=== PATIENT | female | born 1950 | race Caucasian/White ===

== ENCOUNTER 2024-08-29 12:04 | Inpatient (IN) | payer OTHER, MEDICAID ==
[~2024-08-29] VITALS: Ht 165.1 cm; Wt 138.7 kg
[2024-08-29] VITALS (23 sets, daily range): BP systolic 57–133; BP diastolic 28–79; PULSE 63–154; RESP 10–20; O2SAT 92–99
--- NOTE | 2024-08-29 12:13 | ED.PDOC ---
History of Present Illness HPI Comments 74Y F with PMHx CHF, COPD, HTN, CKD, OA, and osteoporosis presents to ED via EMS for chief complaint BLE edema x1year. Pt reports edema fluctuates but today she called 911 because she is unable to move. Pt is taking Bumex. No other symptoms reported. 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 History Family History Family History: Unknown Social History Smoker: Non-Smoker Alcohol: Denies ETOH Use Drugs: Denies Drug Use Lives In: Home Constitutional: denies: chills, diaphoresis, fatigue, fever, malaise, sweats, weakness, others EENTM: denies: blurred vision, double vision, ear bleeding, ear discharge, ear drainage, ear pain, ear ringing, eye pain, eye redness, hearing loss, mouth pain, mouth swelling, nasal discharge, nose bleeding, nose congestion, nose pain, photophobia, tearing, throat pain, throat swelling, voice changes, others Respiratory: denies: cough, hemoptysis, orthopnea, SOB at rest, shortness of breath, SOB with excertion, stridor, wheezing, others Cardiovascular: reports: edema; denies: chest pain, dizzy spells, diaphoresis, Dyspnea on exertion, irregular heart beat, left arm pain, lightheadedness, palpitations, PND, syncope, others Gastrointestinal: denies: abdomen distended, abdominal pain, blood streaked bowels, constipated, diarrhea, dysphagia, difficulty swallowing, hematemesis, melena, nausea, poor appetite, poor fluid intake, rectal bleeding, rectal pain, vomiting, others Genitourinary: denies: abnormal vagina bleeding, burning, dyspareunia, dysuria, flank pain, frequency, hematuria, incontinence, pain, , vagina discharge, urgency, others Neurological: denies: dizziness, fainting, headache, left sided numbness, left sided weakness, numbness, paresthesia, pre-existing deficit, right sided numbness, right sided weakness, seizure, speech problems, tingling, tremors, weakness, others Musculoskeletal: denies: back pain, gout, joint pain, joint swelling, muscle pain, muscle stiffness, neck pain, others Integumetry: denies: bruises, change in color, change in hair/nails, dryness, laceration, lesions, lumps, rash, wounds, others Allergic/Immunocompromised: denies: Difficulty Healing, Frequent Infections, Hives, Itching, others Hematologic/Lymphatic: denies: anemia, blood clots, easy bleeding, easy bruising, swollen glands, others Endocrine: denies: excessive hunger, excessive sweating, excessive thirst, excessive urination, flushing, intolerance to cold, intolerance to heat, unexplained weight gain, unexplained weight loss, others Psychiatric: denies: anxiety, bipolar disorder, depression, hopeless, panic disorder, schizophrenia, sleepless, suicidal, others All Other Systems: Reviewed and Negative Physical Exam General Appearance: No Apparent Distress, Normal HEENT: Normal ENT Inspection, Pharynx Normal, TMs Normal Neck: Full Range of Motion, Non-Tender, Normal, Normal Inspection Respiratory: Chest Non-Tender, Lungs Clear, No Accessory Muscle Use, No Respiratory Distress, Normal Breath Sounds Cardiovascular: No JVD, No Murmur, No Gallop, Normal Peripheral Pulses, Regular Rate/Rhythm Breast Exam: Deferred Gastrointestinal: No Organomegaly, Non Tender, No Pulsatile Mass, Normal Bowel Sounds, Soft Genitalia: Deferred Pelvic: Deferred Rectal: Deferred Extremities: Leg edema, No calf tenderness, Normal capillary refill, Normal inspection, Normal range of motion, Non-tender Musculoskeletal : Apperance: Normal Neurologic: Alert, kiln fireman II-XII nml as Tested, No Motor Deficits, Normal Affect, Normal Mood, No Sensory Deficits Cerebellar Function: NOT DONE Reflexes: NOT DONE Skin: Dry, Normal Color, Warm Lymphatic: No Adenopathy Was a procedure done? Was a procedure done?: No Differential Dx Considerations may include: CHF exacerbation X-Ray, Labs, Meds, VS Vital Signs Date Time Temp Pulse Resp B/P (MAP) Pulse Ox O2 Delivery O2 Flow Rate FiO2 08/29/24 14:37 68 14 77/50 (59) 95 08/29/24 13:19 67 10 94 Nasal Cannula* 3 32 08/29/24 12:43 81 08/29/24 12:25 98.1 86 17 128/97 (107) 98 Lab Test 08/29/24 13:36 08/29/24 12:41 Range/Units Troponin I High Sensitivity 10 10 </=34 ng/L White Blood Count 7.9 4.4-10.8 10^3/uL Red Blood Count 3.23 L 4.0-5.20 10^6/uL Hemoglobin 8.6 L 12.2-16.2 g/dL Hematocrit 27.2 L 36.0-46.0 % Mean Corpuscular Volume 84.0 80.0-100.0 fL Mean Corpuscular Hemoglobin 26.5 L 28.0-32.0 pg Mean Corpuscular Hemoglobin Concent 31.6 L 32.0-36.0 g/dL Red Cell Distribution Width 16.5 H 11.8-14.3 % Platelet Count 256 140-450 10^3/uL Mean Platelet Volume 6.9 6.9-10.8 fL Neutrophils (%) (Auto) 81.1 H 37.0-80.0 % Lymphocytes (%) (Auto) 11.6 10.0-50.0 % Monocytes (%) (Auto) 6.1 0.0-12.0 % Eosinophils (%) (Auto) 0.9 0.0-7.0 % Basophils (%) (Auto) 0.3 0.0-2.0 % Neutrophils # (Auto) 6.4 1.6-8.6 10 ^3/uL Lymphocytes # (Auto) 0.9 0.4-5.4 10 ^3/uL Monocytes # (Auto) 0.5 0-1.3 10 ^3/uL Eosinophils # (Auto) 0.1 0-0.8 10 ^3/uL Basophils # (Auto) 0 0-0.2 10 ^3/uL Nucleated Red Blood Cells 0.1 % Sodium Level 124 L 136-145 mmol/L Potassium Level 5.5 H 3.5-5.1 mmol/L Chloride Level 84 L 98-107 mmol/L Carbon Dioxide Level 35 H 20-31 mmol/L Anion Gap 5 5-15 Blood Urea Nitrogen 93 *H 9-23 mg/dL Creatinine 5.22 H 0.550-1.02 mg/dL Glomerular Filtration Rate Calc 8 >90 mL/min BUN/Creatinine Ratio 17.8 10.0-20.0 Serum Glucose 76 74-106 mg/dL Calcium Level 9.4 8.7-10.4 mg/dL B-Type Natriuretic Peptide 258.85 0-100 pg/mL [place] [id number] Ph: [phone] DIAGNOSTIC IMAGING Diagnostic Imaging Report : [id number] Signed PATIENT: HORTENCIA CÁRDENAS ACCT: [id number] UNIT: [id number] : 1950 LOC: ER ROOM / BED: / AGE / SEX: 74 / F ADM STATUS: REG ER SERVICE 07 ORDERING PHYSICIAN: GREGG DUARTE MD PROCEDURE(s): CXRP - CHEST PORTABLE REASON: sob ORDER NUMBER(s): [id number], ACCESSION NUMBER(s): [id number] CHEST RADIOGRAPH Indication: sob Technique: Single frontal view of the chest was obtained Comparison: None FINDINGS: Lines and Tubes: None Lungs: Mild bilateral perihilar peribronchial thickening. Findings may represent bronchitis Pleura: No effusion. No pneumothorax. Cardiomediastinal contours: Unremarkable Bones: No acute osseous abnormality. IMPRESSION: 1. Mild bilateral perihilar peribronchial thickening findings may represent bronchitis. HS:Y ATED BY: JOSUE BAINS Jr., DO DICTATED DATE/TIME: 08/29/241243 SIGNED BY: JOSUE BAINS Jr., SIGNED DATE/TIME: 08/29/241243 CC: Time of 1ST Reevaluation: 12:36 Reevaluation 1ST: Unchanged Patient Education/Counseling: Diagnosis, Treatment Family Education/Counseling: No Family Present Departure 1 Departure Time of Disposition: 15:14 (Patient with a acute on chronic systolic dysfu nction with reduced EF. Patient having an acute CHF exacerbation. Patient needs diuresis every her blood pressure is too low. We will treat patient with a ionotropic assisted diuresis. We will admit patient to the ICU for further workup) Impression: Primary Impression: Acute on chronic systolic (congestive) heart failure Additional Impressions: Shortness of breath Cardiac volume overload Disposition: ADMITTED INPATIENT Admit to: ICU Condition: Critical Critical Care Note Critical Care Time?: Yes Critical care comment: Acute shortness of breath Authorized and Performed by: Gregg Duarte MD Total critical care time: Approximately 38 minutes Due to a high probability of clinically significant, life threatening deterioration, the patient required my highest level of preparedness to intervene emergently and I personally spent this critical care time directly and personally managing the patient. This critical care time included obtaining a history; examining the patient; pulse oximetry; ordering and review of studies; arranging urgent treatment with development of a management plan; evaluation of patient's response to treatment; frequent reassessment; and, discussions with other providers. This critical care time was performed to assess and manage the high probability of imminent, life-threatening deterioration that could result in multi-organ failure. It was exclusive of separately billable procedures and treating other patients and teaching time. Please see my other sections and the rest of the note for further information on patient assessment and treatment. Stability Stability form required: No Heart Score Heart Score: Heart Score Response (Comments) Value History N/A 0 EKG N/A 0 Age N/A 0 Risk Factors N/A 0 Troponin N/A 0 Total 0 I personally scribed for GREGG DUARTE MD ([email or web address]) on 08/29/24 at 12:13. Electronically submitted by Monse Roe ([employer]). I personally scribed for GREGG DUARTE MD ([email or web address]) on 08/29/24 at 12:51. Electronically submitted by Monse Roe ([employer]). GREGG DUARTE MD Aug 29, 2024 12:13
--- NOTE | 2024-08-29 12:44 | ECG ---
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
--- NOTE | 2024-08-29 12:46 | DVH ---
CHEST RADIOGRAPH Indication: sob Technique: Single frontal view of the chest was obtained Comparison: None FINDINGS: Lines and Tubes: None Lungs: Mild bilateral perihilar peribronchial thickening. Findings may represent bronchitis Pleura: No effusion. No pneumothorax. Cardiomediastinal contours: Unremarkable Bones: No acute osseous abnormality. IMPRESSION: 1. Mild bilateral perihilar peribronchial thickening findings may represent bronchitis. HS:Y
[2024-08-29 13:17] LABS: Basophils # (auto) 0 10 ^3/uL (0-0.2); Basophils % (auto) 0.3 % (0.0-2.0); Eosinophils # (auto) 0.1 10 ^3/uL (0-0.8); Eosinophils % (auto) 0.9 % (0.0-7.0); Hematocrit 27.2 % (36.0-46.0); Hemoglobin 8.6 g/dL (12.2-16.2); Lymphocytes # (auto) 0.9 10 ^3/uL (0.4-5.4); Lymphocytes % (auto) 11.6 % (10.0-50.0); Mean Corpuscular Hemoglobin 26.5 pg (28.0-32.0); Mean Corpuscular Hgb Conc. 31.6 g/dL (32.0-36.0); Monocytes # (auto) 0.5 10 ^3/uL (0-1.3); Monocytes % (auto) 6.1 % (0.0-12.0); Neutrophils # (auto) 6.4 10 ^3/uL (1.6-8.6); Neutrophils % (auto) 81.1 % (37.0-80.0); Nucleated Red Blood Cells % 0.1 %; Platelet Count (auto) 256 10^3/uL (140-450); Red Blood Cells 3.23 10^6/uL (4.0-5.20); Red Cell Distribution Width 16.5 % (11.8-14.3); White Blood Cell 7.9 10^3/uL (4.4-10.8)
[2024-08-29 13:52] LABS: Anion Gap 5 (5-15)
[2024-08-29 13:53] LABS: Calcium 9.4 mg/dL (8.7-10.4)
[2024-08-29 13:58] LABS: BUN/Creatinine Ratio 17.8 (10.0-20.0); Glucose 76 mg/dL (74-106)
[2024-08-29 14:02] LABS: Carbon Dioxide 35 mmol/L (20-31); Chloride 84 mmol/L (98-107); Potassium 5.5 mmol/L (3.5-5.1); Sodium 124 mmol/L (136-145)
[2024-08-29 14:04] LABS: Blood Urea Nitrogen 93 mg/dL (9-23)
[2024-08-29] MEDS: NOREPINEPHRINE 8 MG/250ML KIT 250 ML IV ONE (15:05)
[2024-08-29] MEDS: LIDOCAINE 1% (LOCAL ANESTH.) PF 5ml SDV ID ONE (15:15)
[2024-08-29] MEDS: NOREPINEPHRINE 8 MG/250ML KIT 250 ML IV SCH (15:26)
[2024-08-29] MEDS ORDERED: ONDANSETRON HCL 4 MG/2 ML VIAL IV PRN (17:00)
[2024-08-29] MEDS: ALBUMIN 25% 100 ML IV ONE (17:00)
[2024-08-29] MEDS ORDERED: MORPHINE SULFATE INJ 2 MG/ml SYRG IV PRN (17:00)
[2024-08-29] MEDS ORDERED: NITROGLYCERIN 0.4 MG SL TAB SL PRN (17:00)
[2024-08-29] MEDS ORDERED: LORazepam 2MG/ML-1ML VIAL IV PRN (17:00)
[2024-08-29] MEDS: NYSTATIN-TRIAMCINOLONE TOPICAL CRE 15GM TOP ONE (17:00)
[2024-08-29] MEDS ORDERED: ATOR20TA50 PO (17:08)
[2024-08-29] MEDS ORDERED: BUME2TAB5 PO (17:08)
[2024-08-29] MEDS ORDERED: MET25T PO (17:08)
[2024-08-29] MEDS ORDERED: PANT40T PO (17:08)
[2024-08-29] MEDS ORDERED: APIX2.5T PO (17:08)
[2024-08-29] MEDS ORDERED: ALLO100T PO (17:08)
[2024-08-29] MEDS ORDERED: GABA-1250 PO (17:08)
--- NOTE | 2024-08-29 17:19 | DVHINCON2 ---
Date of service: Aug 29, 2024 Referring Physician Reason for Consultation Acute kidney injury History of Present Illness 74-year-old patient with significant history of chronic kidney disease stage 3, hypokalemia, hypertension, COPD, pulmonary hypertension and severe diastolic hea rt failure, chronic leg edema, bed-bound who presents to the hospital because worsening lower extremity edema for the last one week associated with dyspnea and no improvement of the symptoms despite taking Bumex 2 mg in the morning and 1 mg at night in addition to metolazone that she took x1. Patient denies improvement in the urinary output with diuretics and due to the significant leg swelling she is unable to move. She denies fever chills, nausea vomiting or diarrhea. She has been taking her Aldactone in addition to the Bumex. Initial lab revealed a potassium of 5.5, acute kidney injury with elevated BUN and creatinine. 2D echo from previous hospitalization revealed LVEF of 55% with pulmonary hypertension and right-sided heart failure. Past Medical History CHF, diastolic, Chronic kidney disease three, hypertension, chronic leg edema Past Surgical History Denied Allergies: Coded Allergies: Sulfa Antibiotics (Verified Allergy, Mild, 08/29/24) Zinc Oxide (Verified Allergy, Mild, 08/29/24) Home Meds Reported Medications Gabapentin (Gabapentin) 300 Mg Cap, 300 MG PO BID 08/29/24 Metoprolol Tartrate (Lopressor) 25 Mg Tb, 1 TAB PO DAILY 08/29/24 Pantoprazole Sodium Sesquihydr (Pantoprazole Sodium) 40 Mg Tab, 1 TAB PO DAILY 08/29/24 Atorvastatin Calcium (ATORVASTATIN CALCIUM) 20 Mg Tab, 1 TAB PO DAILY 08/29/24 Bumetanide (Bumetanide) 2 Mg Tab, 1 TAB PO BID 08/29/24 Apixaban Base (ELIQUIS) 2.5 Mg Tab, 1 TAB PO BID 08/29/24 Allopurinol (Allopurinol) 100 Mg Tab, 1 TAB PO DAILY 08/29/24 Current Medications Current Medications Medications (Trade) Dose Ordered Sig/Nomi Route PRN Reason Start Time Stop Time Status Last Admin Norepinephrine Bitartrate 250 ml @ 3.75 mls/hr Q24H IV 08/29/24 15:00 08/29/24 15:26 Sodium Chloride (Saline Lock Ns) 10 ml QSHIFT@10,22 IV 08/29/24 22:00 Sodium Chloride (Saline Lock Ns) 10 ml Q8HR IV 08/29/24 22:00 UNV Acetaminophen/ Hydrocodone Bitart (Delia 5/325MG Tab) 1 tab Q4HP PRN PO MODERATE PAIN (4-6 PAIN SCALE) 08/29/24 17:00 UNV Ondansetron HCl (Zofran) 4 mg Q4HP PRN IV NAUSEA / VOMITING 08/29/24 17:00 UNV Docusate Sodium (Colace Capsule) 100 mg BIDPRN PRN PO FOR CONSTIPATION 08/29/24 17:00 UNV Acetaminophen (Tylenol Tablet) 650 mg Q6HP PRN PO PAIN SCALE 1-3 OR TEMP>100.4 08/29/24 17:00 UNV Nitroglycerin (Ntrostat Sublingual) 0.4 mg Q5MINP PRN SL FOR CHEST PAIN 08/29/24 17:00 UNV Morphine Sulfate 2 mg Q30M PRN IV FOR CHEST PAIN 08/29/24 17:00 UNV Chlordiazepoxide HCl (Librium Capsule) 50 mg Q8H PO 08/29/24 17:00 08/30/24 09:01 UNV Chlordiazepoxide HCl (Librium Capsule) 50 mg Q12HR PO 08/30/24 10:00 08/30/24 22:01 UNV Chlordiazepoxide HCl (Librium Capsule) 25 mg Q12HR PO 08/31/24 10:00 08/31/24 22:01 UNV Chlordiazepoxide HCl (Librium Capsule) 25 mg QAM PO 09/01/24 07:00 09/01/24 07:01 UNV Lorazepam (Ativan Inj) 1 mg Q2HP PRN IV ALCOHOL WITHDRAWAL SYMPTOMS 08/29/24 17:00 UNV Multivitamins (Mvi Tab) 1 tab DAILY PO 08/30/24 10:00 UNV Folic Acid 1 mg DAILY PO 08/30/24 10:00 UNV Thiamine HCl 100 mg DAILY PO 08/30/24 10:00 UNV Allopurinol (Zyloprim Tablet) 100 mg DAILY PO 08/30/24 10:00 UNV Apixaban (Eliquis) 2.5 mg BID PO 08/29/24 22:00 UNV Atorvastatin Calcium (Lipitor) 20 mg DAILY PO 08/30/24 10:00 UNV Gabapentin (Neurontin Capsule) 300 mg BID PO 08/29/24 22:00 UNV Metoprolol Tartrate (Lopressor Tablet) 25 mg DAILY PO 08/30/24 10:00 UNV Pantoprazole Sodium (Protonix Tablet) 40 mg DAILY PO 08/30/24 10:00 UNV Dobutamine HCl/ Dextrose 250 ml @ 51.6 mls/hr Q4H51M IV 08/29/24 17:15 UNV Family History Hypertension in the father Social History Denies smoking alcohol or drug abuse Review of Systems HEENT: Oral mucosa dry Neck no JVD Cardiovascular: Denies for chest pain denies orthopnea or PND Respiratory: Positive for shortness of breath Gastrointestinal: Denies for nausea vomiting Musculoskeletal: Positive for worsening leg edema Neurological: Denies focal weakness Dermatological: Denies any rash The rest of the review of systems were reviewed pertinent positives and pertinent negatives are as per HPI up to 12 points review of systems H&P Exam Vital Signs/I&O Vital Sign Date Time Temp Pulse Resp B/P (MAP) Pulse Ox O2 Delivery O2 Flow Rate FiO2 08/29/24 16:01 73 08/29/24 15:26 95/44 08/29/24 14:37 14 95 08/29/24 13:19 Nasal Cannula* 3 32 08/29/24 12:25 98.1 Physical Exam HEENT: No evidence of JVD, no oral ulcers. Pulmonary: Crackles on auscultation bilaterally Cardiovascular S1-S2, no S3 or S4 Abdomen: Bowel sounds positive, soft no rebound tenderness Skin: No rash : Extremities: 3+ pitting edema in the lower extremities bilaterally proximal abdominal wall Neurological: Alert, oriented, no focal weakness Labs/Diagnostic Data Labs/Diagnostic Data Laboratory Tests Test 08/29/24 15:37 08/29/24 13:36 08/29/24 12:41 Range/Units Troponin I High Sensitivity 10 10 10 </=34 ng/L White Blood Count 7.9 4.4-10.8 10^3/uL Red Blood Count 3.23 L 4.0-5.20 10^6/uL Hemoglobin 8.6 L 12.2-16.2 g/dL Hematocrit 27.2 L 36.0-46.0 % Mean Corpuscular Volume 84.0 80.0-100.0 fL Mean Corpuscular Hemoglobin 26.5 L 28.0-32.0 pg Mean Corpuscular Hemoglobin Concent 31.6 L 32.0-36.0 g/dL Red Cell Distribution Width 16.5 H 11.8-14.3 % Platelet Count 256 140-450 10^3/uL Mean Platelet Volume 6.9 6.9-10.8 fL Neutrophils (%) (Auto) 81.1 H 37.0-80.0 % Lymphocytes (%) (Auto) 11.6 10.0-50.0 % Monocytes (%) (Auto) 6.1 0.0-12.0 % Eosinophils (%) (Auto) 0.9 0.0-7.0 % Basophils (%) (Auto) 0.3 0.0-2.0 % Neutrophils # (Auto) 6.4 1.6-8.6 10 ^3/uL Lymphocytes # (Auto) 0.9 0.4-5.4 10 ^3/uL Monocytes # (Auto) 0.5 0-1.3 10 ^3/uL Eosinophils # (Auto) 0.1 0-0.8 10 ^3/uL Basophils # (Auto) 0 0-0.2 10 ^3/uL Nucleated Red Blood Cells 0.1 % Sodium Level 124 L 136-145 mmol/L Potassium Level 5.5 H 3.5-5.1 mmol/L Chloride Level 84 L 98-107 mmol/L Carbon Dioxide Level 35 H 20-31 mmol/L Anion Gap 5 5-15 Blood Urea Nitrogen 93 *H 9-23 mg/dL Creatinine 5.22 H 0.550-1.02 mg/dL Glomerular Filtration Rate Calc 8 >90 mL/min BUN/Creatinine Ratio 17.8 10.0-20.0 Serum Glucose 76 74-106 mg/dL Calcium Level 9.4 8.7-10.4 mg/dL B-Type Natriuretic Peptide 258.85 0-100 pg/mL Chest x-ray shows increased interstitial marking Assessment Assessment: 1. Acute kidney injury on chronic kidney disease stage 3 likely cardiorenal 2. Hypotension, cardiogenic most likely 3. Acute diastolic heart failure exacerbation 4. Hyperkalemia 5. Hyponatremia, hypervolemic 6. Morbid obesity Plan: Bumex drip, albumin Lokelma May need renal replacement therapy if above measures do not improve renal function Cardiology consult Fluid restriction Insert Peoples catheter strict I's and O's Pressor support Hold antihypertensive meds Thank you very much for allowing me to participate in the care of this patient Plan discussed with: Patient LUIS PIEDRA MD Aug 29, 2024 17:19
--- NOTE | 2024-08-29 17:33 | DVHHP2 ---
History of Present Illness Reason for Visit: Bilateral lower extremity swelling History of Present Illness Viviana Bagley is a 74-year-old female with past medical history of COPD, ETOH dependance, CHF, hypertension, arthritis, chronic kidney disease, and osteoporosis, who came to the hospital for bilateral lower extremity swelling. Patient is bedbound at her baseline, she lives alone, but her daughter lives in a different house on the same property. She also has a forestry engineer who helps her. Patient has a history of renal failure, on large doses of diuretics at home. States at home she can usually move her legs in bed, but has been unable to due to the swelling the last couple of days. Patient also states that she drinks 1/2 a bottle of whiskey a day. On arrival to ER patient's BP was low and she was started on Levophed. She has +4 pitting edema to bilateral lower extremities. Cardiovascular: AFIB, CHF, HTN Pulmonary: COPD Musculoskeletal: Osteoarthritis Renal/: Chronic renal insuff Past Surgical History: Other (Bilateral ankles, ), Total knee replacement (Right) Smoke: No ALCOHOL: heavy Drugs: None Lives: Alone (daughter is on the same property but different house) Domestic Violence: Neg Review of Systems Constitutional: No: Fever, Chills, Sweats, Weakness, Malaise, Other Eyes: No: Pain, Vision change, Conjunctivae inflammation, Eyelid inflammation, Other, Redness ENT: No: Ear pain, Ear discharge, Nose pain, Nose discharge, Nose congestion, Mouth pain, Mouth swelling, Throat pain, Throat swelling, Other Respiratory: No: Cough, Dry, Shortness of breath, SOB with excertion, Wheezing, Hemoptysis, Pleuritic Pain, Sputum, Wheezing, Other Cardiovascular: Edema (Bilateral lower extremity +4 pitting edema); No: Chest Pain, Palpitations, Orthopnea, Paroxysmal Noc. Dyspnea, Lt Headedness, Other Gastrointestinal: No: Nausea, Vomiting, Abdominal Pain, Diarrhea, Constipation, Melena, Hematochezia, Other Genitourinary: No Dysuria, No Frequency, No Incontinence, No Hematuria, No Retention, No Other Musculoskeletal: No: other, neck pain, shoulder pain, arm pain, back pain, hand pain, leg pain, foot pain Skin: No: Rash, Lesions, Jaundice, Bruising, Other Neurological: No: Weakness, Numbness, Incoordination, Change in speech, Confusion, Seizures, Other Allergies: Coded Allergies: Sulfa Antibiotics (Verified Allergy, Mild, 08/29/24) Zinc Oxide (Verified Allergy, Mild, 08/29/24) Medications Current Medications Medications Dose Ordered Sig/Nomi Route Start Time Stop Time Status Last Admin Dose Admin Norepinephrine Bitartrate 250 ml @ 3.75 mls/hr Q24H IV 08/29/24 15:00 08/29/24 15:26 3.75 MLS/HR Sodium Chloride 10 ml QSHIFT@10,22 IV 08/29/24 22:00 Sodium Chloride 10 ml Q8HR IV 08/29/24 22:00 UNV Acetaminophen/ Hydrocodone Bitart 1 tab Q4HP PRN PO 08/29/24 17:00 UNV Ondansetron HCl 4 mg Q4HP PRN IV 08/29/24 17:00 UNV Docusate Sodium 100 mg BIDPRN PRN PO 08/29/24 17:00 UNV Acetaminophen 650 mg Q6HP PRN PO 08/29/24 17:00 UNV Nitroglycerin 0.4 mg Q5MINP PRN SL 08/29/24 17:00 UNV Morphine Sulfate 2 mg Q30M PRN IV 08/29/24 17:00 UNV Chlordiazepoxide HCl 50 mg Q8H PO 08/29/24 17:00 08/30/24 09:01 UNV Chlordiazepoxide HCl 50 mg Q12HR PO 08/30/24 10:00 08/30/24 22:01 UNV Chlordiazepoxide HCl 25 mg Q12HR PO 08/31/24 10:00 08/31/24 22:01 UNV Chlordiazepoxide HCl 25 mg QAM PO 09/01/24 07:00 09/01/24 07:01 UNV Lorazepam 1 mg Q2HP PRN IV 08/29/24 17:00 UNV Multivitamins 1 tab DAILY PO 08/30/24 10:00 UNV Folic Acid 1 mg DAILY PO 08/30/24 10:00 UNV Thiamine HCl 100 mg DAILY PO 08/30/24 10:00 UNV Allopurinol 100 mg DAILY PO 08/30/24 10:00 UNV Apixaban 2.5 mg BID PO 08/29/24 22:00 UNV Atorvastatin Calcium 20 mg DAILY PO 08/30/24 10:00 UNV Gabapentin 300 mg BID PO 08/29/24 22:00 UNV Metoprolol Tartrate 25 mg DAILY PO 08/30/24 10:00 UNV Exam Vital Signs Vital Signs Date Time Temp Pulse Resp B/P (MAP) Pulse Ox O2 Delivery O2 Flow Rate FiO2 08/29/24 16:01 73 08/29/24 15:26 95/44 08/29/24 14:37 14 95 08/29/24 13:19 Nasal Cannula* 3 32 08/29/24 12:25 98.1 General Appearance: Alert, Oriented X3, Cooperative, mild distress HEENT: Atraumatic, PERRLA Respiratory: Normal air movement, Other (Diminshed breath sounds) Cardiovascular: Normal S1, Normal S2, Other (A-Fib) Abdominal: Normal bowel sounds, Soft, No tenderness, No hepatospenomegaly, Other (edema) Extremities: No clubbing, No cyanosis, Other (bilateral +4 pitting edema) Skin: No rashes, No breakdown (Right ear breakdown from oxygen tube) Neuro: Other (bedbound at baseline) Psych/Mental Status: Mental status NL, Mood NL Labs/Xrays Labs Test 08/29/24 15:37 08/29/24 12:41 Range/Units Troponin I High Sensitivity 10 </=34 ng/L White Blood Count 7.9 4.4-10.8 10^3/uL Red Blood Count 3.23 L 4.0-5.20 10^6/uL Hemoglobin 8.6 L 12.2-16.2 g/dL Hematocrit 27.2 L 36.0-46.0 % Mean Corpuscular Volume 84.0 80.0-100.0 fL Mean Corpuscular Hemoglobin 26.5 L 28.0-32.0 pg Mean Corpuscular Hemoglobin Concent 31.6 L 32.0-36.0 g/dL Red Cell Distribution Width 16.5 H 11.8-14.3 % Platelet Count 256 140-450 10^3/uL Mean Platelet Volume 6.9 6.9-10.8 fL Neutrophils (%) (Auto) 81.1 H 37.0-80.0 % Lymphocytes (%) (Auto) 11.6 10.0-50.0 % Monocytes (%) (Auto) 6.1 0.0-12.0 % Eosinophils (%) (Auto) 0.9 0.0-7.0 % Basophils (%) (Auto) 0.3 0.0-2.0 % Neutrophils # (Auto) 6.4 1.6-8.6 10 ^3/uL Lymphocytes # (Auto) 0.9 0.4-5.4 10 ^3/uL Monocytes # (Auto) 0.5 0-1.3 10 ^3/uL Eosinophils # (Auto) 0.1 0-0.8 10 ^3/uL Basophils # (Auto) 0 0-0.2 10 ^3/uL Nucleated Red Blood Cells 0.1 % Sodium Level 124 L 136-145 mmol/L Potassium Level 5.5 H 3.5-5.1 mmol/L Chloride Level 84 L 98-107 mmol/L Carbon Dioxide Level 35 H 20-31 mmol/L Anion Gap 5 5-15 Blood Urea Nitrogen 93 *H 9-23 mg/dL Creatinine 5.22 H 0.550-1.02 mg/dL Glomerular Filtration Rate Calc 8 >90 mL/min BUN/Creatinine Ratio 17.8 10.0-20.0 Serum Glucose 76 74-106 mg/dL Calcium Level 9.4 8.7-10.4 mg/dL B-Type Natriuretic Peptide 258.85 0-100 pg/mL CHEST RADIOGRAPH FINDINGS: Lines and Tubes: None Lungs: Mild bilateral perihilar peribronchial thickening. Findings may represen t bronchitis Pleura: No effusion. No pneumothorax. Cardiomediastinal contours: Unremarkable Bones: No acute osseous abnormality. IMPRESSION: 1. Mild bilateral perihilar peribronchial thickening findings may represent bronchitis. 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 Procedure Category Date Status Time Admit ADMIT 08/29/24 Transmitted 17:00 Code Status CODE 08/29/24 Transmitted 17:00 Renal DIET 08/29/24 Transmitted Standard(2gna,3gk,Lopho) Dinner Sodium Chloride Lock PHA 08/29/24 Logged (Saline Lock Ns) 22:00 Hydrocodone-Acet PHA 08/29/24 Logged 5/325mg Tab ([place] 17:00 Ondansetron Hcl PHA 08/29/24 Logged (Zofran) 17:00 Docusate Sodium PHA 08/29/24 Logged Capsule (Colace 17:00 Complete Blood Count LAB 08/30/24 Verified 04:00 Comprehensive LAB 08/30/24 Verified Metabolic Panel 04:00 Condition: Critical MCKENZIE 08/29/24 In Process 17:00 Acetaminophen Tablet PHA 08/29/24 Logged (Tylenol Tablet) 17:00 Nitroglycerin PHA 08/29/24 Logged Sublingual (Ntrostat 17:00 Morphine Sulfate PHA 08/29/24 Logged Injection 17:00 Stat Ekg For Chest MCKENZIE 08/29/24 In Process Pain 17:00 Notify Of Changes MCKENZIE 08/29/24 In Process From Base 17:00 Watch Dial Printer For [facility] 08/29/24 In Process 24 Hours 17:00 Emergency Dysrhythmia MCKENZIE 08/29/24 In Process Protocol 17:00 Rhythm Strips Once [facility] 08/29/24 In Process Every Shift 17:00 Oxygen By Nasal RT 08/29/24 Transmitted Cannula 17:00 Chlordiazepoxide Hcl PHA 08/29/24 Logged Capsule (Librium Ca 17:00 Chlordiazepoxide Hcl PHA 08/30/24 Logged Capsule (Librium Ca 10:00 Chlordiazepoxide Hcl PHA 08/31/24 Logged Capsule (Librium Ca 10:00 Chlordiazepoxide Hcl PHA 09/01/24 Logged Capsule (Librium Ca 07:00 Etoh Withdrawal MCKENZIE 08/29/24 In Process Assessment 17:00 Lorazepam 2mg/Ml Inj PHA 08/29/24 Logged (Ativan Inj) 17:00 Multiple Vitamin PHA 08/29/24 Logged Tablet (Mvi Tab) 17:00 Multiple Vitamin PHA 08/30/24 Logged Tablet (Mvi Tab) 10:00 Folic Acid Tablet PHA 08/29/24 Logged 17:00 Folic Acid Tablet PHA 08/30/24 Logged 10:00 Thiamine Tab PHA 08/29/24 Logged 17:00 Thiamine Tab PHA 08/30/24 Logged 10:00 Allopurinol Tablet PHA 08/30/24 Transmitted (Zyloprim Tablet) 10:00 Apixaban (Eliquis) PHA 08/29/24 Transmitted 22:00 Atorvastatin (Lipitor) PHA 08/30/24 Transmitted 10:00 Gabapentin Capsule PHA 08/29/24 Transmitted (Neurontin Capsule) 22:00 Metoprolol Tartrate PHA 08/30/24 Transmitted Tablet (Lopressor Ta 10:00 Pantoprazole Tablet PHA 08/30/24 Transmitted (Protonix Tablet) 10:00 Date of Service: Aug 29, 2024 Billing Provider: RONALD RIVERA Common Visit Codes: 34280-[id number] INP/OBS CARE (HIGH) RONALD RIVERA Aug 29, 2024 17:33
--- NOTE | 2024-08-29 17:51 | DVHINCON2 ---
Date of service: Aug 29, 2024 History of Present Illness HPI Patient is a 74-year-old female who presented to the hospital with generalized weakness. She has been bed-bound for few years. She mentions that she was feeling more weak and could not even move in the bed and decided to come to the hospital. She also has baseline history of generalized swelling which occasionally worsens or improves. The swelling goes back for years. She mentions that the swelling increased for the past week. As outpatient, the patient is on Bumex. She mentions that she does go to slip tender regularly. Admission assessment had been acute on chronic heart failure and Cardiology was involved. It is of note that the patient started coming to our office in March 2022 but has been noncompliant with followups. Last visit inside the office was actually in March 2022. For awhile (up to September 2023) she was lost to follow up. Since September 2023, the patient has had multiple phone visits and has not come for physical exam. She has not come for requested echocardiograms/tests. She did have echocardiogram in [facility] (October 2023) which has reported preserved left ventricular systolic function and right ventricular systolic pressure of 31 mm Hg. There was question (unproven) about diastolic heart failure. She does have baseline CKD. She does have morbid obesity with poor functional capacity. She has had multiple surgeries in the bilateral feet. She also has history of COPD/asthma with chronic respiratory failure (on home oxygen). She also has history of atrial fibrillation for which is on Eliquis as outpatient. Since arrival to Emergency room, the patient's blood pressure was found to be low and she has been started on pressure support and the plan is to manage the patient in ICU. Home Meds Reported Medications Metoprolol Tartrate (Lopressor) 25 Mg Tb, 1 TAB PO DAILY 08/29/24 Gabapentin (Gabapentin) 300 Mg Cap, 300 MG PO BID 08/29/24 Pantoprazole Sodium Sesquihydr (Pantoprazole Sodium) 40 Mg Tab, 1 TAB PO DAILY 08/29/24 Atorvastatin Calcium (ATORVASTATIN CALCIUM) 20 Mg Tab, 1 TAB PO DAILY 08/29/24 Bumetanide (Bumetanide) 2 Mg Tab, 1 TAB PO BID 08/29/24 Apixaban Base (ELIQUIS) 2.5 Mg Tab, 1 TAB PO BID 08/29/24 Allopurinol (Allopurinol) 100 Mg Tab, 1 TAB PO DAILY 08/29/24 Past Medical History Others Past medical history includes morbid obesity, atrial fibrillation (on Eliquis as outpatient), COPD/asthma with chronic respiratory failure on home oxygen, hypertension, hyperlipidemia, chronic lymphedema, rheumatoid arthritis, ost eoarthritis, peripheral vascular disease, CKD, anemia, old history of alcohol abuse, neuropathy, gout, old history of right and left foot fracture and their management, status post right knee replacement, bed-bound at baseline and functional quadriplegia. There was question about diastolic heart failure (unproven). Smoker: No Hx (Negative) Drugs: None Review of Systems Constitutional: Weakness Ears, Nose, & Throat: No symptom reported Eyes: No symptom reported Pulmonary/Respiratory: No symptom reported Cardiovascular: No symptom reported Gastrointestinal: No symptom reported Genitourinary: No symptom reported All Other Systems 14 point review of system was performed. Relevant findings as per above and as per HPI. Otherwise, negative. H&P Exam Vital Signs Vital Signs Date Time Temp Pulse Resp B/P (MAP) Pulse Ox O2 Delivery O2 Flow Rate FiO2 08/29/24 16:01 73 08/29/24 15:26 95/44 08/29/24 14:37 14 95 08/29/24 13:19 Nasal Cannula* 3 32 08/29/24 12:25 98.1 General Appeara: Obese Eye Exam: bilateral eye PERRL Mouth: Dry mouth Pulmonary/Respiratory: Rhonci Cardiovascular/Chest: Systolic murmur, Irregularly irregular Peripheral Pulses: 2+ carotid (R), 2+ carotid (L), 2+ femoral (R), 2+ femoral (L) Abdominal Exam: Normal bowel sounds, Other (obese) Neuro/Mental St: Alert, Oriented Appearance: Appropriate appearance Eye contact/ Speech: Cooperative Labs/Xrays Labs Test 08/29/24 15:37 08/29/24 12:41 Range/Units Troponin I High Sensitivity 10 </=34 ng/L White Blood Count 7.9 4.4-10.8 10^3/uL Red Blood Count 3.23 L 4.0-5.20 10^6/uL Hemoglobin 8.6 L 12.2-16.2 g/dL Hematocrit 27.2 L 36.0-46.0 % Mean Corpuscular Volume 84.0 80.0-100.0 fL Mean Corpuscular Hemoglobin 26.5 L 28.0-32.0 pg Mean Corpuscular Hemoglobin Concent 31.6 L 32.0-36.0 g/dL Red Cell Distribution Width 16.5 H 11.8-14.3 % Platelet Count 256 140-450 10^3/uL Mean Platelet Volume 6.9 6.9-10.8 fL Neutrophils (%) (Auto) 81.1 H 37.0-80.0 % Lymphocytes (%) (Auto) 11.6 10.0-50.0 % Monocytes (%) (Auto) 6.1 0.0-12.0 % Eosinophils (%) (Auto) 0.9 0.0-7.0 % Basophils (%) (Auto) 0.3 0.0-2.0 % Neutrophils # (Auto) 6.4 1.6-8.6 10 ^3/uL Lymphocytes # (Auto) 0.9 0.4-5.4 10 ^3/uL Monocytes # (Auto) 0.5 0-1.3 10 ^3/uL Eosinophils # (Auto) 0.1 0-0.8 10 ^3/uL Basophils # (Auto) 0 0-0.2 10 ^3/uL Nucleated Red Blood Cells 0.1 % Sodium Level 124 L 136-145 mmol/L Potassium Level 5.5 H 3.5-5.1 mmol/L Chloride Level 84 L 98-107 mmol/L Carbon Dioxide Level 35 H 20-31 mmol/L Anion Gap 5 5-15 Blood Urea Nitrogen 93 *H 9-23 mg/dL Creatinine 5.22 H 0.550-1.02 mg/dL Glomerular Filtration Rate Calc 8 >90 mL/min BUN/Creatinine Ratio 17.8 10.0-20.0 Serum Glucose 76 74-106 mg/dL Calcium Level 9.4 8.7-10.4 mg/dL B-Type Natriuretic Peptide 258.85 0-100 pg/mL Assessment/Plan Plan Patient is a 74-year-old female who presented to the hospital with generalized weakness. She has been bed-bound for few years. She mentions that she was feeling more weak and could not even move in the bed and decided to come to the hospital. She also has baseline history of generalized swelling which occasionally worsens or improves. The swelling goes back for years. She mentions that the swelling increased for the past week. As outpatient, the patient is on Bumex. She mentions that she does go to slip tender regularly. Admission assessment had been acute on chronic heart failure and Cardiology was involved. It is of note that the patient started coming to our office in March 2022 but has been noncompliant with followups. Last visit inside the office was actually in March 2022. For awhile (up to September 2023) she was lost to follow up. Since September 2023, the patient has had multiple phone visits and has not come for physical exam. She has not come for requested echocardiograms/tests. She did have echocardiogram in [facility] (October 2023) which has reported preserved left ventricular systolic function and right ventricular systolic pressure of 31 mm Hg. Repeat echocardiograms in [facility] ( revealed dilated right side, LVEF of 50 to 55% and RVSP of 51 mmHg (in favor of diastolic heart failure). She does have baseline CKD. She does have morbid obesity with poor functional capacity. She has had multiple surgeries in the bilateral feet. She also has history of COPD/asthma with chronic respiratory failure (on home oxygen). She also has history of atrial fibrillation for which is on Eliquis as outpatient. She drinks alcohol (whisky) daily. Since arrival to Emergency room, the patient's blood pressure was found to be low and she has been started on pressure support and the plan is to manage the patient in ICU. Morbidly obese. Lying flat in bed and not in acute distress. No JVD. Mucosa is dry. Mucosa is pink. No JVD. No carotid bruit. Not using accessory muscles of breathing. Scattered rhonchi in the lungs is heard. Cardiac: Irregular, no thrill. Abdomen is obese and soft. There is no gross hepatomegaly, but it is presence can not be ruled out (body habitus, morbidly obese). There is 3+ edema in bilateral lower extremities which extends to abdominal wall. Past medical history includes morbid obesity, atrial fibrillation (on Eliquis as outpatient), COPD/asthma with chronic respiratory failure on home oxygen, hypertension, hyperlipidemia, chronic lymphedema, Diastolic heart failure with type 2 pulmonary hypertension, rheumatoid arthritis, osteoarthritis, peripheral vascular disease, CKD, anemia, old history of alcohol abuse, neuropathy, gout, old history of right and left foot fracture and their management, status post right knee replacement, bed-bound at baseline and functional quadriplegia. Patient drinks whiskey daily. Echocardiogram of October 24 2023 (performed in [facility]) revealed ejection fraction of 60%, mild biatrial enlargement, mild MR/TR and right ventricular systolic pressure of 31 mm Hg. Echocardiogram of (performed in [facility]) revealed: EF of 50 to 55%, Dilated right ventricle with normal systolic function. Severe biatrial enlargement. Mild AI, mild to moderate MR, moderate TR and RVSP of 51 mmHg. Ascending Aorta was 3.7 cm. Hemoglobin: 8.6 Creatinine: 5.22 Potassium: 5.5 Sodium: 124 Troponin (high sensitive): 10 - 10 - 10 BNP: 258.85 Chest x-ray revealed: IMPRESSION: 1. Mild bilateral perihilar peribronchial thickening findings may represent bronchitis. EKG revealed atrial fibrillation with moderate ventricular response, incomplete right bundle branch block and low voltage QRS Tele reveals atrial fibrillation with moderate ventricular response The patient is a 74-year-old female with poor functional capacity and morbid obesity who presented with generalized weakness. It is of note that the patient does have baseline history of functional quadriplegia. Complaints of worsening weakness. Does have history of atrial fibrillation and is on chronic anticoagulation as outpatient (Eliquis). Does have baseline history of chronic lower extremity edema for which takes Bumex. Does have noncompliance to follow ups. Does have history of lymphedema which could have contributed to the clinical picture. In examination does have significant pitting edema presently. It is of note that the BNP is normal which is against heart failure, but also, the patient does have significant obesity which may be a reason of heart failure without increase in BNP. Does have history of Diastolic heart failure with type 2 pulmonary hypertension which could have contributed to clinical presentation. Patient was found to have hypotension. Kidney function has worsened which may be secondary to baseline worsening of kidney function or over-diuresis or Cardiorenal etiology? Patient usually follows with Nephrology as outpatient. Clinically, the patient does have generalized swelling but mucosa is dry. Acute on chronic diastolic heart failure Pulmonary Hypertension, type 2 VIJAYA on CKD Alcohol abuse Morbid obesity Poor functional capacity Bed-bound at baseline Hypertension, history of Hypotension on presentation Atrial fibrillation, chronic Hyperlipidemia Osteoarthritis Rheumatoid arthritis Peripheral vascular disease Cardiac suggestion for management: Manage in ICU Fluid management (IV diuresis) as per Nephrology Pressure support (dobutamine) is suggested at this point Follow up electrolytes and kidney function tests and correct abnormalities Request for Echocardiogram Request for TSH Request for D-dimer (if abnormal, request for venous duplex of lower ext and V/Q scan) Full anticoagulation (on Eliquis presently), long-term Consider IV albumin Consider U/A to rule out Nephropathy and Proteinuria Nephrology evaluation/follow up. Further evaluation and management depends on the above and clinical course Thank you for consultation A total of 55 minutes was spent reviewing the patient record, examining the patient, making a diagnostic and therapeutic plan, discussing this plan with medical personnel, following up on diagnostic studies and following the patient for clinical stability excluding any and all procedures. At least 50% of this time was spent in direct, [id number] contact. Thank you for allowing me to participate in this patient's care. Further recommendations will depend on patient's clinical course. Please do not hesitate to contact me if you have any questions or concerns. This medical document was created using electronic medical record system with [employer] computerized dictation system. Although this document has been carefully reviewed, there may still be some phonetic and typographical errors. These areas are purely typographical due to the imperfection of the software programs, and do not reflect any compromise in the patient's medical care. Plan discussed with: Patient, Other (nurse) ROSS BRAY MD Aug 29, 2024 17:51
[2024-08-29] MEDS: FOLIC ACID 1 MG TAB PO ONE (17:53)
[2024-08-29] MEDS: MULTIPLE VITAMIN TAB PO ONE (17:53)
[2024-08-29] MEDS: THIAMINE HCL 100 MG TAB PO ONE (17:53)
[2024-08-29] MEDS: chlordiazePOXIDE HCL 25 MG CAP PO SCH (17:54)
[2024-08-29] MEDS: SODIUM ZIRCONIUM CYCL 10 GM PAK PO ONE (17:54)
[2024-08-29] MEDS: DOBUTamine 1000MCG/ML 250 ML IV SCH (17:57)
[2024-08-29 18:44] LABS: Urine Bacteria FEW /hpf (None Seen); Urine Blood Negative /uL (Negative); Urine Clarity Clear (Clear); Urine Color Colorless (Yellow); Urine Hyaline Cast FEW /lpf (0 - 2); Urine Protein, UAD Negative (Negative); Urine Specific Gravity 1.007 (1.001-1.035); Urine Squamous Epithelial Cell FEW /hpf (<5); Urine Urobilinogen Normal (Negative); Urine WBC < 1 /HPF (0-5)
[2024-08-29] MEDS: BUMETANIDE INJECTION 25 MG in GIVE UN-DILUTED 0 ML IV SCH (19:00)
[2024-08-29] MEDS: BUMETANIDE 2.5mg/10ml (0.25 mg/ml) INJ IV ONE (19:04)
[2024-08-29] MEDS: SODIUM CHLOR 0.9% PF (SALINE LOCK) 10ML VIAL/SYR IV SCH ×2 (22:00)
[2024-08-29] MEDS: APIXABAN 2.5 MG TAB PO SCH (22:26)
[2024-08-29] MEDS: GABAPENTIN 300 MG CAP PO SCH (22:26)
[2024-08-30] VITALS (98 sets, daily range): BP systolic 67–138; BP diastolic 29–87; PULSE 67–150; RESP 9–24; TEMP 97.7–98.1; O2SAT 92–100
[2024-08-30] MEDS: ALBUMIN 25% 50 ML IV SCH ×2 (00:04→11:15)
[2024-08-30] MEDS: HYDROcodone-ACET 5/325MG TAB PO PRN (00:15)
[2024-08-30 07:12] LABS: Basophils # (auto) 0 10 ^3/uL (0-0.2); Basophils % (auto) 0.1 % (0.0-2.0); Eosinophils # (auto) 0.1 10 ^3/uL (0-0.8); Eosinophils % (auto) 0.8 % (0.0-7.0); Hematocrit 24.6 % (36.0-46.0); Lymphocytes # (auto) 0.9 10 ^3/uL (0.4-5.4); Lymphocytes % (auto) 11.6 % (10.0-50.0); Mean Corpuscular Hemoglobin 27.3 pg (28.0-32.0); Mean Corpuscular Hgb Conc. 32.5 g/dL (32.0-36.0); Mean Corpuscular Volume 83.8 fL (80.0-100.0); Monocytes # (auto) 0.4 10 ^3/uL (0-1.3); Monocytes % (auto) 6.1 % (0.0-12.0); Neutrophils % (auto) 81.4 % (37.0-80.0); Nucleated Red Blood Cells % 0.1 %; Platelet Count (auto) 229 10^3/uL (140-450); Red Blood Cells 2.94 10^6/uL (4.0-5.20); Red Cell Distribution Width 16.5 % (11.8-14.3); White Blood Cell 7.3 10^3/uL (4.4-10.8)
[2024-08-30 07:28] LABS: Albumin 3.9 g/dL (3.2-4.8); Alkaline Phosphatase 99 U/L (46-116); Anion Gap 7 (5-15); BUN/Creatinine Ratio 17.3 (10.0-20.0); Calcium 9.6 mg/dL (8.7-10.4); Potassium 4.9 mmol/L (3.5-5.1)
[2024-08-30 07:30] LABS: Bilirubin, Total 1.3 mg/dL (0.2-1.0); Carbon Dioxide 34 mmol/L (20-31); Chloride 85 mmol/L (98-107); Sodium 126 mmol/L (136-145); Total Protein 6.6 g/dL (5.7-8.2)
[2024-08-30 07:31] LABS: Alanine Aminotransferase < 9 U/L (7-40); Aspartate Aminotransferase < 8 U/L (13-40); Glucose 115 mg/dL (74-106)
[2024-08-30 07:32] LABS: Blood Urea Nitrogen 88 mg/dL (9-23)
[2024-08-30 07:39] LABS: CRP High Sensitivity 0.93 mg/dL (<1.0)
[2024-08-30 07:58] LABS: Erythrocyte Sedimentation Rate 45 mm/hr (0-20)
--- NOTE | 2024-08-30 08:16 | DVHPN2 ---
Progress Note - Dictate Date Seen: Aug 30, 2024 Medical Necessity Reason Pt with a Central, PICC or Fol: Yes vital signs Vital Sign Date Time Temp Pulse Resp B/P (MAP) Pulse Ox O2 Delivery O2 Flow Rate FiO2 08/30/24 07:56 100/38 08/30/24 07:38 83 20 95 Nasal Cannula* 3 32 08/30/24 04:00 98.1 98.1 Total Intake and Output 08/29/24 08/29/24 08/30/24 15:00 23:00 07:00 Intake Total 271.45 ml 884.69 ml Output Total 3150 ml Balance 271.45 ml -2265.31 ml medications Current Medications Medications Dose Ordered Sig/Nomi Route Start Time Stop Time Status Last Admin Dose Admin Norepinephrine Bitartrate 250 ml @ 3.75 mls/hr Q24H IV 08/29/24 15:00 08/30/24 06:32 15 MLS/HR Sodium Chloride 10 ml QSHIFT@10,22 IV 08/29/24 22:00 08/29/24 22:00 10 ML Sodium Chloride 10 ml Q8HR IV 08/29/24 22:00 08/30/24 06:10 10 ML Acetaminophen/ Hydrocodone Bitart 1 tab Q4HP PRN PO 08/29/24 17:00 08/30/24 00:15 1 TAB Ondansetron HCl 4 mg Q4HP PRN IV 08/29/24 17:00 Docusate Sodium 100 mg BIDPRN PRN PO 08/29/24 17:00 Acetaminophen 650 mg Q6HP PRN PO 08/29/24 17:00 Nitroglycerin 0.4 mg Q5MINP PRN SL 08/29/24 17:00 Morphine Sulfate 2 mg Q30M PRN IV 08/29/24 17:00 Chlordiazepoxide HCl 50 mg Q8H PO 08/29/24 17:00 08/30/24 09:01 08/30/24 00:30 50 MG Chlordiazepoxide HCl 50 mg Q12HR PO 08/30/24 10:00 08/30/24 22:01 Chlordiazepoxide HCl 25 mg Q12HR PO 08/31/24 10:00 08/31/24 22:01 Chlordiazepoxide HCl 25 mg QAM PO 09/01/24 07:00 09/01/24 07:01 Lorazepam 1 mg Q2HP PRN IV 08/29/24 17:00 Multivitamins 1 tab DAILY PO 08/30/24 10:00 Folic Acid 1 mg DAILY PO 08/30/24 10:00 Thiamine HCl 100 mg DAILY PO 08/30/24 10:00 Allopurinol 100 mg DAILY PO 08/30/24 10:00 Apixaban 2.5 mg BID PO 08/29/24 22:00 08/29/24 22:26 2.5 MG Atorvastatin Calcium 20 mg DAILY PO 08/30/24 10:00 Gabapentin 300 mg BID PO 08/29/24 22:00 08/29/24 22:26 300 MG Pantoprazole Sodium 40 mg DAILY PO 08/30/24 10:00 Dobutamine HCl/ Dextrose 250 ml @ 51.6 mls/hr Q4H51M IV 08/29/24 17:15 08/30/24 07:56 51.6 MLS/HR Bumetanide 25 mg/ Miscellaneous 100 ml @ 4 mls/hr Q24H IV 08/29/24 17:15 08/29/24 19:00 4 MLS/HR Albumin Human 50 ml @ 100 mls/hr BID IV 08/29/24 22:00 08/31/24 05:00 08/30/24 00:04 100 MLS/HR laboratory and microbiology Laboratory Tests 08/30/24 06:57 Test 08/30/24 06:57 Range/Units Serum Glucose 115 H 74-106 mg/dL Assessment/Plan Patient is a 74-year-old female who presented to the hospital with generalized weakness. She has been bed-bound for few years. She mentions that she was feeling more weak and could not even move in the bed and decided to come to the hospital. She also has baseline history of generalized swelling which occasionally worsens or improves. The swelling goes back for years. She mentions that the swelling increased for the past week. As outpatient, the patient is on Bumex. 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 Admission assessment had been acute on chronic heart failure and Cardiology was involved. It is of note that the patient started coming to our office in March 2022 but has been noncompliant with followups. Last visit inside the office was actually in March 2022. For awhile (up to September 2023) she was lost to follow up. Since September 2023, the patient has had multiple phone visits and has not come for physical exam. She has not come for requested echocardiograms/tests. She did have echocardiogram in [facility] (October 2023) which has reported preserved left ventricular systolic function and right ventricular systolic pressure of 31 mm Hg. Repeat echocardiograms in [facility] ( revealed dilated right side, LVEF of 50 to 55% and RVSP of 51 mmHg (in favor of diastolic heart failure). She does have baseline CKD. She does have morbid obesity with poor functional capacity. She has had multiple surgeries in the bilateral feet. She also has history of COPD/asthma with chronic respiratory failure (on home oxygen). She also has history of atrial fibrillation for which is on Eliquis as outpatient. She drinks alcohol (whisky) daily. Since arrival to Emergency room, the patient's blood pressure was found to be low and she has been started on pressure support and the plan is to manage the patient in ICU. Morbidly obese. Lying flat in bed and not in acute distress. No JVD. Mucosa is dry. Mucosa is pink. No JVD. No carotid bruit. Not using accessory muscles of breathing. Scattered rhonchi in the lungs is heard. Cardiac: Irregular, no thrill. Abdomen is obese and soft. There is no gross hepatomegaly, but it is presence can not be ruled out (body habitus, morbidly obese). There is 3+ edema in bilateral lower extremities which extends to abdominal wall. Past medical history includes morbid obesity, atrial fibrillation (on Eliquis as outpatient), COPD/asthma with chronic respiratory failure on home oxygen, hypertension, hyperlipidemia, chronic lymphedema, Diastolic heart failure with type 2 pulmonary hypertension, rheumatoid arthritis, osteoarthritis, peripheral vascular disease, CKD, anemia, old history of alcohol abuse, neuropathy, gout, old history of right and left foot fracture and their management, status post right knee replacement, bed-bound at baseline and functional quadriplegia. Patient drinks whiskey daily. Echocardiogram of October 24 2023 (performed in [facility]) revealed ejection fraction of 60%, mild biatrial enlargement, mild MR/TR and right ventricular systolic pressure of 31 mm Hg. Echocardiogram of (performed in [facility]) revealed: EF of 50 to 55%, Dilated right ventricle with normal systolic function. Severe biatrial enlargement. Mild AI, mild to moderate MR, moderate TR and RVSP of 51 mmHg. Ascending Aorta was 3.7 cm. Hemoglobin: 8.6 - 8.0 Creatinine: 5.22 - 5.09 Potassium: 5.5 - 4.9 Sodium: 124 - 126 Troponin (high sensitive): 10 - 10 - 10 BNP: 258.85 TSH: 6.71 D-dimer: 0.20 (wnl) ESR: 45 U/A: non-revealing Chest x-ray revealed: IMPRESSION: 1. Mild bilateral perihilar peribronchial thickening findings may represent bronchitis. EKG revealed atrial fibrillation with moderate ventricular response, incomplete right bundle branch block and low voltage QRS Tele reveals atrial fibrillation with moderate ventricular response The patient is a 74-year-old female with poor functional capacity and morbid obesity who presented with generalized weakness. It is of note that the patient does have baseline history of functional quadriplegia. Complaints of worsening weakness. Does have history of atrial fibrillation and is on chronic anticoagulation as outpatient (Eliquis). Does have baseline history of chronic lower extremity edema for which takes Bumex. Does have noncompliance to follow ups. Does have history of lymphedema which could have contributed to the clinical picture. In examination does have significant pitting edema presently. It is of note that the BNP is normal which is against heart failure, but also, the patient does have significant obesity which may be a reason of heart failure without increase in BNP. Does have history of Diastolic heart failure with type 2 pulmonary hypertension which could have contributed to clinical presentation. Patient was found to have hypotension. Kidney function has worsened which may be secondary to baseline worsening of kidney function or over-diuresis or Cardiorenal etiology? Patient usually follows with Nephrology as outpatient. Clinically, the patient does have generalized swelling but mucosa is dry. Acute on chronic diastolic heart failure Pulmonary Hypertension, type 2 VIJAYA on CKD Alcohol abuse Morbid obesity Poor functional capacity Bed-bound at baseline Hypertension, history of Hypotension on presentation Atrial fibrillation, chronic Hyperlipidemia Osteoarthritis Rheumatoid arthritis Peripheral vascular disease Cardiac suggestion for management: Manage in ICU Fluid management (IV diuresis) as per Nephrology Pressure support (dobutamine) at this point Follow up electrolytes and kidney function tests and correct abnormalities Awaiting Echocardiogram Full anticoagulation (on Eliquis presently), long-term On IV albumin Nephrology follow up. Further evaluation and management depends on the above and clinical course A total of 75 minutes was spent reviewing the patient record, examining the patient, making a diagnostic and therapeutic plan, discussing this plan with medical personnel, following up on diagnostic studies and following the patient for clinical stability excluding any and all procedures. At least 50% of this time was spent in direct, [id number] contact. Thank you for allowing me to participate in this patient's care. Further recommendations will depend on patient's clinical course. Please do not hesitate to contact me if you have any questions or concerns. This medical document was created using electronic medical record system with [employer] computerized dictation system. Although this document has been carefully reviewed, there may still be some phonetic and typographical errors. These areas are purely typographical due to the imperfection of the software programs, and do not reflect any compromise in the patient's medical care. Plan discussed with: Patient, Other (nurse) ROSS BRAY MD Aug 30, 2024 08:16
[2024-08-30] MEDS: ATORVASTATIN 20 MG TAB PO SCH (09:14)
[2024-08-30] MEDS: THIAMINE HCL 100 MG TAB PO SCH (09:14)
[2024-08-30] MEDS: FOLIC ACID 1 MG TAB PO SCH (09:14)
[2024-08-30] MEDS: PANTOPRAZOLE 40 MG TAB PO SCH (09:15)
[2024-08-30] MEDS: ALLOPURINOL 100 MG TAB PO SCH (09:15)
[2024-08-30] MEDS: MULTIPLE VITAMIN TAB PO SCH (09:15)
[2024-08-30] MEDS ORDERED: METOPROLOL TARTRATE 25 MG TAB PO SCH (10:00)
[2024-08-30] MEDS: chlordiazePOXIDE HCL 25 MG CAP PO SCH (10:00)
[2024-08-30] MEDS: AMIODARONE 360mg/200mL PREMIX 200 ML IV ONE (10:29)
--- NOTE | 2024-08-30 12:13 | DVHPN2 ---
Progress Note - Dictate Date Seen: Aug 30, 2024 Medical Necessity Reason Pt with a Central, PICC or Fol: Yes Subjective Symptomatically the breathing is improving as per patient. Interval events AFib RVR on amiodarone drip. Patient continued the wound pressors Levophed for pressure support vital signs Vital Sign Date Time Temp Pulse Resp B/P (MAP) Pulse Ox O2 Delivery O2 Flow Rate FiO2 08/30/24 11:26 103/57 08/30/24 10:40 10 95 Nasal Cannula* 3 32 08/30/24 09:32 108 08/30/24 04:00 98.1 98.1 Total Intake and Output 08/29/24 08/29/24 08/30/24 15:00 23:00 07:00 Intake Total 271.45 ml 884.69 ml Output Total 3150 ml Balance 271.45 ml -2265.31 ml medications Current Medications Medications Dose Ordered Sig/Nomi Route Start Time Stop Time Status Last Admin Dose Admin Norepinephrine Bitartrate 250 ml @ 3.75 mls/hr Q24H IV 08/29/24 15:00 08/30/24 06:32 15 MLS/HR Sodium Chloride 10 ml QSHIFT@10,22 IV 08/29/24 22:00 08/30/24 09:09 10 ML Sodium Chloride 10 ml Q8HR IV 08/29/24 22:00 08/30/24 06:10 10 ML Acetaminophen/ Hydrocodone Bitart 1 tab Q4HP PRN PO 08/29/24 17:00 08/30/24 00:15 1 TAB Ondansetron HCl 4 mg Q4HP PRN IV 08/29/24 17:00 Docusate Sodium 100 mg BIDPRN PRN PO 08/29/24 17:00 Acetaminophen 650 mg Q6HP PRN PO 08/29/24 17:00 Nitroglycerin 0.4 mg Q5MINP PRN SL 08/29/24 17:00 Morphine Sulfate 2 mg Q30M PRN IV 08/29/24 17:00 Chlordiazepoxide HCl 50 mg Q12HR PO 08/30/24 10:00 08/30/24 22:01 Chlordiazepoxide HCl 25 mg Q12HR PO 08/31/24 10:00 08/31/24 22:01 Chlordiazepoxide HCl 25 mg QAM PO 09/01/24 07:00 09/01/24 07:01 Lorazepam 1 mg Q2HP PRN IV 08/29/24 17:00 Multivitamins 1 tab DAILY PO 08/30/24 10:00 08/30/24 09:15 1 TAB Folic Acid 1 mg DAILY PO 08/30/24 10:00 08/30/24 09:14 1 MG Thiamine HCl 100 mg DAILY PO 08/30/24 10:00 08/30/24 09:14 100 MG Allopurinol 100 mg DAILY PO 08/30/24 10:00 08/30/24 09:15 100 MG Apixaban 2.5 mg BID PO 08/29/24 22:00 08/30/24 09:15 2.5 MG Atorvastatin Calcium 20 mg DAILY PO 08/30/24 10:00 08/30/24 09:14 20 MG Gabapentin 300 mg BID PO 08/29/24 22:00 08/30/24 09:19 300 MG Pantoprazole Sodium 40 mg DAILY PO 08/30/24 10:00 08/30/24 09:15 40 MG Dobutamine HCl/ Dextrose 250 ml @ 51.6 mls/hr Q4H51M IV 08/29/24 17:15 08/30/24 11:26 72.24 MLS/HR Bumetanide 25 mg/ Miscellaneous 100 ml @ 4 mls/hr Q24H IV 08/29/24 17:15 08/29/24 19:00 4 MLS/HR Albumin Human 50 ml @ 100 mls/hr TID IV 08/30/24 11:15 08/31/24 09:00 objective HEENT: No evidence of JVD, no oral ulcers. Pulmonary: Crackles at the bases and diminished on auscultation bilaterally Cardiovascular S1-S2, no S3 or S4 Abdomen: Bowel sounds positive, soft no rebound tenderness Skin: No rash Neurological: Alert, oriented, no focal weakness Extremities: 3+ pitting edema up to the mid thighs and some pitting edema in the abdominal wall laboratory and microbiology Laboratory Tests 08/30/24 06:57 Test 08/30/24 06:57 Range/Units Serum Glucose 115 H 74-106 mg/dL Assessment/Plan Assessment: 1. Acute kidney injury on chronic kidney disease stage 3 likely cardiorenal syndrome Urinary output is excellent with Bumex drip 2. Hypotension, cardiogenic most likely 3. Acute diastolic heart failure exacerbation 4. Hyperkalemia 5. Hyponatremia, hypervolemic improving 6. Morbid obesity 7. Hypoalbuminemia 8. Chronic alcoholism Plan: Continue Bumex drip, repeat labs around 4:00 p.m. today and titrate Increase albumin to t.i.d. to help with the 3rd spacing, and hyponatremia No indication for renal replacement therapy, we will monitor closely Cardiology consult appreciated Fluid restriction Insert Peoples catheter strict I's and O's Pressor support Hold antihypertensive meds Sensation from alcohol abuse was discussed today Thank you very much for allowing me to participate in the care of this patient Plan discussed with: Patient LUIS PIEDAR MD Aug 30, 2024 12:13
--- NOTE | 2024-08-30 12:51 | DVHPN2 ---
Subjective Patient denies any symptoms at this time. Reviewed: Care Plan, H&P, Labs, Medications Changes from previous H/P or p: No Changes General: Per HPI Eyes: No Pain, No Vision change, No Conjunctivae inflammation, No Eyelid inflammation, No Other, No Redness ENT: No Ear pain, No Ear discharge, No Nose pain, No Nose discharge, No Nose congestion, No Mouth pain, No Mouth swelling, No Throat pain, No Throat swelling, No Other Cardiovascular: No Chest Pain, No Palpitations, No Orthopnea, No Paroxysmal Noc. Dyspnea; Edema (Bilateral lower extremity +4 pitting edema); No Lt Headedness, No Other Respiratory: No Cough, No Dry, No Shortness of breath, No SOB with excertion, No Wheezing, No Hemoptysis, No Pleuritic Pain, No Sputum, No Other Gastrointestinal: No Nausea, No Vomiting, No Abdominal Pain, No Diarrhea, No Constipation, No Melena, No Hematochezia, No Other Genitourinary: No Dysuria, No Frequency, No Incontinence, No Hematuria, No Retention, No Other Musculoskeletal: No other, No neck pain, No shoulder pain, No arm pain, No back pain, No hand pain, No leg pain, No foot pain Skin: No Rash, No Lesions, No Jaundice, No Bruising, No Other Objective Vitals Vital Signs Date Time Temp Pulse Resp B/P (MAP) Pulse Ox O2 Delivery O2 Flow Rate FiO2 08/30/24 11:26 103/57 08/30/24 10:40 10 95 Nasal Cannula* 3 32 08/30/24 09:32 108 08/30/24 04:00 98.1 98.1 Intake/Output Intake and Output 08/30/24 07:00 Intake Total 1156.14 ml Output Total 3150 ml Balance -1993.86 ml Intake Oral 240 ml IV Total 916.14 ml Output Urine Total 3150 ml General Appearance: Alert, Oriented X3, Cooperative, mild distress HEENT: Atraumatic, PERRLA Lungs: Clear to auscultation, Normal air movement Cardiovascular: Normal S1, Normal S2, Other (Atrial fibrillation with rapid ventricular rate) Abdomen: Normal bowel sounds, Soft, No tenderness Back: Flank Tenderness, Midline Tenderness Musculoskeletal: Normal sensory function, Normal motor function Extremities: No clubbing, No cyanosis, Other (Massive pitting edema to bilateral lower extremity) Skin: Dry, Intact Psych/Mental Status: Mental status NL, Mood NL Medications Current Medications Medications Dose Ordered Sig/Nomi Route Start Time Stop Time Status Last Admin Dose Admin Norepinephrine Bitartrate 250 ml @ 3.75 mls/hr Q24H IV 08/29/24 15:00 08/30/24 06:32 15 MLS/HR Sodium Chloride 10 ml QSHIFT@10,22 IV 08/29/24 22:00 08/30/24 09:09 10 ML Sodium Chloride 10 ml Q8HR IV 08/29/24 22:00 08/30/24 06:10 10 ML Acetaminophen/ Hydrocodone Bitart 1 tab Q4HP PRN PO 08/29/24 17:00 08/30/24 00:15 1 TAB Ondansetron HCl 4 mg Q4HP PRN IV 08/29/24 17:00 Docusate Sodium 100 mg BIDPRN PRN PO 08/29/24 17:00 Acetaminophen 650 mg Q6HP PRN PO 08/29/24 17:00 Nitroglycerin 0.4 mg Q5MINP PRN SL 08/29/24 17:00 Morphine Sulfate 2 mg Q30M PRN IV 08/29/24 17:00 Chlordiazepoxide HCl 50 mg Q12HR PO 08/30/24 10:00 08/30/24 22:01 Chlordiazepoxide HCl 25 mg Q12HR PO 08/31/24 10:00 08/31/24 22:01 Chlordiazepoxide HCl 25 mg QAM PO 09/01/24 07:00 09/01/24 07:01 Lorazepam 1 mg Q2HP PRN IV 08/29/24 17:00 Multivitamins 1 tab DAILY PO 08/30/24 10:00 08/30/24 09:15 1 TAB Folic Acid 1 mg DAILY PO 08/30/24 10:00 08/30/24 09:14 1 MG Thiamine HCl 100 mg DAILY PO 08/30/24 10:00 08/30/24 09:14 100 MG Allopurinol 100 mg DAILY PO 08/30/24 10:00 08/30/24 09:15 100 MG Apixaban 2.5 mg BID PO 08/29/24 22:00 08/30/24 09:15 2.5 MG Atorvastatin Calcium 20 mg DAILY PO 08/30/24 10:00 08/30/24 09:14 20 MG Gabapentin 300 mg BID PO 08/29/24 22:00 08/30/24 09:19 300 MG Pantoprazole Sodium 40 mg DAILY PO 08/30/24 10:00 08/30/24 09:15 40 MG Dobutamine HCl/ Dextrose 250 ml @ 51.6 mls/hr Q4H51M IV 08/29/24 17:15 08/30/24 11:26 72.24 MLS/HR Bumetanide 25 mg/ Miscellaneous 100 ml @ 4 mls/hr Q24H IV 08/29/24 17:15 08/29/24 19:00 4 MLS/HR Albumin Human 50 ml @ 100 mls/hr TID IV 08/30/24 11:15 08/31/24 09:00 Levothyroxine Sodium 25 mcg QAM@0600 PO 08/31/24 06:00 Laboratory Results Laboratory Tests 08/30/24 06:57 Chemistry Test 08/30/24 06:57 Albumin 3.9 g/dL (3.2-4.8) Calcium Level 9.6 mg/dL (8.7-10.4) Total Protein 6.6 g/dL (5.7-8.2) Coagulation Test 08/29/24 15:37 D-Dimer, Quantitative 0.20 mg/L FEU (0.0-0.49) LFT Test 08/30/24 06:57 Alanine Aminotransferase (ALT) < 9 U/L (7-40) Alkaline Phosphatase 99 U/L (46-116) Aspartate Amino Transferase (AST) < 8 U/L (13-40) L Total Bilirubin 1.3 mg/dL (0.2-1.0) H HgA1c, TSH Test 08/30/24 06:57 Thyroid Stimulating Hormone (TSH) 6.71 uIU/mL (0.55-4.78) H Urinalysis Test 08/29/24 16:00 Urine Color Colorless (Yellow) Urine Clarity Clear (Clear) Urine pH 7.0 (5.0-9.0) Urine Specific [place] 1.007 (1.001-1.035) Urine Protein Negative (Negative) Urine Ketones Negative (Negative) Urine Blood Negative /uL (Negative) Urine Nitrite Negative (Negative) Urine Bilirubin Negative (Negative) Urine Urobilinogen Normal mg/dL (Negative) Urine Leukocyte Esterase Trace /uL (Negative) Urine RBC 1 /hpf (0 - 4) Urine Microscopic WBC < 1 /HPF (0-5) Urine Squamous Epithelial Cells Few /hpf (<5) Urine Bacteria Few /hpf (None Seen) H Urine Hyaline Casts Few /lpf (0 - 2) Urine Glucose Normal mg/dL (Normal) Labs and/or images reviewed: Labs reviewed by me, Image(s) reviewed by me Assessment/Plan Assessment/Plan Impression: -acute decompensated diastolic heart failure -atrial fibrillation with rapid ventricular rate -acute kidney injury, multifactorial -cardiogenic shock -morbid obesity -alcoholism -hypochromic anemia -hypovolemic hyponatremia Plan: -cardiology consultation: Patient currently on amiodarone drip, dobutamine drip, norepinephrine drip -nephrology consultation: Recommendations reviewed. Patient currently on Bumex drip -continue thiamine and folic acid, MVI -continue anticoagulation with Eliquis -repeat labs in a.m. -electrolyte replete as needed Critical care time spent with patient discussing and formulating plan of care: 40 minutes. This does not include time spent performing procedures. This medical document was created using an electronic medical record system with [employer] dictation system. Although this document has been carefully reviewed, there may still be some phonetic and typographical errors. These areas are purely typographical due to imperfections of the software programs, and do not reflect any compromise in the patient's medical care. Plan discussed with: Patient, Other (RN) My Orders Orders - AVEL DUNN NP Procedure Category Date Status Time Comprehensive LAB 08/31/24 Verified Metabolic Panel 04:00 Complete Blood Count LAB 08/31/24 Verified 04:00 Magnesium LAB 08/31/24 Verified 04:00 Phosphorus LAB 08/31/24 Verified 04:00 Date of Service: Aug 30, 2024 Billing Provider: AVEL DUNN NP Common Visit Codes: [id number] CARE 30-74 MIN AVEL DUNN NP Aug 30, 2024 12:51
[2024-08-30] MEDS: AMIODARONE 360mg/200mL PREMIX 200 ML IV SCH (14:39)
[2024-08-30] MEDS ORDERED: AMIODARONE 360mg/200mL PREMIX 200 ML IV SCH (16:30)
[2024-08-30 17:51] LABS: Albumin 3.9 g/dL (3.2-4.8); Alkaline Phosphatase 98 U/L (46-116); Anion Gap 8 (5-15); BUN/Creatinine Ratio 19.5 (10.0-20.0); Calcium 9.4 mg/dL (8.7-10.4); Potassium 4.4 mmol/L (3.5-5.1)
[2024-08-30 17:52] LABS: Bilirubin, Total 1.1 mg/dL (0.2-1.0); Total Protein 6.2 g/dL (5.7-8.2)
--- NOTE | 2024-08-30 18:26 | DVHSR ---
APPROVED REPORT EXAM: Two-dimensional and M-mode echocardiogram with Doppler and color Doppler. Blood Pressure: 99/39 mmHg INDICATION Heart Failure RISK FACTORS Height: 5'5", Weight: 372 DIMENSIONS LVDd5.2 (3.8-5.7cm)LA (2D)5.1 (1.9-4.0cm)Aortic Root3.2 (2.0-3.7cm) LVDs3.2 (2.5-4.0cm)LA (MM) (1.9-4.0cm)Aortic Cusp Exc1.5 (1.5-2.0cm) EF (%) 68.0 (55-70%)Rt. Atrium6.2 (1.9-4.0cm)Asc. Aorta3.9 cm IVSd0.9 (0.7-1.1cm)RV (D)4.5 (1.8-2.4cm) PWd0.6 (0.7-1.1cm) Mitral Valve MitralMitral Stenosis E wave1.25m/sMV Mean GR.mmHg E/A ratio0.02D MVAcm2 Aortic Valve Aortic ValveAortic Stenosis V11.53m/Jada Mean GR.17mmHg V22.77m/Jada Peak GR.31mmHg LVOT Diameter2.1 (1.8-2.4cm)Doppler AVA1.91cm2 Pulmonic Valve V21.26m/s Tricuspid Valve TR Velocity3.00m/s [id number] Conclusion Left ventricle: Left ventricle was normal size with normal systolic function. LVEF was 72%. There was no gross wall motion abnormality. Right ventricle was mildly dilated with normal systolic function. Both atria were moderately dilated . Aortic valve: Aortic valve was not well visualized. There was no aortic insufficiency/stenosis. Th ere was mild mitral regurgitation. There was [id number] tricuspid regurgitation. Pulmonary va lve was not well visualized. IVC was dilated. Right ventricular systolic pressure was assessed at 54 mm Hg. There was no pericar dial effusion.
[2024-08-30 18:27] LABS: Alanine Aminotransferase < 9 U/L (7-40); Aspartate Aminotransferase < 8 U/L (13-40); Carbon Dioxide 34 mmol/L (20-31); Chloride 83 mmol/L (98-107); Glucose 146 mg/dL (74-106); Sodium 125 mmol/L (136-145)
[2024-08-30 18:28] LABS: Blood Urea Nitrogen 88 mg/dL (9-23)
[2024-08-30] MEDS: BUMETANIDE INJECTION 25 MG in GIVE UN-DILUTED 0 ML IV SCH (21:00)
[2024-08-31] VITALS (101 sets, daily range): BP systolic 85–120; BP diastolic 39–76; PULSE 95–176; RESP 11–25; TEMP 98–98.9; O2SAT 81–100
[2024-08-31 04:19] LABS: Basophils # (auto) 0 10 ^3/uL (0-0.2); Eosinophils # (auto) 0 10 ^3/uL (0-0.8); Lymphocytes # (auto) 0.6 10 ^3/uL (0.4-5.4); Mean Corpuscular Hemoglobin 26.8 pg (28.0-32.0); Monocytes # (auto) 0.5 10 ^3/uL (0-1.3)
[2024-08-31 04:21] LABS: Basophils % (auto) 0.2 % (0.0-2.0); Eosinophils % (auto) 0.5 % (0.0-7.0); Hematocrit 23.8 % (36.0-46.0); Hemoglobin 7.8 g/dL (12.2-16.2); Lymphocytes % (auto) 8.2 % (10.0-50.0); Mean Corpuscular Hgb Conc. 32.6 g/dL (32.0-36.0); Mean Corpuscular Volume 82.2 fL (80.0-100.0); Monocytes % (auto) 7.3 % (0.0-12.0); Neutrophils # (auto) 6.1 10 ^3/uL (1.6-8.6); Neutrophils % (auto) 83.8 % (37.0-80.0); Platelet Count (auto) 239 10^3/uL (140-450); Red Blood Cells 2.89 10^6/uL (4.0-5.20); Red Cell Distribution Width 16.7 % (11.8-14.3); White Blood Cell 7.3 10^3/uL (4.4-10.8)
[2024-08-31 04:37] LABS: Alkaline Phosphatase 92 U/L (46-116); Anion Gap 8 (5-15); Calcium 9.6 mg/dL (8.7-10.4); Phosphorus 3.5 mg/dL (2.4-5.1); Potassium 3.7 mmol/L (3.5-5.1); Total Protein 6.4 g/dL (5.7-8.2)
[2024-08-31 04:40] LABS: Alanine Aminotransferase < 9 U/L (7-40); Aspartate Aminotransferase < 8 U/L (13-40); Blood Urea Nitrogen 77 mg/dL (9-23); Carbon Dioxide 35 mmol/L (20-31); Chloride 83 mmol/L (98-107); Glucose 146 mg/dL (74-106); Magnesium 2.7 mg/dL (1.6-2.6); Sodium 126 mmol/L (136-145)
[2024-08-31] MEDS: LEVOTHYROXINE SODIUM 25 MCG TAB PO SCH (05:48)
--- NOTE | 2024-08-31 07:07 | DVHPN2 ---
Progress Note - Dictate Date Seen: Aug 31, 2024 Medical Necessity Reason Pt with a Central, PICC or Fol: Yes vital signs Vital Sign Date Time Temp Pulse Resp B/P (MAP) Pulse Ox O2 Delivery O2 Flow Rate FiO2 08/31/24 06:45 95 11 99/44 (62) 97 08/31/24 06:10 Nasal Cannula* 3 32 08/31/24 04:00 98.0 98.0 Total Intake and Output 08/30/24 08/30/24 08/31/24 15:00 23:00 07:00 Intake Total 942.34 ml 1374.67 ml 941.82 ml Output Total 3750 ml 3550 ml Balance 942.34 ml -2375.33 ml -2608.18 ml medications Current Medications Medications Dose Ordered Sig/Nomi Route Start Time Stop Time Status Last Admin Dose Admin Norepinephrine Bitartrate 250 ml @ 3.75 mls/hr Q24H IV 08/29/24 15:00 08/31/24 00:02 30 MLS/HR Sodium Chloride 10 ml QSHIFT@10,22 IV 08/29/24 22:00 08/30/24 22:01 10 ML Sodium Chloride 10 ml Q8HR IV 08/29/24 22:00 08/31/24 05:48 10 ML Acetaminophen/ Hydrocodone Bitart 1 tab Q4HP PRN PO 08/29/24 17:00 08/30/24 00:15 1 TAB Ondansetron HCl 4 mg Q4HP PRN IV 08/29/24 17:00 Docusate Sodium 100 mg BIDPRN PRN PO 08/29/24 17:00 Acetaminophen 650 mg Q6HP PRN PO 08/29/24 17:00 Nitroglycerin 0.4 mg Q5MINP PRN SL 08/29/24 17:00 Morphine Sulfate 2 mg Q30M PRN IV 08/29/24 17:00 Chlordiazepoxide HCl 25 mg Q12HR PO 08/31/24 10:00 08/31/24 22:01 Chlordiazepoxide HCl 25 mg QAM PO 09/01/24 07:00 09/01/24 07:01 Lorazepam 1 mg Q2HP PRN IV 08/29/24 17:00 Multivitamins 1 tab DAILY PO 08/30/24 10:00 08/30/24 09:15 1 TAB Folic Acid 1 mg DAILY PO 08/30/24 10:00 08/30/24 09:14 1 MG Thiamine HCl 100 mg DAILY PO 08/30/24 10:00 08/30/24 09:14 100 MG Allopurinol 100 mg DAILY PO 08/30/24 10:00 08/30/24 09:15 100 MG Apixaban 2.5 mg BID PO 08/29/24 22:00 08/30/24 22:01 2.5 MG Atorvastatin Calcium 20 mg DAILY PO 08/30/24 10:00 08/30/24 09:14 20 MG Gabapentin 300 mg BID PO 08/29/24 22:00 08/30/24 22:01 300 MG Pantoprazole Sodium 40 mg DAILY PO 08/30/24 10:00 08/30/24 09:15 40 MG Dobutamine HCl/ Dextrose 250 ml @ 51.6 mls/hr Q4H51M IV 08/29/24 17:15 08/31/24 02:46 51.6 MLS/HR Albumin Human 50 ml @ 100 mls/hr TID IV 08/30/24 11:15 08/31/24 09:00 08/31/24 05:48 100 MLS/HR Levothyroxine Sodium 25 mcg QAM@0600 PO 08/31/24 06:00 08/31/24 05:48 25 MCG Bumetanide 25 mg/ Miscellaneous 100 ml @ 2 mls/hr Q24H IV 08/30/24 21:00 08/30/24 21:00 2 MLS/HR laboratory and microbiology Laboratory Tests 08/31/24 03:14 Test 08/31/24 03:14 Range/Units Serum Glucose 146 H 74-106 mg/dL Assessment/Plan Patient is a 74-year-old female who presented to the hospital with generalized weakness. She has been bed-bound for few years. She mentions that she was feeling more weak and could not even move in the bed and decided to come to the hospital. She also has baseline history of generalized swelling which occasionally worsens or improves. The swelling goes back for years. She mentions that the swelling increased for the past week. As outpatient, the patient is on Bumex. She mentions that she does go to clinic scheduler regularly. Admission assessment had been acute on chronic heart failure and Cardiology was involved. It is of note that the patient started coming to our office in March 2022 but has been noncompliant with followups. Last visit inside the office was actually in March 2022. For awhile (up to September 2023) she was lost to follow up. Since September 2023, the patient has had multiple phone visits and has not come for physical exam. She has not come for requested echocardiograms/tests. She did have echocardiogram in [facility] (October 2023) which has reported preserved left ventricular systolic function and right ventricular systolic pressure of 31 mm Hg. Repeat echocardiograms in [facility] ( revealed dilated right side, LVEF of 50 to 55% and RVSP of 51 mmHg (in favor of diastolic heart failure). She does have baseline CKD. She does have morbid obesity with poor functional capacity. She has had multiple surgeries in the bilateral feet. She also has history of COPD/asthma with chronic respiratory failure (on home oxygen). She also has history of atrial fibrillation for which is on Eliquis as outpatient. She drinks alcohol (whisky) daily. Since arrival to Emergency room, the patient's blood pressure was found to be low and she has been started on pressure support and the plan is to manage the patient in ICU. Morbidly obese. Lying flat in bed and not in acute distress. No JVD. Mucosa is dry. Mucosa is pink. No JVD. No carotid bruit. Not using accessory muscles of breathing. Scattered rhonchi in the lungs is heard. Cardiac: Irregular, no thrill. Abdomen is obese and soft. There is no gross hepatomegaly, but it is presence can not be ruled out (body habitus, morbidly obese). There is 3+ edema in bilateral lower extremities which extends to abdominal wall. Past medical history includes morbid obesity, atrial fibrillation (on Eliquis as outpatient), COPD/asthma with chronic respiratory failure on home oxygen, hypertension, hyperlipidemia, chronic lymphedema, Diastolic heart failure with type 2 pulmonary hypertension, rheumatoid arthritis, osteoarthritis, peripheral vascular disease, CKD, anemia, old history of alcohol abuse, neuropathy, gout, old history of right and left foot fracture and their management, status post right knee replacement, bed-bound at baseline and functional quadriplegia. Patient drinks whiskey daily. Echocardiogram of October 24 2023 (performed in [facility]) revealed ejection fraction of 60%, mild biatrial enlargement, mild MR/TR and right ventricular systolic pressure of 31 mm Hg. Echocardiogram of (performed in [facility]) revealed: EF of 50 to 55%, Dilated right ventricle with normal systolic function. Severe biatrial enlargement. Mild AI, mild to moderate MR, moderate TR and RVSP of 51 mmHg. Ascending Aorta was 3.7 cm. Hemoglobin: 8.6 - 8.0 - 7.8 Creatinine: 5.22 - 5.09 - 4.51 - 4.27 Potassium: 5.5 - 4.9 - 4.4 - 3.7 Sodium: 124 - 126 - 125 - 126 Troponin (high sensitive): 10 - 10 - 10 BNP: 258.85 TSH: 6.71 D-dimer: 0.20 (wnl) ESR: 45 U/A: non-revealing Chest x-ray revealed: IMPRESSION: 1. Mild bilateral perihilar peribronchial thickening findings may represent bronchitis. EKG revealed atrial fibrillation with moderate ventricular response, incomplete right bundle branch block and low voltage QRS Tele reveals atrial fibrillation with moderate ventricular response Echo revealed: Left ventricle: Left ventricle was normal size with normal systolic function. LVEF was 72%. There was no gross wall motion abnormality. Right ventricle was mildly dilated with normal systolic function. Both atria were moderately dilated. Aortic valve: Aortic valve was not well visualized. There was no aortic insufficiency/stenosis. There was mild mitral regurgitation. There was [id number] tricuspid regurgitation. Pulmonary valve was not well visualized. IVC was dilated. Right ventricular systolic pressure was assessed at 54 mm Hg. There was no pericardial effusion. The patient is a 74-year-old female with poor functional capacity and morbid obesity who presented with generalized weakness. It is of note that the patient does have baseline history of functional quadriplegia. Complaints of worsening weakness. Does have history of atrial fibrillation and is on chronic anticoagulation as outpatient (Eliquis). Does have baseline history of chronic lower extremity edema for which takes Bumex. Does have noncompliance to follow ups. Does have history of lymphedema which could have contributed to the clinical picture. In examination does have significant pitting edema presently. It is of note that the BNP is normal which is against heart failure, but also, the patient does have significant obesity which may be a reason of heart failure without increase in BNP. Does have history of Diastolic heart failure with type 2 pulmonary hypertension which could have contributed to clinical presentation. Patient was found to have hypotension. Kidney function has worsened which may be secondary to baseline worsening of kidney function or over-diuresis or Cardiorenal etiology? Patient usually follows with Nephrology as outpatient. Clinically, the patient does have generalized swelling but mucosa is dry. Acute on chronic diastolic heart failure Pulmonary Hypertension, type 2 VIJAYA on CKD Alcohol abuse Morbid obesity Poor functional capacity Bed-bound at baseline Hypertension, history of Hypotension on presentation Atrial fibrillation, chronic Hyperlipidemia Osteoarthritis Rheumatoid arthritis Peripheral vascular disease Cardiac suggestion for management: Manage in ICU Fluid management (IV diuresis) as per Nephrology Pressure support (dobutamine/Levophed) at this point Follow up electrolytes and kidney function tests and correct abnormalities Full anticoagulation (on Eliquis presently), long-term On IV albumin Nephrology follow up. Further evaluation and management depends on the above and clinical course A total of 75 minutes was spent reviewing the patient record, examining the patient, making a diagnostic and therapeutic plan, discussing this plan with medical personnel, following up on diagnostic studies and following the patient for clinical stability excluding any and all procedures. At least 50% of this time was spent in direct, [id number] contact. Thank you for allowing me to participate in this patient's care. Further recommendations will depend on patient's clinical course. Please do not hesitate to contact me if you have any questions or concerns. This medical document was created using electronic medical record system with [employer] computerized dictation system. Although this document has been carefully reviewed, there may still be some phonetic and typographical errors. These areas are purely typographical due to the imperfection of the software programs, and do not reflect any compromise in the patient's medical care. Plan discussed with: Other (nurse) ROSS BRAY MD Aug 31, 2024 07:07
[2024-08-31] MEDS: DOBUTamine HCL 500 MG in D5W 5% 210 ML IV SCH (08:50)
[2024-08-31] MEDS: NOREPINEPHRINE BITARTRATE 32 MG in SODIUM CHL 0.9% 218 ML IV SCH (08:50)
[2024-08-31 09:07] LABS: Anti-Nuclear Antibody Direct Negative (Negative)
[2024-08-31] MEDS: chlordiazePOXIDE HCL 25 MG CAP PO SCH (09:18)
--- NOTE | 2024-08-31 10:35 | DVHPN2 ---
Subjective Patient denies any symptoms at this time. Reviewed: Care Plan, H&P, Labs, Medications Changes from previous H/P or p: No Changes General: Per HPI Eyes: No Pain, No Vision change, No Conjunctivae inflammation, No Eyelid inflammation, No Other, No Redness ENT: No Ear pain, No Ear discharge, No Nose pain, No Nose discharge, No Nose congestion, No Mouth pain, No Mouth swelling, No Throat pain, No Throat swelling, No Other Cardiovascular: No Chest Pain, No Palpitations, No Orthopnea, No Paroxysmal Noc. Dyspnea; Edema (Bilateral lower extremity +4 pitting edema); No Lt Headedness, No Other Respiratory: No Cough, No Dry, No Shortness of breath, No SOB with excertion, No Wheezing, No Hemoptysis, No Pleuritic Pain, No Sputum, No Other Gastrointestinal: No Nausea, No Vomiting, No Abdominal Pain, No Diarrhea, No Constipation, No Melena, No Hematochezia, No Other Genitourinary: No Dysuria, No Frequency, No Incontinence, No Hematuria, No Retention, No Other Musculoskeletal: No other, No neck pain, No shoulder pain, No arm pain, No back pain, No hand pain, No leg pain, No foot pain Skin: No Rash, No Lesions, No Jaundice, No Bruising, No Other Objective Vitals Vital Signs Date Time Temp Pulse Resp B/P (MAP) Pulse Ox O2 Delivery O2 Flow Rate FiO2 08/31/24 10:11 104 08/31/24 10:11 14 97 Nasal Cannula* 3 32 08/31/24 09:30 107/44 (65) 08/31/24 08:00 98.3 98.3 Intake/Output Intake and Output 08/31/24 07:00 Intake Total 3359.09 ml Output Total 7300 ml Balance -3940.91 ml Intake Oral 640 ml IV Total 2719.09 ml Output Urine Total 7300 ml General Appearance: Alert, Oriented X3, Cooperative, mild distress HEENT: Atraumatic, PERRLA Lungs: Clear to auscultation, Normal air movement Cardiovascular: Normal S1, Normal S2, Other (Atrial fibrillation with rapid ventricular rate) Abdomen: Normal bowel sounds, Soft, No tenderness Back: Flank Tenderness, Midline Tenderness Musculoskeletal: Normal sensory function, Normal motor function Extremities: No clubbing, No cyanosis, Other (Massive pitting edema to bilateral lower extremity) Skin: Dry, Intact Psych/Mental Status: Mental status NL, Mood NL Medications Current Medications Medications Dose Ordered Sig/Nomi Route Start Time Stop Time Status Last Admin Dose Admin Sodium Chloride 10 ml QSHIFT@10,22 IV 08/29/24 22:00 08/31/24 09:14 10 ML Sodium Chloride 10 ml Q8HR IV 08/29/24 22:00 08/31/24 05:48 10 ML Acetaminophen/ Hydrocodone Bitart 1 tab Q4HP PRN PO 08/29/24 17:00 08/30/24 00:15 1 TAB Ondansetron HCl 4 mg Q4HP PRN IV 08/29/24 17:00 Docusate Sodium 100 mg BIDPRN PRN PO 08/29/24 17:00 Acetaminophen 650 mg Q6HP PRN PO 08/29/24 17:00 Nitroglycerin 0.4 mg Q5MINP PRN SL 08/29/24 17:00 Morphine Sulfate 2 mg Q30M PRN IV 08/29/24 17:00 Chlordiazepoxide HCl 25 mg Q12HR PO 08/31/24 10:00 08/31/24 22:01 08/31/24 09:18 25 MG Chlordiazepoxide HCl 25 mg QAM PO 09/01/24 07:00 09/01/24 07:01 Lorazepam 1 mg Q2HP PRN IV 08/29/24 17:00 Multivitamins 1 tab DAILY PO 08/30/24 10:00 08/31/24 09:21 1 TAB Folic Acid 1 mg DAILY PO 08/30/24 10:00 08/31/24 09:20 1 MG Thiamine HCl 100 mg DAILY PO 08/30/24 10:00 08/31/24 09:20 100 MG Allopurinol 100 mg DAILY PO 08/30/24 10:00 08/31/24 09:17 100 MG Apixaban 2.5 mg BID PO 08/29/24 22:00 08/31/24 09:16 2.5 MG Atorvastatin Calcium 20 mg DAILY PO 08/30/24 10:00 08/31/24 09:17 20 MG Gabapentin 300 mg BID PO 08/29/24 22:00 08/31/24 09:19 300 MG Pantoprazole Sodium 40 mg DAILY PO 08/30/24 10:00 08/31/24 09:17 40 MG Levothyroxine Sodium 25 mcg QAM@0600 PO 08/31/24 06:00 08/31/24 05:48 25 MCG Bumetanide 25 mg/ Miscellaneous 100 ml @ 2 mls/hr Q24H IV 08/30/24 21:00 08/30/24 21:00 2 MLS/HR Dobutamine HCl/ Dextrose 500 mg/ Dextrose 250 ml @ 24.105 mls/ hr [id number] IV 08/31/24 07:30 08/31/24 08:50 24.105 MLS/HR Norepinephrine Bitartrate 32 mg/ Sodium Chloride 250 ml @ 0.938 mls/ hr Q24H IV 08/31/24 07:30 08/31/24 08:50 7.5 MLS/HR Laboratory Results Laboratory Tests 08/31/24 03:14 Chemistry Test 08/30/24 17:23 08/31/24 03:14 Albumin 3.9 g/dL (3.2-4.8) 4.0 g/dL (3.2-4.8) Calcium Level 9.4 mg/dL (8.7-10.4) 9.6 mg/dL (8.7-10.4) Total Protein 6.2 g/dL (5.7-8.2) 6.4 g/dL (5.7-8.2) Magnesium Level 2.7 mg/dL (1.6-2.6) H Phosphorus Level 3.5 mg/dL (2.4-5.1) LFT Test 08/30/24 17:23 08/31/24 03:14 Alanine Aminotransferase (ALT) < 9 U/L (7-40) < 9 U/L (7-40) Alkaline Phosphatase 98 U/L (46-116) 92 U/L (46-116) Aspartate Amino Transferase (AST) < 8 U/L (13-40) L < 8 U/L (13-40) L Total Bilirubin 1.1 mg/dL (0.2-1.0) H 1.0 mg/dL (0.2-1.0) Urinalysis Test 08/29/24 16:00 Urine Color Colorless (Yellow) Urine Clarity Clear (Clear) Urine pH 7.0 (5.0-9.0) Urine Specific [place] 1.007 (1.001-1.035) Urine Protein Negative (Negative) Urine Ketones Negative (Negative) Urine Blood Negative /uL (Negative) Urine Nitrite Negative (Negative) Urine Bilirubin Negative (Negative) Urine Urobilinogen Normal mg/dL (Negative) Urine Leukocyte Esterase Trace /uL (Negative) Urine RBC 1 /hpf (0 - 4) Urine Microscopic WBC < 1 /HPF (0-5) Urine Squamous Epithelial Cells Few /hpf (<5) Urine Bacteria Few /hpf (None Seen) H Urine Hyaline Casts Few /lpf (0 - 2) Urine Glucose Normal mg/dL (Normal) Labs and/or images reviewed: Labs reviewed by me, Image(s) reviewed by me Assessment/Plan Assessment/Plan Impression: -acute decompensated diastolic heart failure -atrial fibrillation with rapid ventricular rate -acute kidney injury, multifactorial -cardiogenic shock -morbid obesity -alcoholism -hypochromic anemia -hypovolemic hyponatremia Plan: Events: No events overnight. Continues to be on the same vasopressor, inotrope, as well as amiodarone at 0.5. Patient did have run of SVT, self- limiting with the patient converting back to AFib in the one teens -cardiology consultation: Patient currently on amiodarone drip, dobutamine drip, norepinephrine drip -nephrology consultation: Recommendations reviewed. Patient currently on Bumex drip -continue thiamine and folic acid, MVI -continue anticoagulation with Eliquis -repeat labs in a.m. -electrolyte replete as needed Critical care time spent with patient discussing and formulating plan of care: 40 minutes. This does not include time spent performing procedures. This medical document was created using an electronic medical record system with [employer] dictation system. Although this document has been carefully reviewed, there may still be some phonetic and typographical errors. These areas are purely typographical due to imperfections of the software programs, and do not reflect any compromise in the patient's medical care. Plan discussed with: Patient, Other (RN) Date of Service: Aug 31, 2024 Billing Provider: AVEL DUNN NP Common Visit Codes: [id number] CARE 30-74 MIN AVEL DUNN NP Aug 31, 2024 10:35
--- NOTE | 2024-08-31 11:16 | ECG ---
[facility] Test Date: 2024-08-31 Test Time: 07:54:49 Pat Name: HORTENCIA HOLT Department: Room: [address] [place] [address] A Gender: F Tariff Expert: : 1950 Requested By: ROSS BRAY Order Number: [id number] Reading MD: Gaurav Curran Measurements Intervals Grants Rate: 107 P: 0 WV: 0 QRS: 39 QRSD: 100 T: -11 QT: 278 QTc: 371 Interpretive Statements Atrial fibrillation with rapid ventricular response Low voltage QRS Nonspecific ST and T wave abnormality , probably digitalis effect Electronically Signed On 09-03-2024 8:12:34 PST by Gaurav Curran Please click the below link to view image of tracing.
--- NOTE | 2024-08-31 13:33 | DVHPN2 ---
Progress Note - Dictate Date Seen: Aug 31, 2024 Medical Necessity Reason Pt with a Central, PICC or Fol: Yes Subjective Patient continues to have AFib RVR heart rate in 130s. Continues to be on Levophed and dobutamine. vital signs Vital Sign Date Time Temp Pulse Resp B/P (MAP) Pulse Ox O2 Delivery O2 Flow Rate FiO2 08/31/24 12:21 122 08/31/24 12:21 14 90 Nasal Cannula* 3 32 08/31/24 12:15 107/45 (65) 08/31/24 12:00 98.4 98.4 Total Intake and Output 08/30/24 08/30/24 08/31/24 15:00 23:00 07:00 Intake Total 942.34 ml 1374.67 ml 1042.08 ml Output Total 3750 ml 3550 ml Balance 942.34 ml -2375.33 ml -2507.92 ml medications Current Medications Medications Dose Ordered Sig/Nomi Route Start Time Stop Time Status Last Admin Dose Admin Sodium Chloride 10 ml QSHIFT@10,22 IV 08/29/24 22:00 08/31/24 09:14 10 ML Sodium Chloride 10 ml Q8HR IV 08/29/24 22:00 08/31/24 05:48 10 ML Acetaminophen/ Hydrocodone Bitart 1 tab Q4HP PRN PO 08/29/24 17:00 08/30/24 00:15 1 TAB Ondansetron HCl 4 mg Q4HP PRN IV 08/29/24 17:00 Docusate Sodium 100 mg BIDPRN PRN PO 08/29/24 17:00 Acetaminophen 650 mg Q6HP PRN PO 08/29/24 17:00 Nitroglycerin 0.4 mg Q5MINP PRN SL 08/29/24 17:00 Morphine Sulfate 2 mg Q30M PRN IV 08/29/24 17:00 Chlordiazepoxide HCl 25 mg Q12HR PO 08/31/24 10:00 08/31/24 22:01 08/31/24 09:18 25 MG Chlordiazepoxide HCl 25 mg QAM PO 09/01/24 07:00 09/01/24 07:01 Lorazepam 1 mg Q2HP PRN IV 08/29/24 17:00 Multivitamins 1 tab DAILY PO 08/30/24 10:00 08/31/24 09:21 1 TAB Folic Acid 1 mg DAILY PO 08/30/24 10:00 08/31/24 09:20 1 MG Thiamine HCl 100 mg DAILY PO 08/30/24 10:00 08/31/24 09:20 100 MG Allopurinol 100 mg DAILY PO 08/30/24 10:00 08/31/24 09:17 100 MG Apixaban 2.5 mg BID PO 08/29/24 22:00 08/31/24 09:16 2.5 MG Atorvastatin Calcium 20 mg DAILY PO 08/30/24 10:00 08/31/24 09:17 20 MG Gabapentin 300 mg BID PO 08/29/24 22:00 08/31/24 09:19 300 MG Pantoprazole Sodium 40 mg DAILY PO 08/30/24 10:00 08/31/24 09:17 40 MG Levothyroxine Sodium 25 mcg QAM@0600 PO 08/31/24 06:00 08/31/24 05:48 25 MCG Bumetanide 25 mg/ Miscellaneous 100 ml @ 2 mls/hr Q24H IV 08/30/24 21:00 08/30/24 21:00 2 MLS/HR Dobutamine HCl/ Dextrose 500 mg/ Dextrose 250 ml @ 24.105 mls/ hr [id number] IV 08/31/24 07:30 08/31/24 08:50 24.105 MLS/HR Norepinephrine Bitartrate 32 mg/ Sodium Chloride 250 ml @ 0.938 mls/ hr Q24H IV 08/31/24 07:30 08/31/24 08:50 7.5 MLS/HR objective HEENT: No evidence of JVD, no oral ulcers. Pulmonary: Crackles at the bases and diminished on auscultation bilaterally Cardiovascular S1-S2, no S3 or S4 Abdomen: Bowel sounds positive, soft no rebound tenderness Skin: No rash Neurological: Alert, oriented, no focal weakness Extremities: 3+ pitting edema up to the mid thighs and some pitting edema in the abdominal wall laboratory and microbiology Laboratory Tests 08/31/24 03:14 Test 08/31/24 03:14 Range/Units Serum Glucose 146 H 74-106 mg/dL Assessment/Plan Assessment: 1. Improving Acute kidney injury on chronic kidney disease stage 3 likely cardiorenal syndrome Urinary output is excellent with Bumex drip 2. Hypotension, cardiogenic most likely 3. Acute diastolic heart failure exacerbation 4. Hyperkalemia 5. Hyponatremia, hypervolemic improving 6. Morbid obesity 7. Hypoalbuminemia 8. Chronic alcoholism Plan: From Nephrology perspective continues improvement in the renal function parameters. Bumex drip was decreased by 50% 0.5 milligrams/hour; Optimization of AFib RVR might improve hypotension as well. On amiodarone drip Cardiology consult appreciated-2D echo findings reviewed including dilated IVC, increased PA pressure, dilated right ventricle, tricuspid regurgitation. Fluid restriction Insert Peoples catheter strict I's and O's Pressor support Cessation from alcohol abuse was discussed today Thank you very much for allowing me to participate in the care of this patient Plan discussed with: Patient LUIS PIEDRA MD Aug 31, 2024 13:33
[2024-09-01] VITALS (96 sets, daily range): BP systolic 85–126; BP diastolic 32–69; PULSE 91–132; RESP 13–28; TEMP 98.7–100.7; O2SAT 88–99
[2024-09-01] MEDS: chlordiazePOXIDE HCL 25 MG CAP PO SCH (06:46)
[2024-09-01 11:36] LABS: Basophils # (auto) 0 10 ^3/uL (0-0.2); Eosinophils # (auto) 0 10 ^3/uL (0-0.8); Hemoglobin 8.2 g/dL (12.2-16.2); Monocytes # (auto) 0.7 10 ^3/uL (0-1.3)
[2024-09-01 11:40] LABS: Basophils % (auto) 0.3 % (0.0-2.0); Eosinophils % (auto) 0.2 % (0.0-7.0); Hematocrit 25.3 % (36.0-46.0); Lymphocytes # (auto) 0.5 10 ^3/uL (0.4-5.4); Lymphocytes % (auto) 4.8 % (10.0-50.0); Mean Corpuscular Hemoglobin 27.2 pg (28.0-32.0); Mean Corpuscular Hgb Conc. 32.5 g/dL (32.0-36.0); Mean Corpuscular Volume 83.7 fL (80.0-100.0); Monocytes % (auto) 7.3 % (0.0-12.0); Neutrophils # (auto) 8.6 10 ^3/uL (1.6-8.6); Neutrophils % (auto) 87.4 % (37.0-80.0); Platelet Count (auto) 256 10^3/uL (140-450); Red Blood Cells 3.03 10^6/uL (4.0-5.20); White Blood Cell 9.9 10^3/uL (4.4-10.8)
[2024-09-01 11:52] LABS: Anion Gap 8 (5-15); Calcium 9.6 mg/dL (8.7-10.4)
[2024-09-01 11:57] LABS: BUN/Creatinine Ratio 19.9 (10.0-20.0)
[2024-09-01 11:59] LABS: Chloride 82 mmol/L (98-107); Glucose 161 mg/dL (74-106); Potassium 3.1 mmol/L (3.5-5.1); Sodium 130 mmol/L (136-145)
[2024-09-01 12:00] LABS: Blood Urea Nitrogen 64 mg/dL (9-23)
--- NOTE | 2024-09-01 12:00 | DVHPN2 ---
Progress Note - Dictate Date Seen: Sep 01, 2024 Medical Necessity Reason Pt with a Central, PICC or Fol: Yes vital signs Vital Sign Date Time Temp Pulse Resp B/P (MAP) Pulse Ox O2 Delivery O2 Flow Rate FiO2 09/01/24 10:30 118 13 114/45 (68) 98 09/01/24 08:00 99.1 99.1 09/01/24 08:00 Nasal Cannula* 3 32 Total Intake and Output 08/31/24 08/31/24 09/01/24 15:00 23:00 07:00 Intake Total 868.510 ml 1083.795 ml 533.6 ml Output Total 3575 ml 3550 ml Balance 868.510 ml -2491.205 ml -3016.4 ml medications Current Medications Medications Dose Ordered Sig/Nomi Route Start Time Stop Time Status Last Admin Dose Admin Sodium Chloride 10 ml QSHIFT@, IV 08/29/24 22:00 09/01/24 10:08 10 ML Sodium Chloride 10 ml Q8HR IV 08/29/24 22:00 09/01/24 06:00 10 ML Acetaminophen/ Hydrocodone Bitart 1 tab Q4HP PRN PO 08/29/24 17:00 08/30/24 00:15 1 TAB Ondansetron HCl 4 mg Q4HP PRN IV 08/29/24 17:00 Docusate Sodium 100 mg BIDPRN PRN PO 08/29/24 17:00 Acetaminophen 650 mg Q6HP PRN PO 08/29/24 17:00 Nitroglycerin 0.4 mg Q5MINP PRN SL 08/29/24 17:00 Morphine Sulfate 2 mg Q30M PRN IV 08/29/24 17:00 Lorazepam 1 mg Q2HP PRN IV 08/29/24 17:00 Multivitamins 1 tab DAILY PO 08/30/24 10:00 09/01/24 10:08 1 TAB Folic Acid 1 mg DAILY PO 08/30/24 10:00 09/01/24 10:08 1 MG Thiamine HCl 100 mg DAILY PO 08/30/24 10:00 09/01/24 10:08 100 MG Allopurinol 100 mg DAILY PO 08/30/24 10:00 09/01/24 10:08 100 MG Apixaban 2.5 mg BID PO 08/29/24 22:00 09/01/24 10:08 2.5 MG Atorvastatin Calcium 20 mg DAILY PO 08/30/24 10:00 09/01/24 10:08 20 MG Gabapentin 300 mg BID PO 08/29/24 22:00 09/01/24 10:08 300 MG Pantoprazole Sodium 40 mg DAILY PO 08/30/24 10:00 09/01/24 10:08 40 MG Levothyroxine Sodium 25 mcg QAM@0600 PO 08/31/24 06:00 09/01/24 06:19 25 MCG Bumetanide 25 mg/ Miscellaneous 100 ml @ 2 mls/hr Q24H IV 08/30/24 21:00 08/30/24 21:00 2 MLS/HR Dobutamine HCl/ Dextrose 500 mg/ Dextrose 250 ml @ 24.105 mls/ hr [id number] IV 08/31/24 07:30 09/01/24 08:33 24.105 MLS/HR Norepinephrine Bitartrate 32 mg/ Sodium Chloride 250 ml @ 0.938 mls/ hr Q24H IV 08/31/24 07:30 09/01/24 10:07 6.563 MLS/HR laboratory and microbiology Laboratory Tests 09/01/24 11:04 Test 09/01/24 11:04 Range/Units Serum Glucose Pending Assessment/Plan Patient is a 74-year-old female who presented to the hospital with generalized weakness. She has been bed-bound for few years. She mentions that she was feeling more weak and could not even move in the bed and decided to come to the hospital. She also has baseline history of generalized swelling which occasionally worsens or improves. The swelling goes back for years. She mentions that the swelling increased for the past week. As outpatient, the patient is on Bumex. She mentions that she does go to [facility] regularly. Admission assessment had been acute on chronic heart failure and Cardiology was involved. It is of note that the patient started coming to our office in March 2022 but has been noncompliant with followups. Last visit inside the office was actually in March 2022. For awhile (up to September 2023) she was lost to follow up. Since September 2023, the patient has had multiple phone visits and has not come for physical exam. She has not come for requested echocardiograms/tests. She did have echocardiogram in [facility] (October 2023) which has reported preserved left ventricular systolic function and right ventricular systolic pressure of 31 mm Hg. Repeat echocardiograms in [facility] ( revealed dilated right side, LVEF of 50 to 55% and RVSP of 51 mmHg (in favor of diastolic heart failure). She does have baseline CKD. She does have morbid obesity with poor functional capacity. She has had multiple surgeries in the bilateral feet. She also has history of COPD/asthma with chronic respiratory failure (on home oxygen). She also has history of atrial fibrillation for which is on Eliquis as outpatient. She drinks alcohol (whisky) daily. Since arrival to Emergency room, the patient's blood pressure was found to be low and she has been started on pressure support and the plan is to manage the patient in ICU. Morbidly obese. Lying flat in bed and not in acute distress. No JVD. Mucosa is dry. Mucosa is pink. No JVD. No carotid bruit. Not using accessory muscles of breathing. Scattered rhonchi in the lungs is heard. Cardiac: Irregular, no thrill. Abdomen is obese and soft. There is no gross hepatomegaly, but it is presence can not be ruled out (body habitus, morbidly obese). There is 3+ edema in bilateral lower extremities which extends to abdominal wall. Past medical history includes morbid obesity, atrial fibrillation (on Eliquis as outpatient), COPD/asthma with chronic respiratory failure on home oxygen, hypertension, hyperlipidemia, chronic lymphedema, Diastolic heart failure with type 2 pulmonary hypertension, rheumatoid arthritis, osteoarthritis, peripheral vascular disease, CKD, anemia, old history of alcohol abuse, neuropathy, gout, old history of right and left foot fracture and their management, status post right knee replacement, bed-bound at baseline and functional quadriplegia. Patient drinks whiskey daily. Echocardiogram of October 24 2023 (performed in [facility]) revealed ejection fraction of 60%, mild biatrial enlargement, mild MR/TR and right ventricular systolic pressure of 31 mm Hg. Echocardiogram of (performed in [facility]) revealed: EF of 50 to 55%, Dilated right ventricle with normal systolic function. Severe biatrial enlargement. Mild AI, mild to moderate MR, moderate TR and RVSP of 51 mmHg. Ascending Aorta was 3.7 cm. Hemoglobin: 8.6 - 8.0 - 7.8 - 8.2 Creatinine: 5.22 - 5.09 - 4.51 - 4.27 - 3.22 Potassium: 5.5 - 4.9 - 4.4 - 3.7 - 3.1 Sodium: 124 - 126 - 125 - 126 - 130 Troponin (high sensitive): 10 - 10 - 10 BNP: 258.85 TSH: 6.71 D-dimer: 0.20 (wnl) ESR: 45 U/A: non-revealing Chest x-ray revealed: IMPRESSION: 1. Mild bilateral perihilar peribronchial thickening findings may represent bronchitis. EKG revealed atrial fibrillation with moderate ventricular response, incomplete right bundle branch block and low voltage QRS Tele reveals atrial fibrillation with moderate ventricular response Echo revealed: Left ventricle: Left ventricle was normal size with normal systolic function. LVEF was 72%. There was no gross wall motion abnormality. Right ventricle was mildly dilated with normal systolic function. Both atria were moderately dilated. Aortic valve: Aortic valve was not well visualized. There was no aortic insufficiency/stenosis. There was mild mitral regurgitation. There was [id number] tricuspid regurgitation. Pulmonary valve was not well visualized. IVC was dilated. Right ventricular systolic pressure was assessed at 54 mm Hg. There was no pericardial effusion. The patient is a 74-year-old female with poor functional capacity and morbid obesity who presented with generalized weakness. It is of note that the patient does have baseline history of functional quadriplegia. Complaints of worsening weakness. Does have history of atrial fibrillation and is on chronic anticoagulation as outpatient (Eliquis). Does have baseline history of chronic lower extremity edema for which takes Bumex. Does have noncompliance to follow ups. Does have history of lymphedema which could have contributed to the clinical picture. In examination does have significant pitting edema presently. It is of note that the BNP is normal which is against heart failure, but also, the patient does have significant obesity which may be a reason of heart failure without increase in BNP. Does have history of Diastolic heart failure with type 2 pulmonary hypertension which could have contributed to clinical presentation. Patient was found to have hypotension. Kidney function has worsened which may be secondary to baseline worsening of kidney function or over-diuresis or Cardiorenal etiology? Patient usually follows with Nephrology as outpatient. Clinically, the patient does have generalized swelling but mucosa is dry. Acute on chronic diastolic heart failure Pulmonary Hypertension, type 2 VIJAYA on CKD Alcohol abuse Morbid obesity Poor functional capacity Bed-bound at baseline Hypertension, history of Hypotension on presentation Atrial fibrillation, chronic Hyperlipidemia Osteoarthritis Rheumatoid arthritis Peripheral vascular disease Cardiac suggestion for management: Manage in ICU Fluid management (IV diuresis) as per Nephrology Pressure support (dobutamine/Levophed) at this point Follow up electrolytes and kidney function tests and correct abnormalities Full anticoagulation (on Eliquis presently), long-term On IV albumin On IV Amiodarone Load with Digoxin for better control of HR Nephrology follow up. Further evaluation and management depends on the above and clinical course A total of 75 minutes was spent reviewing the patient record, examining the patient, making a diagnostic and therapeutic plan, discussing this plan with medical personnel, following up on diagnostic studies and following the patient for clinical stability excluding any and all procedures. At least 50% of this time was spent in direct, [id number] contact. Thank you for allowing me to participate in this patient's care. Further recommendations will depend on patient's clinical course. Please do not hesitate to contact me if you have any questions or concerns. This medical document was created using electronic medical record system with [employer] computerized dictation system. Although this document has been carefully reviewed, there may still be some phonetic and typographical errors. These areas are purely typographical due to the imperfection of the software programs, and do not reflect any compromise in the patient's medical care. Plan discussed with: Patient, Other (nurse) ROSS BRAY MD Sep 01, 2024 12:00
[2024-09-01 12:02] LABS: Carbon Dioxide 40 mmol/L (20-31)
--- NOTE | 2024-09-01 13:07 | DVHPN2 ---
Progress Note - Dictate Date Seen: Sep 01, 2024 Medical Necessity Reason Pt with a Central, PICC or Fol: Yes Subjective Patient continues to have AFib RVR heart rate in 110 to 130s. Continues to be on Levophed and dobutamine. Lymphoid requirements are decreasing to 14 mics Symptomatically patient's leg edema is improving denies shortness of breath. vital signs Vital Sign Date Time Temp Pulse Resp B/P (MAP) Pulse Ox O2 Delivery O2 Flow Rate FiO2 09/01/24 10:30 118 13 114/45 (68) 98 09/01/24 08:00 99.1 99.1 09/01/24 08:00 Nasal Cannula* 3 32 Total Intake and Output 08/31/24 08/31/24 09/01/24 15:00 23:00 07:00 Intake Total 868.510 ml 1083.795 ml 533.6 ml Output Total 3575 ml 3550 ml Balance 868.510 ml -2491.205 ml -3016.4 ml medications Current Medications Medications Dose Ordered Sig/Nomi Route Start Time Stop Time Status Last Admin Dose Admin Sodium Chloride 10 ml QSHIFT@10,22 IV 08/29/24 22:00 09/01/24 10:08 10 ML Sodium Chloride 10 ml Q8HR IV 08/29/24 22:00 09/01/24 06:00 10 ML Acetaminophen/ Hydrocodone Bitart 1 tab Q4HP PRN PO 08/29/24 17:00 08/30/24 00:15 1 TAB Ondansetron HCl 4 mg Q4HP PRN IV 08/29/24 17:00 Docusate Sodium 100 mg BIDPRN PRN PO 08/29/24 17:00 Acetaminophen 650 mg Q6HP PRN PO 08/29/24 17:00 Nitroglycerin 0.4 mg Q5MINP PRN SL 08/29/24 17:00 Morphine Sulfate 2 mg Q30M PRN IV 08/29/24 17:00 Lorazepam 1 mg Q2HP PRN IV 08/29/24 17:00 Multivitamins 1 tab DAILY PO 08/30/24 10:00 09/01/24 10:08 1 TAB Folic Acid 1 mg DAILY PO 08/30/24 10:00 09/01/24 10:08 1 MG Thiamine HCl 100 mg DAILY PO 08/30/24 10:00 09/01/24 10:08 100 MG Allopurinol 100 mg DAILY PO 08/30/24 10:00 09/01/24 10:08 100 MG Apixaban 2.5 mg BID PO 08/29/24 22:00 09/01/24 10:08 2.5 MG Atorvastatin Calcium 20 mg DAILY PO 08/30/24 10:00 09/01/24 10:08 20 MG Gabapentin 300 mg BID PO 08/29/24 22:00 09/01/24 10:08 300 MG Pantoprazole Sodium 40 mg DAILY PO 08/30/24 10:00 09/01/24 10:08 40 MG Levothyroxine Sodium 25 mcg QAM@0600 PO 08/31/24 06:00 09/01/24 06:19 25 MCG Bumetanide 25 mg/ Miscellaneous 100 ml @ 2 mls/hr Q24H IV 08/30/24 21:00 08/30/24 21:00 2 MLS/HR Dobutamine HCl/ Dextrose 500 mg/ Dextrose 250 ml @ 24.105 mls/ hr [id number] IV 08/31/24 07:30 09/01/24 08:33 24.105 MLS/HR Norepinephrine Bitartrate 32 mg/ Sodium Chloride 250 ml @ 0.938 mls/ hr Q24H IV 08/31/24 07:30 09/01/24 10:07 6.563 MLS/HR objective HEENT: No evidence of JVD, no oral ulcers. Pulmonary: Crackles at the bases and diminished on auscultation bilaterally Cardiovascular S1-S2, no S3 or S4 Abdomen: Bowel sounds positive, soft no rebound tenderness Skin: No rash Neurological: Alert, oriented, no focal weakness Extremities: 2+ pitting edema up to the mid thighs and some pitting edema in the abdominal wall laboratory and microbiology Laboratory Tests 09/01/24 11:04 Test 09/01/24 11:04 Range/Units Serum Glucose 161 H 74-106 mg/dL Assessment/Plan Assessment: 1. Improving Acute kidney injury on chronic kidney disease stage 3 likely cardiorenal syndrome Urinary output is excellent with Bumex drip Overall fluid balance -4 L 2. Hypotension, cardiogenic most likely 3. Acute diastolic heart failure exacerbation 4. Hypokalemia 5. Hyponatremia, hypervolemic improving 6. Morbid obesity 7. Hypoalbuminemia 8. Chronic alcoholism Plan: Continued improvement of renal function with diuresis on Bumex drip. We will continue for the next 24 hours and reassess Replace potassium 40 mEq Improvement of the heart rate might improve cardiac function as well Optimization of AFib RVR might improve hypotension as well. On amiodarone drip Cardiology consult appreciated-2D echo findings reviewed including dilated IVC, increased PA pressure, dilated right ventricle, tricuspid regurgitation. Fluid restriction Peoples catheter strict I's and O's Pressor support Cessation from alcohol abuse was discussed today Thank you very much for allowing me to participate in the care of this patient Plan discussed with: Patient ABHISHEK LUIS GREGORY MD Sep 01, 2024 13:07
[2024-09-01] MEDS ORDERED: DIGOXIN (250MCG/ML) 2 ML AMPULE IV SCH (13:15)
[2024-09-01] MEDS: SODIUM CHLORIDE 0.9% 250 ML IV SCH (13:15)
[2024-09-01] MEDS: POTASSIUM CHL 20 Meq TABLET PO ONE (14:17)
[2024-09-01] MEDS: DIGOXIN (250MCG/ML) 2 ML AMPULE IV ONE (14:20)
--- NOTE | 2024-09-01 17:40 | DVHPN2 ---
Reviewed: Care Plan, H&P, Labs, Medications Changes from previous H/P or p: No Changes General: Per HPI Eyes: No Pain, No Vision change, No Conjunctivae inflammation, No Eyelid inflammation, No Other, No Redness ENT: No Ear pain, No Ear discharge, No Nose pain, No Nose discharge, No Nose congestion, No Mouth pain, No Mouth swelling, No Throat pain, No Throat swelling, No Other Cardiovascular: No Chest Pain, No Palpitations, No Orthopnea, No Paroxysmal Noc. Dyspnea; Edema (Bilateral lower extremity +4 pitting edema); No Lt Headedness, No Other Respiratory: No Cough, No Dry, No Shortness of breath, No SOB with excertion, No Wheezing, No Hemoptysis, No Pleuritic Pain, No Sputum, No Other Gastrointestinal: No Nausea, No Vomiting, No Abdominal Pain, No Diarrhea, No Constipation, No Melena, No Hematochezia, No Other Genitourinary: No Dysuria, No Frequency, No Incontinence, No Hematuria, No Retention, No Other Musculoskeletal: No other, No neck pain, No shoulder pain, No arm pain, No back pain, No hand pain, No leg pain, No foot pain Skin: No Rash, No Lesions, No Jaundice, No Bruising, No Other Objective Vitals Vital Signs Date Time Temp Pulse Resp B/P (MAP) Pulse Ox O2 Delivery O2 Flow Rate FiO2 09/01/24 16:45 99 16 106/43 (64) 97 09/01/24 16:00 Nasal Cannula* 3 32 09/01/24 16:00 98.8 98.8 Intake/Output Intake and Output 09/01/24 07:00 Intake Total 2485.905 ml Output Total 7125 ml Balance -4639.095 ml Intake Oral 1200 ml IV Total 1285.905 ml Output Urine Total 7125 ml General Appearance: Alert, Oriented X3, Cooperative, mild distress HEENT: Atraumatic, PERRLA Lungs: Clear to auscultation, Normal air movement Cardiovascular: Normal S1, Normal S2, Other (Atrial fibrillation with rapid ventricular rate) Abdomen: Normal bowel sounds, Soft, No tenderness Back: Flank Tenderness, Midline Tenderness Musculoskeletal: Normal sensory function, Normal motor function Extremities: No clubbing, No cyanosis, Other (Massive pitting edema to bilateral lower extremity) Skin: Dry, Intact Psych/Mental Status: Mental status NL, Mood NL Medications Current Medications Medications Dose Ordered Sig/Nomi Route Start Time Stop Time Status Last Admin Dose Admin Sodium Chloride 10 ml QSHIFT@10,22 IV 08/29/24 22:00 09/01/24 10:08 10 ML Sodium Chloride 10 ml Q8HR IV 08/29/24 22:00 09/01/24 14:20 10 ML Acetaminophen/ Hydrocodone Bitart 1 tab Q4HP PRN PO 08/29/24 17:00 08/30/24 00:15 1 TAB Ondansetron HCl 4 mg Q4HP PRN IV 08/29/24 17:00 Docusate Sodium 100 mg BIDPRN PRN PO 08/29/24 17:00 Acetaminophen 650 mg Q6HP PRN PO 08/29/24 17:00 Nitroglycerin 0.4 mg Q5MINP PRN SL 08/29/24 17:00 Morphine Sulfate 2 mg Q30M PRN IV 08/29/24 17:00 Lorazepam 1 mg Q2HP PRN IV 08/29/24 17:00 Multivitamins 1 tab DAILY PO 08/30/24 10:00 09/01/24 10:08 1 TAB Folic Acid 1 mg DAILY PO 08/30/24 10:00 09/01/24 10:08 1 MG Thiamine HCl 100 mg DAILY PO 08/30/24 10:00 09/01/24 10:08 100 MG Allopurinol 100 mg DAILY PO 08/30/24 10:00 09/01/24 10:08 100 MG Apixaban 2.5 mg BID PO 08/29/24 22:00 09/01/24 10:08 2.5 MG Atorvastatin Calcium 20 mg DAILY PO 08/30/24 10:00 09/01/24 10:08 20 MG Gabapentin 300 mg BID PO 08/29/24 22:00 09/01/24 10:08 300 MG Pantoprazole Sodium 40 mg DAILY PO 08/30/24 10:00 09/01/24 10:08 40 MG Levothyroxine Sodium 25 mcg QAM@0600 PO 08/31/24 06:00 09/01/24 06:19 25 MCG Bumetanide 25 mg/ Miscellaneous 100 ml @ 2 mls/hr Q24H IV 08/30/24 21:00 09/01/24 16:03 2 MLS/HR Dobutamine HCl/ Dextrose 500 mg/ Dextrose 250 ml @ 24.105 mls/ hr [id number] IV 08/31/24 07:30 09/01/24 08:33 24.105 MLS/HR Norepinephrine Bitartrate 32 mg/ Sodium Chloride 250 ml @ 0.938 mls/ hr Q24H IV 08/31/24 07:30 09/01/24 10:07 6.563 MLS/HR Digoxin 250 mcg Q6H IV 09/01/24 19:15 09/02/24 01:16 Laboratory Results Laboratory Tests 09/01/24 11:04 Chemistry Test 09/01/24 11:04 Calcium Level 9.6 mg/dL (8.7-10.4) Urinalysis Test 08/29/24 16:00 Urine Color Colorless (Yellow) Urine Clarity Clear (Clear) Urine pH 7.0 (5.0-9.0) Urine Specific D Hanis 1.007 (1.001-1.035) Urine Protein Negative (Negative) Urine Ketones Negative (Negative) Urine Blood Negative /uL (Negative) Urine Nitrite Negative (Negative) Urine Bilirubin Negative (Negative) Urine Urobilinogen Normal mg/dL (Negative) Urine Leukocyte Esterase Trace /uL (Negative) Urine RBC 1 /hpf (0 - 4) Urine Microscopic WBC < 1 /HPF (0-5) Urine Squamous Epithelial Cells Few /hpf (<5) Urine Bacteria Few /hpf (None Seen) H Urine Hyaline Casts Few /lpf (0 - 2) Urine Glucose Normal mg/dL (Normal) Assessment/Plan Assessment/Plan Impression: -acute decompensated diastolic heart failure -atrial fibrillation with rapid ventricular rate -acute kidney injury, multifactorial -cardiogenic shock -morbid obesity -alcoholism -hypochromic anemia -hypovolemic hyponatremia fluid overload Plan: Events: No events overnight. Continues to be on the same vasopressor, inotrope, as well as amiodarone at 0.5. Patient did have run of SVT, self- limiting with the patient converting back to AFib in the one teens -cardiology consultation: Patient currently on amiodarone drip, dobutamine drip, norepinephrine drip -nephrology consultation: Recommendations reviewed. Patient currently on Bumex drip -continue thiamine and folic acid, MVI -continue anticoagulation with Eliquis -repeat labs in a.m. -electrolyte replete as needed 09/01/2024: remains on Amiodarone drip and Bumex drip still has significant edema b/l in LE discussed with pt and nursing at bedside Critical care time spent with patient discussing and formulating plan of care: 40 minutes. This does not include time spent performing procedures. This medical document was created using an electronic medical record system with [employer] dictation system. Although this document has been carefully reviewed, there may still be some phonetic and typographical errors. These areas are purely typographical due to imperfections of the software programs, and do not reflect any compromise in the patient's medical care. Plan discussed with: Patient Date of Service: Sep 01, 2024 Billing Provider: JACQUELINE SANTIAGO DO Common Visit Codes: [id number] CARE 30-74 MIN JACQUELINE SANTIAGO DO Sep 01, 2024 17:40
[2024-09-01] MEDS: ACETAMINOPHEN 325 MG TAB PO PRN (19:28)
[2024-09-01] MEDS: DIGOXIN (250MCG/ML) 2 ML AMPULE IV SCH (19:28)
[2024-09-02] VITALS (96 sets, daily range): BP systolic 92–134; BP diastolic 31–58; PULSE 83–158; RESP 11–24; TEMP 98.2–99; O2SAT 91–99
[2024-09-02 04:42] LABS: Basophils # (auto) 0 10 ^3/uL (0-0.2); Hemoglobin 8.5 g/dL (12.2-16.2); Lymphocytes # (auto) 0.8 10 ^3/uL (0.4-5.4); Mean Corpuscular Volume 83.2 fL (80.0-100.0); Monocytes # (auto) 0.8 10 ^3/uL (0-1.3); White Blood Cell 10.2 10^3/uL (4.4-10.8)
[2024-09-02 04:44] LABS: Basophils % (auto) 0.2 % (0.0-2.0); Eosinophils # (auto) 0 10 ^3/uL (0-0.8); Eosinophils % (auto) 0.2 % (0.0-7.0); Hematocrit 26.1 % (36.0-46.0); Lymphocytes % (auto) 7.9 % (10.0-50.0); Mean Corpuscular Hemoglobin 27.1 pg (28.0-32.0); Mean Corpuscular Hgb Conc. 32.5 g/dL (32.0-36.0); Monocytes % (auto) 7.7 % (0.0-12.0); Neutrophils # (auto) 8.6 10 ^3/uL (1.6-8.6); Nucleated Red Blood Cells % 0.1 %; Platelet Count (auto) 256 10^3/uL (140-450); Red Blood Cells 3.14 10^6/uL (4.0-5.20)
[2024-09-02 04:51] LABS: Alkaline Phosphatase 104 U/L (46-116); BUN/Creatinine Ratio 22.3 (10.0-20.0); Calcium 9.6 mg/dL (8.7-10.4); Magnesium 1.9 mg/dL (1.6-2.6)
[2024-09-02 04:52] LABS: Bilirubin, Total 1.1 mg/dL (0.2-1.0); Total Protein 6.5 g/dL (5.7-8.2)
[2024-09-02 05:10] LABS: Alanine Aminotransferase < 9 U/L (7-40); Anion Gap 7.99999 (5-15); Aspartate Aminotransferase < 8 U/L (13-40); Blood Urea Nitrogen 63 mg/dL (9-23); Chloride 85 mmol/L (98-107); Glucose 114 mg/dL (74-106); Sodium 133 mmol/L (136-145)
[2024-09-02 05:11] LABS: Carbon Dioxide > 40 mmol/L (20-31)
[2024-09-02] MEDS: POTASSIUM CHL 20MEQ/100ML 100 ML IV ONE (06:09)
--- NOTE | 2024-09-02 08:00 | DVHPN2 ---
Progress Note - Dictate Date Seen: Sep 02, 2024 Medical Necessity Reason Pt with a Central, PICC or Fol: Yes vital signs Vital Sign Date Time Temp Pulse Resp B/P (MAP) Pulse Ox O2 Delivery O2 Flow Rate FiO2 09/02/24 06:56 92/44 09/02/24 06:45 91 12 96 09/02/24 06:00 Nasal Cannula* 3 32 09/02/24 05:15 99.0 99.0 Total Intake and Output 09/01/24 09/01/24 09/02/24 15:00 23:00 07:00 Intake Total 783.63 ml 976.71 ml 462.5 ml Output Total 3250 ml 3350 ml Balance 783.63 ml -2273.29 ml -2887.5 ml medications Current Medications Medications Dose Ordered Sig/Nomi Route Start Time Stop Time Status Last Admin Dose Admin Sodium Chloride 10 ml QSHIFT@10,22 IV 08/29/24 22:00 09/01/24 22:00 10 ML Sodium Chloride 10 ml Q8HR IV 08/29/24 22:00 09/02/24 06:00 10 ML Acetaminophen/ Hydrocodone Bitart 1 tab Q4HP PRN PO 08/29/24 17:00 08/30/24 00:15 1 TAB Ondansetron HCl 4 mg Q4HP PRN IV 08/29/24 17:00 Docusate Sodium 100 mg BIDPRN PRN PO 08/29/24 17:00 Acetaminophen 650 mg Q6HP PRN PO 08/29/24 17:00 09/01/24 19:28 650 MG Nitroglycerin 0.4 mg Q5MINP PRN SL 08/29/24 17:00 Morphine Sulfate 2 mg Q30M PRN IV 08/29/24 17:00 Lorazepam 1 mg Q2HP PRN IV 08/29/24 17:00 Multivitamins 1 tab DAILY PO 08/30/24 10:00 09/01/24 10:08 1 TAB Folic Acid 1 mg DAILY PO 08/30/24 10:00 09/01/24 10:08 1 MG Thiamine HCl 100 mg DAILY PO 08/30/24 10:00 09/01/24 10:08 100 MG Allopurinol 100 mg DAILY PO 08/30/24 10:00 09/01/24 10:08 100 MG Apixaban 2.5 mg BID PO 08/29/24 22:00 09/01/24 22:02 2.5 MG Atorvastatin Calcium 20 mg DAILY PO 08/30/24 10:00 09/01/24 10:08 20 MG Gabapentin 300 mg BID PO 08/29/24 22:00 09/01/24 22:02 300 MG Pantoprazole Sodium 40 mg DAILY PO 08/30/24 10:00 09/01/24 10:08 40 MG Levothyroxine Sodium 25 mcg QAM@0600 PO 08/31/24 06:00 09/02/24 06:09 25 MCG Bumetanide 25 mg/ Miscellaneous 100 ml @ 2 mls/hr Q24H IV 08/30/24 21:00 09/01/24 16:03 2 MLS/HR Dobutamine HCl/ Dextrose 500 mg/ Dextrose 250 ml @ 24.105 mls/ hr [id number] IV 08/31/24 07:30 09/02/24 06:56 24.105 MLS/HR Norepinephrine Bitartrate 32 mg/ Sodium Chloride 250 ml @ 0.938 mls/ hr Q24H IV 08/31/24 07:30 09/01/24 10:07 6.563 MLS/HR laboratory and microbiology Laboratory Tests 09/02/24 03:00 Test 09/02/24 03:00 Range/Units Serum Glucose 114 H 74-106 mg/dL Assessment/Plan Patient is a 74-year-old female who presented to the hospital with generalized weakness. She has been bed-bound for few years. She mentions that she was feeling more weak and could not even move in the bed and decided to come to the hospital. She also has baseline history of generalized swelling which occasionally worsens or improves. The swelling goes back for years. She mentions that the swelling increased for the past week. As outpatient, the patient is on Bumex. She mentions that she does go to wine consultant regularly. Admission assessment had been acute on chronic heart failure and Cardiology was involved. It is of note that the patient started coming to our office in March 2022 but has been noncompliant with followups. Last visit inside the office was actually in March 2022. For awhile (up to September 2023) she was lost to follow up. Since September 2023, the patient has had multiple phone visits and has not come for physical exam. She has not come for requested echocardiograms/tests. She did have echocardiogram in [facility] (October 2023) which has reported preserved left ventricular systolic function and right ventricular systolic pressure of 31 mm Hg. Repeat echocardiograms in [facility] ( revealed dilated right side, LVEF of 50 to 55% and RVSP of 51 mmHg (in favor of diastolic heart failure). She does have baseline CKD. She does have morbid obesity with poor functional capacity. She has had multiple surgeries in the bilateral feet. She also has history of COPD/asthma with chronic respiratory failure (on home oxygen). She also has history of atrial fibrillation for which is on Eliquis as outpatient. She drinks alcohol (whisky) daily. Since arrival to Emergency room, the patient's blood pressure was found to be low and she has been started on pressure support and the plan is to manage the patient in ICU. Morbidly obese. Lying flat in bed and not in acute distress. No JVD. Mucosa is dry. Mucosa is pink. No JVD. No carotid bruit. Not using accessory muscles of breathing. Scattered rhonchi in the lungs is heard. Cardiac: Irregular, no thrill. Abdomen is obese and soft. There is no gross hepatomegaly, but it is presence can not be ruled out (body habitus, morbidly obese). There is 3+ edema in bilateral lower extremities which extends to abdominal wall. Past medical history includes morbid obesity, atrial fibrillation (on Eliquis as outpatient), COPD/asthma with chronic respiratory failure on home oxygen, hypertension, hyperlipidemia, chronic lymphedema, Diastolic heart failure with type 2 pulmonary hypertension, rheumatoid arthritis, osteoarthritis, peripheral vascular disease, CKD, anemia, old history of alcohol abuse, neuropathy, gout, old history of right and left foot fracture and their management, status post right knee replacement, bed-bound at baseline and functional quadriplegia. Patient drinks whiskey daily. Echocardiogram of October 24 2023 (performed in [facility]) revealed ejection fraction of 60%, mild biatrial enlargement, mild MR/TR and right ventricular systolic pressure of 31 mm Hg. Echocardiogram of (performed in [facility]) revealed: EF of 50 to 55%, Dilated right ventricle with normal systolic function. Severe biatrial enlargement. Mild AI, mild to moderate MR, moderate TR and RVSP of 51 mmHg. Ascending Aorta was 3.7 cm. Hemoglobin: 8.6 - 8.0 - 7.8 - 8.2 - 8.5 Creatinine: 5.22 - 5.09 - 4.51 - 4.27 - 3.22 - 2.82 Potassium: 5.5 - 4.9 - 4.4 - 3.7 - 3.1 - 3.0 Sodium: 124 - 126 - 125 - 126 - 130 - 133 Troponin (high sensitive): 10 - 10 - 10 BNP: 258.85 TSH: 6.71 D-dimer: 0.20 (wnl) ESR: 45 U/A: non-revealing Chest x-ray revealed: IMPRESSION: 1. Mild bilateral perihilar peribronchial thickening findings may represent bronchitis. EKG revealed atrial fibrillation with moderate ventricular response, incomplete right bundle branch block and low voltage QRS Tele reveals atrial fibrillation with moderate ventricular response Echo revealed: Left ventricle: Left ventricle was normal size with normal systolic function. LVEF was 72%. There was no gross wall motion abnormality. Right ventricle was mildly dilated with normal systolic function. Both atria were moderately dilated. Aortic valve: Aortic valve was not well visualized. There was no aortic insufficiency/stenosis. There was mild mitral regurgitation. There was [id number] tricuspid regurgitation. Pulmonary valve was not well visualized. IVC was dilated. Right ventricular systolic pressure was assessed at 54 mm Hg. There was no pericardial effusion. The patient is a 74-year-old female with poor functional capacity and morbid obesity who presented with generalized weakness. It is of note that the patient does have baseline history of functional quadriplegia. Complaints of worsening weakness. Does have history of atrial fibrillation and is on chronic anticoagulation as outpatient (Eliquis). Does have baseline history of chronic lower extremity edema for which takes Bumex. Does have noncompliance to follow ups. Does have history of lymphedema which could have contributed to the clinical picture. In examination does have significant pitting edema presently. It is of note that the BNP is normal which is against heart failure, but also, the patient does have significant obesity which may be a reason of heart failure without increase in BNP. Does have history of Diastolic heart failure with type 2 pulmonary hypertension which could have contributed to clinical presentation. Patient was found to have hypotension. Kidney function has worsened which may be secondary to baseline worsening of kidney function or over-diuresis or Cardiorenal etiology? Patient usually follows with Nephrology as outpatient. Clinically, the patient does have generalized swelling but mucosa is dry. Acute on chronic diastolic heart failure Pulmonary Hypertension, type 2 VIJAYA on CKD Alcohol abuse Morbid obesity Poor functional capacity Bed-bound at baseline Hypertension, history of Hypotension on presentation Atrial fibrillation, chronic Hyperlipidemia Osteoarthritis Rheumatoid arthritis Peripheral vascular disease Cardiac suggestion for management: Manage in ICU Fluid management (IV diuresis) as per Nephrology Pressure support (dobutamine/Levophed) at this point Follow up electrolytes and kidney function tests and correct abnormalities Full anticoagulation (on Eliquis presently), long-term On IV albumin On IV Amiodarone Load with Digoxin for better control of HR Nephrology follow up. Further evaluation and management depends on the above and clinical course A total of 75 minutes was spent reviewing the patient record, examining the patient, making a diagnostic and therapeutic plan, discussing this plan with medical personnel, following up on diagnostic studies and following the patient for clinical stability excluding any and all procedures. At least 50% of this time was spent in direct, [id number] contact. Thank you for allowing me to participate in this patient's care. Further recommendations will depend on patient's clinical course. Please do not hesitate to contact me if you have any questions or concerns. This medical document was created using electronic medical record system with [employer] computerized dictation system. Although this document has been carefully reviewed, there may still be some phonetic and typographical errors. These areas are purely typographical due to the imperfection of the software programs, and do not reflect any compromise in the patient's medical care. Plan discussed with: Patient, Other (nurse) ROSS BRAY MD Sep 02, 2024 08:00
[2024-09-02] MEDS: DOCUSATE SOD 100 MG CAP PO PRN (10:18)
[2024-09-02] MEDS: SODIUM CHLORIDE 0.9% 250 ML IV ONE (10:31)
[2024-09-02] MEDS: POTASSIUM CHL 20MEQ/100ML 100 ML IV SCH (10:34)
--- NOTE | 2024-09-02 16:11 | DVHPN2 ---
Progress Note - Dictate Date Seen: Sep 02, 2024 Medical Necessity Reason Pt with a Central, PICC or Fol: Yes Subjective Since yesterday the AFib RVR is controlled requiring digoxin boluses in addition to amiodarone drip. Was heart rate improved blood pressure improved. Bumex drip for the last three days has been effective the produce about 6 L of urinary output per day. Patient today feels better vital signs Vital Sign Date Time Temp Pulse Resp B/P (MAP) Pulse Ox O2 Delivery O2 Flow Rate FiO2 09/02/24 15:30 99 15 103/40 (61) 97 09/02/24 12:00 98.5 98.5 09/02/24 12:00 Nasal Cannula* 3 32 Total Intake and Output 09/01/24 09/01/24 09/02/24 15:00 23:00 07:00 Intake Total 783.63 ml 976.71 ml 484.91 ml Output Total 3250 ml 3350 ml Balance 783.63 ml -2273.29 ml -2865.09 ml medications Current Medications Medications Dose Ordered Sig/Nomi Route Start Time Stop Time Status Last Admin Dose Admin Sodium Chloride 10 ml QSHIFT@10,22 IV 08/29/24 22:00 09/02/24 10:17 10 ML Sodium Chloride 10 ml Q8HR IV 08/29/24 22:00 09/02/24 13:16 10 ML Acetaminophen/ Hydrocodone Bitart 1 tab Q4HP PRN PO 08/29/24 17:00 08/30/24 00:15 1 TAB Ondansetron HCl 4 mg Q4HP PRN IV 08/29/24 17:00 Docusate Sodium 100 mg BIDPRN PRN PO 08/29/24 17:00 09/02/24 10:18 100 MG Acetaminophen 650 mg Q6HP PRN PO 08/29/24 17:00 09/01/24 19:28 650 MG Nitroglycerin 0.4 mg Q5MINP PRN SL 08/29/24 17:00 Morphine Sulfate 2 mg Q30M PRN IV 08/29/24 17:00 Lorazepam 1 mg Q2HP PRN IV 08/29/24 17:00 Multivitamins 1 tab DAILY PO 08/30/24 10:00 09/02/24 10:17 1 TAB Folic Acid 1 mg DAILY PO 08/30/24 10:00 09/02/24 10:17 1 MG Thiamine HCl 100 mg DAILY PO 08/30/24 10:00 09/02/24 10:17 100 MG Allopurinol 100 mg DAILY PO 08/30/24 10:00 09/02/24 10:17 100 MG Apixaban 2.5 mg BID PO 08/29/24 22:00 09/02/24 10:17 2.5 MG Atorvastatin Calcium 20 mg DAILY PO 08/30/24 10:00 09/02/24 10:17 20 MG Gabapentin 300 mg BID PO 08/29/24 22:00 09/02/24 10:17 300 MG Pantoprazole Sodium 40 mg DAILY PO 08/30/24 10:00 09/02/24 10:18 40 MG Levothyroxine Sodium 25 mcg QAM@0600 PO 08/31/24 06:00 09/02/24 06:09 25 MCG Bumetanide 25 mg/ Miscellaneous 100 ml @ 2 mls/hr Q24H IV 08/30/24 21:00 09/01/24 16:03 2 MLS/HR Norepinephrine Bitartrate 32 mg/ Sodium Chloride 250 ml @ 0.938 mls/ hr Q24H IV 08/31/24 07:30 09/02/24 10:00 0.938 MLS/HR Potassium Chloride 40 meq DAILY PO 09/03/24 10:00 objective HEENT: No evidence of JVD, no oral ulcers. Pulmonary: Diminished lung sounds at the bases Cardiovascular regular rate Abdomen: Bowel sounds positive, soft no rebound tenderness Skin: No rash Neurological: Alert, oriented, no focal weakness Extremities: 2+ pitting edema up to the mid thighs and some pitting edema in the abdominal wall laboratory and microbiology Laboratory Tests 09/02/24 03:00 Test 09/02/24 03:00 Range/Units Serum Glucose 114 H 74-106 mg/dL Assessment/Plan Assessment: 1. Improving Acute kidney injury on chronic kidney disease stage 3 secondary to cardiorenal syndrome Urinary output is excellent with Bumex drip Overall fluid balance -4 L 2. Cardiogenic shock 3. Acute diastolic heart failure exacerbation Pulmonary hypertension 4. Hypokalemia 5. Hyponatremia, hypervolemic improving 6. Morbid obesity 7. Hypoalbuminemia 8. Chronic alcoholism Plan: Hold Bumex drip for now. Replace potassium. Bumex IV b.i.d. was potassium has been corrected Add Diamox Levophed requirements are decreasing currently on five mics as opposed to 12 yesterday On amiodarone drip Cardiology consult appreciated-2D echo findings reviewed including dilated IVC, increased PA pressure, dilated right ventricle, tricuspid regurgitation. Fluid restriction Peoples catheter strict I's and O's Cessation from alcohol abuse was discussed today Thank you very much for allowing me to participate in the care of this patient. Plan discussed with: Patient LUIS PIEDRA MD Sep 02, 2024 16:11
--- NOTE | 2024-09-02 16:22 | DVH ---
CHEST RADIOGRAPH Indication: ICU PT Technique: Single frontal view of the chest was obtained COMPARISON: XY CHEST PORTABLE on DOS: 08/29/24 FINDINGS: Lines and Tubes: None Lungs: Diffuse increased interstitial prominence. Pleura: No effusion. No pneumothorax. Cardiomediastinal contours: Unremarkable Bones: Unremarkable IMPRESSION: Pulmonary vascular congestion
[2024-09-02] MEDS: POLYETHYLENE GLYCOL 17 GM PWDR PO ONE (17:00)
[2024-09-02 17:09] LABS: COVID19 ANTIGEN SOFIA FIA NEGATIVE (NEGATIVE); Rapid Influenza A Negative (Negative); Rapid Influenza B Negative (Negative)
[2024-09-02] MEDS: BUMETANIDE 2.5mg/10ml (0.25 mg/ml) INJ IV SCH (18:41)
[2024-09-02] MEDS: DOBUTamine HCL 500 MG in D5W 5% 210 ML IV SCH (18:42)
--- NOTE | 2024-09-02 21:05 | DVHPN2 ---
Reviewed: Care Plan, H&P, Labs, Medications Changes from previous H/P or p: No Changes General: Per HPI Eyes: No Pain, No Vision change, No Conjunctivae inflammation, No Eyelid inflammation, No Other, No Redness ENT: No Ear pain, No Ear discharge, No Nose pain, No Nose discharge, No Nose congestion, No Mouth pain, No Mouth swelling, No Throat pain, No Throat swelling, No Other Cardiovascular: No Chest Pain, No Palpitations, No Orthopnea, No Paroxysmal Noc. Dyspnea; Edema (Bilateral lower extremity +4 pitting edema); No Lt Headedness, No Other Respiratory: No Cough, No Dry, No Shortness of breath, No SOB with excertion, No Wheezing, No Hemoptysis, No Pleuritic Pain, No Sputum, No Other Gastrointestinal: No Nausea, No Vomiting, No Abdominal Pain, No Diarrhea, No Constipation, No Melena, No Hematochezia, No Other Genitourinary: No Dysuria, No Frequency, No Incontinence, No Hematuria, No Retention, No Other Musculoskeletal: No other, No neck pain, No shoulder pain, No arm pain, No back pain, No hand pain, No leg pain, No foot pain Skin: No Rash, No Lesions, No Jaundice, No Bruising, No Other Objective Vitals Vital Signs Date Time Temp Pulse Resp B/P (MAP) Pulse Ox O2 Delivery O2 Flow Rate FiO2 09/02/24 20:00 94 16 97 Nasal Cannula* 3 32 09/02/24 19:45 113/46 (68) 09/02/24 16:00 98.2 98.2 Intake/Output Intake and Output 09/02/24 07:00 Intake Total 2269.35 ml Output Total 6600 ml Balance -4330.65 ml Intake Oral 1100 ml IV Total 1169.35 ml Output Urine Total 6600 ml General Appearance: Alert, Oriented X3, Cooperative, mild distress HEENT: Atraumatic, PERRLA Lungs: Clear to auscultation, Normal air movement Cardiovascular: Normal S1, Normal S2, Other (Atrial fibrillation with rapid ventricular rate) Abdomen: Normal bowel sounds, Soft, No tenderness Back: Flank Tenderness, Midline Tenderness Musculoskeletal: Normal sensory function, Normal motor function Extremities: No clubbing, No cyanosis, Other (Massive pitting edema to bilateral lower extremity) Skin: Dry, Intact Psych/Mental Status: Mental status NL, Mood NL Medications Current Medications Medications Dose Ordered Sig/Nomi Route Start Time Stop Time Status Last Admin Dose Admin Sodium Chloride 10 ml QSHIFT@10,22 IV 08/29/24 22:00 09/02/24 10:17 10 ML Sodium Chloride 10 ml Q8HR IV 08/29/24 22:00 09/02/24 13:16 10 ML Acetaminophen/ Hydrocodone Bitart 1 tab Q4HP PRN PO 08/29/24 17:00 08/30/24 00:15 1 TAB Ondansetron HCl 4 mg Q4HP PRN IV 08/29/24 17:00 Docusate Sodium 100 mg BIDPRN PRN PO 08/29/24 17:00 09/02/24 10:18 100 MG Acetaminophen 650 mg Q6HP PRN PO 08/29/24 17:00 09/01/24 19:28 650 MG Nitroglycerin 0.4 mg Q5MINP PRN SL 08/29/24 17:00 Morphine Sulfate 2 mg Q30M PRN IV 08/29/24 17:00 Lorazepam 1 mg Q2HP PRN IV 08/29/24 17:00 Multivitamins 1 tab DAILY PO 08/30/24 10:00 09/02/24 10:17 1 TAB Folic Acid 1 mg DAILY PO 08/30/24 10:00 09/02/24 10:17 1 MG Thiamine HCl 100 mg DAILY PO 08/30/24 10:00 09/02/24 10:17 100 MG Allopurinol 100 mg DAILY PO 08/30/24 10:00 09/02/24 10:17 100 MG Apixaban 2.5 mg BID PO 08/29/24 22:00 09/02/24 10:17 2.5 MG Atorvastatin Calcium 20 mg DAILY PO 08/30/24 10:00 09/02/24 10:17 20 MG Gabapentin 300 mg BID PO 08/29/24 22:00 09/02/24 10:17 300 MG Pantoprazole Sodium 40 mg DAILY PO 08/30/24 10:00 09/02/24 10:18 40 MG Levothyroxine Sodium 25 mcg QAM@0600 PO 08/31/24 06:00 09/02/24 06:09 25 MCG Norepinephrine Bitartrate 32 mg/ Sodium Chloride 250 ml @ 0.938 mls/ hr Q24H IV 08/31/24 07:30 09/02/24 10:00 3.75 MLS/HR Bumetanide 2 mg BIDD IV 09/02/24 18:00 09/02/24 18:41 2 MG Potassium Chloride 20 meq BID PO 09/02/24 22:00 Dobutamine HCl/ Dextrose 500 mg/ Dextrose 250 ml @ 23.85 mls/ hr [id number] IV 09/02/24 18:30 09/02/24 18:42 23.85 MLS/HR Laboratory Results Laboratory Tests 09/02/24 03:00 09/02/24 15:53 Chemistry Test 09/02/24 03:00 Albumin 4.0 g/dL (3.2-4.8) Calcium Level 9.6 mg/dL (8.7-10.4) Magnesium Level 1.9 mg/dL (1.6-2.6) Total Protein 6.5 g/dL (5.7-8.2) LFT Test 09/02/24 03:00 Alanine Aminotransferase (ALT) < 9 U/L (7-40) Alkaline Phosphatase 104 U/L (46-116) Aspartate Amino Transferase (AST) < 8 U/L (13-40) L Total Bilirubin 1.1 mg/dL (0.2-1.0) H Urinalysis Test 08/29/24 16:00 Urine Color Colorless (Yellow) Urine Clarity Clear (Clear) Urine pH 7.0 (5.0-9.0) Urine Specific [place] 1.007 (1.001-1.035) Urine Protein Negative (Negative) Urine Ketones Negative (Negative) Urine Blood Negative /uL (Negative) Urine Nitrite Negative (Negative) Urine Bilirubin Negative (Negative) Urine Urobilinogen Normal mg/dL (Negative) Urine Leukocyte Esterase Trace /uL (Negative) Urine RBC 1 /hpf (0 - 4) Urine Microscopic WBC < 1 /HPF (0-5) Urine Squamous Epithelial Cells Few /hpf (<5) Urine Bacteria Few /hpf (None Seen) H Urine Hyaline Casts Few /lpf (0 - 2) Urine Glucose Normal mg/dL (Normal) Assessment/Plan Assessment/Plan Impression: -acute decompensated diastolic heart failure -atrial fibrillation with rapid ventricular rate -acute kidney injury, multifactorial -cardiogenic shock -morbid obesity -alcoholism -hypochromic anemia -hypovolemic hyponatremia fluid overload Plan: Events: No events overnight. Continues to be on the same vasopressor, inotrope, as well as amiodarone at 0.5. Patient did have run of SVT, self- limiting with the patient converting back to AFib in the one teens -cardiology consultation: Patient currently on amiodarone drip, dobutamine drip, norepinephrine drip -nephrology consultation: Recommendations reviewed. Patient currently on Bumex drip -continue thiamine and folic acid, MVI -continue anticoagulation with Eliquis -repeat labs in a.m. -electrolyte replete as needed 09/01/2024: remains on Amiodarone drip and Bumex drip still has significant edema b/l in LE discussed with pt and nursing at bedside 09/02/2024: replace serum restarted on Bumex if needed still has significant edema remains on amio drip pt remains in icu due to being on drip still needs to be diuresed due to 3+ pitting edema in LE Critical care time spent with patient discussing and formulating plan of care: 40 minutes. This does not include time spent performing procedures. This medical document was created using an electronic medical record system with [employer] dictation system. Although this document has been carefully reviewed, there may still be some phonetic and typographical errors. These areas are purely typographical due to imperfections of the software programs, and do not reflect any compromise in the patient's medical care. Plan discussed with: Patient My Orders Orders - JACQUELINE SANTIAGO DO Procedure Category Date Status Time Chest Portable XY 09/02/24 Resulted 15:26 Date of Service: Sep 02, 2024 Billing Provider: JACQUELINE SANTIAGO DO Common Visit Codes: 01072-[id number] CARE 30-74 MIN JACQUELINE SANTIAGO DO Sep 02, 2024 21:05
[2024-09-02] MEDS: acetaZOLAMIDE SODIUM 500 MG VL IV SCH (22:00)
[2024-09-02] MEDS: POTASSIUM CHL 20 Meq TABLET PO SCH (22:00)
[2024-09-02] MEDS: BUMETANIDE 2.5mg/10ml (0.25 mg/ml) INJ IV ONE (22:27)
[2024-09-03] VITALS (99 sets, daily range): BP systolic 82–132; BP diastolic 33–57; PULSE 72–108; RESP 11–23; TEMP 98–98.7; O2SAT 92–98
[2024-09-03 04:34] LABS: Albumin 3.8 g/dL (3.2-4.8); Alkaline Phosphatase 91 U/L (46-116); Anion Gap 6 (5-15); BUN/Creatinine Ratio 23.4 (10.0-20.0); Calcium 9.6 mg/dL (8.7-10.4); Glucose 104 mg/dL (74-106); Potassium 3.7 mmol/L (3.5-5.1); Total Protein 6.3 g/dL (5.7-8.2)
[2024-09-03 04:41] LABS: Alanine Aminotransferase < 9 U/L (7-40); Aspartate Aminotransferase < 8 U/L (13-40); Blood Urea Nitrogen 57 mg/dL (9-23); Carbon Dioxide 40 mmol/L (20-31); Chloride 86 mmol/L (98-107); Sodium 132 mmol/L (136-145)
--- NOTE | 2024-09-03 08:31 | DVHPN2 ---
Progress Note - Dictate Date Seen: Sep 03, 2024 Medical Necessity Reason Pt with a Central, PICC or Fol: Yes vital signs Vital Sign Date Time Temp Pulse Resp B/P (MAP) Pulse Ox O2 Delivery O2 Flow Rate FiO2 09/03/24 06:45 93 23 105/36 (59) 98 09/03/24 06:00 Nasal Cannula* 3 32 09/03/24 04:00 98.7 98.7 Total Intake and Output 09/02/24 09/02/24 09/03/24 15:00 23:00 07:00 Intake Total 875.33 ml 1236.08 ml 535.4 ml Output Total 2750 ml 1700 ml Balance 875.33 ml -1513.92 ml -1164.6 ml medications Current Medications Medications Dose Ordered Sig/Nomi Route Start Time Stop Time Status Last Admin Dose Admin Sodium Chloride 10 ml QSHIFT@10,22 IV 08/29/24 22:00 09/02/24 22:00 10 ML Sodium Chloride 10 ml Q8HR IV 08/29/24 22:00 09/03/24 06:00 10 ML Acetaminophen/ Hydrocodone Bitart 1 tab Q4HP PRN PO 08/29/24 17:00 08/30/24 00:15 1 TAB Ondansetron HCl 4 mg Q4HP PRN IV 08/29/24 17:00 Docusate Sodium 100 mg BIDPRN PRN PO 08/29/24 17:00 09/02/24 10:18 100 MG Acetaminophen 650 mg Q6HP PRN PO 08/29/24 17:00 09/01/24 19:28 650 MG Nitroglycerin 0.4 mg Q5MINP PRN SL 08/29/24 17:00 Morphine Sulfate 2 mg Q30M PRN IV 08/29/24 17:00 Lorazepam 1 mg Q2HP PRN IV 08/29/24 17:00 Multivitamins 1 tab DAILY PO 08/30/24 10:00 09/02/24 10:17 1 TAB Folic Acid 1 mg DAILY PO 08/30/24 10:00 09/02/24 10:17 1 MG Thiamine HCl 100 mg DAILY PO 08/30/24 10:00 09/02/24 10:17 100 MG Allopurinol 100 mg DAILY PO 08/30/24 10:00 09/02/24 10:17 100 MG Apixaban 2.5 mg BID PO 08/29/24 22:00 09/02/24 21:59 2.5 MG Atorvastatin Calcium 20 mg DAILY PO 08/30/24 10:00 09/02/24 10:17 20 MG Gabapentin 300 mg BID PO 08/29/24 22:00 09/02/24 21:59 300 MG Pantoprazole Sodium 40 mg DAILY PO 08/30/24 10:00 09/02/24 10:18 40 MG Levothyroxine Sodium 25 mcg QAM@0600 PO 08/31/24 06:00 09/03/24 06:24 25 MCG Norepinephrine Bitartrate 32 mg/ Sodium Chloride 250 ml @ 0.938 mls/ hr Q24H IV 08/31/24 07:30 09/02/24 10:00 3.75 MLS/HR Bumetanide 2 mg BIDD IV 09/02/24 18:00 09/03/24 06:24 2 MG Potassium Chloride 20 meq BID PO 09/02/24 22:00 09/02/24 22:00 20 MEQ Dobutamine HCl/ Dextrose 500 mg/ Dextrose 250 ml @ 23.85 mls/ hr [id number] IV 09/02/24 18:30 09/03/24 04:59 23.85 MLS/HR Acetazolamide Sodium 500 mg Q12HR IV 09/02/24 22:00 laboratory and microbiology Laboratory Tests 09/03/24 03:39 09/02/24 03:00 Test 09/03/24 03:39 Range/Units Serum Glucose 104 74-106 mg/dL Assessment/Plan Patient is a 74-year-old female who presented to the hospital with generalized weakness. She has been bed-bound for few years. She mentions that she was feeling more weak and could not even move in the bed and decided to come to the hospital. She also has baseline history of generalized swelling which occasionally worsens or improves. The swelling goes back for years. She mentions that the swelling increased for the past week. As outpatient, the patient is on Bumex. She mentions that she does go to [employer] regularly. Admission assessment had been acute on chronic heart failure and Cardiology was involved. It is of note that the patient started coming to our office in March 2022 but has been noncompliant with followups. Last visit inside the office was actually in March 2022. For awhile (up to September 2023) she was lost to follow up. Since September 2023, the patient has had multiple phone visits and has not come for physical exam. She has not come for requested echocardiograms/tests. She did have echocardiogram in [facility] (October 2023) which has reported preserved left ventricular systolic function and right ventricular systolic pressure of 31 mm Hg. Repeat echocardiograms in [facility] ( revealed dilated right side, LVEF of 50 to 55% and RVSP of 51 mmHg (in favor of diastolic heart failure). She does have baseline CKD. She does have morbid obesity with poor functional capacity. She has had multiple surgeries in the bilateral feet. She also has history of COPD/asthma with chronic respiratory failure (on home oxygen). She also has history of atrial fibrillation for which is on Eliquis as outpatient. She drinks alcohol (whisky) daily. Since arrival to Emergency room, the patient's blood pressure was found to be low and she has been started on pressure support and the plan is to manage the patient in ICU. Morbidly obese. Lying flat in bed and not in acute distress. No JVD. Mucosa is dry. Mucosa is pink. No JVD. No carotid bruit. Not using accessory muscles of breathing. Scattered rhonchi in the lungs is heard. Cardiac: Irregular, no thrill. Abdomen is obese and soft. There is no gross hepatomegaly, but it is presence can not be ruled out (body habitus, morbidly obese). There is 3+ edema in bilateral lower extremities which extends to abdominal wall. Past medical history includes morbid obesity, atrial fibrillation (on Eliquis as outpatient), COPD/asthma with chronic respiratory failure on home oxygen, hypertension, hyperlipidemia, chronic lymphedema, Diastolic heart failure with type 2 pulmonary hypertension, rheumatoid arthritis, osteoarthritis, peripheral vascular disease, CKD, anemia, old history of alcohol abuse, neuropathy, gout, old history of right and left foot fracture and their management, status post right knee replacement, bed-bound at baseline and functional quadriplegia. Patient drinks whiskey daily. Echocardiogram of October 24 2023 (performed in [facility]) revealed ejection fraction of 60%, mild biatrial enlargement, mild MR/TR and right ventricular systolic pressure of 31 mm Hg. Echocardiogram of (performed in [facility]) revealed: EF of 50 to 55%, Dilated right ventricle with normal systolic function. Severe biatrial enlargement. Mild AI, mild to moderate MR, moderate TR and RVSP of 51 mmHg. Ascending Aorta was 3.7 cm. Hemoglobin: 8.6 - 8.0 - 7.8 - 8.2 - 8.5 Creatinine: 5.22 - 5.09 - 4.51 - 4.27 - 3.22 - 2.82 - 2.44 Potassium: 5.5 - 4.9 - 4.4 - 3.7 - 3.1 - 3.0 - 3.9 - 3.7 Sodium: 124 - 126 - 125 - 126 - 130 - 133 - 132 Troponin (high sensitive): 10 - 10 - 10 BNP: 258.85 TSH: 6.71 D-dimer: 0.20 (wnl) ESR: 45 U/A: non-revealing Chest x-ray revealed: IMPRESSION: 1. Mild bilateral perihilar peribronchial thickening findings may represent bronchitis. Repeat chest xry revealed: Lines and Tubes: None Lungs: Diffuse increased interstitial prominence. Pleura: No effusion. No pneumothorax. Cardiomediastinal contours: Unremarkable Bones: Unremarkable IMPRESSION: Pulmonary vascular congestion EKG revealed atrial fibrillation with moderate ventricular response, incomplete right bundle branch block and low voltage QRS Tele reveals atrial fibrillation with moderate ventricular response Echo revealed: Left ventricle: Left ventricle was normal size with normal systolic function. LVEF was 72%. There was no gross wall motion abnormality. Right ventricle was mildly dilated with normal systolic function. Both atria were moderately dilated. Aortic valve: Aortic valve was not well visualized. There was no aortic insufficiency/stenosis. There was mild mitral regurgitation. There was [id number] tricuspid regurgitation. Pulmonary valve was not well visualized. IVC was dilated. Right ventricular systolic pressure was assessed at 54 mm Hg. There was no pericardial effusion. The patient is a 74-year-old female with poor functional capacity and morbid obesity who presented with generalized weakness. It is of note that the patient does have baseline history of functional quadriplegia. Complaints of worsening weakness. Does have history of atrial fibrillation and is on chronic anticoagulation as outpatient (Eliquis). Does have baseline history of chronic lower extremity edema for which takes Bumex. Does have noncompliance to follow ups. Does have history of lymphedema which could have contributed to the clinical picture. In examination does have significant pitting edema presently. It is of note that the BNP is normal which is against heart failure, but also, the patient does have significant obesity which may be a reason of heart failure without increase in BNP. Does have history of Diastolic heart failure with type 2 pulmonary hypertension which could have contributed to clinical presentation. Patient was found to have hypotension. Kidney function has worsened which may be secondary to baseline worsening of kidney function or over-diuresis or Cardiorenal etiology? Patient usually follows with Nephrology as outpatient. Clinically, the patient does have generalized swelling but mucosa is dry. Acute on chronic diastolic heart failure Pulmonary Hypertension, type 2 VIJAYA on CKD Alcohol abuse Morbid obesity Poor functional capacity Bed-bound at baseline Hypertension, history of Hypotension on presentation Atrial fibrillation, chronic Hyperlipidemia Osteoarthritis Rheumatoid arthritis Peripheral vascular disease Cardiac suggestion for management: Manage in ICU Fluid management (IV diuresis) as per Nephrology Pressure support (dobutamine/Levophed) at this point Follow up electrolytes and kidney function tests and correct abnormalities Full anticoagulation (on Eliquis presently), long-term On IV albumin On IV Amiodarone, can be changed to oral Amio Nephrology follow up. Further evaluation and management depends on the above and clinical course A total of 75 minutes was spent reviewing the patient record, examining the patient, making a diagnostic and therapeutic plan, discussing this plan with medical personnel, following up on diagnostic studies and following the patient for clinical stability excluding any and all procedures. At least 50% of this time was spent in direct, [id number] contact. Thank you for allowing me to participate in this patient's care. Further recommendations will depend on patient's clinical course. Please do not hesitate to contact me if you have any questions or concerns. This medical document was created using electronic medical record system with [employer] computerized dictation system. Although this document has been carefully reviewed, there may still be some phonetic and typographical errors. These areas are purely typographical due to the imperfection of the software programs, and do not reflect any compromise in the patient's medical care. Plan discussed with: Patient, Other (nurse) ROSS BRAY MD Sep 03, 2024 08:31
--- NOTE | 2024-09-03 09:13 | DVHPN2 ---
Subjective Patient denies any symptoms at this time. Reviewed: Care Plan, H&P, Labs, Medications Changes from previous H/P or p: No Changes General: Per HPI Eyes: No Pain, No Vision change, No Conjunctivae inflammation, No Eyelid inflammation, No Other, No Redness ENT: No Ear pain, No Ear discharge, No Nose pain, No Nose discharge, No Nose congestion, No Mouth pain, No Mouth swelling, No Throat pain, No Throat swelling, No Other Cardiovascular: No Chest Pain, No Palpitations, No Orthopnea, No Paroxysmal Noc. Dyspnea; Edema (Bilateral lower extremity +4 pitting edema); No Lt Headedness, No Other Respiratory: No Cough, No Dry, No Shortness of breath, No SOB with excertion, No Wheezing, No Hemoptysis, No Pleuritic Pain, No Sputum, No Other Gastrointestinal: No Nausea, No Vomiting, No Abdominal Pain, No Diarrhea, No Constipation, No Melena, No Hematochezia, No Other Genitourinary: No Dysuria, No Frequency, No Incontinence, No Hematuria, No Retention, No Other Musculoskeletal: No other, No neck pain, No shoulder pain, No arm pain, No back pain, No hand pain, No leg pain, No foot pain Skin: No Rash, No Lesions, No Jaundice, No Bruising, No Other Objective Vitals Vital Signs Date Time Temp Pulse Resp B/P (MAP) Pulse Ox O2 Delivery O2 Flow Rate FiO2 09/03/24 06:45 93 23 105/36 (59) 98 09/03/24 06:00 Nasal Cannula* 3 32 09/03/24 04:00 98.7 98.7 Intake/Output Intake and Output 09/03/24 07:00 Intake Total 2646.81 ml Output Total 4450 ml Balance -1803.19 ml Intake Oral 1360 ml IV Total 1286.81 ml Output Urine Total 4450 ml General Appearance: Alert, Oriented X3, Cooperative, mild distress HEENT: Atraumatic, PERRLA Lungs: Clear to auscultation, Normal air movement Cardiovascular: Normal S1, Normal S2, Other (Atrial fibrillation with rapid ventricular rate) Abdomen: Normal bowel sounds, Soft, No tenderness Back: Flank Tenderness, Midline Tenderness Musculoskeletal: Normal sensory function, Normal motor function Extremities: No clubbing, No cyanosis, Other (Massive pitting edema to bilateral lower extremity) Skin: Dry, Intact Psych/Mental Status: Mental status NL, Mood NL Medications Current Medications Medications Dose Ordered Sig/Nomi Route Start Time Stop Time Status Last Admin Dose Admin Sodium Chloride 10 ml QSHIFT@10,22 IV 08/29/24 22:00 09/02/24 22:00 10 ML Sodium Chloride 10 ml Q8HR IV 08/29/24 22:00 09/03/24 06:00 10 ML Acetaminophen/ Hydrocodone Bitart 1 tab Q4HP PRN PO 08/29/24 17:00 08/30/24 00:15 1 TAB Ondansetron HCl 4 mg Q4HP PRN IV 08/29/24 17:00 Docusate Sodium 100 mg BIDPRN PRN PO 08/29/24 17:00 09/02/24 10:18 100 MG Acetaminophen 650 mg Q6HP PRN PO 08/29/24 17:00 09/01/24 19:28 650 MG Nitroglycerin 0.4 mg Q5MINP PRN SL 08/29/24 17:00 Morphine Sulfate 2 mg Q30M PRN IV 08/29/24 17:00 Lorazepam 1 mg Q2HP PRN IV 08/29/24 17:00 Multivitamins 1 tab DAILY PO 08/30/24 10:00 09/02/24 10:17 1 TAB Folic Acid 1 mg DAILY PO 08/30/24 10:00 09/02/24 10:17 1 MG Thiamine HCl 100 mg DAILY PO 08/30/24 10:00 09/02/24 10:17 100 MG Allopurinol 100 mg DAILY PO 08/30/24 10:00 09/02/24 10:17 100 MG Apixaban 2.5 mg BID PO 08/29/24 22:00 09/02/24 21:59 2.5 MG Atorvastatin Calcium 20 mg DAILY PO 08/30/24 10:00 09/02/24 10:17 20 MG Gabapentin 300 mg BID PO 08/29/24 22:00 09/02/24 21:59 300 MG Pantoprazole Sodium 40 mg DAILY PO 08/30/24 10:00 09/02/24 10:18 40 MG Levothyroxine Sodium 25 mcg QAM@0600 PO 08/31/24 06:00 09/03/24 06:24 25 MCG Norepinephrine Bitartrate 32 mg/ Sodium Chloride 250 ml @ 0.938 mls/ hr Q24H IV 08/31/24 07:30 09/02/24 10:00 3.75 MLS/HR Bumetanide 2 mg BIDD IV 09/02/24 18:00 09/03/24 06:24 2 MG Potassium Chloride 20 meq BID PO 09/02/24 22:00 09/02/24 22:00 20 MEQ Dobutamine HCl/ Dextrose 500 mg/ Dextrose 250 ml @ 23.85 mls/ hr [id number] IV 09/02/24 18:30 09/03/24 04:59 23.85 MLS/HR Acetazolamide Sodium 500 mg Q12HR IV 09/02/24 22:00 Laboratory Results Laboratory Tests 09/02/24 03:00 09/03/24 03:39 Chemistry Test 09/03/24 03:39 Albumin 3.8 g/dL (3.2-4.8) Calcium Level 9.6 mg/dL (8.7-10.4) Total Protein 6.3 g/dL (5.7-8.2) LFT Test 09/03/24 03:39 Alanine Aminotransferase (ALT) < 9 U/L (7-40) Alkaline Phosphatase 91 U/L (46-116) Aspartate Amino Transferase (AST) < 8 U/L (13-40) L Total Bilirubin 1.0 mg/dL (0.2-1.0) Urinalysis Test 08/29/24 16:00 Urine Color Colorless (Yellow) Urine Clarity Clear (Clear) Urine pH 7.0 (5.0-9.0) Urine Specific [place] 1.007 (1.001-1.035) Urine Protein Negative (Negative) Urine Ketones Negative (Negative) Urine Blood Negative /uL (Negative) Urine Nitrite Negative (Negative) Urine Bilirubin Negative (Negative) Urine Urobilinogen Normal mg/dL (Negative) Urine Leukocyte Esterase Trace /uL (Negative) Urine RBC 1 /hpf (0 - 4) Urine Microscopic WBC < 1 /HPF (0-5) Urine Squamous Epithelial Cells Few /hpf (<5) Urine Bacteria Few /hpf (None Seen) H Urine Hyaline Casts Few /lpf (0 - 2) Urine Glucose Normal mg/dL (Normal) Labs and/or images reviewed: Labs reviewed by me, Image(s) reviewed by me Assessment/Plan Assessment/Plan Impression: -acute decompensated diastolic heart failure -atrial fibrillation with rapid ventricular rate -acute kidney injury, multifactorial -cardiogenic shock -morbid obesity -alcoholism -hypochromic anemia -hypovolemic hyponatremia Plan: Events: No events overnight. Decrease vasopressor therapy. Heart rate now controlled. Patient denies any symptoms. -cardiology consultation: Patient was heart rate has been controlled. Defer to Cardiology for possibly switching amiodarone drip to p.o.. Continues to be on Dobutrex at 5 micrograms/kilogram per minute -nephrology consultation: Recommendations reviewed. Bumex and Diamox -continue thiamine and folic acid, MVI -continue anticoagulation with Eliquis -repeat labs in a.m. -electrolyte replete as needed Critical care time spent with patient discussing and formulating plan of care: 40 minutes. This does not include time spent performing procedures. This medical document was created using an electronic medical record system with [employer] dictation system. Although this document has been carefully reviewed, there may still be some phonetic and typographical errors. These areas are purely typographical due to imperfections of the software programs, and do not reflect any compromise in the patient's medical care. Plan discussed with: Patient, Other (RN) My Orders Orders - AVEL DUNN NP Procedure Category Date Status Time Basic Metabolic Panel LAB 09/04/24 Verified 04:00 Date of Service: Sep 03, 2024 Billing Provider: AVEL DUNN NP Common Visit Codes: [id number] CARE 30-74 MIN AVEL DUNN NP Sep 03, 2024 09:13
[2024-09-03] MEDS ORDERED: POLYETHYLENE GLYCOL 17 GM PWDR PO PRN (09:15)
[2024-09-03] MEDS ORDERED: POTASSIUM CHL 20 Meq TABLET PO SCH (10:00)
[2024-09-03] MEDS: POLYETHYLENE GLYCOL 17 GM PWDR PO ONE (10:02)
--- NOTE | 2024-09-03 10:15 | DVHPN2 ---
Progress Note - Dictate Date Seen: Sep 03, 2024 Medical Necessity Reason Pt with a Central, PICC or Fol: Yes Subjective continues to be on Amio drip , Dobutamine and Neosynephrine . UOP approx 4.5 liters in the last 24 hrs . vital signs Vital Sign Date Time Temp Pulse Resp B/P (MAP) Pulse Ox O2 Delivery O2 Flow Rate FiO2 09/03/24 06:45 93 23 105/36 (59) 98 09/03/24 06:00 Nasal Cannula* 3 32 09/03/24 04:00 98.7 98.7 Total Intake and Output 09/02/24 09/02/24 09/03/24 15:00 23:00 07:00 Intake Total 875.33 ml 1236.08 ml 535.4 ml Output Total 2750 ml 1700 ml Balance 875.33 ml -1513.92 ml -1164.6 ml medications Current Medications Medications Dose Ordered Sig/Nomi Route Start Time Stop Time Status Last Admin Dose Admin Sodium Chloride 10 ml QSHIFT@10,22 IV 08/29/24 22:00 09/02/24 22:00 10 ML Sodium Chloride 10 ml Q8HR IV 08/29/24 22:00 09/03/24 06:00 10 ML Acetaminophen/ Hydrocodone Bitart 1 tab Q4HP PRN PO 08/29/24 17:00 08/30/24 00:15 1 TAB Ondansetron HCl 4 mg Q4HP PRN IV 08/29/24 17:00 Acetaminophen 650 mg Q6HP PRN PO 08/29/24 17:00 09/01/24 19:28 650 MG Nitroglycerin 0.4 mg Q5MINP PRN SL 08/29/24 17:00 Morphine Sulfate 2 mg Q30M PRN IV 08/29/24 17:00 Lorazepam 1 mg Q2HP PRN IV 08/29/24 17:00 Multivitamins 1 tab DAILY PO 08/30/24 10:00 09/03/24 09:36 1 TAB Folic Acid 1 mg DAILY PO 08/30/24 10:00 09/03/24 09:37 1 MG Thiamine HCl 100 mg DAILY PO 08/30/24 10:00 09/03/24 09:36 100 MG Allopurinol 100 mg DAILY PO 08/30/24 10:00 09/03/24 09:36 100 MG Apixaban 2.5 mg BID PO 08/29/24 22:00 09/03/24 09:38 2.5 MG Atorvastatin Calcium 20 mg DAILY PO 08/30/24 10:00 09/03/24 09:36 20 MG Gabapentin 300 mg BID PO 08/29/24 22:00 09/03/24 09:37 300 MG Pantoprazole Sodium 40 mg DAILY PO 08/30/24 10:00 09/03/24 09:37 40 MG Levothyroxine Sodium 25 mcg QAM@0600 PO 08/31/24 06:00 09/03/24 06:24 25 MCG Norepinephrine Bitartrate 32 mg/ Sodium Chloride 250 ml @ 0.938 mls/ hr Q24H IV 08/31/24 07:30 09/02/24 10:00 3.75 MLS/HR Bumetanide 2 mg BIDD IV 09/02/24 18:00 09/03/24 06:24 2 MG Potassium Chloride 20 meq BID PO 09/02/24 22:00 09/03/24 09:38 20 MEQ Dobutamine HCl/ Dextrose 500 mg/ Dextrose 250 ml @ 23.85 mls/ hr [id number] IV 09/02/24 18:30 09/03/24 04:59 23.85 MLS/HR Acetazolamide Sodium 500 mg Q12HR IV 09/02/24 22:00 Docusate Sodium 100 mg BID PO 09/03/24 10:00 Polyethylene Glycol 17 gm DAILYPRN PRN PO 09/03/24 09:15 Amiodarone HCl 200 mg DAILY PO 09/03/24 10:00 objective HEENT: No evidence of JVD, no oral ulcers. Pulmonary: Diminished lung sounds at the bases Cardiovascular regular rate Abdomen: Bowel sounds positive, soft no rebound tenderness Skin: No rash Neurological: Alert, oriented, no focal weakness Extremities: 2+ pitting edema up to the mid thighs laboratory and microbiology Laboratory Tests 09/03/24 03:39 09/02/24 03:00 Test 09/03/24 03:39 Range/Units Serum Glucose 104 74-106 mg/dL Problem List 1. Acute kidney injury on chronic kidney disease stage 3 secondary to cardiorenal syndrome 2. Cardiogenic shock 3. Acute diastolic heart failure exacerbation 4. Pulmonary hypertension 4. Hypokalemia 5. Hyponatremia, hypervolemic improving 6. Morbid obesity 7. Hypoalbuminemia 8. Chronic alcoholism 9. Metabolic alkalosis 10.Anemia Assessment/Plan Plan: continue Bumex 2 mg IV BID . Continue Diamox 2D echo findings reviewed including dilated IVC, increased PA pressure, dilated right ventricle, tricuspid regurgitation. Fluid restriction Peoples catheter strict I's and O's Cessation from alcohol abuse was discussed today Thank you very much for allowing me to participate in the care of this patient. Plan discussed with: Patient ALKA MARQUEZ MD Sep 03, 2024 10:15
[2024-09-03] MEDS: AMIODARONE HCL 200 MG TAB PO SCH (10:20)
[2024-09-03] MEDS: DOCUSATE SOD 100 MG CAP PO SCH (10:23)
[2024-09-04] VITALS (97 sets, daily range): BP systolic 77–122; BP diastolic 33–66; PULSE 61–96; RESP 10–25; TEMP 97.9–98.4; O2SAT 80–100
[2024-09-04 04:09] LABS: Calcium 9.5 mg/dL (8.7-10.4); Potassium 3.7 mmol/L (3.5-5.1)
[2024-09-04 04:10] LABS: Anion Gap 8 (5-15)
[2024-09-04 04:15] LABS: BUN/Creatinine Ratio 24.8 (10.0-20.0); Glucose 101 mg/dL (74-106)
[2024-09-04 04:32] LABS: Blood Urea Nitrogen 60 mg/dL (9-23); Carbon Dioxide 38 mmol/L (20-31); Chloride 87 mmol/L (98-107); Sodium 133 mmol/L (136-145)
--- NOTE | 2024-09-04 07:07 | DVHPN2 ---
Progress Note - Dictate Date Seen: Sep 04, 2024 Medical Necessity Reason Pt with a Central, PICC or Fol: Yes vital signs Vital Sign Date Time Temp Pulse Resp B/P (MAP) Pulse Ox O2 Delivery O2 Flow Rate FiO2 09/04/24 06:45 75 12 103/47 (65) 94 09/04/24 06:00 Nasal Cannula* 2 28 09/04/24 04:00 97.9 97.9 Total Intake and Output 09/03/24 09/03/24 09/04/24 15:00 23:00 07:00 Intake Total 560.123 ml 1085.4 ml 115.4 ml Output Total 2025 ml 850 ml Balance 560.123 ml -939.6 ml -734.6 ml medications Current Medications Medications Dose Ordered Sig/Nomi Route Start Time Stop Time Status Last Admin Dose Admin Sodium Chloride 10 ml QSHIFT@10,22 IV 08/29/24 22:00 09/03/24 21:54 10 ML Sodium Chloride 10 ml Q8HR IV 08/29/24 22:00 09/04/24 05:46 10 ML Acetaminophen/ Hydrocodone Bitart 1 tab Q4HP PRN PO 08/29/24 17:00 08/30/24 00:15 1 TAB Ondansetron HCl 4 mg Q4HP PRN IV 08/29/24 17:00 Acetaminophen 650 mg Q6HP PRN PO 08/29/24 17:00 09/01/24 19:28 650 MG Nitroglycerin 0.4 mg Q5MINP PRN SL 08/29/24 17:00 Morphine Sulfate 2 mg Q30M PRN IV 08/29/24 17:00 Lorazepam 1 mg Q2HP PRN IV 08/29/24 17:00 Multivitamins 1 tab DAILY PO 08/30/24 10:00 09/03/24 09:36 1 TAB Folic Acid 1 mg DAILY PO 08/30/24 10:00 09/03/24 09:37 1 MG Thiamine HCl 100 mg DAILY PO 08/30/24 10:00 09/03/24 09:36 100 MG Allopurinol 100 mg DAILY PO 08/30/24 10:00 09/03/24 09:36 100 MG Apixaban 2.5 mg BID PO 08/29/24 22:00 09/03/24 21:52 2.5 MG Atorvastatin Calcium 20 mg DAILY PO 08/30/24 10:00 09/03/24 09:36 20 MG Gabapentin 300 mg BID PO 08/29/24 22:00 09/03/24 21:52 300 MG Pantoprazole Sodium 40 mg DAILY PO 08/30/24 10:00 09/03/24 09:37 40 MG Levothyroxine Sodium 25 mcg QAM@0600 PO 08/31/24 06:00 09/04/24 05:31 25 MCG Norepinephrine Bitartrate 32 mg/ Sodium Chloride 250 ml @ 0.938 mls/ hr Q24H IV 08/31/24 07:30 09/02/24 10:00 3.75 MLS/HR Bumetanide 2 mg BIDD IV 09/02/24 18:00 09/04/24 05:43 2 MG Potassium Chloride 20 meq BID PO 09/02/24 22:00 09/03/24 21:52 20 MEQ Dobutamine HCl/ Dextrose 500 mg/ Dextrose 250 ml @ 23.85 mls/ hr [id number] IV 09/02/24 18:30 09/03/24 04:59 23.85 MLS/HR Acetazolamide Sodium 500 mg Q12HR IV 09/02/24 22:00 09/03/24 21:51 500 MG Docusate Sodium 100 mg BID PO 09/03/24 10:00 09/03/24 21:52 100 MG Polyethylene Glycol 17 gm DAILYPRN PRN PO 09/03/24 09:15 Amiodarone HCl 200 mg DAILY PO 09/03/24 10:00 09/03/24 10:20 200 MG laboratory and microbiology Laboratory Tests 09/04/24 03:20 09/02/24 03:00 Test 09/04/24 03:20 Range/Units Serum Glucose 101 74-106 mg/dL Assessment/Plan Patient is a 74-year-old female who presented to the hospital with generalized weakness. She has been bed-bound for few years. She mentions that she was feeling more weak and could not even move in the bed and decided to come to the hospital. She also has baseline history of generalized swelling which occasionally worsens or improves. The swelling goes back for years. She mentions that the swelling increased for the past week. As outpatient, the patient is on Bumex. She mentions that she does go to [facility] regularly. Admission assessment had been acute on chronic heart failure and Cardiology was involved. It is of note that the patient started coming to our office in March 2022 but has been noncompliant with followups. Last visit inside the office was actually in March 2022. For awhile (up to September 2023) she was lost to follow up. Since September 2023, the patient has had multiple phone visits and has not come for physical exam. She has not come for requested echocardiograms/tests. She did have echocardiogram in [facility] (October 2023) which has reported preserved left ventricular systolic function and right ventricular systolic pressure of 31 mm Hg. Repeat echocardiograms in [facility] ( revealed dilated right side, LVEF of 50 to 55% and RVSP of 51 mmHg (in favor of diastolic heart failure). She does have baseline CKD. She does have morbid obesity with poor functional capacity. She has had multiple surgeries in the bilateral feet. She also has history of COPD/asthma with chronic respiratory failure (on home oxygen). She also has history of atrial fibrillation for which is on Eliquis as outpatient. She drinks alcohol (whisky) daily. Since arrival to Emergency room, the patient's blood pressure was found to be low and she has been started on pressure support and the plan is to manage the patient in ICU. Morbidly obese. Lying flat in bed and not in acute distress. No JVD. Mucosa is dry. Mucosa is pink. No JVD. No carotid bruit. Not using accessory muscles of breathing. Scattered rhonchi in the lungs is heard. Cardiac: Irregular, no thrill. Abdomen is obese and soft. There is no gross hepatomegaly, but it is presence can not be ruled out (body habitus, morbidly obese). There is 3+ edema in bilateral lower extremities which extends to abdominal wall. Past medical history includes morbid obesity, atrial fibrillation (on Eliquis as outpatient), COPD/asthma with chronic respiratory failure on home oxygen, hypertension, hyperlipidemia, chronic lymphedema, Diastolic heart failure with type 2 pulmonary hypertension, rheumatoid arthritis, osteoarthritis, peripheral vascular disease, CKD, anemia, old history of alcohol abuse, neuropathy, gout, old history of right and left foot fracture and their management, status post right knee replacement, bed-bound at baseline and functional quadriplegia. Patient drinks whiskey daily. Echocardiogram of October 24 2023 (performed in [facility]) revealed ejection fraction of 60%, mild biatrial enlargement, mild MR/TR and right ventricular systolic pressure of 31 mm Hg. Echocardiogram of (performed in [facility]) revealed: EF of 50 to 55%, Dilated right ventricle with normal systolic function. Severe biatrial enlargement. Mild AI, mild to moderate MR, moderate TR and RVSP of 51 mmHg. Ascending Aorta was 3.7 cm. Hemoglobin: 8.6 - 8.0 - 7.8 - 8.2 - 8.5 Creatinine: 5.22 - 5.09 - 4.51 - 4.27 - 3.22 - 2.82 - 2.44 - 2.42 Potassium: 5.5 - 4.9 - 4.4 - 3.7 - 3.1 - 3.0 - 3.9 - 3.7 - 3.7 Sodium: 124 - 126 - 125 - 126 - 130 - 133 - 132 - 133 Troponin (high sensitive): 10 - 10 - 10 BNP: 258.85 TSH: 6.71 D-dimer: 0.20 (wnl) ESR: 45 Digoxin level: 1.5 U/A: non-revealing Chest x-ray revealed: IMPRESSION: 1. Mild bilateral perihilar peribronchial thickening findings may represent bronchitis. Repeat chest xry revealed: Lines and Tubes: None Lungs: Diffuse increased interstitial prominence. Pleura: No effusion. No pneumothorax. Cardiomediastinal contours: Unremarkable Bones: Unremarkable IMPRESSION: Pulmonary vascular congestion EKG revealed atrial fibrillation with moderate ventricular response, incomplete right bundle branch block and low voltage QRS Tele reveals atrial fibrillation with moderate ventricular response Echo revealed: Left ventricle: Left ventricle was normal size with normal systolic function. LVEF was 72%. There was no gross wall motion abnormality. Right ventricle was mildly dilated with normal systolic function. Both atria were moderately dilated. Aortic valve: Aortic valve was not well visualized. There was no aortic insufficiency/stenosis. There was mild mitral regurgitation. There was [id number] tricuspid regurgitation. Pulmonary valve was not well visualized. IVC was dilated. Right ventricular systolic pressure was assessed at 54 mm Hg. There was no pericardial effusion. The patient is a 74-year-old female with poor functional capacity and morbid obesity who presented with generalized weakness. It is of note that the patient does have baseline history of functional quadriplegia. Complaints of worsening weakness. Does have history of atrial fibrillation and is on chronic anticoagulation as outpatient (Eliquis). Does have baseline history of chronic lower extremity edema for which takes Bumex. Does have noncompliance to follow ups. Does have history of lymphedema which could have contributed to the clinical picture. In examination does have significant pitting edema presently. It is of note that the BNP is normal which is against heart failure, but also, the patient does have significant obesity which may be a reason of heart failure without increase in BNP. Does have history of Diastolic heart failure with type 2 pulmonary hypertension which could have contributed to clinical presentation. Patient was found to have hypotension. Kidney function has worsened which may be secondary to baseline worsening of kidney function or over-diuresis or Cardiorenal etiology? Patient usually follows with Nephrology as outpatient. Clinically, the patient does have generalized swelling but mucosa is dry. Acute on chronic diastolic heart failure Pulmonary Hypertension, type 2 VIJAYA on CKD Alcohol abuse Morbid obesity Poor functional capacity Bed-bound at baseline Hypertension, history of Hypotension on presentation Atrial fibrillation, chronic Hyperlipidemia Osteoarthritis Rheumatoid arthritis Peripheral vascular disease Cardiac suggestion for management: Manage in ICU Fluid management (IV diuresis) as per Nephrology Pressure support (Levophed) at this point Follow up electrolytes and kidney function tests and correct abnormalities Full anticoagulation (on Eliquis presently), long-term Nephrology follow up. Further evaluation and management depends on the above and clinical course A total of 75 minutes was spent reviewing the patient record, examining the patient, making a diagnostic and therapeutic plan, discussing this plan with medical personnel, following up on diagnostic studies and following the patient for clinical stability excluding any and all procedures. At least 50% of this time was spent in direct, [id number] contact. Thank you for allowing me to participate in this patient's care. Further recommendations will depend on patient's clinical course. Please do not hesitate to contact me if you have any questions or concerns. This medical document was created using electronic medical record system with [employer] dictation system. Although this document has been carefully reviewed, there may still be some phonetic and typographical errors. These areas are purely typographical due to the imperfection of the software programs, and do not reflect any compromise in the patient's medical care. Dietary Evaluation Review Comments: 1. Follow renal specific diet with 50g protein restriction for avoiding worsening uremic syndrome. 2. tighter sodium restriction to avoid edema and fluid retention Expected Outcomes/Goals: Gradual weight loss. Delayed dialysis treatments Plan discussed with: Patient, Other (nurse) ROSS BRAY MD Sep 04, 2024 07:07
--- NOTE | 2024-09-04 08:55 | DVHPN2 ---
Subjective Patient denies any symptoms at this time. Reviewed: Care Plan, H&P, Labs, Medications Changes from previous H/P or p: No Changes General: Per HPI Eyes: No Pain, No Vision change, No Conjunctivae inflammation, No Eyelid inflammation, No Other, No Redness ENT: No Ear pain, No Ear discharge, No Nose pain, No Nose discharge, No Nose congestion, No Mouth pain, No Mouth swelling, No Throat pain, No Throat swelling, No Other Cardiovascular: No Chest Pain, No Palpitations, No Orthopnea, No Paroxysmal Noc. Dyspnea; Edema (Bilateral lower extremity +4 pitting edema); No Lt Headedness, No Other Respiratory: No Cough, No Dry, No Shortness of breath, No SOB with excertion, No Wheezing, No Hemoptysis, No Pleuritic Pain, No Sputum, No Other Gastrointestinal: No Nausea, No Vomiting, No Abdominal Pain, No Diarrhea, No Constipation, No Melena, No Hematochezia, No Other Genitourinary: No Dysuria, No Frequency, No Incontinence, No Hematuria, No Retention, No Other Musculoskeletal: No other, No neck pain, No shoulder pain, No arm pain, No back pain, No hand pain, No leg pain, No foot pain Skin: No Rash, No Lesions, No Jaundice, No Bruising, No Other Objective Vitals Vital Signs Date Time Temp Pulse Resp B/P (MAP) Pulse Ox O2 Delivery O2 Flow Rate FiO2 09/04/24 06:45 75 12 103/47 (65) 94 09/04/24 06:00 Nasal Cannula* 2 28 09/04/24 04:00 97.9 97.9 Intake/Output Intake and Output 09/04/24 07:00 Intake Total 1760.923 ml Output Total 2875 ml Balance -1114.077 ml Intake Oral 1600 ml IV Total 160.923 ml Output Urine Total 2875 ml # Bowel Movements 2 General Appearance: Alert, Oriented X3, Cooperative, mild distress HEENT: Atraumatic, PERRLA Lungs: Clear to auscultation, Normal air movement Cardiovascular: Normal S1, Normal S2, Other (Atrial fibrillation with rapid ventricular rate) Abdomen: Normal bowel sounds, Soft, No tenderness Back: Flank Tenderness, Midline Tenderness Musculoskeletal: Normal sensory function, Normal motor function Extremities: No clubbing, No cyanosis, Other (Massive pitting edema to bilateral lower extremity) Skin: Dry, Intact Psych/Mental Status: Mental status NL, Mood NL Medications Current Medications Medications Dose Ordered Sig/Nomi Route Start Time Stop Time Status Last Admin Dose Admin Sodium Chloride 10 ml QSHIFT@10,22 IV 08/29/24 22:00 09/03/24 21:54 10 ML Sodium Chloride 10 ml Q8HR IV 08/29/24 22:00 09/04/24 05:46 10 ML Acetaminophen/ Hydrocodone Bitart 1 tab Q4HP PRN PO 08/29/24 17:00 08/30/24 00:15 1 TAB Ondansetron HCl 4 mg Q4HP PRN IV 08/29/24 17:00 Acetaminophen 650 mg Q6HP PRN PO 08/29/24 17:00 09/01/24 19:28 650 MG Nitroglycerin 0.4 mg Q5MINP PRN SL 08/29/24 17:00 Morphine Sulfate 2 mg Q30M PRN IV 08/29/24 17:00 Lorazepam 1 mg Q2HP PRN IV 08/29/24 17:00 Multivitamins 1 tab DAILY PO 08/30/24 10:00 09/03/24 09:36 1 TAB Folic Acid 1 mg DAILY PO 08/30/24 10:00 09/03/24 09:37 1 MG Thiamine HCl 100 mg DAILY PO 08/30/24 10:00 09/03/24 09:36 100 MG Allopurinol 100 mg DAILY PO 08/30/24 10:00 09/03/24 09:36 100 MG Apixaban 2.5 mg BID PO 08/29/24 22:00 09/03/24 21:52 2.5 MG Atorvastatin Calcium 20 mg DAILY PO 08/30/24 10:00 09/03/24 09:36 20 MG Gabapentin 300 mg BID PO 08/29/24 22:00 09/03/24 21:52 300 MG Pantoprazole Sodium 40 mg DAILY PO 08/30/24 10:00 09/03/24 09:37 40 MG Levothyroxine Sodium 25 mcg QAM@0600 PO 08/31/24 06:00 09/04/24 05:31 25 MCG Norepinephrine Bitartrate 32 mg/ Sodium Chloride 250 ml @ 0.938 mls/ hr Q24H IV 08/31/24 07:30 09/02/24 10:00 3.75 MLS/HR Bumetanide 2 mg BIDD IV 09/02/24 18:00 09/04/24 05:43 2 MG Potassium Chloride 20 meq BID PO 09/02/24 22:00 09/03/24 21:52 20 MEQ Dobutamine HCl/ Dextrose 500 mg/ Dextrose 250 ml @ 23.85 mls/ hr [id number] IV 09/02/24 18:30 09/03/24 04:59 23.85 MLS/HR Acetazolamide Sodium 500 mg Q12HR IV 09/02/24 22:00 09/03/24 21:51 500 MG Docusate Sodium 100 mg BID PO 09/03/24 10:00 09/03/24 21:52 100 MG Polyethylene Glycol 17 gm DAILYPRN PRN PO 09/03/24 09:15 Amiodarone HCl 200 mg DAILY PO 09/03/24 10:00 09/03/24 10:20 200 MG Laboratory Results Laboratory Tests 09/02/24 03:00 09/04/24 03:20 Chemistry Test 09/04/24 03:20 Calcium Level 9.5 mg/dL (8.7-10.4) Urinalysis Test 08/29/24 16:00 Urine Color Colorless (Yellow) Urine Clarity Clear (Clear) Urine pH 7.0 (5.0-9.0) Urine Specific [place] 1.007 (1.001-1.035) Urine Protein Negative (Negative) Urine Ketones Negative (Negative) Urine Blood Negative /uL (Negative) Urine Nitrite Negative (Negative) Urine Bilirubin Negative (Negative) Urine Urobilinogen Normal mg/dL (Negative) Urine Leukocyte Esterase Trace /uL (Negative) Urine RBC 1 /hpf (0 - 4) Urine Microscopic WBC < 1 /HPF (0-5) Urine Squamous Epithelial Cells Few /hpf (<5) Urine Bacteria Few /hpf (None Seen) H Urine Hyaline Casts Few /lpf (0 - 2) Urine Glucose Normal mg/dL (Normal) Labs and/or images reviewed: Labs reviewed by me, Image(s) reviewed by me Assessment/Plan Assessment/Plan Impression: -acute decompensated diastolic heart failure -atrial fibrillation with rapid ventricular rate -acute kidney injury, multifactorial -cardiogenic shock -morbid obesity -alcoholism -hypochromic anemia -hypervolemic hyponatremia Plan: Events: No events overnight. Patient weaned off of Dobutrex as well as amiodarone drip. Continues to be on norepinephrine at 6 micrograms/minute. Renal function improving -cardiology consultation: Recommendations reviewed -nephrology consultation: Recommendations reviewed. Bumex and Diamox -continue thiamine and folic acid, MVI -continue anticoagulation with Eliquis -repeat labs in a.m. -electrolyte replete as needed Critical care time spent with patient discussing and formulating plan of care: 40 minutes. This does not include time spent performing procedures. This medical document was created using an electronic medical record system with [email or web address] dictation system. Although this document has been carefully reviewed, there may still be some phonetic and typographical errors. These areas are purely typographical due to imperfections of the software programs, and do not reflect any compromise in the patient's medical care. Plan discussed with: Patient, Other (RN) My Orders Orders - AVEL DUNN NP Procedure Category Date Status Time Docusate Sodium PHA 09/03/24 In Process Capsule (Colace 10:00 Polyethylene Glycol PHA 09/03/24 In Process 17g Powder (Miralax 09:15 Date of Service: Sep 04, 2024 Billing Provider: AVEL DUNN NP Common Visit Codes: [id number] INP/OBS CARE(HIGH) AVEL DUNN NP Sep 04, 2024 08:54
--- NOTE | 2024-09-04 15:54 | DVHPN2 ---
Progress Note - Dictate Date Seen: Sep 04, 2024 Medical Necessity Reason Pt with a Central, PICC or Fol: Yes Subjective continues to be on pressors. Excellent urine output in the last 24 hours . vital signs Vital Sign Date Time Temp Pulse Resp B/P (MAP) Pulse Ox O2 Delivery O2 Flow Rate FiO2 09/04/24 14:15 72 13 99/45 (63) 96 09/04/24 14:00 Nasal Cannula* 2 28 09/04/24 12:30 98.0 98.0 Total Intake and Output 09/03/24 09/03/24 09/04/24 15:00 23:00 07:00 Intake Total 560.123 ml 1085.4 ml 118.2 ml Output Total 2025 ml 850 ml Balance 560.123 ml -939.6 ml -731.8 ml medications Current Medications Medications Dose Ordered Sig/Nomi Route Start Time Stop Time Status Last Admin Dose Admin Sodium Chloride 10 ml QSHIFT@10,22 IV 08/29/24 22:00 09/04/24 09:34 10 ML Sodium Chloride 10 ml Q8HR IV 08/29/24 22:00 09/04/24 13:08 10 ML Acetaminophen/ Hydrocodone Bitart 1 tab Q4HP PRN PO 08/29/24 17:00 09/04/24 14:13 1 TAB Ondansetron HCl 4 mg Q4HP PRN IV 08/29/24 17:00 Acetaminophen 650 mg Q6HP PRN PO 08/29/24 17:00 09/01/24 19:28 650 MG Nitroglycerin 0.4 mg Q5MINP PRN SL 08/29/24 17:00 Morphine Sulfate 2 mg Q30M PRN IV 08/29/24 17:00 Lorazepam 1 mg Q2HP PRN IV 08/29/24 17:00 Multivitamins 1 tab DAILY PO 08/30/24 10:00 09/04/24 09:32 1 TAB Folic Acid 1 mg DAILY PO 08/30/24 10:00 09/04/24 09:32 1 MG Thiamine HCl 100 mg DAILY PO 08/30/24 10:00 09/04/24 09:32 100 MG Allopurinol 100 mg DAILY PO 08/30/24 10:00 09/04/24 09:33 100 MG Apixaban 2.5 mg BID PO 08/29/24 22:00 09/04/24 09:33 2.5 MG Atorvastatin Calcium 20 mg DAILY PO 08/30/24 10:00 09/04/24 09:33 20 MG Gabapentin 300 mg BID PO 08/29/24 22:00 09/04/24 09:32 300 MG Pantoprazole Sodium 40 mg DAILY PO 08/30/24 10:00 09/04/24 09:31 40 MG Levothyroxine Sodium 25 mcg QAM@0600 PO 08/31/24 06:00 09/04/24 05:31 25 MCG Norepinephrine Bitartrate 32 mg/ Sodium Chloride 250 ml @ 0.938 mls/ hr Q24H IV 08/31/24 07:30 09/02/24 10:00 3.75 MLS/HR Bumetanide 2 mg BIDD IV 09/02/24 18:00 09/04/24 05:43 2 MG Potassium Chloride 20 meq BID PO 09/02/24 22:00 09/04/24 09:33 20 MEQ Acetazolamide Sodium 500 mg Q12HR IV 09/02/24 22:00 09/04/24 09:37 500 MG Docusate Sodium 100 mg BID PO 09/03/24 10:00 09/04/24 09:32 100 MG Polyethylene Glycol 17 gm DAILYPRN PRN PO 09/03/24 09:15 Amiodarone HCl 200 mg DAILY PO 09/03/24 10:00 09/04/24 09:32 200 MG objective HEENT: No evidence of JVD, no oral ulcers. Pulmonary: Diminished lung sounds at the bases Cardiovascular regular rate Abdomen: Bowel sounds positive, soft no rebound tenderness Skin: No rash Neurological: Alert, oriented, no focal weakness Extremities: 2+ pitting edema up to the mid thighs laboratory and microbiology Laboratory Tests 09/04/24 03:20 09/02/24 03:00 Test 09/04/24 03:20 Range/Units Serum Glucose 101 74-106 mg/dL Problem List 1. Acute kidney injury on chronic kidney disease stage 3 secondary to cardiorenal syndrome 2. Cardiogenic shock 3. Acute diastolic heart failure exacerbation 4. Pulmonary hypertension 4. Hypokalemia 5. Hyponatremia, hypervolemic improving 6. Morbid obesity 7. Hypoalbuminemia 8. Chronic alcoholism 9. Metabolic alkalosis 10.Anemia Assessment/Plan Plan: GFR stable continue with pressor support continue Bumex 2 mg IV BID . Continue Diamox Dietary Evaluation Review Comments: 1. Follow renal specific diet with 50g protein restriction for avoiding worsening uremic syndrome. 2. tighter sodium restriction to avoid edema and fluid retention Expected Outcomes/Goals: Gradual weight loss. Delayed dialysis treatments Plan discussed with: Patient ALKA MARQUEZ MD Sep 04, 2024 15:54
[2024-09-05] VITALS (94 sets, daily range): BP systolic 80–130; BP diastolic 27–77; PULSE 60–90; RESP 10–25; TEMP 97.5–98.6; O2SAT 81–100
--- NOTE | 2024-09-05 06:06 | DVHPN2 ---
Progress Note - Dictate Date Seen: Sep 05, 2024 Medical Necessity Reason Pt with a Central, PICC or Fol: Yes vital signs Vital Sign Date Time Temp Pulse Resp B/P (MAP) Pulse Ox O2 Delivery O2 Flow Rate FiO2 09/05/24 05:45 74 11 105/43 (63) 97 09/05/24 04:00 Nasal Cannula* 2 28 09/05/24 00:00 98.1 98.1 Total Intake and Output 09/04/24 09/04/24 09/05/24 15:00 23:00 07:00 Intake Total 1032.77 ml 261.04 ml 15.6 ml Output Total 1800 ml 350 ml Balance -767.23 ml -88.96 ml 15.6 ml medications Current Medications Medications Dose Ordered Sig/Nomi Route Start Time Stop Time Status Last Admin Dose Admin Sodium Chloride 10 ml QSHIFT@10,22 IV 08/29/24 22:00 09/04/24 21:38 10 ML Sodium Chloride 10 ml Q8HR IV 08/29/24 22:00 09/05/24 05:50 10 ML Acetaminophen/ Hydrocodone Bitart 1 tab Q4HP PRN PO 08/29/24 17:00 09/04/24 20:49 1 TAB Ondansetron HCl 4 mg Q4HP PRN IV 08/29/24 17:00 Acetaminophen 650 mg Q6HP PRN PO 08/29/24 17:00 09/01/24 19:28 650 MG Nitroglycerin 0.4 mg Q5MINP PRN SL 08/29/24 17:00 Morphine Sulfate 2 mg Q30M PRN IV 08/29/24 17:00 Lorazepam 1 mg Q2HP PRN IV 08/29/24 17:00 Multivitamins 1 tab DAILY PO 08/30/24 10:00 09/04/24 09:32 1 TAB Folic Acid 1 mg DAILY PO 08/30/24 10:00 09/04/24 09:32 1 MG Thiamine HCl 100 mg DAILY PO 08/30/24 10:00 09/04/24 09:32 100 MG Allopurinol 100 mg DAILY PO 08/30/24 10:00 09/04/24 09:33 100 MG Apixaban 2.5 mg BID PO 08/29/24 22:00 09/04/24 21:37 2.5 MG Atorvastatin Calcium 20 mg DAILY PO 08/30/24 10:00 09/04/24 09:33 20 MG Gabapentin 300 mg BID PO 08/29/24 22:00 09/04/24 21:37 300 MG Pantoprazole Sodium 40 mg DAILY PO 08/30/24 10:00 09/04/24 09:31 40 MG Levothyroxine Sodium 25 mcg QAM@0600 PO 08/31/24 06:00 09/05/24 05:37 25 MCG Norepinephrine Bitartrate 32 mg/ Sodium Chloride 250 ml @ 0.938 mls/ hr Q24H IV 08/31/24 07:30 09/02/24 10:00 3.75 MLS/HR Bumetanide 2 mg BIDD IV 09/02/24 18:00 09/05/24 05:38 2 MG Potassium Chloride 20 meq BID PO 09/02/24 22:00 09/04/24 21:37 20 MEQ Acetazolamide Sodium 500 mg Q12HR IV 09/02/24 22:00 09/04/24 21:38 500 MG Docusate Sodium 100 mg BID PO 09/03/24 10:00 09/04/24 21:37 100 MG Polyethylene Glycol 17 gm DAILYPRN PRN PO 09/03/24 09:15 Amiodarone HCl 200 mg DAILY PO 09/03/24 10:00 09/04/24 09:32 200 MG laboratory and microbiology Laboratory Tests 09/04/24 03:20 09/02/24 03:00 Test 09/04/24 03:20 Range/Units Serum Glucose 101 74-106 mg/dL Assessment/Plan Patient is a 74-year-old female who presented to the hospital with generalized weakness. She has been bed-bound for few years. She mentions that she was feeling more weak and could not even move in the bed and decided to come to the hospital. She also has baseline history of generalized swelling which occasionally worsens or improves. The swelling goes back for years. She mentions that the swelling increased for the past week. As outpatient, the patient is on Bumex. She mentions that she does go to sensitometrist regularly. Admission assessment had been acute on chronic heart failure and Cardiology was involved. It is of note that the patient started coming to our office in March 2022 but has been noncompliant with followups. Last visit inside the office was actually in March 2022. For awhile (up to September 2023) she was lost to follow up. Since September 2023, the patient has had multiple phone visits and has not come for physical exam. She has not come for requested echocardiograms/tests. She did have echocardiogram in [facility] (October 2023) which has reported preserved left ventricular systolic function and right ventricular systolic pressure of 31 mm Hg. Repeat echocardiograms in [facility] ( revealed dilated right side, LVEF of 50 to 55% and RVSP of 51 mmHg (in favor of diastolic heart failure). She does have baseline CKD. She does have morbid obesity with poor functional capacity. She has had multiple surgeries in the bilateral feet. She also has history of COPD/asthma with chronic respiratory failure (on home oxygen). She also has history of atrial fibrillation for which is on Eliquis as outpatient. She drinks alcohol (whisky) daily. Since arrival to Emergency room, the patient's blood pressure was found to be low and she has been started on pressure support and the plan is to manage the patient in ICU. Morbidly obese. Lying flat in bed and not in acute distress. No JVD. Mucosa is dry. Mucosa is pink. No JVD. No carotid bruit. Not using accessory muscles of breathing. Scattered rhonchi in the lungs is heard. Cardiac: Irregular, no thrill. Abdomen is obese and soft. There is no gross hepatomegaly, but it is presence can not be ruled out (body habitus, morbidly obese). There is 3+ edema in bilateral lower extremities which extends to abdominal wall. Past medical history includes morbid obesity, atrial fibrillation (on Eliquis as outpatient), COPD/asthma with chronic respiratory failure on home oxygen, hypertension, hyperlipidemia, chronic lymphedema, Diastolic heart failure with type 2 pulmonary hypertension, rheumatoid arthritis, osteoarthritis, peripheral vascular disease, CKD, anemia, old history of alcohol abuse, neuropathy, gout, old history of right and left foot fracture and their management, status post right knee replacement, bed-bound at baseline and functional quadriplegia. Patient drinks whiskey daily. Echocardiogram of October 24 2023 (performed in [facility]) revealed ejection fraction of 60%, mild biatrial enlargement, mild MR/TR and right ventricular systolic pressure of 31 mm Hg. Echocardiogram of (performed in [facility]) revealed: EF of 50 to 55%, Dilated right ventricle with normal systolic function. Severe biatrial enlargement. Mild AI, mild to moderate MR, moderate TR and RVSP of 51 mmHg. Ascending Aorta was 3.7 cm. Hemoglobin: 8.6 - 8.0 - 7.8 - 8.2 - 8.5 Creatinine: 5.22 - 5.09 - 4.51 - 4.27 - 3.22 - 2.82 - 2.44 - 2.42 Potassium: 5.5 - 4.9 - 4.4 - 3.7 - 3.1 - 3.0 - 3.9 - 3.7 - 3.7 Sodium: 124 - 126 - 125 - 126 - 130 - 133 - 132 - 133 Troponin (high sensitive): 10 - 10 - 10 BNP: 258.85 - 280.38 TSH: 6.71 D-dimer: 0.20 (wnl) ESR: 45 Digoxin level: 1.5 U/A: non-revealing Chest x-ray revealed: IMPRESSION: 1. Mild bilateral perihilar peribronchial thickening findings may represent bronchitis. Repeat chest xry revealed: Lines and Tubes: None Lungs: Diffuse increased interstitial prominence. Pleura: No effusion. No pneumothorax. Cardiomediastinal contours: Unremarkable Bones: Unremarkable IMPRESSION: Pulmonary vascular congestion EKG revealed atrial fibrillation with moderate ventricular response, incomplete right bundle branch block and low voltage QRS Tele reveals atrial fibrillation with moderate ventricular response Echo revealed: Left ventricle: Left ventricle was normal size with normal systolic function. LVEF was 72%. There was no gross wall motion abnormality. Right ventricle was mildly dilated with normal systolic function. Both atria were moderately dilated. Aortic valve: Aortic valve was not well visualized. There was no aortic insufficiency/stenosis. There was mild mitral regurgitation. There was [id number] tricuspid regurgitation. Pulmonary valve was not well visualized. IVC was dilated. Right ventricular systolic pressure was assessed at 54 mm Hg. There was no pericardial effusion. The patient is a 74-year-old female with poor functional capacity and morbid obesity who presented with generalized weakness. It is of note that the patient does have baseline history of functional quadriplegia. Complaints of worsening weakness. Does have history of atrial fibrillation and is on chronic anticoagulation as outpatient (Eliquis). Does have baseline history of chronic lower extremity edema for which takes Bumex. Does have noncompliance to follow ups. Does have history of lymphedema which could have contributed to the clinical picture. In examination does have significant pitting edema presently. It is of note that the BNP is normal which is against heart failure, but also, the patient does have significant obesity which may be a reason of heart failure without increase in BNP. Does have history of Diastolic heart failure with type 2 pulmonary hypertension which could have contributed to clinical presentation. Patient was found to have hypotension. Kidney function has worsened which may be secondary to baseline worsening of kidney function or over-diuresis or Cardiorenal etiology? Patient usually follows with Nephrology as outpatient. Clinically, the patient does have generalized swelling but mucosa is dry. Acute on chronic diastolic heart failure Pulmonary Hypertension, type 2 VIJAYA on CKD Alcohol abuse Morbid obesity Poor functional capacity Bed-bound at baseline Hypertension, history of Hypotension on presentation Atrial fibrillation, chronic Hyperlipidemia Osteoarthritis Rheumatoid arthritis Peripheral vascular disease Cardiac suggestion for management: Manage in ICU Fluid management (IV diuresis) as per Nephrology Pressure support (Levophed) at this point Follow up electrolytes and kidney function tests and correct abnormalities Full anticoagulation (on Eliquis presently), long-term Add Midodrine Nephrology follow up. Further evaluation and management depends on the above and clinical course A total of 75 minutes was spent reviewing the patient record, examining the patient, making a diagnostic and therapeutic plan, discussing this plan with medical personnel, following up on diagnostic studies and following the patient for clinical stability excluding any and all procedures. At least 50% of this time was spent in direct, [id number] contact. Thank you for allowing me to participate in this patient's care. Further recommendations will depend on patient's clinical course. Please do not hesitate to contact me if you have any questions or concerns. This medical document was created using electronic medical record system with [employer] computerized dictation system. Although this document has been carefully reviewed, there may still be some phonetic and typographical errors. These areas are purely typographical due to the imperfection of the software programs, and do not reflect any compromise in the patient's medical care. Dietary Evaluation Review Comments: 1. Follow renal specific diet with 50g protein restriction for avoiding worsening uremic syndrome. 2. tighter sodium restriction to avoid edema and fluid retention Expected Outcomes/Goals: Gradual weight loss. Delayed dialysis treatments Plan discussed with: Other (nurse) ROSS BRAY MD Sep 05, 2024 06:06
--- NOTE | 2024-09-05 08:24 | DVHPN2 ---
Subjective Patient denies any symptoms at this time. Reviewed: Care Plan, H&P, Labs, Medications Changes from previous H/P or p: No Changes General: Per HPI Eyes: No Pain, No Vision change, No Conjunctivae inflammation, No Eyelid inflammation, No Other, No Redness ENT: No Ear pain, No Ear discharge, No Nose pain, No Nose discharge, No Nose congestion, No Mouth pain, No Mouth swelling, No Throat pain, No Throat swelling, No Other Cardiovascular: Edema Respiratory: No Cough, No Dry, No Shortness of breath, No SOB with excertion, No Wheezing, No Hemoptysis, No Pleuritic Pain, No Sputum, No Other Gastrointestinal: No Nausea, No Vomiting, No Abdominal Pain, No Diarrhea, No Constipation, No Melena, No Hematochezia, No Other Genitourinary: No Dysuria, No Frequency, No Incontinence, No Hematuria, No Retention, No Other Musculoskeletal: No other, No neck pain, No shoulder pain, No arm pain, No back pain, No hand pain, No leg pain, No foot pain Skin: No Rash, No Lesions, No Jaundice, No Bruising, No Other Objective Vitals Vital Signs Date Time Temp Pulse Resp B/P (MAP) Pulse Ox O2 Delivery O2 Flow Rate FiO2 09/05/24 06:45 66 11 101/56 (71) 97 09/05/24 06:00 Nasal Cannula* 2 28 09/05/24 04:00 97.8 97.8 Intake/Output Intake and Output 09/05/24 07:00 Intake Total 1612.21 ml Output Total 3600 ml Balance -1987.79 ml Intake Oral 1565 ml IV Total 47.21 ml Output Urine Total 3600 ml # Bowel Movements 1 General Appearance: Alert, Oriented X3, Cooperative, mild distress HEENT: Atraumatic, PERRLA Lungs: Clear to auscultation, Normal air movement Cardiovascular: Normal S1, Normal S2, Other Abdomen: Normal bowel sounds, Soft, No tenderness Back: Flank Tenderness, Midline Tenderness Musculoskeletal: Normal sensory function, Normal motor function Extremities: No clubbing, No cyanosis, Other Skin: Dry, Intact Psych/Mental Status: Mental status NL, Mood NL Medications Current Medications Medications Dose Ordered Sig/Nomi Route Start Time Stop Time Status Last Admin Dose Admin Sodium Chloride 10 ml QSHIFT@10,22 IV 08/29/24 22:00 09/04/24 21:38 10 ML Sodium Chloride 10 ml Q8HR IV 08/29/24 22:00 09/05/24 05:50 10 ML Acetaminophen/ Hydrocodone Bitart 1 tab Q4HP PRN PO 08/29/24 17:00 09/04/24 20:49 1 TAB Ondansetron HCl 4 mg Q4HP PRN IV 08/29/24 17:00 Acetaminophen 650 mg Q6HP PRN PO 08/29/24 17:00 09/01/24 19:28 650 MG Nitroglycerin 0.4 mg Q5MINP PRN SL 08/29/24 17:00 Morphine Sulfate 2 mg Q30M PRN IV 08/29/24 17:00 Lorazepam 1 mg Q2HP PRN IV 08/29/24 17:00 Multivitamins 1 tab DAILY PO 08/30/24 10:00 09/04/24 09:32 1 TAB Folic Acid 1 mg DAILY PO 08/30/24 10:00 09/04/24 09:32 1 MG Thiamine HCl 100 mg DAILY PO 08/30/24 10:00 09/04/24 09:32 100 MG Allopurinol 100 mg DAILY PO 08/30/24 10:00 09/04/24 09:33 100 MG Apixaban 2.5 mg BID PO 08/29/24 22:00 09/04/24 21:37 2.5 MG Atorvastatin Calcium 20 mg DAILY PO 08/30/24 10:00 09/04/24 09:33 20 MG Gabapentin 300 mg BID PO 08/29/24 22:00 09/04/24 21:37 300 MG Pantoprazole Sodium 40 mg DAILY PO 08/30/24 10:00 09/04/24 09:31 40 MG Levothyroxine Sodium 25 mcg QAM@0600 PO 08/31/24 06:00 09/05/24 05:37 25 MCG Norepinephrine Bitartrate 32 mg/ Sodium Chloride 250 ml @ 0.938 mls/ hr Q24H IV 08/31/24 07:30 09/05/24 08:07 2.813 MLS/HR Bumetanide 2 mg BIDD IV 09/02/24 18:00 09/05/24 05:38 2 MG Potassium Chloride 20 meq BID PO 09/02/24 22:00 09/04/24 21:37 20 MEQ Acetazolamide Sodium 500 mg Q12HR IV 09/02/24 22:00 09/04/24 21:38 500 MG Docusate Sodium 100 mg BID PO 09/03/24 10:00 09/04/24 21:37 100 MG Polyethylene Glycol 17 gm DAILYPRN PRN PO 09/03/24 09:15 Amiodarone HCl 200 mg DAILY PO 09/03/24 10:00 09/04/24 09:32 200 MG Midodrine 5 mg TID@0600,1200,1800 PO 09/05/24 12:00 UNV Laboratory Results Laboratory Tests 09/02/24 03:00 09/04/24 03:20 Cardiac Markers Test 09/05/24 02:45 B-Type Natriuretic Peptide 280.38 pg/mL (0-100) Urinalysis Test 08/29/24 16:00 Urine Color Colorless (Yellow) Urine Clarity Clear (Clear) Urine pH 7.0 (5.0-9.0) Urine Specific [place] 1.007 (1.001-1.035) Urine Protein Negative (Negative) Urine Ketones Negative (Negative) Urine Blood Negative /uL (Negative) Urine Nitrite Negative (Negative) Urine Bilirubin Negative (Negative) Urine Urobilinogen Normal mg/dL (Negative) Urine Leukocyte Esterase Trace /uL (Negative) Urine RBC 1 /hpf (0 - 4) Urine Microscopic WBC < 1 /HPF (0-5) Urine Squamous Epithelial Cells Few /hpf (<5) Urine Bacteria Few /hpf (None Seen) H Urine Hyaline Casts Few /lpf (0 - 2) Urine Glucose Normal mg/dL (Normal) Labs and/or images reviewed: Labs reviewed by me, Image(s) reviewed by me Assessment/Plan Assessment/Plan Impression: -acute decompensated diastolic heart failure -atrial fibrillation with rapid ventricular rate -acute kidney injury, multifactorial -cardiogenic shock -morbid obesity -alcoholism -hypochromic anemia -hypervolemic hyponatremia Plan: Events: No events overnight. Patient continues to be on norepinephrine drip at 6 micrograms/minute. Patient with continued negative I/O. Midodrine started. -cardiology consultation: Recommendations reviewed -nephrology consultation: Recommendations reviewed. Bumex and Diamox -continue thiamine and folic acid, MVI -continue anticoagulation with Eliquis -repeat labs in a.m. -electrolyte replete as needed Critical care time spent with patient discussing and formulating plan of care: 40 minutes. This does not include time spent performing procedures. This medical document was created using an electronic medical record system with [employer] dictation system. Although this document has been carefully reviewed, there may still be some phonetic and typographical errors. These areas are purely typographical due to imperfections of the software programs, and do not reflect any compromise in the patient's medical care. Plan discussed with: Patient, Other (RN) My Orders Orders - AVEL DUNN NP Procedure Category Date Status Time Communication Order ORDERS 09/04/24 Transmitted 08:50 Date of Service: Sep 05, 2024 Billing Provider: AVEL DUNN NP Common Visit Codes: [id number] CARE 30-74 MIN AVEL DUNN NP Sep 05, 2024 08:24
[2024-09-05] MEDS: MIDODRINE HCL 10 MG TAB PO SCH (11:59)
--- NOTE | 2024-09-05 17:55 | DVHPN2 ---
Progress Note - Dictate Date Seen: Sep 05, 2024 Medical Necessity Reason Pt with a Central, PICC or Fol: Yes Subjective continues to be on pressors. Excellent urine output in the last 24 hours . vital signs Vital Sign Date Time Temp Pulse Resp B/P (MAP) Pulse Ox O2 Delivery O2 Flow Rate FiO2 09/05/24 17:33 118/52 09/05/24 16:00 73 09/05/24 16:00 97.6 16 97 97.6 09/05/24 16:00 Nasal Cannula* 2 28 Total Intake and Output 09/04/24 09/04/24 09/05/24 15:00 23:00 07:00 Intake Total 1032.77 ml 261.04 ml 321.213 ml Output Total 1800 ml 350 ml 1450 ml Balance -767.23 ml -88.96 ml -1128.787 ml medications Current Medications Medications Dose Ordered Sig/Nomi Route Start Time Stop Time Status Last Admin Dose Admin Sodium Chloride 10 ml QSHIFT@10,22 IV 08/29/24 22:00 09/05/24 10:00 10 ML Sodium Chloride 10 ml Q8HR IV 08/29/24 22:00 09/05/24 14:34 10 ML Acetaminophen/ Hydrocodone Bitart 1 tab Q4HP PRN PO 08/29/24 17:00 09/04/24 20:49 1 TAB Ondansetron HCl 4 mg Q4HP PRN IV 08/29/24 17:00 Acetaminophen 650 mg Q6HP PRN PO 08/29/24 17:00 09/01/24 19:28 650 MG Nitroglycerin 0.4 mg Q5MINP PRN SL 08/29/24 17:00 Morphine Sulfate 2 mg Q30M PRN IV 08/29/24 17:00 Lorazepam 1 mg Q2HP PRN IV 08/29/24 17:00 Multivitamins 1 tab DAILY PO 08/30/24 10:00 09/05/24 09:45 1 TAB Folic Acid 1 mg DAILY PO 08/30/24 10:00 09/05/24 09:45 1 MG Thiamine HCl 100 mg DAILY PO 08/30/24 10:00 09/05/24 09:45 100 MG Allopurinol 100 mg DAILY PO 08/30/24 10:00 09/05/24 09:45 100 MG Apixaban 2.5 mg BID PO 08/29/24 22:00 09/05/24 09:45 2.5 MG Atorvastatin Calcium 20 mg DAILY PO 08/30/24 10:00 09/05/24 09:45 20 MG Gabapentin 300 mg BID PO 08/29/24 22:00 09/05/24 09:45 300 MG Pantoprazole Sodium 40 mg DAILY PO 08/30/24 10:00 09/05/24 09:45 40 MG Levothyroxine Sodium 25 mcg QAM@0600 PO 08/31/24 06:00 09/05/24 05:37 25 MCG Norepinephrine Bitartrate 32 mg/ Sodium Chloride 250 ml @ 0.938 mls/ hr Q24H IV 08/31/24 07:30 09/05/24 08:07 2.813 MLS/HR Bumetanide 2 mg BIDD IV 09/02/24 18:00 09/05/24 17:33 2 MG Potassium Chloride 20 meq BID PO 09/02/24 22:00 09/05/24 09:45 20 MEQ Acetazolamide Sodium 500 mg Q12HR IV 09/02/24 22:00 09/05/24 09:48 500 MG Docusate Sodium 100 mg BID PO 09/03/24 10:00 09/05/24 09:45 100 MG Polyethylene Glycol 17 gm DAILYPRN PRN PO 09/03/24 09:15 Amiodarone HCl 200 mg DAILY PO 09/03/24 10:00 09/05/24 09:45 200 MG Midodrine 5 mg TID@0600,1200,1800 PO 09/05/24 12:00 09/05/24 17:33 5 MG objective HEENT: No evidence of JVD, no oral ulcers. Pulmonary: Diminished lung sounds at the bases Cardiovascular regular rate Abdomen: Bowel sounds positive, soft no rebound tenderness Skin: No rash Neurological: Alert, oriented, no focal weakness Extremities: Edema + laboratory and microbiology Laboratory Tests 09/04/24 03:20 09/02/24 03:00 Test 09/04/24 03:20 Range/Units Serum Glucose 101 74-106 mg/dL Problem List 1. Acute kidney injury on chronic kidney disease stage 3 secondary to cardiorenal syndrome 2. Cardiogenic shock 3. Acute diastolic heart failure exacerbation 4. Pulmonary hypertension 4. Hypokalemia 5. Hyponatremia, hypervolemic improving 6. Morbid obesity 7. Hypoalbuminemia 8. Chronic alcoholism 9. Metabolic alkalosis 10.Anemia Assessment/Plan No labs today continue with pressor support continue Bumex 2 mg IV BID . Stop Diamox started Midodrine Dietary Evaluation Review Comments: 1. Follow renal specific diet with 50g protein restriction for avoiding worsening uremic syndrome. 2. tighter sodium restriction to avoid edema and fluid retention Expected Outcomes/Goals: Gradual weight loss. Delayed dialysis treatments Plan discussed with: Patient ALKA MARQUEZ MD Sep 05, 2024 17:55
[2024-09-06] VITALS (93 sets, daily range): BP systolic 58–131; BP diastolic 31–83; PULSE 61–102; RESP 10–25; TEMP 97.4–98.5; O2SAT 77–99
[2024-09-06 04:07] LABS: Anion Gap 10 (5-15); Sodium 137 mmol/L (136-145)
[2024-09-06 04:08] LABS: Calcium 9.8 mg/dL (8.7-10.4)
[2024-09-06 04:12] LABS: Carbon Dioxide 38 mmol/L (20-31); Chloride 89 mmol/L (98-107); Potassium 3.5 mmol/L (3.5-5.1)
[2024-09-06 04:13] LABS: BUN/Creatinine Ratio 26.4 (10.0-20.0); Blood Urea Nitrogen 67 mg/dL (9-23); Glucose 114 mg/dL (74-106)
[2024-09-06] MEDS: MIDODRINE HCL 10 MG TAB PO SCH (05:49)
--- NOTE | 2024-09-06 07:20 | DVHPN2 ---
Progress Note - Dictate Date Seen: Sep 06, 2024 Medical Necessity Reason Pt with a Central, PICC or Fol: Yes vital signs Vital Sign Date Time Temp Pulse Resp B/P (MAP) Pulse Ox O2 Delivery O2 Flow Rate FiO2 09/06/24 06:15 64 11 101/44 (63) 94 09/06/24 06:00 Nasal Cannula* 2 28 09/06/24 03:45 98.5 98.5 Total Intake and Output 09/05/24 09/05/24 09/06/24 15:00 23:00 07:00 Intake Total 228.126 ml 424.313 ml 219.6 ml Output Total 1750 ml 1800 ml Balance 228.126 ml -1325.687 ml -1580.4 ml medications Current Medications Medications Dose Ordered Sig/Nomi Route Start Time Stop Time Status Last Admin Dose Admin Sodium Chloride 10 ml QSHIFT@10,22 IV 08/29/24 22:00 09/05/24 21:36 10 ML Sodium Chloride 10 ml Q8HR IV 08/29/24 22:00 09/06/24 05:49 10 ML Acetaminophen/ Hydrocodone Bitart 1 tab Q4HP PRN PO 08/29/24 17:00 09/04/24 20:49 1 TAB Ondansetron HCl 4 mg Q4HP PRN IV 08/29/24 17:00 Acetaminophen 650 mg Q6HP PRN PO 08/29/24 17:00 09/01/24 19:28 650 MG Nitroglycerin 0.4 mg Q5MINP PRN SL 08/29/24 17:00 Morphine Sulfate 2 mg Q30M PRN IV 08/29/24 17:00 Lorazepam 1 mg Q2HP PRN IV 08/29/24 17:00 Multivitamins 1 tab DAILY PO 08/30/24 10:00 09/05/24 09:45 1 TAB Folic Acid 1 mg DAILY PO 08/30/24 10:00 09/05/24 09:45 1 MG Thiamine HCl 100 mg DAILY PO 08/30/24 10:00 09/05/24 09:45 100 MG Allopurinol 100 mg DAILY PO 08/30/24 10:00 09/05/24 09:45 100 MG Apixaban 2.5 mg BID PO 08/29/24 22:00 09/05/24 21:36 2.5 MG Atorvastatin Calcium 20 mg DAILY PO 08/30/24 10:00 09/05/24 09:45 20 MG Gabapentin 300 mg BID PO 08/29/24 22:00 09/05/24 21:36 300 MG Pantoprazole Sodium 40 mg DAILY PO 08/30/24 10:00 09/05/24 09:45 40 MG Levothyroxine Sodium 25 mcg QAM@0600 PO 08/31/24 06:00 09/06/24 05:48 25 MCG Norepinephrine Bitartrate 32 mg/ Sodium Chloride 250 ml @ 0.938 mls/ hr Q24H IV 08/31/24 07:30 09/05/24 08:07 2.813 MLS/HR Bumetanide 2 mg BIDD IV 09/02/24 18:00 09/06/24 05:49 2 MG Potassium Chloride 20 meq BID PO 09/02/24 22:00 09/05/24 21:36 20 MEQ Docusate Sodium 100 mg BID PO 09/03/24 10:00 09/05/24 21:36 100 MG Polyethylene Glycol 17 gm DAILYPRN PRN PO 09/03/24 09:15 Amiodarone HCl 200 mg DAILY PO 09/03/24 10:00 09/05/24 09:45 200 MG Midodrine 10 mg TID@0600,1200,1800 PO 09/06/24 06:00 09/06/24 05:49 10 MG laboratory and microbiology Laboratory Tests 09/06/24 03:05 09/02/24 03:00 Test 09/06/24 03:05 Range/Units Serum Glucose 114 H 74-106 mg/dL Assessment/Plan Patient is a 74-year-old female who presented to the hospital with generalized weakness. She has been bed-bound for few years. She mentions that she was feeling more weak and could not even move in the bed and decided to come to the hospital. She also has baseline history of generalized swelling which occasionally worsens or improves. The swelling goes back for years. She mentions that the swelling increased for the past week. As outpatient, the patient is on Bumex. 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 Admission assessment had been acute on chronic heart failure and Cardiology was involved. It is of note that the patient started coming to our office in March 2022 but has been noncompliant with followups. Last visit inside the office was actually in March 2022. For awhile (up to September 2023) she was lost to follow up. Since September 2023, the patient has had multiple phone visits and has not come for physical exam. She has not come for requested echocardiograms/tests. She did have echocardiogram in [facility] (October 2023) which has reported preserved left ventricular systolic function and right ventricular systolic pressure of 31 mm Hg. Repeat echocardiograms in [facility] ( revealed dilated right side, LVEF of 50 to 55% and RVSP of 51 mmHg (in favor of diastolic heart failure). She does have baseline CKD. She does have morbid obesity with poor functional capacity. She has had multiple surgeries in the bilateral feet. She also has history of COPD/asthma with chronic respiratory failure (on home oxygen). She also has history of atrial fibrillation for which is on Eliquis as outpatient. She drinks alcohol (whisky) daily. Since arrival to Emergency room, the patient's blood pressure was found to be low and she has been started on pressure support and the plan is to manage the patient in ICU. Morbidly obese. Lying flat in bed and not in acute distress. No JVD. Mucosa is dry. Mucosa is pink. No JVD. No carotid bruit. Not using accessory muscles of breathing. Scattered rhonchi in the lungs is heard. Cardiac: Irregular, no thrill. Abdomen is obese and soft. There is no gross hepatomegaly, but it is presence can not be ruled out (body habitus, morbidly obese). There is 3+ edema in bilateral lower extremities which extends to abdominal wall. Past medical history includes morbid obesity, atrial fibrillation (on Eliquis as outpatient), COPD/asthma with chronic respiratory failure on home oxygen, hypertension, hyperlipidemia, chronic lymphedema, Diastolic heart failure with type 2 pulmonary hypertension, rheumatoid arthritis, osteoarthritis, peripheral vascular disease, CKD, anemia, old history of alcohol abuse, neuropathy, gout, old history of right and left foot fracture and their management, status post right knee replacement, bed-bound at baseline and functional quadriplegia. Patient drinks whiskey daily. Echocardiogram of October 24 2023 (performed in [facility]) revealed ejection fraction of 60%, mild biatrial enlargement, mild MR/TR and right ventricular systolic pressure of 31 mm Hg. Echocardiogram of (performed in [facility]) revealed: EF of 50 to 55%, Dilated right ventricle with normal systolic function. Severe biatrial enlargement. Mild AI, mild to moderate MR, moderate TR and RVSP of 51 mmHg. Ascending Aorta was 3.7 cm. Hemoglobin: 8.6 - 8.0 - 7.8 - 8.2 - 8.5 Creatinine: 5.22 - 5.09 - 4.51 - 4.27 - 3.22 - 2.82 - 2.44 - 2.42 - 2.54 Potassium: 5.5 - 4.9 - 4.4 - 3.7 - 3.1 - 3.0 - 3.9 - 3.7 - 3.7 - 3.5 Sodium: 124 - 126 - 125 - 126 - 130 - 133 - 132 - 133 - 137 Troponin (high sensitive): 10 - 10 - 10 BNP: 258.85 - 280.38 TSH: 6.71 D-dimer: 0.20 (wnl) ESR: 45 Digoxin level: 1.5 U/A: non-revealing Chest x-ray revealed: IMPRESSION: 1. Mild bilateral perihilar peribronchial thickening findings may represent bronchitis. Repeat chest xry revealed: Lines and Tubes: None Lungs: Diffuse increased interstitial prominence. Pleura: No effusion. No pneumothorax. Cardiomediastinal contours: Unremarkable Bones: Unremarkable IMPRESSION: Pulmonary vascular congestion EKG revealed atrial fibrillation with moderate ventricular response, incomplete right bundle branch block and low voltage QRS Tele reveals atrial fibrillation with moderate ventricular response Echo revealed: Left ventricle: Left ventricle was normal size with normal systolic function. LVEF was 72%. There was no gross wall motion abnormality. Right ventricle was mildly dilated with normal systolic function. Both atria were moderately dilated. Aortic valve: Aortic valve was not well visualized. There was no aortic insufficiency/stenosis. There was mild mitral regurgitation. There was [id number] tricuspid regurgitation. Pulmonary valve was not well visualized. IVC was dilated. Right ventricular systolic pressure was assessed at 54 mm Hg. There was no pericardial effusion. The patient is a 74-year-old female with poor functional capacity and morbid obesity who presented with generalized weakness. It is of note that the patient does have baseline history of functional quadriplegia. Complaints of worsening weakness. Does have history of atrial fibrillation and is on chronic anticoagulation as outpatient (Eliquis). Does have baseline history of chronic lower extremity edema for which takes Bumex. Does have noncompliance to follow ups. Does have history of lymphedema which could have contributed to the clinical picture. In examination does have significant pitting edema presently. It is of note that the BNP is normal which is against heart failure, but also, the patient does have significant obesity which may be a reason of heart failure without increase in BNP. Does have history of Diastolic heart failure with type 2 pulmonary hypertension which could have contributed to clinical presentation. Patient was found to have hypotension. Kidney function has worsened which may be secondary to baseline worsening of kidney function or over-diuresis or Cardiorenal etiology? Patient usually follows with Nephrology as outpatient. Clinically, the patient does have generalized swelling but mucosa is dry. Acute on chronic diastolic heart failure Pulmonary Hypertension, type 2 VIJAYA on CKD Alcohol abuse Morbid obesity Poor functional capacity Bed-bound at baseline Hypertension, history of Hypotension on presentation Atrial fibrillation, chronic Hyperlipidemia Osteoarthritis Rheumatoid arthritis Peripheral vascular disease Cardiac suggestion for management: Manage in ICU Fluid management (IV diuresis) as per Nephrology Pressure support (Levophed) to keep MAP above 60 mmHg Follow up electrolytes and kidney function tests and correct abnormalities Full anticoagulation (on Eliquis presently), long-term On Midodrine Nephrology follow up. Further evaluation and management depends on the above and clinical course A total of 75 minutes was spent reviewing the patient record, examining the patient, making a diagnostic and therapeutic plan, discussing this plan with medical personnel, following up on diagnostic studies and following the patient for clinical stability excluding any and all procedures. At least 50% of this time was spent in direct, [id number] contact. Thank you for allowing me to participate in this patient's care. Further recommendations will depend on patient's clinical course. Please do not hesitate to contact me if you have any questions or concerns. This medical document was created using electronic medical record system with [employer] dictation system. Although this document has been carefully reviewed, there may still be some phonetic and typographical errors. These areas are purely typographical due to the imperfection of the software programs, and do not reflect any compromise in the patient's medical care. Dietary Evaluation Review Comments: 1. Follow renal specific diet with 50g protein restriction for avoiding worsening uremic syndrome. 2. tighter sodium restriction to avoid edema and fluid retention Expected Outcomes/Goals: Gradual weight loss. Delayed dialysis treatments Plan discussed with: Patient, Other (nurse) ROSS BRAY MD Sep 06, 2024 07:19
--- NOTE | 2024-09-06 09:00 | DVHPN2 ---
Subjective Patient denies any symptoms at this time. Reviewed: Care Plan, H&P, Labs, Medications Changes from previous H/P or p: No Changes General: Per HPI Eyes: No Pain, No Vision change, No Conjunctivae inflammation, No Eyelid inflammation, No Other, No Redness ENT: No Ear pain, No Ear discharge, No Nose pain, No Nose discharge, No Nose congestion, No Mouth pain, No Mouth swelling, No Throat pain, No Throat swelling, No Other Cardiovascular: Edema Respiratory: No Cough, No Dry, No Shortness of breath, No SOB with excertion, No Wheezing, No Hemoptysis, No Pleuritic Pain, No Sputum, No Other Gastrointestinal: No Nausea, No Vomiting, No Abdominal Pain, No Diarrhea, No Constipation, No Melena, No Hematochezia, No Other Genitourinary: No Dysuria, No Frequency, No Incontinence, No Hematuria, No Retention, No Other Musculoskeletal: No other, No neck pain, No shoulder pain, No arm pain, No back pain, No hand pain, No leg pain, No foot pain Skin: No Rash, No Lesions, No Jaundice, No Bruising, No Other Objective Vitals Vital Signs Date Time Temp Pulse Resp B/P (MAP) Pulse Ox O2 Delivery O2 Flow Rate FiO2 09/06/24 08:15 65 13 109/48 (68) 95 09/06/24 08:00 Nasal Cannula* 2 28 09/06/24 08:00 97.5 97.5 Intake/Output Intake and Output 09/06/24 07:00 Intake Total 874.839 ml Output Total 3550 ml Balance -2675.161 ml Intake Oral 800 ml IV Total 74.839 ml Output Urine Total 3550 ml General Appearance: Alert, Oriented X3, Cooperative, mild distress HEENT: Atraumatic, PERRLA Lungs: Clear to auscultation, Normal air movement Cardiovascular: Normal S1, Normal S2, Other Abdomen: Normal bowel sounds, Soft, No tenderness Back: Flank Tenderness, Midline Tenderness Musculoskeletal: Normal sensory function, Normal motor function Extremities: No clubbing, No cyanosis, Other Skin: Dry, Intact Psych/Mental Status: Mental status NL, Mood NL Medications Current Medications Medications Dose Ordered Sig/Nomi Route Start Time Stop Time Status Last Admin Dose Admin Sodium Chloride 10 ml QSHIFT@10,22 IV 08/29/24 22:00 09/05/24 21:36 10 ML Sodium Chloride 10 ml Q8HR IV 08/29/24 22:00 09/06/24 05:49 10 ML Acetaminophen/ Hydrocodone Bitart 1 tab Q4HP PRN PO 08/29/24 17:00 09/04/24 20:49 1 TAB Ondansetron HCl 4 mg Q4HP PRN IV 08/29/24 17:00 Acetaminophen 650 mg Q6HP PRN PO 08/29/24 17:00 09/01/24 19:28 650 MG Nitroglycerin 0.4 mg Q5MINP PRN SL 08/29/24 17:00 Morphine Sulfate 2 mg Q30M PRN IV 08/29/24 17:00 Lorazepam 1 mg Q2HP PRN IV 08/29/24 17:00 Multivitamins 1 tab DAILY PO 08/30/24 10:00 09/05/24 09:45 1 TAB Folic Acid 1 mg DAILY PO 08/30/24 10:00 09/05/24 09:45 1 MG Thiamine HCl 100 mg DAILY PO 08/30/24 10:00 09/05/24 09:45 100 MG Allopurinol 100 mg DAILY PO 08/30/24 10:00 09/05/24 09:45 100 MG Apixaban 2.5 mg BID PO 08/29/24 22:00 09/05/24 21:36 2.5 MG Atorvastatin Calcium 20 mg DAILY PO 08/30/24 10:00 09/05/24 09:45 20 MG Gabapentin 300 mg BID PO 08/29/24 22:00 09/05/24 21:36 300 MG Pantoprazole Sodium 40 mg DAILY PO 08/30/24 10:00 09/05/24 09:45 40 MG Levothyroxine Sodium 25 mcg QAM@0600 PO 08/31/24 06:00 09/06/24 05:48 25 MCG Norepinephrine Bitartrate 32 mg/ Sodium Chloride 250 ml @ 0.938 mls/ hr Q24H IV 08/31/24 07:30 09/06/24 08:24 2.813 MLS/HR Bumetanide 2 mg BIDD IV 09/02/24 18:00 09/06/24 05:49 2 MG Potassium Chloride 20 meq BID PO 09/02/24 22:00 09/05/24 21:36 20 MEQ Docusate Sodium 100 mg BID PO 09/03/24 10:00 09/05/24 21:36 100 MG Polyethylene Glycol 17 gm DAILYPRN PRN PO 09/03/24 09:15 Amiodarone HCl 200 mg DAILY PO 09/03/24 10:00 09/05/24 09:45 200 MG Midodrine 10 mg TID@0600,1200,1800 PO 09/06/24 06:00 09/06/24 05:49 10 MG Laboratory Results Laboratory Tests 09/02/24 03:00 09/06/24 03:05 Chemistry Test 09/06/24 03:05 Calcium Level 9.8 mg/dL (8.7-10.4) Urinalysis Test 08/29/24 16:00 Urine Color Colorless (Yellow) Urine Clarity Clear (Clear) Urine pH 7.0 (5.0-9.0) Urine Specific [place] 1.007 (1.001-1.035) Urine Protein Negative (Negative) Urine Ketones Negative (Negative) Urine Blood Negative /uL (Negative) Urine Nitrite Negative (Negative) Urine Bilirubin Negative (Negative) Urine Urobilinogen Normal mg/dL (Negative) Urine Leukocyte Esterase Trace /uL (Negative) Urine RBC 1 /hpf (0 - 4) Urine Microscopic WBC < 1 /HPF (0-5) Urine Squamous Epithelial Cells Few /hpf (<5) Urine Bacteria Few /hpf (None Seen) H Urine Hyaline Casts Few /lpf (0 - 2) Urine Glucose Normal mg/dL (Normal) Labs and/or images reviewed: Labs reviewed by me, Image(s) reviewed by me Assessment/Plan Assessment/Plan Impression: -acute decompensated diastolic heart failure -atrial fibrillation with rapid ventricular rate -acute kidney injury, multifactorial -cardiogenic shock -morbid obesity -alcoholism -hypochromic anemia -hypervolemic hyponatremia Plan: Events: No events overnight. Continues to be on norepinephrine drip. Midodrine at 10 mg t.i.d.. We will give a trial of albumin. -cardiology consultation: Recommendations reviewed -nephrology consultation: Recommendations reviewed. Bumex and Diamox -continue thiamine and folic acid, MVI -continue anticoagulation with Eliquis -repeat labs in a.m. -electrolyte replete as needed Critical care time spent with patient discussing and formulating plan of care: 40 minutes. This does not include time spent performing procedures. This medical document was created using an electronic medical record system with [employer] dictation system. Although this document has been carefully reviewed, there may still be some phonetic and typographical errors. These areas are purely typographical due to imperfections of the software programs, and do not reflect any compromise in the patient's medical care. Plan discussed with: Patient, Other (RN) My Orders Orders - AVEL DUNN NP Procedure Category Date Status Time Albumin 25% (Albutein) PHA 09/06/24 Logged 08:45 Basic Metabolic Panel LAB 09/07/24 Verified 04:00 Complete Blood Count LAB 09/07/24 Verified 04:00 Date of Service: Sep 06, 2024 Billing Provider: AVEL DUNN NP Common Visit Codes: [id number] CARE 30-74 MIN AVEL DUNN NP Sep 06, 2024 09:00
[2024-09-06] MEDS: ALBUMIN 25% 100 ML IV ONE (09:21)
--- NOTE | 2024-09-06 11:12 | DVHPN2 ---
Progress Note - Dictate Date Seen: Sep 06, 2024 Medical Necessity Reason Pt with a Central, PICC or Fol: Yes Subjective continues to be on pressors. Excellent urine output in the last 24 hours . On midodrine 10 mg q 8 hrs vital signs Vital Sign Date Time Temp Pulse Resp B/P (MAP) Pulse Ox O2 Delivery O2 Flow Rate FiO2 09/06/24 08:15 65 13 109/48 (68) 95 09/06/24 08:00 Nasal Cannula* 2 28 09/06/24 08:00 97.5 97.5 Total Intake and Output 09/05/24 09/05/24 09/06/24 15:00 23:00 07:00 Intake Total 228.126 ml 424.313 ml 222.4 ml Output Total 1750 ml 1800 ml Balance 228.126 ml -1325.687 ml -1577.6 ml medications Current Medications Medications Dose Ordered Sig/Nmoi Route Start Time Stop Time Status Last Admin Dose Admin Sodium Chloride 10 ml QSHIFT@10,22 IV 08/29/24 22:00 09/06/24 09:22 10 ML Sodium Chloride 10 ml Q8HR IV 08/29/24 22:00 09/06/24 05:49 10 ML Acetaminophen/ Hydrocodone Bitart 1 tab Q4HP PRN PO 08/29/24 17:00 09/04/24 20:49 1 TAB Ondansetron HCl 4 mg Q4HP PRN IV 08/29/24 17:00 Acetaminophen 650 mg Q6HP PRN PO 08/29/24 17:00 09/01/24 19:28 650 MG Nitroglycerin 0.4 mg Q5MINP PRN SL 08/29/24 17:00 Morphine Sulfate 2 mg Q30M PRN IV 08/29/24 17:00 Lorazepam 1 mg Q2HP PRN IV 08/29/24 17:00 Multivitamins 1 tab DAILY PO 08/30/24 10:00 09/06/24 09:09 1 TAB Folic Acid 1 mg DAILY PO 08/30/24 10:00 09/06/24 09:09 1 MG Thiamine HCl 100 mg DAILY PO 08/30/24 10:00 09/06/24 09:09 100 MG Allopurinol 100 mg DAILY PO 08/30/24 10:00 09/06/24 09:10 100 MG Apixaban 2.5 mg BID PO 08/29/24 22:00 09/06/24 09:10 2.5 MG Atorvastatin Calcium 20 mg DAILY PO 08/30/24 10:00 09/06/24 09:09 20 MG Gabapentin 300 mg BID PO 08/29/24 22:00 09/06/24 09:10 300 MG Pantoprazole Sodium 40 mg DAILY PO 08/30/24 10:00 09/06/24 09:09 40 MG Levothyroxine Sodium 25 mcg QAM@0600 PO 08/31/24 06:00 09/06/24 05:48 25 MCG Norepinephrine Bitartrate 32 mg/ Sodium Chloride 250 ml @ 0.938 mls/ hr Q24H IV 08/31/24 07:30 09/06/24 08:24 2.813 MLS/HR Bumetanide 2 mg BIDD IV 09/02/24 18:00 09/06/24 05:49 2 MG Potassium Chloride 20 meq BID PO 09/02/24 22:00 09/06/24 09:09 20 MEQ Docusate Sodium 100 mg BID PO 09/03/24 10:00 09/06/24 09:09 100 MG Polyethylene Glycol 17 gm DAILYPRN PRN PO 09/03/24 09:15 Amiodarone HCl 200 mg DAILY PO 09/03/24 10:00 09/06/24 09:10 200 MG Midodrine 10 mg TID@0600,1200,1800 PO 09/06/24 06:00 09/06/24 05:49 10 MG objective HEENT: No evidence of JVD, no oral ulcers. Pulmonary: Diminished lung sounds at the bases Cardiovascular regular rate Abdomen: Bowel sounds positive, soft no rebound tenderness Skin: No rash Neurological: Alert, oriented, no focal weakness Extremities: Edema decreasing laboratory and microbiology Laboratory Tests 09/06/24 03:05 09/02/24 03:00 Test 09/06/24 03:05 Range/Units Serum Glucose 114 H 74-106 mg/dL Problem List 1. Acute kidney injury on chronic kidney disease stage 3 secondary to cardiorenal syndrome 2. Cardiogenic shock 3. Acute diastolic heart failure exacerbation 4. Pulmonary hypertension 4. Hypokalemia 5. Hyponatremia, hypervolemic improving 6. Morbid obesity 7. Hypoalbuminemia 8. Chronic alcoholism 9. Metabolic alkalosis 10.Anemia Assessment/Plan GFR remaining stable continue with pressor support continue Bumex 2 mg IV BID . continue Midodrine Dietary Evaluation Review Comments: 1. Follow renal specific diet with 50g protein restriction for avoiding worsening uremic syndrome. 2. tighter sodium restriction to avoid edema and fluid retention Expected Outcomes/Goals: Gradual weight loss. Delayed dialysis treatments Plan discussed with: Patient ALKA MARQUEZ MD Sep 06, 2024 11:12
[2024-09-07] VITALS (98 sets, daily range): BP systolic 79–131; BP diastolic 36–66; PULSE 55–102; RESP 12–21; TEMP 97.7–98.4; O2SAT 89–100
[2024-09-07 04:31] LABS: Basophils # (auto) 0.1 10 ^3/uL (0-0.2); Basophils % (auto) 1.1 % (0.0-2.0); Eosinophils # (auto) 0.2 10 ^3/uL (0-0.8); Eosinophils % (auto) 2.6 % (0.0-7.0); Hematocrit 28.3 % (36.0-46.0); Hemoglobin 8.9 g/dL (12.2-16.2); Lymphocytes # (auto) 1.3 10 ^3/uL (0.4-5.4); Lymphocytes % (auto) 16.9 % (10.0-50.0); Mean Corpuscular Hemoglobin 26.3 pg (28.0-32.0); Mean Corpuscular Hgb Conc. 31.3 g/dL (32.0-36.0); Monocytes # (auto) 0.8 10 ^3/uL (0-1.3); Monocytes % (auto) 9.9 % (0.0-12.0); Neutrophils # (auto) 5.3 10 ^3/uL (1.6-8.6); Neutrophils % (auto) 69.5 % (37.0-80.0); Nucleated Red Blood Cells % 0.1 %; Platelet Count (auto) 355 10^3/uL (140-450); Red Blood Cells 3.37 10^6/uL (4.0-5.20); Red Cell Distribution Width 16.5 % (11.8-14.3); White Blood Cell 7.6 10^3/uL (4.4-10.8)
[2024-09-07 04:47] LABS: Anion Gap 11 (5-15); Potassium 3.6 mmol/L (3.5-5.1); Sodium 138 mmol/L (136-145)
[2024-09-07 04:48] LABS: Calcium 9.7 mg/dL (8.7-10.4)
[2024-09-07 04:53] LABS: BUN/Creatinine Ratio 27.3 (10.0-20.0)
[2024-09-07 05:22] LABS: Blood Urea Nitrogen 72 mg/dL (9-23); Carbon Dioxide 35 mmol/L (20-31); Chloride 92 mmol/L (98-107); Glucose 107 mg/dL (74-106)
--- NOTE | 2024-09-07 06:05 | DVHPN2 ---
Progress Note - Dictate Date Seen: Sep 07, 2024 Medical Necessity Reason Pt with a Central, PICC or Fol: Yes vital signs Vital Sign Date Time Temp Pulse Resp B/P (MAP) Pulse Ox O2 Delivery O2 Flow Rate FiO2 09/07/24 04:15 65 15 97/49 (65) 96 09/07/24 04:00 Nasal Cannula* 2 28 09/07/24 03:45 98.3 98.3 Total Intake and Output 09/06/24 09/06/24 09/07/24 15:00 23:00 07:00 Intake Total 22.4 ml 508.251 ml 4.5 ml Output Total 1600 ml Balance 22.4 ml -1091.749 ml 4.5 ml medications Current Medications Medications Dose Ordered Sig/Nomi Route Start Time Stop Time Status Last Admin Dose Admin Sodium Chloride 10 ml QSHIFT@,22 IV 08/29/24 22:00 09/06/24 21:55 10 ML Sodium Chloride 10 ml Q8HR IV 08/29/24 22:00 09/06/24 21:55 10 ML Acetaminophen/ Hydrocodone Bitart 1 tab Q4HP PRN PO 08/29/24 17:00 09/04/24 20:49 1 TAB Ondansetron HCl 4 mg Q4HP PRN IV 08/29/24 17:00 Acetaminophen 650 mg Q6HP PRN PO 08/29/24 17:00 09/01/24 19:28 650 MG Nitroglycerin 0.4 mg Q5MINP PRN SL 08/29/24 17:00 Morphine Sulfate 2 mg Q30M PRN IV 08/29/24 17:00 Lorazepam 1 mg Q2HP PRN IV 08/29/24 17:00 Multivitamins 1 tab DAILY PO 08/30/24 10:00 09/06/24 09:09 1 TAB Folic Acid 1 mg DAILY PO 08/30/24 10:00 09/06/24 09:09 1 MG Thiamine HCl 100 mg DAILY PO 08/30/24 10:00 09/06/24 09:09 100 MG Allopurinol 100 mg DAILY PO 08/30/24 10:00 09/06/24 09:10 100 MG Apixaban 2.5 mg BID PO 08/29/24 22:00 09/06/24 21:55 2.5 MG Atorvastatin Calcium 20 mg DAILY PO 08/30/24 10:00 09/06/24 09:09 20 MG Gabapentin 300 mg BID PO 08/29/24 22:00 09/06/24 21:54 300 MG Pantoprazole Sodium 40 mg DAILY PO 08/30/24 10:00 09/06/24 09:09 40 MG Levothyroxine Sodium 25 mcg QAM@0600 PO 08/31/24 06:00 09/06/24 05:48 25 MCG Norepinephrine Bitartrate 32 mg/ Sodium Chloride 250 ml @ 0.938 mls/ hr Q24H IV 08/31/24 07:30 09/06/24 08:24 2.813 MLS/HR Bumetanide 2 mg BIDD IV 09/02/24 18:00 09/06/24 17:30 2 MG Potassium Chloride 20 meq BID PO 09/02/24 22:00 09/06/24 21:54 20 MEQ Docusate Sodium 100 mg BID PO 09/03/24 10:00 09/06/24 21:55 100 MG Polyethylene Glycol 17 gm DAILYPRN PRN PO 09/03/24 09:15 Amiodarone HCl 200 mg DAILY PO 09/03/24 10:00 09/06/24 09:10 200 MG Midodrine 10 mg TID@0600,1200,1800 PO 09/06/24 06:00 09/06/24 17:29 10 MG laboratory and microbiology Laboratory Tests 09/07/24 03:24 Test 09/07/24 03:24 Range/Units Serum Glucose 107 H 74-106 mg/dL Assessment/Plan Patient is a 74-year-old female who presented to the hospital with generalized weakness. She has been bed-bound for few years. She mentions that she was feeling more weak and could not even move in the bed and decided to come to the hospital. She also has baseline history of generalized swelling which occasionally worsens or improves. The swelling goes back for years. She mentions that the swelling increased for the past week. As outpatient, the patient is on Bumex. 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 Admission assessment had been acute on chronic heart failure and Cardiology was involved. It is of note that the patient started coming to our office in March 2022 but has been noncompliant with followups. Last visit inside the office was actually in March 2022. For awhile (up to September 2023) she was lost to follow up. Since September 2023, the patient has had multiple phone visits and has not come for physical exam. She has not come for requested echocardiograms/tests. She did have echocardiogram in [facility] (October 2023) which has reported preserved left ventricular systolic function and right ventricular systolic pressure of 31 mm Hg. Repeat echocardiograms in [facility] ( revealed dilated right side, LVEF of 50 to 55% and RVSP of 51 mmHg (in favor of diastolic heart failure). She does have baseline CKD. She does have morbid obesity with poor functional capacity. She has had multiple surgeries in the bilateral feet. She also has history of COPD/asthma with chronic respiratory failure (on home oxygen). She also has history of atrial fibrillation for which is on Eliquis as outpatient. She drinks alcohol (whisky) daily. Since arrival to Emergency room, the patient's blood pressure was found to be low and she has been started on pressure support and the plan is to manage the patient in ICU. Morbidly obese. Lying flat in bed and not in acute distress. No JVD. Mucosa is dry. Mucosa is pink. No JVD. No carotid bruit. Not using accessory muscles of breathing. Scattered rhonchi in the lungs is heard. Cardiac: Irregular, no thrill. Abdomen is obese and soft. There is no gross hepatomegaly, but it is presence can not be ruled out (body habitus, morbidly obese). There is 3+ edema in bilateral lower extremities which extends to abdominal wall. Past medical history includes morbid obesity, atrial fibrillation (on Eliquis as outpatient), COPD/asthma with chronic respiratory failure on home oxygen, hypertension, hyperlipidemia, chronic lymphedema, Diastolic heart failure with type 2 pulmonary hypertension, rheumatoid arthritis, osteoarthritis, peripheral vascular disease, CKD, anemia, old history of alcohol abuse, neuropathy, gout, old history of right and left foot fracture and their management, status post right knee replacement, bed-bound at baseline and functional quadriplegia. Patient drinks whiskey daily. Echocardiogram of October 24 2023 (performed in [facility]) revealed ejection fraction of 60%, mild biatrial enlargement, mild MR/TR and right ventricular systolic pressure of 31 mm Hg. Echocardiogram of (performed in [facility]) revealed: EF of 50 to 55%, Dilated right ventricle with normal systolic function. Severe biatrial enlargement. Mild AI, mild to moderate MR, moderate TR and RVSP of 51 mmHg. Ascending Aorta was 3.7 cm. Hemoglobin: 8.6 - 8.0 - 7.8 - 8.2 - 8.5 - 8.9 Creatinine: 5.22 - 5.09 - 4.51 - 4.27 - 3.22 - 2.82 - 2.44 - 2.42 - 2.54 - 2.64 Potassium: 5.5 - 4.9 - 4.4 - 3.7 - 3.1 - 3.0 - 3.9 - 3.7 - 3.7 - 3.5 - 3.6 Sodium: 124 - 126 - 125 - 126 - 130 - 133 - 132 - 133 - 137 - 138 Troponin (high sensitive): 10 - 10 - 10 BNP: 258.85 - 280.38 TSH: 6.71 D-dimer: 0.20 (wnl) ESR: 45 Digoxin level: 1.5 U/A: non-revealing Chest x-ray revealed: IMPRESSION: 1. Mild bilateral perihilar peribronchial thickening findings may represent bronchitis. Repeat chest xry revealed: Lines and Tubes: None Lungs: Diffuse increased interstitial prominence. Pleura: No effusion. No pneumothorax. Cardiomediastinal contours: Unremarkable Bones: Unremarkable IMPRESSION: Pulmonary vascular congestion EKG revealed atrial fibrillation with moderate ventricular response, incomplete right bundle branch block and low voltage QRS Tele reveals atrial fibrillation with moderate ventricular response Echo revealed: Left ventricle: Left ventricle was normal size with normal systolic function. LVEF was 72%. There was no gross wall motion abnormality. Right ventricle was mildly dilated with normal systolic function. Both atria were moderately dilated. Aortic valve: Aortic valve was not well visualized. There was no aortic insufficiency/stenosis. There was mild mitral regurgitation. There was [id number] tricuspid regurgitation. Pulmonary valve was not well visualized. IVC was dilated. Right ventricular systolic pressure was assessed at 54 mm Hg. There was no pericardial effusion. The patient is a 74-year-old female with poor functional capacity and morbid obesity who presented with generalized weakness. It is of note that the patient does have baseline history of functional quadriplegia. Complaints of worsening weakness. Does have history of atrial fibrillation and is on chronic anticoagulation as outpatient (Eliqu). Does have baseline history of chronic lower extremity edema for which takes Bumex. Does have noncompliance to follow ups. Does have history of lymphedema which could have contributed to the clinical picture. In examination does have significant pitting edema presently. It is of note that the BNP is normal which is against heart failure, but also, the patient does have significant obesity which may be a reason of heart failure without increase in BNP. Does have history of Diastolic heart failure with type 2 pulmonary hypertension which could have contributed to clinical presentation. Patient was found to have hypotension. Kidney function has worsened which may be secondary to baseline worsening of kidney function or over-diuresis or Cardiorenal etiology? Patient usually follows with Nephrology as outpatient. Clinically, the patient does have generalized swelling but mucosa is dry. Acute on chronic diastolic heart failure Pulmonary Hypertension, type 2 VIJAYA on CKD Alcohol abuse Morbid obesity Poor functional capacity Bed-bound at baseline Hypertension, history of Hypotension on presentation Atrial fibrillation, chronic Hyperlipidemia Osteoarthritis Rheumatoid arthritis Peripheral vascular disease Cardiac suggestion for management: Manage in ICU Fluid management (IV diuresis) as per Nephrology Pressure support (Levophed) to keep MAP above 60 mmHg Follow up electrolytes and kidney function tests and correct abnormalities Full anticoagulation (on Eliquis presently), long-term On Midodrine Nephrology follow up. Further evaluation and management depends on the above and clinical course A total of 75 minutes was spent reviewing the patient record, examining the patient, making a diagnostic and therapeutic plan, discussing this plan with medical personnel, following up on diagnostic studies and following the patient for clinical stability excluding any and all procedures. At least 50% of this time was spent in direct, [id number] contact. Thank you for allowing me to participate in this patient's care. Further recommendations will depend on patient's clinical course. Please do not hesitate to contact me if you have any questions or concerns. This medical document was created using electronic medical record system with [employer] computerized dictation system. Although this document has been carefully reviewed, there may still be some phonetic and typographical errors. These areas are purely typographical due to the imperfection of the software programs, and do not reflect any compromise in the patient's medical care. Dietary Evaluation Review Comments: 1. Follow renal specific diet with 50g protein restriction for avoiding worsening uremic syndrome. 2. tighter sodium restriction to avoid edema and fluid retention Expected Outcomes/Goals: Gradual weight loss. Delayed dialysis treatments Plan discussed with: Patient, Other (nurse) ROSS BRAY MD Sep 07, 2024 06:05
--- NOTE | 2024-09-07 09:55 | DVHPN2 ---
Subjective Patient denies any symptoms at this time. Reviewed: Care Plan, H&P, Labs, Medications Changes from previous H/P or p: No Changes General: Per HPI Eyes: No Pain, No Vision change, No Conjunctivae inflammation, No Eyelid inflammation, No Other, No Redness ENT: No Ear pain, No Ear discharge, No Nose pain, No Nose discharge, No Nose congestion, No Mouth pain, No Mouth swelling, No Throat pain, No Throat swelling, No Other Cardiovascular: Edema Respiratory: No Cough, No Dry, No Shortness of breath, No SOB with excertion, No Wheezing, No Hemoptysis, No Pleuritic Pain, No Sputum, No Other Gastrointestinal: No Nausea, No Vomiting, No Abdominal Pain, No Diarrhea, No Constipation, No Melena, No Hematochezia, No Other Genitourinary: No Dysuria, No Frequency, No Incontinence, No Hematuria, No Retention, No Other Musculoskeletal: No other, No neck pain, No shoulder pain, No arm pain, No back pain, No hand pain, No leg pain, No foot pain Skin: No Rash, No Lesions, No Jaundice, No Bruising, No Other Objective Vitals Vital Signs Date Time Temp Pulse Resp B/P (MAP) Pulse Ox O2 Delivery O2 Flow Rate FiO2 09/07/24 09:49 16 96 Nasal Cannula* 2 28 09/07/24 09:49 65 09/07/24 06:30 99/47 09/07/24 03:45 98.3 98.3 Intake/Output Intake and Output 09/07/24 07:00 Intake Total 676.951 ml Output Total 2350 ml Balance -1673.049 ml Intake Oral 640 ml IV Total 36.951 ml Output Urine Total 2350 ml # Bowel Movements 1 General Appearance: Alert, Oriented X3, Cooperative, mild distress HEENT: Atraumatic, PERRLA Lungs: Clear to auscultation, Normal air movement Cardiovascular: Normal S1, Normal S2, Other Abdomen: Normal bowel sounds, Soft, No tenderness Back: Flank Tenderness, Midline Tenderness Musculoskeletal: Normal sensory function, Normal motor function Extremities: No clubbing, No cyanosis, Other Skin: Dry, Intact Psych/Mental Status: Mental status NL, Mood NL Medications Current Medications Medications Dose Ordered Sig/Nomi Route Start Time Stop Time Status Last Admin Dose Admin Sodium Chloride 10 ml QSHIFT@10,22 IV 08/29/24 22:00 09/07/24 09:02 10 ML Sodium Chloride 10 ml Q8HR IV 08/29/24 22:00 09/07/24 06:00 10 ML Acetaminophen/ Hydrocodone Bitart 1 tab Q4HP PRN PO 08/29/24 17:00 09/04/24 20:49 1 TAB Ondansetron HCl 4 mg Q4HP PRN IV 08/29/24 17:00 Acetaminophen 650 mg Q6HP PRN PO 08/29/24 17:00 09/01/24 19:28 650 MG Nitroglycerin 0.4 mg Q5MINP PRN SL 08/29/24 17:00 Morphine Sulfate 2 mg Q30M PRN IV 08/29/24 17:00 Lorazepam 1 mg Q2HP PRN IV 08/29/24 17:00 Multivitamins 1 tab DAILY PO 08/30/24 10:00 09/07/24 09:23 1 TAB Folic Acid 1 mg DAILY PO 08/30/24 10:00 09/07/24 09:23 1 MG Thiamine HCl 100 mg DAILY PO 08/30/24 10:00 09/07/24 09:24 100 MG Allopurinol 100 mg DAILY PO 08/30/24 10:00 09/07/24 09:23 100 MG Apixaban 2.5 mg BID PO 08/29/24 22:00 09/07/24 09:23 2.5 MG Atorvastatin Calcium 20 mg DAILY PO 08/30/24 10:00 09/07/24 09:24 20 MG Gabapentin 300 mg BID PO 08/29/24 22:00 09/07/24 09:23 300 MG Pantoprazole Sodium 40 mg DAILY PO 08/30/24 10:00 09/07/24 09:23 40 MG Levothyroxine Sodium 25 mcg QAM@0600 PO 08/31/24 06:00 09/07/24 06:30 25 MCG Norepinephrine Bitartrate 32 mg/ Sodium Chloride 250 ml @ 0.938 mls/ hr Q24H IV 08/31/24 07:30 09/06/24 08:24 2.813 MLS/HR Potassium Chloride 20 meq BID PO 09/02/24 22:00 09/07/24 09:24 20 MEQ Docusate Sodium 100 mg BID PO 09/03/24 10:00 09/07/24 09:23 100 MG Polyethylene Glycol 17 gm DAILYPRN PRN PO 09/03/24 09:15 Amiodarone HCl 200 mg DAILY PO 09/03/24 10:00 09/07/24 09:24 200 MG Midodrine 10 mg TID@0600,1200,1800 PO 09/06/24 06:00 09/07/24 06:30 10 MG Bumetanide 2 mg BIDD PO 09/07/24 18:00 UNV Laboratory Results Laboratory Tests 09/07/24 03:24 Chemistry Test 09/07/24 03:24 Calcium Level 9.7 mg/dL (8.7-10.4) Urinalysis Test 08/29/24 16:00 Urine Color Colorless (Yellow) Urine Clarity Clear (Clear) Urine pH 7.0 (5.0-9.0) Urine Specific [place] 1.007 (1.001-1.035) Urine Protein Negative (Negative) Urine Ketones Negative (Negative) Urine Blood Negative /uL (Negative) Urine Nitrite Negative (Negative) Urine Bilirubin Negative (Negative) Urine Urobilinogen Normal mg/dL (Negative) Urine Leukocyte Esterase Trace /uL (Negative) Urine RBC 1 /hpf (0 - 4) Urine Microscopic WBC < 1 /HPF (0-5) Urine Squamous Epithelial Cells Few /hpf (<5) Urine Bacteria Few /hpf (None Seen) H Urine Hyaline Casts Few /lpf (0 - 2) Urine Glucose Normal mg/dL (Normal) Labs and/or images reviewed: Labs reviewed by me, Image(s) reviewed by me Assessment/Plan Assessment/Plan Impression: -acute decompensated diastolic heart failure -atrial fibrillation with rapid ventricular rate -acute kidney injury, multifactorial -cardiogenic shock -morbid obesity -alcoholism -hypochromic anemia -hypervolemic hyponatremia Plan: Events: No events overnight. Currently on Levophed at 2 micrograms/minute. Blood pressure improved. -cardiology consultation: Recommendations reviewed -nephrology consultation: Recommendations reviewed. -stop Bumex IV, changed to p.o. -continue thiamine and folic acid, MVI -continue anticoagulation with Eliquis -repeat labs in a.m. -electrolyte replete as needed Critical care time spent with patient discussing and formulating plan of care: 40 minutes. This does not include time spent performing procedures. This medical document was created using an electronic medical record system with [employer] dictation system. Although this document has been carefully reviewed, there may still be some phonetic and typographical errors. These areas are purely typographical due to imperfections of the software programs, and do not reflect any compromise in the patient's medical care. Plan discussed with: Patient, Other (RN) My Orders Orders - AVEL DUNN NP Procedure Category Date Status Time Bumetanide Tablet PHA 09/07/24 Logged (Bumex Tablet) 18:00 Basic Metabolic Panel LAB 09/08/24 Verified 04:00 Magnesium LAB 09/08/24 Verified 04:00 Date of Service: Sep 07, 2024 Billing Provider: AVEL DUNN NP Common Visit Codes: 12842-[id number] CARE 30-74 MIN AVEL DUNN NP Sep 07, 2024 09:55
--- NOTE | 2024-09-07 11:47 | DVHPN2 ---
Progress Note - Dictate Date Seen: Sep 07, 2024 Medical Necessity Reason Pt with a Central, PICC or Fol: Yes Subjective off pressors. On midodrine 10 mg q 8 hrs vital signs Vital Sign Date Time Temp Pulse Resp B/P (MAP) Pulse Ox O2 Delivery O2 Flow Rate FiO2 09/07/24 11:41 86 09/07/24 11:41 16 96 Nasal Cannula* 2 28 09/07/24 06:30 99/47 09/07/24 03:45 98.3 98.3 Total Intake and Output 09/06/24 09/06/24 09/07/24 15:00 23:00 07:00 Intake Total 22.4 ml 508.251 ml 147.238 ml Output Total 1600 ml 750 ml Balance 22.4 ml -1091.749 ml -602.762 ml medications Current Medications Medications Dose Ordered Sig/Nomi Route Start Time Stop Time Status Last Admin Dose Admin Sodium Chloride 10 ml QSHIFT@10,22 IV 08/29/24 22:00 09/07/24 09:02 10 ML Sodium Chloride 10 ml Q8HR IV 08/29/24 22:00 09/07/24 11:19 10 ML Acetaminophen/ Hydrocodone Bitart 1 tab Q4HP PRN PO 08/29/24 17:00 09/04/24 20:49 1 TAB Ondansetron HCl 4 mg Q4HP PRN IV 08/29/24 17:00 Acetaminophen 650 mg Q6HP PRN PO 08/29/24 17:00 09/01/24 19:28 650 MG Nitroglycerin 0.4 mg Q5MINP PRN SL 08/29/24 17:00 Morphine Sulfate 2 mg Q30M PRN IV 08/29/24 17:00 Lorazepam 1 mg Q2HP PRN IV 08/29/24 17:00 Multivitamins 1 tab DAILY PO 08/30/24 10:00 09/07/24 09:23 1 TAB Folic Acid 1 mg DAILY PO 08/30/24 10:00 09/07/24 09:23 1 MG Thiamine HCl 100 mg DAILY PO 08/30/24 10:00 09/07/24 09:24 100 MG Allopurinol 100 mg DAILY PO 08/30/24 10:00 09/07/24 09:23 100 MG Apixaban 2.5 mg BID PO 08/29/24 22:00 09/07/24 09:23 2.5 MG Atorvastatin Calcium 20 mg DAILY PO 08/30/24 10:00 09/07/24 09:24 20 MG Gabapentin 300 mg BID PO 08/29/24 22:00 09/07/24 09:23 300 MG Pantoprazole Sodium 40 mg DAILY PO 08/30/24 10:00 09/07/24 09:23 40 MG Levothyroxine Sodium 25 mcg QAM@0600 PO 08/31/24 06:00 09/07/24 06:30 25 MCG Norepinephrine Bitartrate 32 mg/ Sodium Chloride 250 ml @ 0.938 mls/ hr Q24H IV 08/31/24 07:30 09/06/24 08:24 2.813 MLS/HR Potassium Chloride 20 meq BID PO 09/02/24 22:00 09/07/24 09:24 20 MEQ Docusate Sodium 100 mg BID PO 09/03/24 10:00 09/07/24 09:23 100 MG Polyethylene Glycol 17 gm DAILYPRN PRN PO 09/03/24 09:15 Amiodarone HCl 200 mg DAILY PO 09/03/24 10:00 09/07/24 09:24 200 MG Midodrine 10 mg TID@0600,1200,1800 PO 09/06/24 06:00 09/07/24 11:19 10 MG Bumetanide 2 mg BIDD PO 09/07/24 18:00 UNV objective HEENT: No evidence of JVD, no oral ulcers. Pulmonary: Diminished lung sounds at the bases Cardiovascular regular rate Abdomen: Bowel sounds positive, soft no rebound tenderness Skin: No rash Neurological: Alert, oriented, no focal weakness Extremities: Edema decreasing laboratory and microbiology Laboratory Tests 09/07/24 03:24 Test 09/07/24 03:24 Range/Units Serum Glucose 107 H 74-106 mg/dL Problem List 1. Acute kidney injury on chronic kidney disease stage 3 secondary to cardiorenal syndrome 2. Cardiogenic shock 3. Acute diastolic heart failure exacerbation 4. Pulmonary hypertension 4. Hypokalemia 5. Hyponatremia, hypervolemic improving 6. Morbid obesity 7. Hypoalbuminemia 8. Chronic alcoholism 9. Metabolic alkalosis 10.Anemia Assessment/Plan GFR remaining stable off pressors Bumex 2 mg po BID . continue Midodrine Dietary Evaluation Review Comments: 1. Follow renal specific diet with 50g protein restriction for avoiding worsening uremic syndrome. 2. tighter sodium restriction to avoid edema and fluid retention Expected Outcomes/Goals: Gradual weight loss. Delayed dialysis treatments Plan discussed with: Patient ALKA MARQUEZ MD Sep 07, 2024 11:47
[2024-09-07] MEDS: BUMETANIDE 1 MG TAB PO SCH (17:20)
[2024-09-08] VITALS (76 sets, daily range): BP systolic 89–139; BP diastolic 35–75; PULSE 56–109; RESP 12–21; TEMP 97.6–98.2; O2SAT 90–100
[2024-09-08 04:11] LABS: Anion Gap 13 (5-15); Sodium 139 mmol/L (136-145)
[2024-09-08 04:12] LABS: Calcium 9.9 mg/dL (8.7-10.4)
[2024-09-08 04:17] LABS: BUN/Creatinine Ratio 25.9 (10.0-20.0); Magnesium 1.8 mg/dL (1.6-2.6)
[2024-09-08 04:28] LABS: Blood Urea Nitrogen 75 mg/dL (9-23); Carbon Dioxide 33 mmol/L (20-31); Chloride 93 mmol/L (98-107); Glucose 111 mg/dL (74-106); Potassium 3.5 mmol/L (3.5-5.1)
--- NOTE | 2024-09-08 06:25 | DVHPN2 ---
Progress Note - Dictate Date Seen: Sep 08, 2024 Medical Necessity Reason Pt with a Central, PICC or Fol: Yes Subjective Seen and examined at the bedside within the ICU. Chart reviewed. vital signs Vital Sign Date Time Temp Pulse Resp B/P (MAP) Pulse Ox O2 Delivery O2 Flow Rate FiO2 09/08/24 06:00 15 97 Nasal Cannula* 2 28 09/08/24 06:00 66 09/08/24 06:00 112/49 (70) 09/08/24 00:00 97.6 97.6 Total Intake and Output 09/07/24 09/07/24 09/08/24 15:00 23:00 07:00 Intake Total 7.504 ml 267.501 ml Output Total 600 ml 400 ml Balance 7.504 ml -600 ml -132.499 ml medications Current Medications Medications Dose Ordered Sig/Nomi Route Start Time Stop Time Status Last Admin Dose Admin Sodium Chloride 10 ml QSHIFT@10,22 IV 08/29/24 22:00 09/07/24 21:24 10 ML Sodium Chloride 10 ml Q8HR IV 08/29/24 22:00 09/08/24 05:15 10 ML Ondansetron HCl 4 mg Q4HP PRN IV 08/29/24 17:00 Acetaminophen 650 mg Q6HP PRN PO 08/29/24 17:00 09/01/24 19:28 650 MG Nitroglycerin 0.4 mg Q5MINP PRN SL 08/29/24 17:00 Lorazepam 1 mg Q2HP PRN IV 08/29/24 17:00 Multivitamins 1 tab DAILY PO 08/30/24 10:00 09/07/24 09:23 1 TAB Folic Acid 1 mg DAILY PO 08/30/24 10:00 09/07/24 09:23 1 MG Thiamine HCl 100 mg DAILY PO 08/30/24 10:00 09/07/24 09:24 100 MG Allopurinol 100 mg DAILY PO 08/30/24 10:00 09/07/24 09:23 100 MG Apixaban 2.5 mg BID PO 08/29/24 22:00 09/07/24 21:24 2.5 MG Atorvastatin Calcium 20 mg DAILY PO 08/30/24 10:00 09/07/24 09:24 20 MG Gabapentin 300 mg BID PO 08/29/24 22:00 09/07/24 21:24 300 MG Pantoprazole Sodium 40 mg DAILY PO 08/30/24 10:00 09/07/24 09:23 40 MG Levothyroxine Sodium 25 mcg QAM@0600 PO 08/31/24 06:00 09/08/24 05:15 25 MCG Norepinephrine Bitartrate 32 mg/ Sodium Chloride 250 ml @ 0.938 mls/ hr Q24H IV 08/31/24 07:30 09/06/24 08:24 2.813 MLS/HR Potassium Chloride 20 meq BID PO 09/02/24 22:00 09/07/24 21:24 20 MEQ Docusate Sodium 100 mg BID PO 09/03/24 10:00 09/07/24 21:24 100 MG Polyethylene Glycol 17 gm DAILYPRN PRN PO 09/03/24 09:15 Amiodarone HCl 200 mg DAILY PO 09/03/24 10:00 09/07/24 09:24 200 MG Midodrine 10 mg TID@0600,1200,1800 PO 09/06/24 06:00 09/08/24 05:15 10 MG Bumetanide 2 mg BIDD PO 09/07/24 18:00 09/07/24 17:20 2 MG laboratory and microbiology Laboratory Tests 09/08/24 03:47 09/07/24 03:24 Test 09/08/24 03:47 Range/Units Serum Glucose 111 H 74-106 mg/dL Assessment/Plan Assessment/Plan Patient is a 74-year-old female who presented to the hospital with generalized weakness. She has been bed-bound for few years. She mentions that she was feeling more weak and could not even move in the bed and decided to come to the hospital. She also has baseline history of generalized swelling which occasionally worsens or improves. The swelling goes back for years. She mentions that the swelling increased for the past week. As outpatient, the patient is on Bumex. 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 Admission assessment had been acute on chronic heart failure and Cardiology was involved. It is of note that the patient started coming to our office in March 2022 but has been noncompliant with followups. Last visit inside the office was actually in March 2022. For awhile (up to September 2023) she was lost to follow up. Since September 2023, the patient has had multiple phone visits and has not come for physical exam. She has not come for requested echocardiograms/tests. She did have echocardiogram in [facility] (October 2023) which has reported preserved left ventricular systolic function and right ventricular systolic pressure of 31 mm Hg. Repeat echocardiograms in [facility] ( revealed dilated right side, LVEF of 50 to 55% and RVSP of 51 mmHg (in favor of diastolic heart failure). She does have baseline CKD. She does have morbid obesity with poor functional capacity. She has had multiple surgeries in the bilateral feet. She also has history of COPD/asthma with chronic respiratory failure (on home oxygen). She also has history of atrial fibrillation for which is on Eliquis as outpatient. She drinks alcohol (whisky) daily. Since arrival to Emergency room, the patient's blood pressure was found to be low and she has been started on pressure support and the plan is to manage the patient in ICU. Morbidly obese. Lying flat in bed and not in acute distress. No JVD. Mucosa is dry. Mucosa is pink. No JVD. No carotid bruit. Not using accessory muscles of breathing. Scattered rhonchi in the lungs is heard. Cardiac: Irregular, no thrill. Abdomen is obese and soft. There is no gross hepatomegaly, but it is presence can not be ruled out (body habitus, morbidly obese). There is 3+ edema in bilateral lower extremities which extends to abdominal wall. Past medical history includes morbid obesity, atrial fibrillation (on Eliquis as outpatient), COPD/asthma with chronic respiratory failure on home oxygen, hypertension, hyperlipidemia, chronic lymphedema, Diastolic heart failure with type 2 pulmonary hypertension, rheumatoid arthritis, osteoarthritis, peripheral vascular disease, CKD, anemia, old history of alcohol abuse, neuropathy, gout, old history of right and left foot fracture and their management, status post right knee replacement, bed-bound at baseline and functional quadriplegia. Patient drinks whiskey daily. Echocardiogram of October 24 2023 (performed in [facility]) revealed ejection fraction of 60%, mild biatrial enlargement, mild MR/TR and right ventricular systolic pressure of 31 mm Hg. Echocardiogram of (performed in [facility]) revealed: EF of 50 to 55%, Dilated right ventricle with normal systolic function. Severe biatrial enlargement. Mild AI, mild to moderate MR, moderate TR and RVSP of 51 mmHg. Ascending Aorta was 3.7 cm. Hemoglobin: 8.6 - 8.0 - 7.8 - 8.2 - 8.5 - 8.9 Creatinine: 5.22 - 5.09 - 4.51 - 4.27 - 3.22 - 2.82 - 2.44 - 2.42 - 2.54 - 2.64 - 2.90 Potassium: 5.5 - 4.9 - 4.4 - 3.7 - 3.1 - 3.0 - 3.9 - 3.7 - 3.7 - 3.5 - 3.6 - 3.5 Sodium: 124 - 126 - 125 - 126 - 130 - 133 - 132 - 133 - 137 - 138 - 139 Troponin (high sensitive): 10 - 10 - 10 BNP: 258.85 - 280.38 TSH: 6.71 D-dimer: 0.20 (wnl) ESR: 45 Digoxin level: 1.5 U/A: non-revealing Chest x-ray revealed: IMPRESSION: 1. Mild bilateral perihilar peribronchial thickening findings may represent bronchitis. Repeat chest xry revealed: Lines and Tubes: None Lungs: Diffuse increased interstitial prominence. Pleura: No effusion. No pneumothorax. Cardiomediastinal contours: Unremarkable Bones: Unremarkable IMPRESSION: Pulmonary vascular congestion EKG revealed atrial fibrillation with moderate ventricular response, incomplete right bundle branch block and low voltage QRS Tele reveals atrial fibrillation with moderate ventricular response Echo revealed: Left ventricle: Left ventricle was normal size with normal systolic function. LVEF was 72%. There was no gross wall motion abnormality. Right ventricle was mildly dilated with normal systolic function. Both atria were moderately dilated. Aortic valve: Aortic valve was not well visualized. There was no aortic insufficiency/stenosis. There was mild mitral regurgitation. There was [id number] tricuspid regurgitation. Pulmonary valve was not well visualized. IVC was dilated. Right ventricular systolic pressure was assessed at 54 mm Hg. There was no pericardial effusion. The patient is a 74-year-old female with poor functional capacity and morbid obesity who presented with generalized weakness. It is of note that the patient does have baseline history of functional quadriplegia. Complaints of worsening weakness. Does have history of atrial fibrillation and is on chronic anticoagulation as outpatient ([facility]). Does have baseline history of chronic lower extremity edema for which takes Bumex. Does have noncompliance to follow ups. Does have history of lymphedema which could have contributed to the clinical picture. In examination does have significant pitting edema presently. It is of note that the BNP is normal which is against heart failure, but also, the patient does have significant obesity which may be a reason of heart failure without increase in BNP. Does have history of Diastolic heart failure with type 2 pulmonary hypertension which could have contributed to clinical presentation. Patient was found to have hypotension. Kidney function has worsened which may be secondary to baseline worsening of kidney function or over-diuresis or Cardiorenal etiology? Patient usually follows with Nephrology as outpatient. Clinically, the patient does have generalized swelling but mucosa is dry. Acute on chronic diastolic heart failure Pulmonary Hypertension, type 2 VIJAYA on CKD Alcohol abuse Morbid obesity Poor functional capacity Bed-bound at baseline Hypertension, history of Hypotension on presentation Atrial fibrillation, chronic Hyperlipidemia Osteoarthritis Rheumatoid arthritis Peripheral vascular disease Cardiac suggestion for management: Manage in ICU Fluid management (IV diuresis) as per Nephrology Pressure support (Levophed) to keep MAP above 60 mmHg Follow up electrolytes and kidney function tests and correct abnormalities Full anticoagulation (on Eliquis presently), long-term On Midodrine Nephrology follow up. Further evaluation and management depends on the above and clinical course A total of 75 minutes was spent reviewing the patient record, examining the patient, making a diagnostic and therapeutic plan, discussing this plan with medical personnel, following up on diagnostic studies and following the patient for clinical stability excluding any and all procedures. At least 50% of this time was spent in direct, [id number] contact. Thank you for allowing me to participate in this patient's care. Further recommendations will depend on patient's clinical course. Please do not hesitate to contact me if you have any questions or concerns. This medical document was created using electronic medical record system with [employer] dictation system. Although this document has been carefully reviewed, there may still be some phonetic and typographical errors. These areas are purely typographical due to the imperfection of the software programs, and do not reflect any compromise in the patient's medical care Dietary Evaluation Review Comments: 1. Follow renal specific diet with 50g protein restriction for avoiding worsening uremic syndrome. 2. tighter sodium restriction to avoid edema and fluid retention Expected Outcomes/Goals: Gradual weight loss. Delayed dialysis treatments Plan discussed with: Other (Patient and Primary RN ) SUZANNE MERRITT Sep 08, 2024 06:25
--- NOTE | 2024-09-08 15:42 | DVHPN2 ---
Subjective no complaints Reviewed: Care Plan, H&P, Labs, Medications Changes from previous H/P or p: No Changes General: Per HPI Eyes: No Pain, No Vision change, No Conjunctivae inflammation, No Eyelid inflammation, No Other, No Redness ENT: No Ear pain, No Ear discharge, No Nose pain, No Nose discharge, No Nose congestion, No Mouth pain, No Mouth swelling, No Throat pain, No Throat swelling, No Other Cardiovascular: Edema Respiratory: No Cough, No Dry, No Shortness of breath, No SOB with excertion, No Wheezing, No Hemoptysis, No Pleuritic Pain, No Sputum, No Other Gastrointestinal: No Nausea, No Vomiting, No Abdominal Pain, No Diarrhea, No Constipation, No Melena, No Hematochezia, No Other Genitourinary: No Dysuria, No Frequency, No Incontinence, No Hematuria, No Retention, No Other Musculoskeletal: No other, No neck pain, No shoulder pain, No arm pain, No back pain, No hand pain, No leg pain, No foot pain Skin: No Rash, No Lesions, No Jaundice, No Bruising, No Other Objective Vitals Vital Signs Date Time Temp Pulse Resp B/P (MAP) Pulse Ox O2 Delivery O2 Flow Rate FiO2 09/08/24 15:00 68 15 114/60 (78) 97 09/08/24 14:00 Nasal Cannula* 2 28 09/08/24 12:00 97.6 97.6 Intake/Output Intake and Output 09/08/24 07:00 Intake Total 275.943 ml Output Total 1000 ml Balance -724.057 ml Intake Oral 260 ml IV Total 15.943 ml Output Urine Total 1000 ml General Appearance: Alert, Oriented X3, Cooperative HEENT: Atraumatic, PERRLA Lungs: Clear to auscultation, Normal air movement Cardiovascular: Normal S1, Normal S2, Other Abdomen: Normal bowel sounds, Soft, No tenderness Musculoskeletal: Normal sensory function, Normal motor function Extremities: No clubbing, No cyanosis Skin: Dry, Intact Psych/Mental Status: Mental status NL, Mood NL Medications Current Medications Medications Dose Ordered Sig/Nomi Route Start Time Stop Time Status Last Admin Dose Admin Sodium Chloride 10 ml QSHIFT@10,22 IV 08/29/24 22:00 09/08/24 10:07 10 ML Sodium Chloride 10 ml Q8HR IV 08/29/24 22:00 09/08/24 14:00 10 ML Ondansetron HCl 4 mg Q4HP PRN IV 08/29/24 17:00 Acetaminophen 650 mg Q6HP PRN PO 08/29/24 17:00 09/01/24 19:28 650 MG Nitroglycerin 0.4 mg Q5MINP PRN SL 08/29/24 17:00 Lorazepam 1 mg Q2HP PRN IV 08/29/24 17:00 Multivitamins 1 tab DAILY PO 08/30/24 10:00 09/08/24 10:07 1 TAB Folic Acid 1 mg DAILY PO 08/30/24 10:00 09/08/24 10:06 1 MG Thiamine HCl 100 mg DAILY PO 08/30/24 10:00 09/08/24 10:06 100 MG Allopurinol 100 mg DAILY PO 08/30/24 10:00 09/08/24 10:06 100 MG Apixaban 2.5 mg BID PO 08/29/24 22:00 09/08/24 10:06 2.5 MG Atorvastatin Calcium 20 mg DAILY PO 08/30/24 10:00 09/08/24 10:06 20 MG Gabapentin 300 mg BID PO 08/29/24 22:00 09/08/24 10:06 300 MG Pantoprazole Sodium 40 mg DAILY PO 08/30/24 10:00 09/08/24 10:06 40 MG Levothyroxine Sodium 25 mcg QAM@0600 PO 08/31/24 06:00 09/08/24 05:15 25 MCG Norepinephrine Bitartrate 32 mg/ Sodium Chloride 250 ml @ 0.938 mls/ hr Q24H IV 08/31/24 07:30 09/06/24 08:24 2.813 MLS/HR Potassium Chloride 20 meq BID PO 09/02/24 22:00 09/08/24 10:06 20 MEQ Docusate Sodium 100 mg BID PO 09/03/24 10:00 09/08/24 10:06 100 MG Polyethylene Glycol 17 gm DAILYPRN PRN PO 09/03/24 09:15 Amiodarone HCl 200 mg DAILY PO 09/03/24 10:00 09/08/24 10:07 200 MG Midodrine 10 mg TID@0600,1200,1800 PO 09/06/24 06:00 09/08/24 12:02 10 MG Bumetanide 2 mg BIDD PO 09/07/24 18:00 09/07/24 17:20 2 MG Laboratory Results Laboratory Tests 09/07/24 03:24 09/08/24 03:47 Chemistry Test 09/08/24 03:47 Calcium Level 9.9 mg/dL (8.7-10.4) Magnesium Level 1.8 mg/dL (1.6-2.6) Urinalysis Test 08/29/24 16:00 Urine Color Colorless (Yellow) Urine Clarity Clear (Clear) Urine pH 7.0 (5.0-9.0) Urine Specific [place] 1.007 (1.001-1.035) Urine Protein Negative (Negative) Urine Ketones Negative (Negative) Urine Blood Negative /uL (Negative) Urine Nitrite Negative (Negative) Urine Bilirubin Negative (Negative) Urine Urobilinogen Normal mg/dL (Negative) Urine Leukocyte Esterase Trace /uL (Negative) Urine RBC 1 /hpf (0 - 4) Urine Microscopic WBC < 1 /HPF (0-5) Urine Squamous Epithelial Cells Few /hpf (<5) Urine Bacteria Few /hpf (None Seen) H Urine Hyaline Casts Few /lpf (0 - 2) Urine Glucose Normal mg/dL (Normal) Labs and/or images reviewed: Labs reviewed by me, Image(s) reviewed by me Assessment/Plan Assessment/Plan acute on chronic diastolic chf copd with chronic respiratory failure on o2 at 3l/min at home htn stable obesity acute renal injury on chronic kidney disese-f/by nephrology atrial fibrillation- 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
--- NOTE | 2024-09-08 16:16 | DVHPN2 ---
Progress Note - Dictate Date Seen: Sep 08, 2024 Medical Necessity Reason Pt with a Central, PICC or Fol: Yes Subjective off pressors. On midodrine 10 mg q 8 hrs switched to oral Bumex vital signs Vital Sign Date Time Temp Pulse Resp B/P (MAP) Pulse Ox O2 Delivery O2 Flow Rate FiO2 09/08/24 15:00 68 15 114/60 (78) 97 09/08/24 14:00 Nasal Cannula* 2 28 09/08/24 12:00 97.6 97.6 Total Intake and Output 09/07/24 09/07/24 09/08/24 15:00 23:00 07:00 Intake Total 7.504 ml 268.439 ml Output Total 600 ml 400 ml Balance 7.504 ml -600 ml -131.561 ml medications Current Medications Medications Dose Ordered Sig/Nomi Route Start Time Stop Time Status Last Admin Dose Admin Sodium Chloride 10 ml QSHIFT@ IV 08/29/24 22:00 09/08/24 10:07 10 ML Sodium Chloride 10 ml Q8HR IV 08/29/24 22:00 09/08/24 14:00 10 ML Ondansetron HCl 4 mg Q4HP PRN IV 08/29/24 17:00 Acetaminophen 650 mg Q6HP PRN PO 08/29/24 17:00 09/01/24 19:28 650 MG Nitroglycerin 0.4 mg Q5MINP PRN SL 08/29/24 17:00 Lorazepam 1 mg Q2HP PRN IV 08/29/24 17:00 Multivitamins 1 tab DAILY PO 08/30/24 10:00 09/08/24 10:07 1 TAB Folic Acid 1 mg DAILY PO 08/30/24 10:00 09/08/24 10:06 1 MG Thiamine HCl 100 mg DAILY PO 08/30/24 10:00 09/08/24 10:06 100 MG Allopurinol 100 mg DAILY PO 08/30/24 10:00 09/08/24 10:06 100 MG Apixaban 2.5 mg BID PO 08/29/24 22:00 09/08/24 10:06 2.5 MG Atorvastatin Calcium 20 mg DAILY PO 08/30/24 10:00 09/08/24 10:06 20 MG Gabapentin 300 mg BID PO 08/29/24 22:00 09/08/24 10:06 300 MG Pantoprazole Sodium 40 mg DAILY PO 08/30/24 10:00 09/08/24 10:06 40 MG Levothyroxine Sodium 25 mcg QAM@0600 PO 08/31/24 06:00 09/08/24 05:15 25 MCG Norepinephrine Bitartrate 32 mg/ Sodium Chloride 250 ml @ 0.938 mls/ hr Q24H IV 08/31/24 07:30 09/06/24 08:24 2.813 MLS/HR Potassium Chloride 20 meq BID PO 09/02/24 22:00 09/08/24 10:06 20 MEQ Docusate Sodium 100 mg BID PO 09/03/24 10:00 09/08/24 10:06 100 MG Polyethylene Glycol 17 gm DAILYPRN PRN PO 09/03/24 09:15 Amiodarone HCl 200 mg DAILY PO 09/03/24 10:00 09/08/24 10:07 200 MG Midodrine 10 mg TID@0600,1200,1800 PO 09/06/24 06:00 09/08/24 12:02 10 MG Bumetanide 2 mg BIDD PO 09/07/24 18:00 09/07/24 17:20 2 MG objective HEENT: No evidence of JVD, no oral ulcers. Pulmonary: Diminished lung sounds at the bases Cardiovascular regular rate Abdomen: Bowel sounds positive, soft no rebound tenderness Skin: No rash Neurological: Alert, oriented, no focal weakness Extremities: Edema decreasing laboratory and microbiology Laboratory Tests 09/08/24 03:47 09/07/24 03:24 Test 09/08/24 03:47 Range/Units Serum Glucose 111 H 74-106 mg/dL Problem List 1. Acute kidney injury on chronic kidney disease stage 3 secondary to cardiorenal syndrome 2. Cardiogenic shock 3. Acute diastolic heart failure exacerbation 4. Pulmonary hypertension 4. Hypokalemia 5. Hyponatremia, hypervolemic improving 6. Morbid obesity 7. Hypoalbuminemia 8. Chronic alcoholism 9. Metabolic alkalosis 10.Anemia Assessment/Plan GFR worsening probably secondary to overdiuresis off pressors continue Bumex 2 mg po BID . continue Midodrine Dietary Evaluation Review Comments: 1. Follow renal specific diet with 50g protein restriction for avoiding worsening uremic syndrome. 2. tighter sodium restriction to avoid edema and fluid retention Expected Outcomes/Goals: Gradual weight loss. Delayed dialysis treatments Plan discussed with: Patient ALKA MARQUEZ MD Sep 08, 2024 16:15
--- NOTE | 2024-09-08 21:45 | DVHINCON2 ---
Date of service: Sep 08, 2024 Referring Physician James Barron NP Reason for Consultation Acute hypoxic respiratory failure History of Present Illness A 74-year-old woman with past medical history of COPD, ETOH dependence, CHF, hypertension, arthritis, chronic kidney disease, and osteoporosis, who came to the hospital on 08/29/24 for bilateral lower extremity swelling. Patient is bedbound at her baseline. She lives alone, but her daughter lives in a different house on the same property. 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 Patient has a history of renal failure, on large doses of diuretics at home. At home she can usually move her legs in bed, but has been unable to due to the swelling over the past couple of days prior to presentation. Patient also drinks half a bottle of whiskey a day. On arrival to ER patient's BP was low and she was started on Levophed. She had +4 pitting edema to bilateral lower extremities. Patient was admitted for further care. Pulmonary consultation is requested for evaluation and management of acute hypoxic respiratory failure Review of Systems: 14-point review of systems negative unless otherwise noted above. Past Medical History: AFIB, CHF, hypertension, COPD, osteoarthritis, CKD Past Surgical History: Other (Bilateral ankles), Total knee replacement (Right) Medications: Reviewed. Allergies: No known drug allergies. Family History: No family history of premature CAD. No family history of lung disorders. Social History: Nonsmoker. Heavy alcohol use. No illicit drug use. Family History: Cerebrovascular accident (CVA) G8 MOTHER Allergies: Coded Allergies: Sulfa Antibiotics (Verified Allergy, Mild, 08/29/24) Zinc Oxide (Verified Allergy, Mild, 08/29/24) Home Meds Active Scripts Midodrine HCl (Midodrine HCl) 10 Mg Tab, 10 MG GT TID, #90 TAB 0 Refills Prov:PANKAJ CARRION MD 09/09/24 Reported Medications Gabapentin (Gabapentin) 300 Mg Cap, 300 MG PO BID 08/29/24 Pantoprazole Sodium Sesquihydr (Pantoprazole Sodium) 40 Mg Tab, 1 TAB PO DAILY 08/29/24 Atorvastatin Calcium (ATORVASTATIN CALCIUM) 20 Mg Tab, 1 TAB PO DAILY 08/29/24 Bumetanide (Bumetanide) 2 Mg Tab, 1 TAB PO BID 08/29/24 Apixaban Base (ELIQUIS) 2.5 Mg Tab, 1 TAB PO BID 08/29/24 Allopurinol (Allopurinol) 100 Mg Tab, 1 TAB PO DAILY 08/29/24 Discontinued Reported Medications Metoprolol Tartrate (Lopressor) 25 Mg Tb, 1 TAB PO DAILY 08/29/24 Vital Signs Vital Signs Date Time Temp Pulse Resp B/P (MAP) Pulse Ox O2 Delivery O2 Flow Rate FiO2 09/08/24 17:54 116/43 09/08/24 17:49 65 09/08/24 17:49 16 99 Nasal Cannula* 2 28 09/08/24 16:00 98.1 98.1 Physical Exam Gen.: Patient lying in bed in no apparent distress. On supplemental oxygen. Head: Normocephalic, atraumatic. Eyes: EOMI/PERRLA. Ears: Normal hearing. Normal anatomy. Neck/trachea: Trachea midline, supple. Nose: Normal external anatomy. Mouth: Moist mucous membranes. Chest: Decreased air entry bilaterally. No wheezing or rhonchi. Cardiovascular: Positive S1, positive S2. Regular rate and rhythm. Abdomen: Positive bowel sounds in all 4 quadrants. Soft, non-tender, non- distended. : Deferred. Rectal: Deferred. Skin: Warm, dry. Intact. Extremities: 2+ radial pulses bilaterally. No lower extremity edema. Neuro: Awake, alert, oriented x3. No gross motor or sensory deficits. Cranial nerves II through XII intact. Gait not assessed. Labs/Diagnostic Data Labs Test 09/08/24 03:47 09/07/24 03:24 09/05/24 02:45 09/04/24 03:20 Range/Units Sodium Level 139 136-145 mmol/L Potassium Level 3.5 3.5-5.1 mmol/L Chloride Level 93 L 98-107 mmol/L Carbon Dioxide Level 33 H 20-31 mmol/L Anion Gap 13 5-15 Blood Urea Nitrogen 75 H 9-23 mg/dL Creatinine 2.90 H 0.550-1.02 mg/dL Glomerular Filtration Rate Calc 16 >90 mL/min BUN/Creatinine Ratio 25.9 H 10.0-20.0 Serum Glucose 111 H 74-106 mg/dL Calcium Level 9.9 8.7-10.4 mg/dL Magnesium Level 1.8 1.6-2.6 mg/dL White Blood Count 7.6 # 4.4-10.8 10^3/uL Red Blood Count 3.37 L 4.0-5.20 10^6/uL Hemoglobin 8.9 L 12.2-16.2 g/dL Hematocrit 28.3 L 36.0-46.0 % Mean Corpuscular Volume 84.0 80.0-100.0 fL Mean Corpuscular Hemoglobin 26.3 L 28.0-32.0 pg Mean Corpuscular Hemoglobin Concent 31.3 L 32.0-36.0 g/dL Red Cell Distribution Width 16.5 H 11.8-14.3 % Platelet Count 355 140-450 10^3/uL Mean Platelet Volume 7.1 6.9-10.8 fL Neutrophils (%) (Auto) 69.5 37.0-80.0 % Lymphocytes (%) (Auto) 16.9 10.0-50.0 % Monocytes (%) (Auto) 9.9 0.0-12.0 % Eosinophils (%) (Auto) 2.6 0.0-7.0 % Basophils (%) (Auto) 1.1 0.0-2.0 % Neutrophils # (Auto) 5.3 1.6-8.6 10 ^3/uL Lymphocytes # (Auto) 1.3 0.4-5.4 10 ^3/uL Monocytes # (Auto) 0.8 0-1.3 10 ^3/uL Eosinophils # (Auto) 0.2 0-0.8 10 ^3/uL Basophils # (Auto) 0.1 0-0.2 10 ^3/uL Nucleated Red Blood Cells 0.1 % B-Type Natriuretic Peptide 280.38 0-100 pg/mL Digoxin Level 1.50 0.8-2 ng/mL Test 09/03/24 03:39 09/02/24 16:22 08/31/24 03:14 08/30/24 06:57 Range/Units Total Bilirubin 1.0 0.2-1.0 mg/dL Aspartate Amino Transferase (AST) < 8 L 13-40 U/L Alanine Aminotransferase (ALT) < 9 7-40 U/L Alkaline Phosphatase 91 46-116 U/L Total Protein 6.3 5.7-8.2 g/dL Albumin 3.8 3.2-4.8 g/dL Influenza Type A Antigen Negative Negative Influenza Type B Antigen Negative Negative SARS-CoV-2 Antigen (Rapid) Negative NEGATIVE Phosphorus Level 3.5 2.4-5.1 mg/dL Erythrocyte Sedimentation Rate 45 H 0-20 mm/hr C-Reactive Protein High Sensitivity 0.93 <1.0 mg/dL Thyroid Stimulating Hormone (TSH) 6.71 H 0.55-4.78 uIU/mL Anti-Nuclear Antibody Screen Negative Negative Test 08/29/24 16:00 08/29/24 15:37 Range/Units Urine Color Colorless Yellow Urine Clarity Clear Clear Urine pH 7.0 5.0-9.0 Urine Specific Ramona 1.007 1.001-1.035 Urine Protein Negative Negative Urine Ketones Negative Negative Urine Blood Negative Negative /uL Urine Nitrite Negative Negative Urine Bilirubin Negative Negative Urine Urobilinogen Normal Negative mg/dL Urine Leukocyte Esterase Trace Negative /uL Urine RBC 1 0 - 4 /hpf Urine Microscopic WBC < 1 0-5 /HPF Urine Squamous Epithelial Cells Few <5 /hpf Urine Bacteria Few H None Seen /hpf Urine Hyaline Casts Few 0 - 2 /lpf Urine Glucose Normal Normal mg/dL D-Dimer, Quantitative 0.20 0.0-0.49 mg/L FEU Troponin I High Sensitivity 10 </=34 ng/L Assessment Impression: Acute hypoxic respiratory failure Dependence on supplemental oxygen Acute on chronic combined systolic/diastolic heart failure AFib with RVR Alcoholism Morbid obesity Cardiogenic shock, resolved Plan: CXR notable for pulmonary vascular congestion Supplemental oxygen 2 LPM NC Titrate to keep O2 sats above 92%. Taper O2 as tolerated. Off pressors, hemodynamically stable. Patient stable for downgrade from pulmonary standpoint On Amiodarone PO Multivitamin supplementation On Eliquis Cardiology recs appreciated Continue diuresis w/ Bumex Monitor renal function. Monitor electrolytes. Supplement as necessary. Monitor ins and outs. GI prophylaxis - Protonix DVT prophylaxis. Prognosis: Poor given patient's multiple co-morbidities. Rest of plan per hospitalist and other consultants. Thank you, MOISES Barron, for allowing me to participate in this patient's care. Further recommendations will depend on the patient's clinical course. Please do not hesitate to contact me if you have any questions or concerns. This medical document was created using an electronic medical record system with [employer] dictation system. Although these documentations are being carefully reviewed, there may still be some phonetic and typographical changes. The errors are purely typographical, due to imperfection on the software program, and do not reflect any compromise in the patient's medical care. Plan discussed with: Patient, Other (ROVERTO Duckworth/MOISES Barron) TU GRACE MD Sep 08, 2024 21:45
[2024-09-09] VITALS (9 sets, daily range): BP systolic 115–145; BP diastolic 55–78; PULSE 60–98; RESP 14–18; TEMP 36.9; O2SAT 95–99
--- NOTE | 2024-09-09 05:00 | DVHPN2 ---
Progress Note - Dictate Date Seen: Sep 09, 2024 Medical Necessity Reason Pt with a Central, PICC or Fol: Yes Subjective Seen and examined at the bedside within the ICU. Chart reviewed. vital signs Vital Sign Date Time Temp Pulse Resp B/P (MAP) Pulse Ox O2 Delivery O2 Flow Rate FiO2 09/09/24 01:00 98.4 63 18 118/56 (76) 98 98.4 09/08/24 20:00 Nasal Cannula* 2 28 Total Intake and Output 09/08/24 09/08/24 09/09/24 15:00 23:00 07:00 Intake Total 3.752 ml 300 ml Output Total 500 ml Balance 3.752 ml -200 ml medications Current Medications Medications Dose Ordered Sig/Nomi Route Start Time Stop Time Status Last Admin Dose Admin Sodium Chloride 10 ml QSHIFT@ IV 08/29/24 22:00 09/08/24 21:49 10 ML Sodium Chloride 10 ml Q8HR IV 08/29/24 22:00 09/08/24 21:50 10 ML Ondansetron HCl 4 mg Q4HP PRN IV 08/29/24 17:00 Acetaminophen 650 mg Q6HP PRN PO 08/29/24 17:00 09/01/24 19:28 650 MG Nitroglycerin 0.4 mg Q5MINP PRN SL 08/29/24 17:00 Lorazepam 1 mg Q2HP PRN IV 08/29/24 17:00 Multivitamins 1 tab DAILY PO 08/30/24 10:00 09/08/24 10:07 1 TAB Folic Acid 1 mg DAILY PO 08/30/24 10:00 09/08/24 10:06 1 MG Thiamine HCl 100 mg DAILY PO 08/30/24 10:00 09/08/24 10:06 100 MG Allopurinol 100 mg DAILY PO 08/30/24 10:00 09/08/24 10:06 100 MG Apixaban 2.5 mg BID PO 08/29/24 22:00 09/08/24 21:46 2.5 MG Atorvastatin Calcium 20 mg DAILY PO 08/30/24 10:00 09/08/24 10:06 20 MG Gabapentin 300 mg BID PO 08/29/24 22:00 09/08/24 21:46 300 MG Pantoprazole Sodium 40 mg DAILY PO 08/30/24 10:00 09/08/24 10:06 40 MG Levothyroxine Sodium 25 mcg QAM@0600 PO 08/31/24 06:00 09/08/24 05:15 25 MCG Norepinephrine Bitartrate 32 mg/ Sodium Chloride 250 ml @ 0.938 mls/ hr Q24H IV 08/31/24 07:30 09/06/24 08:24 2.813 MLS/HR Potassium Chloride 20 meq BID PO 09/02/24 22:00 09/08/24 21:45 20 MEQ Docusate Sodium 100 mg BID PO 09/03/24 10:00 09/08/24 21:46 100 MG Polyethylene Glycol 17 gm DAILYPRN PRN PO 09/03/24 09:15 Amiodarone HCl 200 mg DAILY PO 09/03/24 10:00 09/08/24 10:07 200 MG Midodrine 10 mg TID@0600,1200,1800 PO 09/06/24 06:00 09/08/24 17:54 10 MG Bumetanide 2 mg BIDD PO 09/07/24 18:00 09/08/24 17:54 2 MG laboratory and microbiology Laboratory Tests 09/08/24 03:47 09/07/24 03:24 Test 09/08/24 03:47 Range/Units Serum Glucose 111 H 74-106 mg/dL Assessment/Plan Assessment/Plan Patient is a 74-year-old female who presented to the hospital with generalized weakness. She has been bed-bound for few years. She mentions that she was feeling more weak and could not even move in the bed and decided to come to the hospital. She also has baseline history of generalized swelling which occasionally worsens or improves. The swelling goes back for years. She mentions that the swelling increased for the past week. As outpatient, the patient is on Bumex. She mentions that she does go to [employer] regularly. Admission assessment had been acute on chronic heart failure and Cardiology was involved. It is of note that the patient started coming to our office in March 2022 but has been noncompliant with followups. Last visit inside the office was actually in March 2022. For awhile (up to September 2023) she was lost to follow up. Since September 2023, the patient has had multiple phone visits and has not come for physical exam. She has not come for requested echocardiograms/tests. She did have echocardiogram in [facility] (October 2023) which has reported preserved left ventricular systolic function and right ventricular systolic pressure of 31 mm Hg. Repeat echocardiograms in [facility] ( revealed dilated right side, LVEF of 50 to 55% and RVSP of 51 mmHg (in favor of diastolic heart failure). She does have baseline CKD. She does have morbid obesity with poor functional capacity. She has had multiple surgeries in the bilateral feet. She also has history of COPD/asthma with chronic respiratory failure (on home oxygen). She also has history of atrial fibrillation for which is on Eliquis as outpatient. She drinks alcohol (whisky) daily. Since arrival to Emergency room, the patient's blood pressure was found to be low and she has been started on pressure support and the plan is to manage the patient in ICU. Morbidly obese. Lying flat in bed and not in acute distress. No JVD. Mucosa is dry. Mucosa is pink. No JVD. No carotid bruit. Not using accessory muscles of breathing. Scattered rhonchi in the lungs is heard. Cardiac: Irregular, no thrill. Abdomen is obese and soft. There is no gross hepatomegaly, but it is presence can not be ruled out (body habitus, morbidly obese). There is 3+ edema in bilateral lower extremities which extends to abdominal wall. Past medical history includes morbid obesity, atrial fibrillation (on Eliquis as outpatient), COPD/asthma with chronic respiratory failure on home oxygen, hypertension, hyperlipidemia, chronic lymphedema, Diastolic heart failure with type 2 pulmonary hypertension, rheumatoid arthritis, osteoarthritis, peripheral vascular disease, CKD, anemia, old history of alcohol abuse, neuropathy, gout, old history of right and left foot fracture and their management, status post right knee replacement, bed-bound at baseline and functional quadriplegia. Patient drinks whiskey daily. Echocardiogram of October 24 2023 (performed in [facility]) revealed ejection fraction of 60%, mild biatrial enlargement, mild MR/TR and right ventricular systolic pressure of 31 mm Hg. Echocardiogram of (performed in [facility]) revealed: EF of 50 to 55%, Dilated right ventricle with normal systolic function. Severe biatrial enlargement. Mild AI, mild to moderate MR, moderate TR and RVSP of 51 mmHg. Ascending Aorta was 3.7 cm. Hemoglobin: 8.6 - 8.0 - 7.8 - 8.2 - 8.5 - 8.9 Creatinine: 5.22 - 5.09 - 4.51 - 4.27 - 3.22 - 2.82 - 2.44 - 2.42 - 2.54 - 2.64 - 2.90 Potassium: 5.5 - 4.9 - 4.4 - 3.7 - 3.1 - 3.0 - 3.9 - 3.7 - 3.7 - 3.5 - 3.6 - 3.5 Sodium: 124 - 126 - 125 - 126 - 130 - 133 - 132 - 133 - 137 - 138 - 139 Troponin (high sensitive): 10 - 10 - 10 BNP: 258.85 - 280.38 TSH: 6.71 D-dimer: 0.20 (wnl) ESR: 45 Digoxin level: 1.5 U/A: non-revealing Chest x-ray revealed: IMPRESSION: 1. Mild bilateral perihilar peribronchial thickening findings may represent bronchitis. Repeat chest xry revealed: Lines and Tubes: None Lungs: Diffuse increased interstitial prominence. Pleura: No effusion. No pneumothorax. Cardiomediastinal contours: Unremarkable Bones: Unremarkable IMPRESSION: Pulmonary vascular congestion EKG revealed atrial fibrillation with moderate ventricular response, incomplete right bundle branch block and low voltage QRS Tele reveals atrial fibrillation with moderate ventricular response Echo revealed: Left ventricle: Left ventricle was normal size with normal systolic function. LVEF was 72%. There was no gross wall motion abnormality. Right ventricle was mildly dilated with normal systolic function. Both atria were moderately dilated. Aortic valve: Aortic valve was not well visualized. There was no aortic insufficiency/stenosis. There was mild mitral regurgitation. There was [id number] tricuspid regurgitation. Pulmonary valve was not well visualized. IVC was dilated. Right ventricular systolic pressure was assessed at 54 mm Hg. There was no pericardial effusion. The patient is a 74-year-old female with poor functional capacity and morbid obesity who presented with generalized weakness. It is of note that the patient does have baseline history of functional quadriplegia. Complaints of worsening weakness. Does have history of atrial fibrillation and is on chronic anticoagulation as outpatient (Eliquis). Does have baseline history of chronic lower extremity edema for which takes Bumex. Does have noncompliance to follow ups. Does have history of lymphedema which could have contributed to the clinical picture. In examination does have significant pitting edema presently. It is of note that the BNP is normal which is against heart failure, but also, the patient does have significant obesity which may be a reason of heart failure without increase in BNP. Does have history of Diastolic heart failure with type 2 pulmonary hypertension which could have contributed to clinical presentation. Patient was found to have hypotension. Kidney function has worsened which may be secondary to baseline worsening of kidney function or over-diuresis or Cardiorenal etiology? Patient usually follows with Nephrology as outpatient. Clinically, the patient does have generalized swelling but mucosa is dry. Acute on chronic diastolic heart failure Pulmonary Hypertension, type 2 VIJAYA on CKD Alcohol abuse Morbid obesity Poor functional capacity Bed-bound at baseline Hypertension, history of Hypotension on presentation Atrial fibrillation, chronic Hyperlipidemia Osteoarthritis Rheumatoid arthritis Peripheral vascular disease Cardiac suggestion for management: Manage in ICU Fluid management (IV diuresis) as per Nephrology Pressure support (Levophed) to keep MAP above 60 mmHg Follow up electrolytes and kidney function tests and correct abnormalities Full anticoagulation (on Eliquis presently), long-term On Midodrine Nephrology follow up. Further evaluation and management depends on the above and clinical course A total of 75 minutes was spent reviewing the patient record, examining the patient, making a diagnostic and therapeutic plan, discussing this plan with medical personnel, following up on diagnostic studies and following the patient for clinical stability excluding any and all procedures. At least 50% of this time was spent in direct, [id number] contact. Thank you for allowing me to participate in this patient's care. Further recommendations will depend on patient's clinical course. Please do not hesitate to contact me if you have any questions or concerns. This medical document was created using electronic medical record system with [employer] computerized dictation system. Although this document has been carefully reviewed, there may still be some phonetic and typographical errors. These areas are purely typographical due to the imperfection of the software programs, and do not reflect any compromise in the patient's medical care Dietary Evaluation Review Comments: 1. Follow renal specific diet with 50g protein restriction for avoiding worsening uremic syndrome. 2. tighter sodium restriction to avoid edema and fluid retention Expected Outcomes/Goals: Gradual weight loss. Delayed dialysis treatments Plan discussed with: Patient (Patient and Primary RN ) SUZANNE MERRITT Sep 09, 2024 05:00
[2024-09-09 08:16] LABS: Basophils # (auto) 0 10 ^3/uL (0-0.2); Basophils % (auto) 0.5 % (0.0-2.0); Eosinophils # (auto) 0.2 10 ^3/uL (0-0.8); Hemoglobin 9.2 g/dL (12.2-16.2); Lymphocytes # (auto) 1.3 10 ^3/uL (0.4-5.4); Lymphocytes % (auto) 15.7 % (10.0-50.0); Monocytes # (auto) 0.6 10 ^3/uL (0-1.3); Neutrophils # (auto) 6.1 10 ^3/uL (1.6-8.6); Nucleated Red Blood Cells % 0.1 %
[2024-09-09 08:18] LABS: Eosinophils % (auto) 2.1 % (0.0-7.0); Hematocrit 29.9 % (36.0-46.0); Mean Corpuscular Hemoglobin 26.3 pg (28.0-32.0); Mean Corpuscular Hgb Conc. 30.8 g/dL (32.0-36.0); Mean Corpuscular Volume 85.2 fL (80.0-100.0); Monocytes % (auto) 7.6 % (0.0-12.0); Neutrophils % (auto) 74.1 % (37.0-80.0); Platelet Count (auto) 377 10^3/uL (140-450); Red Blood Cells 3.51 10^6/uL (4.0-5.20); White Blood Cell 8.3 10^3/uL (4.4-10.8)
--- NOTE | 2024-09-09 11:10 | DVHPN2 ---
Progress Note - Dictate Date Seen: Sep 09, 2024 Medical Necessity Reason Pt with a Central, PICC or Fol: Yes Subjective TRANSFERRED TO FLOOR On midodrine 10 mg q 8 hrs switched to oral Bumex vital signs Vital Sign Date Time Temp Pulse Resp B/P (MAP) Pulse Ox O2 Delivery O2 Flow Rate FiO2 09/09/24 08:10 70 16 98 Nasal Cannula* 2 28 09/09/24 05:25 120/57 09/09/24 05:00 98.2 98.2 Total Intake and Output 09/08/24 09/08/24 09/09/24 15:00 23:00 07:00 Intake Total 3.752 ml 300 ml 250 ml Output Total 500 ml 900 ml Balance 3.752 ml -200 ml -650 ml medications Current Medications Medications Dose Ordered Sig/Nomi Route Start Time Stop Time Status Last Admin Dose Admin Sodium Chloride 10 ml QSHIFT@10, IV 08/29/24 22:00 09/09/24 09:17 10 ML Sodium Chloride 10 ml Q8HR IV 08/29/24 22:00 09/09/24 05:45 10 ML Ondansetron HCl 4 mg Q4HP PRN IV 08/29/24 17:00 Acetaminophen 650 mg Q6HP PRN PO 08/29/24 17:00 09/01/24 19:28 650 MG Nitroglycerin 0.4 mg Q5MINP PRN SL 08/29/24 17:00 Lorazepam 1 mg Q2HP PRN IV 08/29/24 17:00 Multivitamins 1 tab DAILY PO 08/30/24 10:00 09/09/24 09:15 1 TAB Folic Acid 1 mg DAILY PO 08/30/24 10:00 09/09/24 09:17 1 MG Thiamine HCl 100 mg DAILY PO 08/30/24 10:00 09/09/24 09:17 100 MG Allopurinol 100 mg DAILY PO 08/30/24 10:00 09/09/24 09:16 100 MG Apixaban 2.5 mg BID PO 08/29/24 22:00 09/09/24 09:16 2.5 MG Atorvastatin Calcium 20 mg DAILY PO 08/30/24 10:00 09/09/24 09:16 20 MG Gabapentin 300 mg BID PO 08/29/24 22:00 09/09/24 09:15 300 MG Pantoprazole Sodium 40 mg DAILY PO 08/30/24 10:00 09/09/24 09:16 40 MG Levothyroxine Sodium 25 mcg QAM@0600 PO 08/31/24 06:00 09/09/24 05:25 25 MCG Norepinephrine Bitartrate 32 mg/ Sodium Chloride 250 ml @ 0.938 mls/ hr Q24H IV 08/31/24 07:30 09/06/24 08:24 2.813 MLS/HR Potassium Chloride 20 meq BID PO 09/02/24 22:00 09/09/24 09:15 20 MEQ Docusate Sodium 100 mg BID PO 09/03/24 10:00 09/09/24 09:15 100 MG Polyethylene Glycol 17 gm DAILYPRN PRN PO 09/03/24 09:15 Amiodarone HCl 200 mg DAILY PO 09/03/24 10:00 09/09/24 09:16 200 MG Midodrine 10 mg TID@0600,1200,1800 PO 09/06/24 06:00 09/09/24 05:25 10 MG Bumetanide 2 mg BIDD PO 09/07/24 18:00 09/09/24 05:25 2 MG objective HEENT: No evidence of JVD, no oral ulcers. Pulmonary: Diminished lung sounds at the bases Cardiovascular regular rate Abdomen: Bowel sounds positive, soft no rebound tenderness Skin: No rash Neurological: Alert, oriented, no focal weakness Extremities: Edema decreasing laboratory and microbiology Laboratory Tests 09/09/24 05:07 09/08/24 03:47 Test 09/08/24 03:47 Range/Units Serum Glucose 111 H 74-106 mg/dL Problem List 1. Acute kidney injury on chronic kidney disease stage 3 secondary to cardiorenal syndrome 2. Cardiogenic shock 3. Acute diastolic heart failure exacerbation 4. Pulmonary hypertension 4. Hypokalemia 5. Hyponatremia, hypervolemic improving 6. Morbid obesity 7. Hypoalbuminemia 8. Chronic alcoholism 9. Metabolic alkalosis 10.Anemia Assessment/Plan No labs today continue Bumex 2 mg po BID . continue Midodrine BMP in AM Dietary Evaluation Review Comments: 1. Follow renal specific diet with 50g protein restriction for avoiding worsening uremic syndrome. 2. tighter sodium restriction to avoid edema and fluid retention Expected Outcomes/Goals: Gradual weight loss. Delayed dialysis treatments Plan discussed with: Patient ALKA MARQUEZ MD Sep 09, 2024 11:10
[2024-09-09] MEDS ORDERED: MID10T GT (15:18)
--- NOTE | 2024-09-09 22:40 | DVHPN2 ---
Progress Note - Dictate Date Seen: Sep 09, 2024 Medical Necessity Reason Pt with a Central, PICC or Fol: Yes The following are medically ne: Griffith Catheter Reason for griffith catheter: Strict I&O Subjective Patient seen and examined at bedside. Remains on supplemental oxygen Overnight events reviewed. vital signs Vital Sign Date Time Temp Pulse Resp B/P (MAP) Pulse Ox O2 Delivery O2 Flow Rate FiO2 09/09/24 18:29 145/78 09/09/24 17:00 98.0 98 14 98 98.0 09/09/24 08:10 Nasal Cannula* 2 28 Total Intake and Output 09/08/24 09/08/24 09/09/24 15:00 23:00 07:00 Intake Total 3.752 ml 300 ml 250 ml Output Total 500 ml 900 ml Balance 3.752 ml -200 ml -650 ml objective Gen.: Patient lying in bed in no apparent distress. On supplemental oxygen. Head: Normocephalic, atraumatic. Eyes: EOMI/PERRLA. Ears: Normal hearing. Normal anatomy. Neck/trachea: Trachea midline, supple. Nose: Normal external anatomy. Mouth: Moist mucous membranes. Chest: Decreased air entry bilaterally. No wheezing or rhonchi. Cardiovascular: Positive S1, positive S2. Regular rate and rhythm. Abdomen: Positive bowel sounds in all 4 quadrants. Soft, non-tender, non- distended. : Deferred. Rectal: Deferred. Skin: Warm, dry. Intact. Extremities: 2+ radial pulses bilaterally. No lower extremity edema. Neuro: Awake, alert, oriented x3. No gross motor or sensory deficits. Cranial nerves II through XII intact. Gait not assessed. laboratory and microbiology Laboratory Tests 09/09/24 05:07 09/08/24 03:47 Test 09/08/24 03:47 Range/Units Serum Glucose 111 H 74-106 mg/dL Assessment/Plan Impression: Acute hypoxic respiratory failure Dependence on supplemental oxygen Acute on chronic combined systolic/diastolic heart failure AFib with RVR Alcoholism Morbid obesity Cardiogenic shock, resolved Events: Remains on supplemental oxygen 2 LPM NC Taper O2 as tolerated Amiodarone PO On EliGeenapp Cardiology recs appreciated Maintain euvolemia w/ Bumex Monitor renal function. Monitor electrolytes. Supplement as necessary. Monitor ins and outs. Labs and imaging reviewed. Rest of plan as noted below. Plan: CXR notable for pulmonary vascular congestion Supplemental oxygen Titrate to keep O2 sats above 92%. Off pressors, hemodynamically stable. Patient stable for downgrade from pulmonary standpoint On Amiodarone PO Multivitamin supplementation On Eliquis Cardiology recs appreciated Continue diuresis w/ Bumex Monitor renal function. Monitor electrolytes. Supplement as necessary. Monitor ins and outs. GI prophylaxis - Protonix DVT prophylaxis. Prognosis: Guarded given patient's multiple co-morbidities. Rest of plan per hospitalist and other consultants. Thank you, MOISES Barron, for allowing me to participate in this patient's care. Further recommendations will depend on the patient's clinical course. Please do not hesitate to contact me if you have any questions or concerns. This medical document was created using an electronic medical record system with [employer] dictation system. Although these documentations are being carefully reviewed, there may still be some phonetic and typographical changes. The errors are purely typographical, due to imperfection on the software program, and do not reflect any compromise in the patient's medical care. Dietary Evaluation Review Recommendations by RD: Dietary education by RD Comments: 1) Continue plan of care 2) Refer to outpatient RD/CDCES for weight management 3) Encourage low sodium diet Expected Outcomes/Goals: 1) appetite and labs to improve 2) f/u in 5 days Plan discussed with: Patient, Other (ROVERTO Mayer) TU GRACE MD Sep 09, 2024 22:40
== END 2024-09-09 19:55 | disposition home or self-care (01) | DRG 682 ==
LOC: EDBD 12:04 → ER 12:09 → EDBD 12:09 → OVERFLOW 17:32 → ICU WEST 08-30 02:38 → TELE-CENTR 09-08 18:52
PROVIDERS: ADMIT Internal Medicine; ATTEND Internal Medicine
PROC: 06HM33Z Insertion of Infusion Device into Right Femoral Vein, Percutaneous Approach (ICD-10-PCS; principal; 2024-08-29)
DX: N17.9 Acute kidney failure, unspecified (principal); I50.33 Acute on chronic diastolic (congestive) heart failure; J96.21 Acute and chronic respiratory failure with hypoxia; R53.2 Functional quadriplegia; R57.0 Cardiogenic shock; I13.0 Hypertensive heart and chronic kidney disease with heart failure and stage 1 through stage 4 chronic kidney disease, or unspecified chronic kidney disease; E87.1 Hypo-osmolality and hyponatremia; E87.3 Alkalosis; Z68.44 Body mass index [BMI] 60.0-69.9, adult; N18.4 Chronic kidney disease, stage 4 (severe); E66.01 Morbid (severe) obesity due to excess calories; E87.5 Hyperkalemia; D50.9 Iron deficiency anemia, unspecified; Z20.822 Contact with and (suspected) exposure to COVID-19; E78.5 Hyperlipidemia, unspecified; I48.91 Unspecified atrial fibrillation; E86.1 Hypovolemia; E88.09 Other disorders of plasma-protein metabolism, not elsewhere classified; F10.20 Alcohol dependence, uncomplicated; I27.20 Pulmonary hypertension, unspecified; E87.6 Hypokalemia; I45.10 Unspecified right bundle-branch block; M10.9 Gout, unspecified; Y90.9 Presence of alcohol in blood, level not specified; Z96.651 Presence of right artificial knee joint; I73.9 Peripheral vascular disease, unspecified; J44.89 Other specified chronic obstructive pulmonary disease; M06.9 Rheumatoid arthritis, unspecified; M81.0 Age-related osteoporosis without current pathological fracture; Z74.01 Bed confinement status; Z88.2 Allergy status to sulfonamides; Z88.8 Allergy status to other drugs, medicaments and biological substances; Z79.899 Other long term (current) drug therapy; Z79.2 Long term (current) use of antibiotics; Z99.81 Dependence on supplemental oxygen; Z79.01 Long term (current) use of anticoagulants; Z91.199 Patient's noncompliance with other medical treatment and regimen due to unspecified reason; Z82.49 Family history of ischemic heart disease and other diseases of the circulatory system; Z82.3 Family history of stroke
CPT/HCPCS: 36415; 36556; 71045; 80048; 80053; 80162; 81001; 83735; 83880; 84100; 84132; 84443; 84484; 85025; 85379; 85652; 86038; 86141; 87426; 87804; 93005; 93306; 99291; G0378; J3480; J7042; J7060; P9047

== ENCOUNTER 2024-12-12 18:22 | Inpatient (IN) | payer OTHER, MEDICAID ==
[~2024-12-12] VITALS: Ht 162.6 cm; Wt 131.0 kg
[~2024-12-12 18:22] MED LIST: ALLO100T PO; APIX2.5T PO; ATOR20TA50 PO; BUME2TAB5 PO; FLUT1AER13 PO; GABA-1250 PO; LACT10SO3 PO; MECL-126 PO; MID10T GT; MIDO10TA3 PO; PANT40T PO; POTA-180 PO; ROPI5TAB20 PO; SPIR50TA5 PO
--- NOTE | 2024-12-12 18:43 | ED.PDOC ---
History of Present Illness HPI Comments Vitals: temperature of 97.7F, pulse of 94, respiratory rate of 18, blood pressure of 127/58, SpO2 of 94%RA HPI: Poor Historian. 74-year-old female brought in by ambulance from home for evaluation of failure to thrive and not taking her medications for one-week and not eating and drinking for one-week. Patient is complains of generalized weakness. No other complaints. Patient is on Eliquis for atrial fibrillation. Patient states she has not been taking her medication because she forgets. Patient was recently admitted and discharged from the hospital with the following final diagnosis: Final Diagnosis/Problems List hypotension on admission due to meds vs added dehydration and atrial fibrillation with rvr- resolved// atrial fibrillation rate controlled- chronic diastolic chf pulmonary htn-followed by cardioloist morbid obesity bed bound status ckd4- followed by nephrology anemia due to ckd Past Medical History: CHF, pulmonary hypertension, morbid obesity, bed-bound, chronic kidney disease, anemia, atrial fibrillation Past Surgical History: REVIEW OF SYSTEMS: CONSTITUTIONAL: Denies acute: fever, diaphoresis, chills, HEAD: Denies acute: headache, photophobia Eyes: Denies acute: Double vision, vision loss, eye pain, eye discharge. EARS: Denies acute: tinnitus, hearing loss, ear discharge, ear pain, THROAT: Denies acute: sore throat, swelling, difficulty swallowing , pain with swallowing, change in voice. NECK: Denies acute: neck pain, neck swelling, stiff neck. HEART: Denies acute : chest pain, palpitations, LUNGS: Denies acute: SOB, wheezing, cough, hemoptysis ABDOMEN: Denies acute: abdominal pain, Nausea, Vomiting, diarrhea, melena , hematemesis, hematochezia SKIN: Denies acute: rash, redness, lesions, itchiness. EXTREMITIES: Denies acute: calf pain, numbness, tingling, weakness, denies pain in extremity. Denies acute: Low back pain. Neuro: Denies acute: focal neurological deficit, motor or sensory focal neurological deficit, tremors, seizure like activity, confusion, dizziness, change in mental status, loss of bowel or bladder function, cauda equina like symptoms. : Denies acute: dysuria, hematuria, flank pain, increase in urinary frequency. PSYCH: Denies acute: hallucination, suicidal ideation, homicidal ideation. FEMALE: Denies acute: abnormal vaginal bleeding, foul odor, unusual discharge. PHYSICAL EXAM: General: -----mild---acute distress, awake and alert. Head: normocephalic, atraumatic. Neck: supple, trachea is midline, no swelling. Throat: Normal phonation. Eyes:, no erythema, no purulent discharge, no proptosis, no icterus. Heart: Irregular rate and rhythm consistent with atrial fibrillation with RVR, no significant murmur appreciated. Lungs: no apparent respiratory distress, Able to speak in full sentences. No wheezing, no rhonchi, no crackles. No stridors Clear to auscultation bilaterally. Abdomen: non tender to palpation, non distended, soft, no guarding, no rebound, + bowel sounds. Obese Neuro: Awake, Alert, oriented to name, self, situation, follows commands GCS=15. Speech is normal. Skin: no petechia, no purpura, no cyanosis, non-pale, not jaundice. Lower extremities: --trace bilateral - Pitting edema no deformity, no focal swelling, no calf TTP. Makes eye contact. moves all four extremities. Face: no apparent facial droop. ED COURSE: Chief Complaint: General Weakness Time Seen by MD: 18:22 Primary Care Provider: UNKNOWN Reviewed Notes: Nurses Notes, Allergies Allergies: Coded Allergies: Sulfa Antibiotics (Verified Allergy, Mild, 08/29/24) Zinc Oxide (Verified Allergy, Mild, 08/29/24) Home Meds Active Scripts Midodrine HCl (Midodrine HCl) 10 Mg Tab, 10 MG GT TID, #90 TAB 0 Refills Prov:PANKAJ CARRION MD 09/09/24 Reported Medications Gabapentin (Gabapentin) 300 Mg Cap, 300 MG PO BID 08/29/24 Pantoprazole Sodium Sesquihydr (Pantoprazole Sodium) 40 Mg Tab, 1 TAB PO DAILY 08/29/24 Atorvastatin Calcium (ATORVASTATIN CALCIUM) 20 Mg Tab, 1 TAB PO DAILY 08/29/24 Bumetanide (Bumetanide) 2 Mg Tab, 1 TAB PO BID 08/29/24 Apixaban Base (ELIQUIS) 2.5 Mg Tab, 1 TAB PO BID 08/29/24 Allopurinol (Allopurinol) 100 Mg Tab, 1 TAB PO DAILY 08/29/24 Information Source: Patient, Emergency Med Personnel Past Medical History PAST MEDICAL HISTORY: Arthritis, CHF, CKF, COPD, HTN Surgical History: Denies all surgeries IMPLEMENTATION SPECIALIST PAYROLL History: No Pertinent IMPLEMENTATION SPECIALIST PAYROLL History Family History Family History: Unknown Social History Smoker: Non-Smoker Alcohol: Denies ETOH Use Drugs: Denies Drug Use Lives In: Home Was a procedure done? Was a procedure done?: No EKG EKG #1: Pulse Rate (adult): 113 [place]: Normal Cardiac Rhythm: Afib Block: None Hypertrophy: None ST: Normal EKG #2: Pulse Rate (adult): 100 [place]: Normal Cardiac Rhythm: Afib Block: None Hypertrophy: None ST: Normal EKG #3: Pulse Rate (adult): 94 [place]: Normal Cardiac Rhythm: Afib Block: None Hypertrophy: None ST: Normal Differential Dx Considerations may include: Includes but not limited to thyroid disease, encephalopathy, electrolyte abnormality, sepsis, infection, intracranial pathology, drug adverse effects, arrhythmia, kidney insufficiency, ACS, CVA, malignancy, anemia X-Ray, Labs, Meds, VS Vital Signs Date Time Temp Pulse Resp B/P (MAP) Pulse Ox O2 Delivery O2 Flow Rate FiO2 12/12/24 20:00 98 12/12/24 19:40 101 16 98 Nasal Cannula* 3 32 12/12/24 19:35 97.7 94 18 127/58 (81) 94 97.7 12/12/24 19:32 100 12/12/24 18:55 98.4 104 18 128/70 (89) 95 98.4 12/12/24 18:25 113 Lab Test 12/12/24 18:52 Range/Units White Blood Count 15.8 H 4.4-10.8 10^3/uL Red Blood Count 3.76 L 4.0-5.20 10^6/uL Hemoglobin 10.4 L 12.2-16.2 g/dL Hematocrit 31.9 L 36.0-46.0 % Mean Corpuscular Volume 84.7 80.0-100.0 fL Mean Corpuscular Hemoglobin 27.6 L 28.0-32.0 pg Mean Corpuscular Hemoglobin Concent 32.6 32.0-36.0 g/dL Red Cell Distribution Width 15.8 H 11.8-14.3 % Platelet Count 476 H 140-450 10^3/uL Mean Platelet Volume 6.5 L 6.9-10.8 fL Neutrophils (%) (Auto) 93.6 H 37.0-80.0 % Lymphocytes (%) (Auto) 1.6 L 10.0-50.0 % Monocytes (%) (Auto) 4.3 0.0-12.0 % Eosinophils (%) (Auto) 0.0 0.0-7.0 % Basophils (%) (Auto) 0.5 0.0-2.0 % Neutrophils # (Auto) 14.8 H 1.6-8.6 10 ^3/uL Lymphocytes # (Auto) 0.3 L 0.4-5.4 10 ^3/uL Monocytes # (Auto) 0.7 0-1.3 10 ^3/uL Eosinophils # (Auto) 0 0-0.8 10 ^3/uL Basophils # (Auto) 0.1 0-0.2 10 ^3/uL Nucleated Red Blood Cells 0.0 % Sodium Level 132 L 136-145 mmol/L Potassium Level 5.2 H 3.5-5.1 mmol/L Chloride Level 94 L 98-107 mmol/L Carbon Dioxide Level 26 20-31 mmol/L Anion Gap 12 5-15 Blood Urea Nitrogen 59 H 9-23 mg/dL Creatinine 1.78 H 0.550-1.02 mg/dL Glomerular Filtration Rate Calc 29 >90 mL/min BUN/Creatinine Ratio 33.1 H 10.0-20.0 Serum Glucose 80 74-106 mg/dL Lactic Acid Level 0.7 0.4-2.0 mmol/L Calcium Level 9.7 8.7-10.4 mg/dL Magnesium Level 2.0 1.6-2.6 mg/dL Total Bilirubin 1.3 H 0.2-1.0 mg/dL Aspartate Amino Transferase (AST) 15 13-40 U/L Alanine Aminotransferase (ALT) 10 7-40 U/L Alkaline Phosphatase 132 H 46-116 U/L Troponin I High Sensitivity 295 *H </=34 ng/L B-Type Natriuretic Peptide 210.53 0-100 pg/mL Total Protein 6.6 5.7-8.2 g/dL Albumin 3.8 3.2-4.8 g/dL Current Medications Medications (Trade) Dose Ordered Sig/Nomi Route Start Time Stop Time Status Last Admin Aspirin 325 mg ONCE ONCE PO 12/12/24 19:45 12/12/24 20:07 DC 12/13/24 00:[address] [address] Ph: [phone] DIAGNOSTIC IMAGING Diagnostic Imaging Report : [id number] Signed PATIENT: HORTENCIA HOLT ACCT: [id number] UNIT: [id number] : 1950 LOC: ER ROOM / BED: / AGE / SEX: 74 / F ADM STATUS: REG ER SERVICE 39 ORDERING PHYSICIAN: DAVID RODRIGUEZ DO PROCEDURE(s): CXRP - CHEST PORTABLE REASON: Generalized weakness, failure to thrive ORDER NUMBER(s): [id number], ACCESSION NUMBER(s): [id number] CHEST RADIOGRAPH Indication: Generalized weakness, failure to thrive Technique: Single frontal view of the chest was obtained Comparison: XY CHEST PORTABLE on DOS: 09/02/24, XY CHEST PORTABLE on DOS: 08/29/24 FINDINGS: Lines and Tubes: None Lungs: No focal consolidation. Pleura: No effusion. No pneumothorax. Cardiomediastinal contours: Unremarkable Bones: No acute osseous abnormality. IMPRESSION: 1. No acute cardiopulmonary disease. ATED BY: JOSUE BAINS Jr., DO DICTATED DATE/TIME: 12/12/242030 SIGNED BY: JOSUE BAINS Jr., DO SIGNED DATE/TIME: 12/12/242030 CC: Time of 1ST Reevaluation: 18:22 Reevaluation 1ST: Unchanged Patient Education/Counseling: Diagnosis, Treatment Family Education/Counseling: No Family Present Comments Patient presented with the above HPI.--generalized weakness and failure to thrive----workup was initiated. patient was found with the above mentioned diagnosis. the following medications were ordered: please refer to order lists of meds and tests obtained by myself Dr. Rodriguez. Patient ED course and VS have been stabilized. Patient has been reassessed in the ED and remained in a stable condition. Pertinent incidental findings were discussed with the patient and/or family. Patient/family voices understanding and is agreeable with plan. Patient has been observed in the ED adequate length of time to insure improvement/stability. Escalation of care considered: Consideration of escalation to observation or admission Patient was ADMITTED to the medicine team for further evaluation and treatment of their presentation. All the reports of any imaging studies that were ordered by myself were reviewed by myself. Departure 1 Departure Time of Disposition: 18:46 Impression: Primary Impression: Atrial fibrillation with RVR Additional Impressions: Failure to thrive Medication noncompliance due to cognitive impairment Generalized weakness Elevated troponin Disposition: ADMITTED INPATIENT Admit to: Tele Condition: Guarded Discharged With: Self Critical Care Note Critical Care Time?: Yes (45 min-critical care time only) Heart Score Heart Score: Heart Score Response (Comments) Value History Slightly Suspicious 0 EKG Repolarization Disturb 1 Age >65 2 Risk Factors >3 or Hx ASHD 2 Troponin >3 x's Normal limit 2 Total 7 I personally scribed for DAVID RODRIGUEZ DO ([email or web address]) on 12/12/24 at 23:39. Electronically submitted by Usman Apodaca ([email or web address]). I personally scribed for DAVID RODRIGUEZ DO ([email or web address]) on 12/12/24 at 23:40. Electronically submitted by Usman Apodaca ([email or web address]). DAVID RODRIGUEZ DO December 12, 2024 18:43
[2024-12-12 19:15] LABS: Basophils # (auto) 0.1 10 ^3/uL (0-0.2); Basophils % (auto) 0.5 % (0.0-2.0); Eosinophils # (auto) 0 10 ^3/uL (0-0.8); Hematocrit 31.9 % (36.0-46.0); Hemoglobin 10.4 g/dL (12.2-16.2); Lymphocytes # (auto) 0.3 10 ^3/uL (0.4-5.4); Lymphocytes % (auto) 1.6 % (10.0-50.0); Mean Corpuscular Hemoglobin 27.6 pg (28.0-32.0); Mean Corpuscular Hgb Conc. 32.6 g/dL (32.0-36.0); Mean Corpuscular Volume 84.7 fL (80.0-100.0); Monocytes # (auto) 0.7 10 ^3/uL (0-1.3); Monocytes % (auto) 4.3 % (0.0-12.0); Neutrophils # (auto) 14.8 10 ^3/uL (1.6-8.6); Neutrophils % (auto) 93.6 % (37.0-80.0); Platelet Count (auto) 476 10^3/uL (140-450); Red Blood Cells 3.76 10^6/uL (4.0-5.20); Red Cell Distribution Width 15.8 % (11.8-14.3); White Blood Cell 15.8 10^3/uL (4.4-10.8)
[2024-12-12 19:25] LABS: Alanine Aminotransferase 10 U/L (7-40); Anion Gap 12 (5-15); Aspartate Aminotransferase 15 U/L (13-40); BUN/Creatinine Ratio 33.1 (10.0-20.0); Calcium 9.7 mg/dL (8.7-10.4); Carbon Dioxide 26 mmol/L (20-31); Glucose 80 mg/dL (74-106); Total Protein 6.6 g/dL (5.7-8.2)
[2024-12-12 19:26] LABS: Albumin 3.8 g/dL (3.2-4.8)
[2024-12-12 19:34] LABS: Alkaline Phosphatase 132 U/L (46-116); Bilirubin, Total 1.3 mg/dL (0.2-1.0); Blood Urea Nitrogen 59 mg/dL (9-23); Chloride 94 mmol/L (98-107); Potassium 5.2 mmol/L (3.5-5.1); Sodium 132 mmol/L (136-145)
[2024-12-12 19:40] VITALS: PULSE 101; RESP 16; O2SAT 98
[2024-12-12] MEDS ORDERED: NITROGLYCERIN 0.4 MG SL TAB SL PRN (20:15)
[2024-12-12] MEDS ORDERED: MORPHINE SULFATE INJ 2 MG/ml SYRG IV PRN (20:15)
--- NOTE | 2024-12-12 20:34 | DVH ---
CHEST RADIOGRAPH Indication: Generalized weakness, failure to thrive Technique: Single frontal view of the chest was obtained Comparison: XY CHEST PORTABLE on DOS: 09/02/24, XY CHEST PORTABLE on DOS: 08/29/24 FINDINGS: Lines and Tubes: None Lungs: No focal consolidation. Pleura: No effusion. No pneumothorax. Cardiomediastinal contours: Unremarkable Bones: No acute osseous abnormality. IMPRESSION: 1. No acute cardiopulmonary disease.
[2024-12-12 21:55] LABS: Urine Bacteria FEW /hpf (None Seen); Urine Blood 2+ /uL (Negative); Urine Clarity Turbid (Clear); Urine Color Yellow (Yellow); Urine Protein, UAD TRACE (Negative); Urine Specific Gravity 1.014 (1.001-1.035); Urine Squamous Epithelial Cell FEW /hpf (<5); Urine Urobilinogen Normal (Negative); Urine WBC 5 /HPF (0-5); Urine pH 5.5 (5.0-9.0)
[2024-12-12 22:18] VITALS: BP 124/49; PULSE 70; RESP 18; TEMP 97.8; O2SAT 100
[2024-12-12 22:48] VITALS: PULSE 70; RESP 18; O2SAT 100
[2024-12-13] VITALS (9 sets, daily range): BP systolic 87–126; BP diastolic 35–46; PULSE 69–97; RESP 18–19; TEMP 97.6–98.1; O2SAT 95–100
--- NOTE | 2024-12-13 00:32 | DVHHP2 ---
History of Present Illness Reason for Visit: Generalized weakness History of Present Illness 74-year-old female presents for evaluation of generalized weakness. Patient has been refusing to take her medications, eat or drink anything for the past one- week. On arrival patient was noted to be in AFib with a rate of 130s. Curre ntly patient is normal sinus rhythm in the 90s., blurred vision or unilateral weakness. No chest pain or shortness for breath. Past Medical History CHF, chronic kidney disease, hypertension,? Atrial fibrillation Past Surgical History Family History Noncontributory Smoke: No ALCOHOL: none Drugs: None Lives: with Family Review of Systems Review of Systems Review of systems are currently negative otherwise addressed in HPI. Allergies: Coded Allergies: Sulfa Antibiotics (Verified Allergy, Mild, 08/29/24) Zinc Oxide (Verified Allergy, Mild, 08/29/24) Medications Current Medications Medications Dose Ordered Sig/Nomi Route Start Time Stop Time Status Last Admin Dose Admin Nitroglycerin 0.4 mg Q5MINP PRN SL 12/12/24 20:15 Morphine Sulfate 2 mg Q30M PRN IV 12/12/24 20:15 Aspirin 162 mg DAILY PO 12/13/24 10:00 UNV Apixaban 2.5 mg BID PO 12/13/24 10:00 UNV Gabapentin 300 mg BID PO 12/13/24 10:00 UNV Metoprolol Succinate 25 mg DAILY PO 12/13/24 10:00 UNV Furosemide 40 mg DAILY PO 12/13/24 10:00 UNV Ondansetron HCl 4 mg Q4HP PRN IV 12/13/24 00:30 UNV Acetaminophen 650 mg Q6HP PRN PO 12/13/24 00:30 UNV Atorvastatin Calcium 20 mg HS PO 12/13/24 22:00 UNV Exam Vital Signs Vital Signs Date Time Temp Pulse Resp B/P (MAP) Pulse Ox O2 Delivery O2 Flow Rate FiO2 12/12/24 23:39 94 12/12/24 22:48 18 100 Nasal Cannula* 3 32 12/12/24 22:18 97.8 124/49 (74) 97.8 Exam Gen: 74-year-old female in mild distress, morbidly obese Skin: Warm, dry, normal color and texture, no rash. HEENT: Normocephalic atraumatic, mucous membranes moist and pink. Neck: Cervical and supraclavicular nodes normal without enlargement, trachea is midline, thyroid gland is normal without masses. Pulmonary: Clear to auscultation and percussion bilaterally. Cardiac: Regular rate and rhythm. No murmur Abdomen: Soft, nontender, nondistended, bowel sounds present all 4 quadrants, no guarding, no rigidity, no organomegaly. Extremities: No cyanosis, clubbing, no edema Neuro: Cranial nerves II through XII grossly intact, normal affect and speech, no focal motor deficits. Labs/Xrays ORDERING PHYSICIAN: DAVID RODRIGUEZ DO PROCEDURE(s): CXRP - CHEST PORTABLE REASON: Generalized weakness, failure to thrive ORDER NUMBER(s): [id number], ACCESSION NUMBER(s): [id number] CHEST RADIOGRAPH Indication: Generalized weakness, failure to thrive Technique: Single frontal view of the chest was obtained Comparison: XY CHEST PORTABLE on DOS: 09/02/24, XY CHEST PORTABLE on DOS: 08/29/24 FINDINGS: Lines and Tubes: None Lungs: No focal consolidation. Pleura: No effusion. No pneumothorax. Cardiomediastinal contours: Unremarkable Bones: No acute osseous abnormality. IMPRESSION: 1. No acute cardiopulmonary disease. Labs Test 12/12/24 21:50 12/12/24 21:25 12/12/24 18:52 Range/Units Troponin I High Sensitivity 625 *H </=34 ng/L Urine Color Yellow Yellow Urine Clarity Turbid H Clear Urine pH 5.5 5.0-9.0 Urine Specific [place] 1.014 1.001-1.035 Urine Protein Trace H Negative Urine Ketones Trace Negative Urine Blood 2+ H Negative /uL Urine Nitrite Negative Negative Urine Bilirubin Negative Negative Urine Urobilinogen Normal Negative mg/dL Urine Leukocyte Esterase Trace Negative /uL Urine RBC 2 0 - 4 /hpf Urine Microscopic WBC 5 0-5 /HPF Urine Squamous Epithelial Cells Few <5 /hpf Urine Bacteria Few H None Seen /hpf Urine Glucose Normal Normal mg/dL White Blood Count 15.8 H 4.4-10.8 10^3/uL Red Blood Count 3.76 L 4.0-5.20 10^6/uL Hemoglobin 10.4 L 12.2-16.2 g/dL Hematocrit 31.9 L 36.0-46.0 % Mean Corpuscular Volume 84.7 80.0-100.0 fL Mean Corpuscular Hemoglobin 27.6 L 28.0-32.0 pg Mean Corpuscular Hemoglobin Concent 32.6 32.0-36.0 g/dL Red Cell Distribution Width 15.8 H 11.8-14.3 % Platelet Count 476 H 140-450 10^3/uL Mean Platelet Volume 6.5 L 6.9-10.8 fL Neutrophils (%) (Auto) 93.6 H 37.0-80.0 % Lymphocytes (%) (Auto) 1.6 L 10.0-50.0 % Monocytes (%) (Auto) 4.3 0.0-12.0 % Eosinophils (%) (Auto) 0.0 0.0-7.0 % Basophils (%) (Auto) 0.5 0.0-2.0 % Neutrophils # (Auto) 14.8 H 1.6-8.6 10 ^3/uL Lymphocytes # (Auto) 0.3 L 0.4-5.4 10 ^3/uL Monocytes # (Auto) 0.7 0-1.3 10 ^3/uL Eosinophils # (Auto) 0 0-0.8 10 ^3/uL Basophils # (Auto) 0.1 0-0.2 10 ^3/uL Nucleated Red Blood Cells 0.0 % Sodium Level 132 L 136-145 mmol/L Potassium Level 5.2 H 3.5-5.1 mmol/L Chloride Level 94 L 98-107 mmol/L Carbon Dioxide Level 26 20-31 mmol/L Anion Gap 12 5-15 Blood Urea Nitrogen 59 H 9-23 mg/dL Creatinine 1.78 H 0.550-1.02 mg/dL Glomerular Filtration Rate Calc 29 >90 mL/min BUN/Creatinine Ratio 33.1 H 10.0-20.0 Serum Glucose 80 74-106 mg/dL Lactic Acid Level 0.7 0.4-2.0 mmol/L Calcium Level 9.7 8.7-10.4 mg/dL Magnesium Level 2.0 1.6-2.6 mg/dL Total Bilirubin 1.3 H 0.2-1.0 mg/dL Aspartate Amino Transferase (AST) 15 13-40 U/L Alanine Aminotransferase (ALT) 10 7-40 U/L Alkaline Phosphatase 132 H 46-116 U/L B-Type Natriuretic Peptide 210.53 0-100 pg/mL Total Protein 6.6 5.7-8.2 g/dL Albumin 3.8 3.2-4.8 g/dL Assessment/Plan Assessment/Plan Assessment AFib with RVR Failure to thrive Elevated troponin rule out ACS Morbid obesity Plan Admit the patient to telemetry to the hospitalist Cardiology consultation Echocardiogram pending Resume home medications Continue treatment per orders. Plan discussed with: Patient My Orders Orders - GUILLERMO HOBBSCNOlivia Procedure Category Date Status Time Admit ADMIT 12/12/24 Transmitted 20:01 Nitroglycerin PHA 12/12/24 In Process Sublingual (Ntrostat 20:15 Morphine Sulfate PHA 12/12/24 In Process Injection 20:15 Stat Ekg For Chest [facility] 12/12/24 In Process Pain 20:01 Notify Of Changes [facility] 12/12/24 In Process From Base 20:01 Showplace Manager For [facility] 12/12/24 In Process 24 Hours 20:01 Emergency Dysrhythmia [facility] 12/12/24 In Process Protocol 20:01 Rhythm Strips Once [facility] 12/12/24 In Process Every Shift 20:01 Oxygen By Nasal RT 12/12/24 Transmitted Cannula 20:01 Sodium Zirconium PHA 12/13/24 Logged Cyclosilicate 00:30 * Cardiology Consult CONS 12/13/24 Transmitted 00:18 Aspirin Tablet PHA 12/13/24 Logged 10:00 PTPTT LAB 12/13/24 In Process 00:18 Apixaban (Eliquis) PHA 12/13/24 Logged 10:00 Gabapentin Capsule PHA 12/13/24 Logged (Neurontin Capsule) 10:00 Metoprolol Xl PHA 12/13/24 Logged Succinate (Toprol Xl) 10:00 Furosemide Tablet PHA 12/13/24 Logged (Lasix Tablet) 10:00 Enoxaparin Sodium PHA 12/13/24 Logged (Lovenox) 00:30 Renal DIET 12/13/24 Transmitted Standard(2gna,3gk,Lopho) Breakfast Ondansetron Hcl PHA 12/13/24 Logged (Zofran) 00:30 Cardiac DIET 12/13/24 Transmitted Diet-2gna,Lofat,Lochol Breakfast Echo 2d Mode Cardiac US 12/13/24 Logged DOP 00:18 Condition: Fair MCKENZIE 12/13/24 In Process 00:18 Acetaminophen Tablet PHA 12/13/24 Logged (Tylenol Tablet) 00:30 Bedrest With Bathroom MCKENZIE 12/13/24 In Process Privileg 00:18 Atorvastatin (Lipitor) [facility] 12/13/24 Logged 22:00 Date of Service: December 12, 2024 Billing Provider: GULILERMO HOBBS Common Visit Codes: [id number] INP/OBS CARE (HIGH) GUILLERMO HOBBS December 13, 2024 00:32
[2024-12-13] MEDS: ASPirin 325 MG TAB PO ONE (00:38)
[2024-12-13 00:51] LABS: INR 1.13 (0.9-1.15); Partial Thromboplastin Time 34.7 SEC (24.5-34.5); Prothrombin Time 11.8 sec (9.3-11.8)
[2024-12-13] MEDS: SODIUM ZIRCONIUM CYCL 10 GM PAK PO ONE (00:59)
[2024-12-13] MEDS: ENOXAPARIN SOD 100 MG/1 ML SYRINGE SC ONE (01:00)
--- NOTE | 2024-12-13 09:41 | ECG ---
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
--- NOTE | 2024-12-13 09:42 | ECG ---
[facility] Test Date: 2024-12-12 Test Time: 18:25:35 Pat Name: HORTENCIA HOLT Department: ED Room[facility] Gender: F Heel Varnisher: alton : 1950 Requested By: DAVID RODRIGUEZ Order Number: [id number] Reading MD: Gaurav Curran Measurements Intervals [place] Rate: 113 P: 0 ID: 0 QRS: -9 QRSD: 100 T: -3 QT: 356 QTc: 489 Interpretive Statements Atrial fibrillation RSR' in V1 or V2, right VCD or RVH Borderline prolonged QT interval Electronically Signed On 12-16-2024 22:07:26 PDT by Gaurav Curran Please click the below link to view image of tracing.
--- NOTE | 2024-12-13 09:42 | ECG ---
[facility] Test Date: 2024-12-12 Test Time: 21:21:40 Pat Name: HORTENCIA HOLT Department: ED Room: 0290T A Gender: F Compounding Assistant: SUMMER : [id number] Requested By: DAVID RODRIGUEZ Order Number: [id number] Reading MD: Gaurav Curran Measurements Intervals [place] Rate: 94 P: 0 MN: 0 QRS: 46 QRSD: 104 T: 54 QT: 387 QTc: 485 Interpretive Statements Atrial fibrillation RSR' in V1 or V2, right VCD or RVH Nonspecific T abnormalities, anterior leads Baseline wander in lead(s) V2 Electronically Signed On 12-16-2024 22:09:06 PDT by Gaurav Curran Please click the below link to view image of tracing.
[2024-12-13] MEDS: ASPirin 81 mg TAB PO SCH (09:43)
[2024-12-13] MEDS: GABAPENTIN 300 MG CAP PO SCH (09:43)
[2024-12-13] MEDS: FUROSEMIDE 40 MG TAB PO SCH (09:44)
[2024-12-13] MEDS: APIXABAN 5 MG TAB PO SCH (09:45)
[2024-12-13] MEDS: METOPROLOL SUCCINATE XL 50 MG TAB PO SCH (09:45)
[2024-12-13] MEDS: AMIODARONE HCL 200 MG TAB PO ONE (10:36)
[2024-12-13] MEDS ORDERED: VANCOMYCIN PER PHARMACY 0 MG IV SCH (13:45)
--- NOTE | 2024-12-13 13:47 | DVHPN2 ---
Reviewed: Care Plan, H&P, Labs, Medications, Previous Orders, Radiology Changes from previous H/P or p: No Changes Objective Vitals Vital Signs Date Time Temp Pulse Resp B/P (MAP) Pulse Ox O2 Delivery O2 Flow Rate FiO2 12/13/24 09:45 78 126/46 12/13/24 09:30 97.6 18 100 97.6 12/13/24 08:00 Nasal Cannula* 3 32 Intake/Output Intake and Output 12/13/24 07:00 Intake Total 100 ml Output Total 200 ml Balance -100 ml Intake Oral 100 ml Output Urine Total 200 ml Medications Current Medications Medications Dose Ordered Sig/Nomi Route Start Time Stop Time Status Last Admin Dose Admin Nitroglycerin 0.4 mg Q5MINP PRN SL 12/12/24 20:15 Morphine Sulfate 2 mg Q30M PRN IV 12/12/24 20:15 Aspirin 162 mg DAILY PO 12/13/24 10:00 12/13/24 09:43 162 MG Apixaban 2.5 mg BID PO 12/13/24 10:00 12/13/24 09:45 2.5 MG Gabapentin 300 mg BID PO 12/13/24 10:00 12/13/24 09:43 300 MG Metoprolol Succinate 25 mg DAILY PO 12/13/24 10:00 12/13/24 09:45 25 MG Furosemide 40 mg DAILY PO 12/13/24 10:00 12/13/24 09:44 40 MG Ondansetron HCl 4 mg Q4HP PRN IV 12/13/24 00:30 Acetaminophen 650 mg Q6HP PRN PO 12/13/24 00:30 Atorvastatin Calcium 20 mg HS PO 12/13/24 22:00 Amiodarone HCl 200 mg Q12HR PO 12/13/24 22:00 Laboratory Results Laboratory Tests 12/12/24 18:52 Chemistry Test 12/12/24 18:52 Albumin 3.8 g/dL (3.2-4.8) Calcium Level 9.7 mg/dL (8.7-10.4) Magnesium Level 2.0 mg/dL (1.6-2.6) Total Protein 6.6 g/dL (5.7-8.2) Coagulation Test 12/12/24 21:50 12/13/24 10:48 Prothrombin Time 11.8 sec (9.3-11.8) Prothrombin Time INR 1.13 (0.9-1.15) Activated Partial Thromboplast Time 34.7 SEC (24.5-34.5) H D-Dimer, Quantitative < 0.19 mg/L FEU (0.0-0.49) Cardiac Markers Test 12/12/24 18:52 B-Type Natriuretic Peptide 210.53 pg/mL (0-100) LFT Test 12/12/24 18:52 Alanine Aminotransferase (ALT) 10 U/L (7-40) Alkaline Phosphatase 132 U/L (46-116) H Aspartate Amino Transferase (AST) 15 U/L (13-40) Total Bilirubin 1.3 mg/dL (0.2-1.0) H HgA1c, TSH Test 12/13/24 10:48 Thyroid Stimulating Hormone (TSH) 12.34 uIU/mL (0.55-4.78) H Urinalysis Test 12/12/24 21:25 Urine Color Yellow (Yellow) Urine Clarity Turbid (Clear) H Urine pH 5.5 (5.0-9.0) Urine Specific [place] 1.014 (1.001-1.035) Urine Protein Trace (Negative) H Urine Ketones Trace (Negative) Urine Blood 2+ /uL (Negative) H Urine Nitrite Negative (Negative) Urine Bilirubin Negative (Negative) Urine Urobilinogen Normal mg/dL (Negative) Urine Leukocyte Esterase Trace /uL (Negative) Urine RBC 2 /hpf (0 - 4) Urine Microscopic WBC 5 /HPF (0-5) Urine Squamous Epithelial Cells Few /hpf (<5) Urine Bacteria Few /hpf (None Seen) H Urine Glucose Normal mg/dL (Normal) Microbiology Microbiology Date/Time Source Procedure Growth Status 12/12/24 18:52 Blood Blood Culture - Preliminary Resulted Labs and/or images reviewed: Labs reviewed by me, Image(s) reviewed by me Assessment/Plan Assessment/Plan Septic shock secondary to bacteremia Bacteremia with Gram-positive cocci in clusters: Start vancomycin AFib with RVR consult by Dr. Zachary Schulz, metoprolol Failure to thrive Elevated troponin rule out ACS : Cardiology following Morbid obesity CHF exacerbation Lasix Hypertension CKD 3 Time spent 70 minutes Advanced care planning time 20 minutes Patient is full code Daughter and caregiver Kayla [phone] at bedside Plan discussed with: Patient Date of Service: December 13, 2024 Billing Provider: ROLF VILLANUEVA MD Common Visit Codes: [id number] CARE 30-74 MIN ROLF VILLANUEVA MD December 13, 2024 13:47
[2024-12-13] MEDS: VANCOMYCIN 1GM/200ML PM 200 ML IV ONE (14:17)
[2024-12-13 15:57] LABS: COVID19 ANTIGEN SOFIA FIA NEGATIVE (NEGATIVE); Rapid Influenza A Negative (Negative); Rapid Influenza B Negative (Negative)
--- NOTE | 2024-12-13 18:34 | DVHINCON2 ---
Date of service: December 13, 2024 History of Present Illness HPI Patient is a 74-year-old female who presented with 1 week of poor appetite and forgetfulness. She was admitted with failure to thrive. Since admission, patient was found to have sepsis and positive blood culture. She was also found to have atrial fibrillation with RVR. Her troponin was found to be increasing mildly. Cardiology was involved for cardiac aspects of care. She denies chest pain. She denies shortness of breath. She denies palpitation. Patient is known to our practice from outside and before. It is of note that the patient drinks alcohol/whiskey every day and as per home care (at bedside) she actually drinks a lot daily. She has been bed-bound for few years. As outpatient, the patient is on Bumex. She mentions that she does go to [employer] regularly. She does have morbid obesity with poor functional capacity. She has had multiple surgeries in the bilateral feet. She also has history of COPD/asthma with chronic respiratory failure (on home oxygen). She also has history of atrial fibrillation for which is on Eliquis as outpatient. Home Meds Active Scripts Midodrine HCl (Midodrine HCl) 10 Mg Tab, 10 MG GT TID, #90 TAB 0 Refills Prov:PANKAJ CARRION MD 09/09/24 Reported Medications Gabapentin (Gabapentin) 300 Mg Cap, 300 MG PO BID 08/29/24 Pantoprazole Sodium Sesquihydr (Pantoprazole Sodium) 40 Mg Tab, 1 TAB PO DAILY 08/29/24 Atorvastatin Calcium (ATORVASTATIN CALCIUM) 20 Mg Tab, 1 TAB PO DAILY 08/29/24 Bumetanide (Bumetanide) 2 Mg Tab, 1 TAB PO BID 08/29/24 Apixaban Base (ELIQUIS) 2.5 Mg Tab, 1 TAB PO BID 08/29/24 Allopurinol (Allopurinol) 100 Mg Tab, 1 TAB PO DAILY 08/29/24 Past Medical History Others Past medical history includes morbid obesity, atrial fibrillation (on Eliquis as outpatient), COPD/asthma with chronic respiratory failure on home oxygen, morbid obesity, hypertension, hyperlipidemia, chronic lymphedema, Diastolic heart failure with type 2 pulmonary hypertension, rheumatoid arthritis, osteoarthritis, peripheral vascular disease, CKD (stage IV), anemia, alcohol abuse, neuropathy, gout, old history of right and left foot fracture and their management, status post right knee replacement, status post , bed-bound at baseline and functional quadriplegia. Patient drinks whiskey daily. Goes to Nephrology regularly. Reportedly, there has been some concern about going to have fistula creation on preparation for dialysis? Patient Family History: Cerebrovascular accident (CVA) G8 MOTHER Alocohol: Heavy Drugs: None Review of Systems Constitutional: Other (Malaise and generalized weakness) All Other Systems 14 point review of system was performed. Relevant findings as per above and as per HPI. Otherwise negative. H&P Exam Vital Signs Vital Signs Date Time Temp Pulse Resp B/P (MAP) Pulse Ox O2 Delivery O2 Flow Rate FiO2 12/13/24 17:30 97.6 80 18 87/42 (57) 99 97.6 12/13/24 08:00 Nasal Cannula* 3 32 General Appeara: Well developed, Obese Eye Exam: bilateral eye PERRL Cardiovascular/Chest: Edema, Systolic murmur Peripheral Pulses: 2+ carotid (R), 2+ carotid (L), 2+ femoral (R), 2+ femoral (L), 2+ dorsalis pedis (R), 2+ dorsalis pedis (L), 2+ Radial (R), 2+ Radial (L) Abdominal Exam: Normal bowel sounds, Soft Neuro/Mental St: Alert, Oriented Appearance: Appropriate appearance Eye contact/ Speech: Cooperative Labs/Xrays Labs Test 12/13/24 14:00 12/13/24 10:48 12/13/24 01:00 12/12/24 21:50 Range/Units Influenza Type A Antigen Negative Negative Influenza Type B Antigen Negative Negative SARS-CoV-2 Antigen (Rapid) Negative NEGATIVE D-Dimer, Quantitative < 0.19 0.0-0.49 mg/L FEU Thyroid Stimulating Hormone (TSH) 12.34 H 0.55-4.78 uIU/mL Ammonia 11 11-32 umol/L Prothrombin Time 11.8 9.3-11.8 sec Prothrombin Time INR 1.13 0.9-1.15 Activated Partial Thromboplast Time 34.7 H 24.5-34.5 SEC Troponin I High Sensitivity 625 *H </=34 ng/L Test 12/12/24 21:25 12/12/24 18:52 Range/Units Urine Color Yellow Yellow Urine Clarity Turbid H Clear Urine pH 5.5 5.0-9.0 Urine Specific [place] 1.014 1.001-1.035 Urine Protein Trace H Negative Urine Ketones Trace Negative Urine Blood 2+ H Negative /uL Urine Nitrite Negative Negative Urine Bilirubin Negative Negative Urine Urobilinogen Normal Negative mg/dL Urine Leukocyte Esterase Trace Negative /uL Urine RBC 2 0 - 4 /hpf Urine Microscopic WBC 5 0-5 /HPF Urine Squamous Epithelial Cells Few <5 /hpf Urine Bacteria Few H None Seen /hpf Urine Glucose Normal Normal mg/dL White Blood Count 15.8 H 4.4-10.8 10^3/uL Red Blood Count 3.76 L 4.0-5.20 10^6/uL Hemoglobin 10.4 L 12.2-16.2 g/dL Hematocrit 31.9 L 36.0-46.0 % Mean Corpuscular Volume 84.7 80.0-100.0 fL Mean Corpuscular Hemoglobin 27.6 L 28.0-32.0 pg Mean Corpuscular Hemoglobin Concent 32.6 32.0-36.0 g/dL Red Cell Distribution Width 15.8 H 11.8-14.3 % Platelet Count 476 H 140-450 10^3/uL Mean Platelet Volume 6.5 L 6.9-10.8 fL Neutrophils (%) (Auto) 93.6 H 37.0-80.0 % Lymphocytes (%) (Auto) 1.6 L 10.0-50.0 % Monocytes (%) (Auto) 4.3 0.0-12.0 % Eosinophils (%) (Auto) 0.0 0.0-7.0 % Basophils (%) (Auto) 0.5 0.0-2.0 % Neutrophils # (Auto) 14.8 H 1.6-8.6 10 ^3/uL Lymphocytes # (Auto) 0.3 L 0.4-5.4 10 ^3/uL Monocytes # (Auto) 0.7 0-1.3 10 ^3/uL Eosinophils # (Auto) 0 0-0.8 10 ^3/uL Basophils # (Auto) 0.1 0-0.2 10 ^3/uL Nucleated Red Blood Cells 0.0 % Sodium Level 132 L 136-145 mmol/L Potassium Level 5.2 H 3.5-5.1 mmol/L Chloride Level 94 L 98-107 mmol/L Carbon Dioxide Level 26 20-31 mmol/L Anion Gap 12 5-15 Blood Urea Nitrogen 59 H 9-23 mg/dL BUN/Creatinine Ratio 33.1 H 10.0-20.0 Serum Glucose 80 74-106 mg/dL Lactic Acid Level 0.7 0.4-2.0 mmol/L Calcium Level 9.7 8.7-10.4 mg/dL Magnesium Level 2.0 1.6-2.6 mg/dL Total Bilirubin 1.3 H 0.2-1.0 mg/dL Aspartate Amino Transferase (AST) 15 13-40 U/L Alanine Aminotransferase (ALT) 10 7-40 U/L Alkaline Phosphatase 132 H 46-116 U/L B-Type Natriuretic Peptide 210.53 0-100 pg/mL Total Protein 6.6 5.7-8.2 g/dL Albumin 3.8 3.2-4.8 g/dL Microbiology Date/Time Source Procedure Growth Status 12/12/24 18:52 Blood Blood Culture - Preliminary Resulted Assessment/Plan Plan Patient is a 74-year-old female who presented with 1 week of poor appetite and forgetfulness. She was admitted with failure to thrive. Since admission, patient was found to have sepsis and positive blood culture. She was also found to have atrial fibrillation with RVR. Her troponin was found to be increasing mildly. Cardiology was involved for cardiac aspects of care. She denies chest pain. She denies shortness of breath. She denies palpitation. Patient is known to our practice from outside and before. It is of note that the patient drinks alcohol/whiskey every day and as per home care (at bedside) she actually drinks a lot daily. She has been bed-bound for few years. As outpatient, the patient is on Bumex. She mentions that she does go to [employer] regularly. She does have morbid obesity with poor functional capacity. She has had multiple surgeries in the bilateral feet. She also has history of COPD/asthma with chronic respiratory failure (on home oxygen). She also has history of atrial fibrillation for which is on Eliquis as outpatient. Morbidly obese. Not in acute distress. No JVD. Mucosa is dry. Mucosa is pink. No JVD. No carotid bruit. Not using accessory muscles of breathing. Scattered rhonchi in the lungs is heard. Cardiac: Irregular, no thrill. Abdomen is obese and soft. There is no gross hepatomegaly, but it is presence can not be ruled out (body habitus, morbidly obese). There is 3+ edema in bilateral lower extremities which extends to abdominal wall. Past medical history includes morbid obesity, atrial fibrillation (on Eliquis as outpatient), COPD/asthma with chronic respiratory failure on home oxygen, morbid obesity, hypertension, hyperlipidemia, chronic lymphedema, Diastolic heart failure with type 2 pulmonary hypertension, rheumatoid arthritis, osteoarthritis, peripheral vascular disease, CKD (stage IV), anemia, alcohol abuse, neuropathy, gout, old history of right and left foot fracture and their management, status post right knee replacement, status post , bed-bound at baseline and functional quadriplegia. Patient drinks whiskey daily. Goes to Nephrology regularly. Reportedly, there has been some concern about going to have fistula creation on preparation for dialysis? Echocardiogram of October 24 2023 (performed in [facility]) revealed ejection fraction of 60%, mild biatrial enlargement, mild MR/TR and right ventricular systolic pressure of 31 mm Hg. Echocardiogram of (performed in [facility]) revealed: EF of 50 to 55%, Dilated right ventricle with normal systolic function. Severe biatrial enlargement. Mild AI, mild to moderate MR, moderate TR and RVSP of 51 mmHg. Ascending Aorta was 3.7 cm. Echocardiogram of August 30, 2024 revealed ejection fraction of 72%, mild right ventricular enlargement, moderate biatrial enlargement, mild to moderate tricuspid regurgitation, mild mitral regurgitation, right ventricular systolic pressure 54 mm Hg WBC: 15.8 Hemoglobin: 10.4 D-dimer: < 0.19 Sodium: 132 Potassium: 5.2 Creatinine: 1.78 BNP: 210.53 Troponin (high sensitive): 295 - 462 - 625 TSH: 12.34 Admitting blood culture is growing Gram-positive cocci Chest x-ray revealed: IMPRESSION: 1. No acute cardiopulmonary disease. EKG revealed atrial flutter with variable block/AFib with RVR Tele reveals atrial fibrillation with RVR The patient is a 74-year-old female with poor functional capacity and morbid obesity who presented with poor appetite/forgetfulness. She is found to have positive blood culture with leukocytosis. Presentation is in favor of septic shock/sepsis. He was found to have increasing troponin. Does have baseline history of diastolic heart failure and pulmonary hypertension. ACS is not likely. Increased troponin is assessed to reflect demand physiology at this point. It is of note that the patient does drink alcohol/whiskey a lot. Component of acute on chronic diastolic heart failure could have contributed to the clinical picture and abnormal troponin. Sepsis Septic shock? Acute on chronic diastolic heart failure Pulmonary Hypertension, type 2 Abnormal troponin Demand physiology VIJAYA on CKD Alcohol abuse Morbid obesity Poor functional capacity Bed-bound at baseline Hypertension, history of Hypotension on presentation Atrial fibrillation with RVR Atrial flutter with variable block Hyperlipidemia Osteoarthritis Rheumatoid arthritis Peripheral vascular disease Cardiac suggestion for management: Manage in telemetry Fluid management (IV diuresis) Follow-up electrolytes and kidney function tests and correct abnormalities Full anticoagulation (on Eliquis presently), long-term Echocardiogram Evaluation and management of sepsis/infection as per primary team Consider nephrology evaluation Evaluation and management of alcohol abuse/prevention of withdrawal as per primary team Further evaluation and management depends on the above and clinical course Thank you for consultation. A total of 75 minutes was spent reviewing the patient record, examining the patient, making a diagnostic and therapeutic plan, discussing this plan with medical personnel, following up on diagnostic studies and following the patient for clinical stability excluding any and all procedures. At least 50% of this time was spent in direct, [id number] contact. Thank you for allowing me to participate in this patient's care. Further recommendations will depend on patient's clinical course. Please do not hesitate to contact me if you have any questions or concerns. This medical document was created using electronic medical record system with [employer] computerized dictation system. Although this document has been carefully reviewed, there may still be some phonetic and typographical errors. These areas are purely typographical due to the imperfection of the software programs, and do not reflect any compromise in the patient's medical care. Plan discussed with: Patient, Other (Nurse) ROSS BRAY MD December 13, 2024 18:33
[2024-12-13] MEDS: AMIODARONE 360mg/200mL PREMIX 200 ML IV ONE (18:55)
[2024-12-13] MEDS: ATORVASTATIN 20 MG TAB PO SCH (21:28)
[2024-12-13] MEDS ORDERED: AMIODARONE HCL 200 MG TAB PO SCH (22:00)
[2024-12-14] VITALS (12 sets, daily range): BP systolic 87–126; BP diastolic 46–61; PULSE 71–88; RESP 17–18; TEMP 96.1–98.1; O2SAT 97–100
[2024-12-14] MEDS: AMIODARONE 360mg/200mL PREMIX 200 ML IV SCH (00:30)
--- NOTE | 2024-12-14 06:47 | DVHPN2 ---
Progress Note - Dictate Date Seen: December 14, 2024 Medical Necessity Reason Pt with a Central, PICC or Fol: Yes vital signs Vital Sign Date Time Temp Pulse Resp B/P (MAP) Pulse Ox O2 Delivery O2 Flow Rate FiO2 12/14/24 05:00 97.8 78 18 92/51 (65) 99 97.8 12/13/24 20:00 Nasal Cannula* 3 32 Total Intake and Output 12/13/24 12/13/24 12/14/24 15:00 23:00 07:00 Intake Total 600 ml 350 ml Output Total 200 ml 150 ml Balance 400 ml 200 ml medications Current Medications Medications Dose Ordered Sig/Nomi Route Start Time Stop Time Status Last Admin Dose Admin Nitroglycerin 0.4 mg Q5MINP PRN SL 12/12/24 20:15 Morphine Sulfate 2 mg Q30M PRN IV 12/12/24 20:15 Aspirin 162 mg DAILY PO 12/13/24 10:00 12/13/24 09:43 162 MG Apixaban 2.5 mg BID PO 12/13/24 10:00 12/13/24 21:28 2.5 MG Gabapentin 300 mg BID PO 12/13/24 10:00 12/13/24 21:28 300 MG Metoprolol Succinate 25 mg DAILY PO 12/13/24 10:00 12/13/24 09:45 25 MG Furosemide 40 mg DAILY PO 12/13/24 10:00 12/13/24 09:44 40 MG Ondansetron HCl 4 mg Q4HP PRN IV 12/13/24 00:30 Acetaminophen 650 mg Q6HP PRN PO 12/13/24 00:30 Atorvastatin Calcium 20 mg HS PO 12/13/24 22:00 12/13/24 21:28 20 MG Vancomycin HCl 0 ml @ 0 mls/hr UD IV 12/13/24 13:45 Amiodarone HCl 200 mg Q12HR PO 12/14/24 10:00 laboratory and microbiology Laboratory Tests 12/13/24 10:48 12/12/24 18:52 Test 12/12/24 18:52 Range/Units Serum Glucose 80 74-106 mg/dL Assessment/Plan Patient is a 74-year-old female who presented with 1 week of poor appetite and forgetfulness. She was admitted with failure to thrive. Since admission, patient was found to have sepsis and positive blood culture. She was also found to have atrial fibrillation with RVR. Her troponin was found to be increasing mildly. Cardiology was involved for cardiac aspects of care. She denies chest pain. She denies shortness of breath. She denies palpitation. Patient is known to our practice from outside and before. It is of note that the patient drinks alcohol/whiskey every day and as per home care (at bedside) she actually drinks a lot daily. She has been bed-bound for few years. As outpatient, the patient is on Bumex. She mentions that she does go to [employer] regularly. She does have morbid obesity with poor functional capacity. She has had multiple surgeries in the bilateral feet. She also has history of COPD/asthma with chronic respiratory failure (on home oxygen). She also has history of atrial fibrillation for which is on Eliquis as outpatient. Morbidly obese. Not in acute distress. No JVD. Mucosa is dry. Mucosa is pink. No JVD. No carotid bruit. Not using accessory muscles of breathing. Scattered rhonchi in the lungs is heard. Cardiac: Irregular, no thrill. Abdomen is obese and soft. There is no gross hepatomegaly, but it is presence can not be ruled out (body habitus, morbidly obese). There is 3+ edema in bilateral lower extremities which extends to abdominal wall. Past medical history includes morbid obesity, atrial fibrillation (on Eliquis as outpatient), COPD/asthma with chronic respiratory failure on home oxygen, morbid obesity, hypertension, hyperlipidemia, chronic lymphedema, Diastolic heart failure with type 2 pulmonary hypertension, rheumatoid arthritis, osteoarthritis, peripheral vascular disease, CKD (stage IV), anemia, alcohol abuse, neuropathy, gout, old history of right and left foot fracture and their management, status post right knee replacement, status post , bed-bound at baseline and functional quadriplegia. Patient drinks whiskey daily. Goes to Nephrology regularly. Reportedly, there has been some concern about going to have fistula creation on preparation for dialysis? Echocardiogram of October 24 2023 (performed in [facility]) revealed ejection fraction of 60%, mild biatrial enlargement, mild MR/TR and right ventricular systolic pressure of 31 mm Hg. Echocardiogram of (performed in [facility]) revealed: EF of 50 to 55%, Dilated right ventricle with normal systolic function. Severe biatrial enlargement. Mild AI, mild to moderate MR, moderate TR and RVSP of 51 mmHg. Ascending Aorta was 3.7 cm. Echocardiogram of August 30, 2024 revealed ejection fraction of 72%, mild right ventricular enlargement, moderate biatrial enlargement, mild to moderate tricuspid regurgitation, mild mitral regurgitation, right ventricular systolic pressure 54 mm Hg WBC: 15.8 Hemoglobin: 10.4 D-dimer: < 0.19 Sodium: 132 Potassium: 5.2 Creatinine: 1.78 - 2.10 BNP: 210.53 Troponin (high sensitive): 295 - 462 - 625 TSH: 12.34 Admitting blood culture is growing Gram-positive cocci Chest x-ray revealed: IMPRESSION: 1. No acute cardiopulmonary disease. EKG revealed atrial flutter with variable block/AFib with RVR Tele reveals atrial fibrillation with RVR , later moderate ventricular response The patient is a 74-year-old female with poor functional capacity and morbid obesity who presented with poor appetite/forgetfulness. She is found to have positive blood culture with leukocytosis. Presentation is in favor of septic shock/sepsis. He was found to have increasing troponin. Does have baseline history of diastolic heart failure and pulmonary hypertension. ACS is not likely. Increased troponin is assessed to reflect demand physiology at this point. It is of note that the patient does drink alcohol/whiskey a lot. Component of acute on chronic diastolic heart failure could have contributed to the clinical picture and abnormal troponin. Sepsis Septic shock? Acute on chronic diastolic heart failure Pulmonary Hypertension, type 2 Abnormal troponin Demand physiology VIJAYA on CKD Alcohol abuse Morbid obesity Poor functional capacity Bed-bound at baseline Hypertension, history of Hypotension on presentation Atrial fibrillation with RVR Atrial flutter with variable block Hyperlipidemia Osteoarthritis Rheumatoid arthritis Peripheral vascular disease Cardiac suggestion for management: Manage in telemetry Fluid management (IV diuresis) Follow-up electrolytes and kidney function tests and correct abnormalities Full anticoagulation (on Eliquis presently), long-term Echocardiogram Evaluation and management of sepsis/infection as per primary team Consider Nephrology evaluation Evaluation and management of alcohol abuse/prevention of withdrawal as per primary team Further evaluation and management depends on the above and clinical course A total of 55 minutes was spent reviewing the patient record, examining the patient, making a diagnostic and therapeutic plan, discussing this plan with medical personnel, following up on diagnostic studies and following the patient for clinical stability excluding any and all procedures. At least 50% of this time was spent in direct, [id number] contact. Thank you for allowing me to participate in this patient's care. Further recommendations will depend on patient's clinical course. Please do not hesitate to contact me if you have any questions or concerns. This medical document was created using electronic medical record system with [employer] computerized dictation system. Although this document has been carefully reviewed, there may still be some phonetic and typographical errors. These areas are purely typographical due to the imperfection of the software programs, and do not reflect any compromise in the patient's medical care. Plan discussed with: Patient, Other (nurse) ROSS BRAY MD December 14, 2024 06:47
[2024-12-14] MEDS: AMIODARONE HCL 200 MG TAB PO SCH (09:25)
--- NOTE | 2024-12-14 11:13 | DVHPN2 ---
Reviewed: Care Plan, H&P, Labs, Medications, Previous Orders, Radiology Changes from previous H/P or p: No Changes Objective Vitals Vital Signs Date Time Temp Pulse Resp B/P (MAP) Pulse Ox O2 Delivery O2 Flow Rate FiO2 12/14/24 09:30 97.3 85 18 87/58 (68) 98 97.3 12/14/24 07:59 Nasal Cannula* 3 32 Intake/Output Intake and Output 12/14/24 07:00 Intake Total 950 ml Output Total 350 ml Balance 600 ml Intake Oral 750 ml IV Total 200 ml Output Urine Total 350 ml # Bowel Movements 1 Medications Current Medications Medications Dose Ordered Sig/Nomi Route Start Time Stop Time Status Last Admin Dose Admin Nitroglycerin 0.4 mg Q5MINP PRN SL 12/12/24 20:15 Morphine Sulfate 2 mg Q30M PRN IV 12/12/24 20:15 Aspirin 162 mg DAILY PO 12/13/24 10:00 12/14/24 09:25 162 MG Apixaban 2.5 mg BID PO 12/13/24 10:00 12/14/24 09:24 2.5 MG Gabapentin 300 mg BID PO 12/13/24 10:00 12/14/24 09:24 300 MG Metoprolol Succinate 25 mg DAILY PO 12/13/24 10:00 12/13/24 09:45 25 MG Furosemide 40 mg DAILY PO 12/13/24 10:00 12/13/24 09:44 40 MG Ondansetron HCl 4 mg Q4HP PRN IV 12/13/24 00:30 Acetaminophen 650 mg Q6HP PRN PO 12/13/24 00:30 Atorvastatin Calcium 20 mg HS PO 12/13/24 22:00 12/13/24 21:28 20 MG Vancomycin HCl 0 ml @ 0 mls/hr UD IV 12/13/24 13:45 Amiodarone HCl 200 mg Q12HR PO 12/14/24 10:00 12/14/24 09:25 200 MG Laboratory Results Laboratory Tests 12/12/24 18:52 12/14/24 08:05 Urinalysis Test 12/12/24 21:25 Urine Color Yellow (Yellow) Urine Clarity Turbid (Clear) H Urine pH 5.5 (5.0-9.0) Urine Specific [place] 1.014 (1.001-1.035) Urine Protein Trace (Negative) H Urine Ketones Trace (Negative) Urine Blood 2+ /uL (Negative) H Urine Nitrite Negative (Negative) Urine Bilirubin Negative (Negative) Urine Urobilinogen Normal mg/dL (Negative) Urine Leukocyte Esterase Trace /uL (Negative) Urine RBC 2 /hpf (0 - 4) Urine Microscopic WBC 5 /HPF (0-5) Urine Squamous Epithelial Cells Few /hpf (<5) Urine Bacteria Few /hpf (None Seen) H Urine Glucose Normal mg/dL (Normal) Microbiology Microbiology Date/Time Source Procedure Growth Status 12/12/24 18:52 Blood Blood Culture - Preliminary Resulted Labs and/or images reviewed: Labs reviewed by me, Image(s) reviewed by me Assessment/Plan Assessment/Plan Septic shock secondary to bacteremia Bacteremia with Gram-positive cocci in clusters: Start vancomycin AFib with RVR consult by Dr. Zachary lo Eliquis, metoprolol Failure to thrive Elevated troponin rule out ACS : Cardiology following Morbid obesity CHF exacerbation Lasix Hypertension CKD 3 Time spent 50 minutes Daughter and caregiver Kayla [phone] at bedside Plan discussed with: Patient My Orders Orders - ROLF VILLANUEVA MD Procedure Category Date Status Time Vancomycin Per PHA 12/13/24 In Process Pharmacy 13:45 Vancomycin Per MCKENZIE 12/13/24 In Process Pharmacy Protoc 18:42 Date of Service: December 14, 2024 Billing Provider: ROLF VILLANUEVA MD Common Visit Codes: [id number] INP/OBS CARE(HIGH) ROLF VILLANUEVA MD December 14, 2024 11:13
[2024-12-14] MEDS: VANCOMYCIN 500mg/100mL 100 ML IV ONE (16:15)
[2024-12-15] VITALS (8 sets, daily range): BP systolic 91–98; BP diastolic 45–59; PULSE 69–80; RESP 16–19; TEMP 97.3–98.2; O2SAT 97–100
[2024-12-15 07:07] LABS: Basophils # (auto) 0 10 ^3/uL (0-0.2); Basophils % (auto) 0.4 % (0.0-2.0); Eosinophils # (auto) 0.1 10 ^3/uL (0-0.8); Eosinophils % (auto) 0.6 % (0.0-7.0); Hematocrit 27.3 % (36.0-46.0); Hemoglobin 8.6 g/dL (12.2-16.2); Lymphocytes # (auto) 1.4 10 ^3/uL (0.4-5.4); Lymphocytes % (auto) 12.3 % (10.0-50.0); Mean Corpuscular Hemoglobin 27.3 pg (28.0-32.0); Mean Corpuscular Hgb Conc. 31.5 g/dL (32.0-36.0); Mean Corpuscular Volume 86.7 fL (80.0-100.0); Monocytes # (auto) 0.6 10 ^3/uL (0-1.3); Monocytes % (auto) 5.4 % (0.0-12.0); Neutrophils # (auto) 9.1 10 ^3/uL (1.6-8.6); Neutrophils % (auto) 81.3 % (37.0-80.0); Platelet Count (auto) 328 10^3/uL (140-450); Red Blood Cells 3.15 10^6/uL (4.0-5.20); Red Cell Distribution Width 15.5 % (11.8-14.3); White Blood Cell 11.2 10^3/uL (4.4-10.8)
--- NOTE | 2024-12-15 08:29 | DVHPN2 ---
Progress Note - Dictate Date Seen: December 15, 2024 Medical Necessity Reason Pt with a Central, PICC or Fol: Yes vital signs Vital Sign Date Time Temp Pulse Resp B/P (MAP) Pulse Ox O2 Delivery O2 Flow Rate FiO2 12/15/24 05:00 98.2 73 17 91/50 (64) 100 98.2 12/14/24 19:30 Nasal Cannula* 3 32 Total Intake and Output 12/14/24 12/14/24 12/15/24 15:00 23:00 07:00 Intake Total 500 ml 800 ml Output Total 100 ml 200 ml Balance 400 ml 600 ml medications Current Medications Medications Dose Ordered Sig/Nomi Route Start Time Stop Time Status Last Admin Dose Admin Nitroglycerin 0.4 mg Q5MINP PRN SL 12/12/24 20:15 Morphine Sulfate 2 mg Q30M PRN IV 12/12/24 20:15 Aspirin 162 mg DAILY PO 12/13/24 10:00 12/14/24 09:25 162 MG Apixaban 2.5 mg BID PO 12/13/24 10:00 12/14/24 21:32 2.5 MG Gabapentin 300 mg BID PO 12/13/24 10:00 12/14/24 21:30 300 MG Metoprolol Succinate 25 mg DAILY PO 12/13/24 10:00 12/13/24 09:45 25 MG Furosemide 40 mg DAILY PO 12/13/24 10:00 12/13/24 09:44 40 MG Ondansetron HCl 4 mg Q4HP PRN IV 12/13/24 00:30 Acetaminophen 650 mg Q6HP PRN PO 12/13/24 00:30 Atorvastatin Calcium 20 mg HS PO 12/13/24 22:00 12/14/24 21:32 20 MG Vancomycin HCl 0 ml @ 0 mls/hr UD IV 12/13/24 13:45 Amiodarone HCl 200 mg Q12HR PO 12/14/24 10:00 12/14/24 21:30 200 MG laboratory and microbiology Laboratory Tests 12/15/24 06:15 12/12/24 18:52 Test 12/12/24 18:52 Range/Units Serum Glucose 80 74-106 mg/dL Assessment/Plan Patient is a 74-year-old female who presented with 1 week of poor appetite and forgetfulness. She was admitted with failure to thrive. Since admission, patient was found to have sepsis and positive blood culture. She was also found to have atrial fibrillation with RVR. Her troponin was found to be increasing mildly. Cardiology was involved for cardiac aspects of care. She denies chest pain. She denies shortness of breath. She denies palpitation. Patient is known to our practice from outside and before. It is of note that the patient drinks alcohol/whiskey every day and as per home care (at bedside) she actually drinks a lot daily. She has been bed-bound for few years. As outpatient, the patient is on Bumex. 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 She does have morbid obesity with poor functional capacity. She has had multiple surgeries in the bilateral feet. She also has history of COPD/asthma with chronic respiratory failure (on home oxygen). She also has history of atrial fibrillation for which is on Eliquis as outpatient. Morbidly obese. Not in acute distress. No JVD. Mucosa is dry. Mucosa is pink. No JVD. No carotid bruit. Not using accessory muscles of breathing. Scattered rhonchi in the lungs is heard. Cardiac: Irregular, no thrill. Abdomen is obese and soft. There is no gross hepatomegaly, but it is presence can not be ruled out (body habitus, morbidly obese). There is 3+ edema in bilateral lower extremities which extends to abdominal wall. Past medical history includes morbid obesity, atrial fibrillation (on Eliquis as outpatient), COPD/asthma with chronic respiratory failure on home oxygen, morbid obesity, hypertension, hyperlipidemia, chronic lymphedema, Diastolic heart failure with type 2 pulmonary hypertension, rheumatoid arthritis, osteoarthritis, peripheral vascular disease, CKD (stage IV), anemia, alcohol abuse, neuropathy, gout, old history of right and left foot fracture and their management, status post right knee replacement, status post , bed-bound at baseline and functional quadriplegia. Patient drinks whiskey daily. Goes to Nephrology regularly. Reportedly, there has been some concern about going to have fistula creation on preparation for dialysis? Echocardiogram of October 24 2023 (performed in [facility]) revealed ejection fraction of 60%, mild biatrial enlargement, mild MR/TR and right ventricular systolic pressure of 31 mm Hg. Echocardiogram of (performed in [facility]) revealed: EF of 50 to 55%, Dilated right ventricle with normal systolic function. Severe biatrial enlargement. Mild AI, mild to moderate MR, moderate TR and RVSP of 51 mmHg. Ascending Aorta was 3.7 cm. Echocardiogram of August 30, 2024 revealed ejection fraction of 72%, mild right ventricular enlargement, moderate biatrial enlargement, mild to moderate tricuspid regurgitation, mild mitral regurgitation, right ventricular systolic pressure 54 mm Hg WBC: 15.8 - 11.2 Hemoglobin: 10.4 - 8.6 D-dimer: < 0.19 Sodium: 132 Potassium: 5.2 Creatinine: 1.78 - 2.10 - 3.78 BNP: 210.53 Troponin (high sensitive): 295 - 462 - 625 TSH: 12.34 Admitting blood culture is growing Gram-positive cocci Chest x-ray revealed: IMPRESSION: 1. No acute cardiopulmonary disease. EKG revealed atrial flutter with variable block/AFib with RVR Tele reveals atrial fibrillation with RVR , later moderate ventricular response The patient is a 74-year-old female with poor functional capacity and morbid obesity who presented with poor appetite/forgetfulness. She is found to have positive blood culture with leukocytosis. Presentation is in favor of septic shock/sepsis. He was found to have increasing troponin. Does have baseline history of diastolic heart failure and pulmonary hypertension. ACS is not likely. Increased troponin is assessed to reflect demand physiology at this point. It is of note that the patient does drink alcohol/whiskey a lot. Component of acute on chronic diastolic heart failure could have contributed to the clinical picture and abnormal troponin. Sepsis Septic shock? Acute on chronic diastolic heart failure Pulmonary Hypertension, type 2 Abnormal troponin Demand physiology VIJAYA on CKD Alcohol abuse Morbid obesity Poor functional capacity Bed-bound at baseline Hypertension, history of Hypotension on presentation Atrial fibrillation with RVR Atrial flutter with variable block Hyperlipidemia Osteoarthritis Rheumatoid arthritis Peripheral vascular disease Cardiac suggestion for management: Manage in telemetry Fluid management (IV diuresis) Follow-up electrolytes and kidney function tests and correct abnormalities Full anticoagulation (on Eliquis presently), long-term Awaiting requested Echocardiogram Evaluation and management of sepsis/infection as per primary team Consider Nephrology evaluation (pending) Evaluation and management of alcohol abuse/prevention of withdrawal as per primary team Further evaluation and management depends on the above and clinical course A total of 55 minutes was spent reviewing the patient record, examining the patient, making a diagnostic and therapeutic plan, discussing this plan with medical personnel, following up on diagnostic studies and following the patient for clinical stability excluding any and all procedures. At least 50% of this time was spent in direct, [id number] contact. Thank you for allowing me to participate in this patient's care. Further recommendations will depend on patient's clinical course. Please do not hesitate to contact me if you have any questions or concerns. This medical document was created using electronic medical record system with [employer] computerized dictation system. Although this document has been carefully reviewed, there may still be some phonetic and typographical errors. These areas are purely typographical due to the imperfection of the software programs, and do not reflect any compromise in the patient's medical care. Plan discussed with: Patient (patient, family, and primary rn ) SUZANNE MERRITT December 15, 2024 08:29
--- NOTE | 2024-12-15 10:31 | DVHPN2 ---
Reviewed: Care Plan, H&P, Labs, Medications, Previous Orders, Radiology Changes from previous H/P or p: No Changes Objective Vitals Vital Signs Date Time Temp Pulse Resp B/P (MAP) Pulse Ox O2 Delivery O2 Flow Rate FiO2 12/15/24 09:35 75 97/42 12/15/24 09:00 97.4 19 100 97.4 12/15/24 08:00 Nasal Cannula* 3 32 Intake/Output Intake and Output 12/15/24 07:00 Intake Total 1300 ml Output Total 300 ml Balance 1000 ml Intake Oral 1200 ml IV Total 100 ml Output Urine Total 300 ml Medications Current Medications Medications Dose Ordered Sig/Nomi Route Start Time Stop Time Status Last Admin Dose Admin Nitroglycerin 0.4 mg Q5MINP PRN SL 12/12/24 20:15 Morphine Sulfate 2 mg Q30M PRN IV 12/12/24 20:15 Aspirin 162 mg DAILY PO 12/13/24 10:00 12/15/24 09:28 162 MG Apixaban 2.5 mg BID PO 12/13/24 10:00 12/15/24 09:30 2.5 MG Gabapentin 300 mg BID PO 12/13/24 10:00 12/15/24 09:28 300 MG Metoprolol Succinate 25 mg DAILY PO 12/13/24 10:00 12/13/24 09:45 25 MG Furosemide 40 mg DAILY PO 12/13/24 10:00 12/13/24 09:44 40 MG Ondansetron HCl 4 mg Q4HP PRN IV 12/13/24 00:30 Acetaminophen 650 mg Q6HP PRN PO 12/13/24 00:30 Atorvastatin Calcium 20 mg HS PO 12/13/24 22:00 12/14/24 21:32 20 MG Vancomycin HCl 0 ml @ 0 mls/hr UD IV 12/13/24 13:45 Amiodarone HCl 200 mg Q12HR PO 12/14/24 10:00 12/15/24 09:32 200 MG Laboratory Results Laboratory Tests 12/12/24 18:52 12/15/24 06:15 Urinalysis Test 12/12/24 21:25 Urine Color Yellow (Yellow) Urine Clarity Turbid (Clear) H Urine pH 5.5 (5.0-9.0) Urine Specific [place] 1.014 (1.001-1.035) Urine Protein Trace (Negative) H Urine Ketones Trace (Negative) Urine Blood 2+ /uL (Negative) H Urine Nitrite Negative (Negative) Urine Bilirubin Negative (Negative) Urine Urobilinogen Normal mg/dL (Negative) Urine Leukocyte Esterase Trace /uL (Negative) Urine RBC 2 /hpf (0 - 4) Urine Microscopic WBC 5 /HPF (0-5) Urine Squamous Epithelial Cells Few /hpf (<5) Urine Bacteria Few /hpf (None Seen) H Urine Glucose Normal mg/dL (Normal) Microbiology Microbiology Date/Time Source Procedure Growth Status 12/12/24 18:52 Blood Blood Culture - Preliminary Resulted Labs and/or images reviewed: Labs reviewed by me, Image(s) reviewed by me Assessment/Plan Assessment/Plan Septic shock secondary to bacteremia Bacteremia with Gram-positive cocci in clusters: Start vancomycin AFib with RVR consult by Dr. Zachary lo Eliquis, metoprolol Failure to thrive Elevated troponin rule out ACS : Cardiology following Morbid obesity CHF exacerbation Lasix Hypertension CKD 3 Time spent 50 minutes Daughter and caregiver Kayla [phone] at bedside Plan discussed with: Patient My Orders Orders - ROLF VILLANUEVA MD Procedure Category Date Status Time Communication Order ORDERS 12/14/24 Transmitted 11:13 Vancomycin Per MCKENZIE 12/14/24 In Process Pharmacy Protoc 14:49 Date of Service: December 15, 2024 Billing Provider: ROLF VILLANUEVA MD Common Visit Codes: [id number] INP/OBS CARE(HIGH) ROLF VILLANUEVA MD December 15, 2024 10:31
[2024-12-15] MEDS: LEVOTHYROXINE SODIUM 100 MCG/5 ML INJ IV ONE (13:17)
[2024-12-15] MEDS: LEVOTHYROXINE SODIUM 25 MCG TAB PO ONE (13:18)
[2024-12-15] MEDS: ACETAMINOPHEN 325 MG TAB PO PRN (14:39)
[2024-12-15] MEDS: ONDANSETRON HCL 4 MG/2 ML VIAL IV PRN (16:45)
[2024-12-16] VITALS (8 sets, daily range): BP systolic 92–124; BP diastolic 39–63; PULSE 56–76; RESP 16–20; TEMP 97.6–98; O2SAT 94–100
[2024-12-16] MEDS: LEVOTHYROXINE SODIUM 112 MCG TAB PO SCH (05:22)
[2024-12-16] MEDS: LEVOTHYROXINE SODIUM 25 MCG TAB PO SCH (05:22)
--- NOTE | 2024-12-16 05:56 | DVHPN2 ---
Progress Note - Dictate Date Seen: Dec 16, 2024 Medical Necessity Reason Pt with a Central, PICC or Fol: Yes Subjective Seen and examined at the bedside within telemetry. No overnight event. Remains hemodynamically stable. Awaiting requested 2D Echocardiogram dictation. I did speak with primary RN to contact Echo Department to request for dictation. Creatinine of 3.74 today which Nephrology evaluation is pending. Mildly hypotensive (asymptomatic). Beta-vannesa and Lasix held this morning. IV albumin x 1 dose ordered for administration secondary to the aforementioned above. To proceed with current cardiac management during the interim. vital signs Vital Sign Date Time Temp Pulse Resp B/P (MAP) Pulse Ox O2 Delivery O2 Flow Rate FiO2 12/16/24 05:00 97.6 65 16 100/52 (68) 100 97.6 12/15/24 19:30 Nasal Cannula* 3 32 Total Intake and Output 12/15/24 12/15/24 12/16/24 15:00 23:00 07:00 Intake Total 600 ml 950 ml Output Total 300 ml 800 ml Balance 300 ml 150 ml medications Current Medications Medications Dose Ordered Sig/Nomi Route Start Time Stop Time Status Last Admin Dose Admin Nitroglycerin 0.4 mg Q5MINP PRN SL 12/12/24 20:15 Morphine Sulfate 2 mg Q30M PRN IV 12/12/24 20:15 Aspirin 162 mg DAILY PO 12/13/24 10:00 12/15/24 09:28 162 MG Apixaban 2.5 mg BID PO 12/13/24 10:00 12/15/24 21:13 2.5 MG Gabapentin 300 mg BID PO 12/13/24 10:00 12/15/24 21:13 300 MG Metoprolol Succinate 25 mg DAILY PO 12/13/24 10:00 12/13/24 09:45 25 MG Furosemide 40 mg DAILY PO 12/13/24 10:00 12/13/24 09:44 40 MG Ondansetron HCl 4 mg Q4HP PRN IV 12/13/24 00:30 12/15/24 21:14 4 MG Acetaminophen 650 mg Q6HP PRN PO 12/13/24 00:30 12/16/24 05:02 650 MG Atorvastatin Calcium 20 mg HS PO 12/13/24 22:00 12/15/24 21:13 20 MG Vancomycin HCl 0 ml @ 0 mls/hr UD IV 12/13/24 13:45 Amiodarone HCl 200 mg Q12HR PO 12/14/24 10:00 12/15/24 21:13 200 MG Levothyroxine Sodium 100 mcg DAILY IV 12/16/24 10:00 Levothyroxine Sodium 112 mcg QAM@0600 PO 12/16/24 06:00 12/16/24 05:22 112 MCG Levothyroxine Sodium 25 mcg QAM@0600 PO 12/16/24 06:00 12/16/24 05:22 25 MCG Levothyroxine Sodium 100 mcg DAILY IV 12/16/24 10:00 Cancel laboratory and microbiology Laboratory Tests 12/15/24 06:15 12/12/24 18:52 Test 12/12/24 18:52 Range/Units Serum Glucose 80 74-106 mg/dL Assessment/Plan Patient is a 74-year-old female who presented with 1 week of poor appetite and forgetfulness. She was admitted with failure to thrive. Since admission, patient was found to have sepsis and positive blood culture. She was also found to have atrial fibrillation with RVR. Her troponin was found to be increasing mildly. Cardiology was involved for cardiac aspects of care. She denies chest pain. She denies shortness of breath. She denies palpitation. Patient is known to our practice from outside and before. It is of note that the patient drinks alcohol/whiskey every day and as per home care (at bedside) she actually drinks a lot daily. She has been bed-bound for few years. As outpatient, the patient is on Bumex. 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 She does have morbid obesity with poor functional capacity. She has had multiple surgeries in the bilateral feet. She also has history of COPD/asthma with chronic respiratory failure (on home oxygen). She also has history of atrial fibrillation for which is on Eliquis as outpatient. Morbidly obese. Not in acute distress. No JVD. Mucosa is dry. Mucosa is pink. No JVD. No carotid bruit. Not using accessory muscles of breathing. Scattered rhonchi in the lungs is heard. Cardiac: Irregular, no thrill. Abdomen is obese and soft. There is no gross hepatomegaly, but it is presence can not be ruled out (body habitus, morbidly obese). There is 3+ edema in bilateral lower extremities which extends to abdominal wall. Past medical history includes morbid obesity, atrial fibrillation (on Eliquis as outpatient), COPD/asthma with chronic respiratory failure on home oxygen, morbid obesity, hypertension, hyperlipidemia, chronic lymphedema, Diastolic heart failure with type 2 pulmonary hypertension, rheumatoid arthritis, osteoarthritis, peripheral vascular disease, CKD (stage IV), anemia, alcohol abuse, neuropathy, gout, old history of right and left foot fracture and their management, status post right knee replacement, status post , bed-bound at baseline and functional quadriplegia. Patient drinks whiskey daily. Goes to Nephrology regularly. Reportedly, there has been some concern about going to have fistula creation on preparation for dialysis? Echocardiogram of October 24 2023 (performed in [facility]) revealed ejection fraction of 60%, mild biatrial enlargement, mild MR/TR and right ventricular systolic pressure of 31 mm Hg. Echocardiogram of (performed in [facility]) revealed: EF of 50 to 55%, Dilated right ventricle with normal systolic function. Severe biatrial enlargement. Mild AI, mild to moderate MR, moderate TR and RVSP of 51 mmHg. Ascending Aorta was 3.7 cm. Echocardiogram of August 30, 2024 revealed ejection fraction of 72%, mild right ventricular enlargement, moderate biatrial enlargement, mild to moderate tricuspid regurgitation, mild mitral regurgitation, right ventricular systolic pressure 54 mm Hg WBC: 15.8 - 11.2 - 11.1 Hemoglobin: 10.4 - 8.6 - 8.6 D-dimer: < 0.19 Sodium: 132 Potassium: 5.2 Creatinine: 1.78 - 2.10 - 3.78 - 3.74 BNP: 210.53 Troponin (high sensitive): 295 - 462 - 625 TSH: 12.34 Admitting blood culture is growing Gram-positive cocci Chest x-ray revealed: IMPRESSION: 1. No acute cardiopulmonary disease. EKG revealed atrial flutter with variable block/AFib with RVR Tele reveals atrial fibrillation with RVR , later moderate ventricular response The patient is a 74-year-old female with poor functional capacity and morbid obesity who presented with poor appetite/forgetfulness. She is found to have positive blood culture with leukocytosis. Presentation is in favor of septic shock/sepsis. He was found to have increasing troponin. Does have baseline history of diastolic heart failure and pulmonary hypertension. ACS is not likely. Increased troponin is assessed to reflect demand physiology at this point. It is of note that the patient does drink alcohol/whiskey a lot. Component of acute on chronic diastolic heart failure could have contributed to the clinical picture and abnormal troponin. Sepsis Septic shock? Acute on chronic diastolic heart failure Pulmonary Hypertension, type 2 Abnormal troponin Demand physiology VIJAYA on CKD Alcohol abuse Morbid obesity Poor functional capacity Bed-bound at baseline Hypertension, history of Hypotension on presentation Atrial fibrillation with RVR Atrial flutter with variable block Hyperlipidemia Osteoarthritis Rheumatoid arthritis Peripheral vascular disease Cardiac suggestion for management: Manage in telemetry Fluid management (IV diuresis) Follow-up electrolytes and kidney function tests and correct abnormalities Full anticoagulation (on Eliquis presently), long-term Awaiting requested Echocardiogram Evaluation and management of sepsis/infection as per primary team Consider Nephrology evaluation (pending) Evaluation and management of alcohol abuse/prevention of withdrawal as per primary team Further evaluation and management depends on the above and clinical course A total of 55 minutes was spent reviewing the patient record, examining the patient, making a diagnostic and therapeutic plan, discussing this plan with medical personnel, following up on diagnostic studies and following the patient for clinical stability excluding any and all procedures. At least 50% of this time was spent in direct, [id number] contact. Thank you for allowing me to participate in this patient's care. Further recommendations will depend on patient's clinical course. Please do not hesitate to contact me if you have any questions or concerns. This medical document was created using electronic medical record system with [employer] computerized dictation system. Although this document has been carefully reviewed, there may still be some phonetic and typographical errors. These areas are purely typographical due to the imperfection of the software programs, and do not reflect any compromise in the patient's medical care. Plan discussed with: Patient (Patient and primary rn ) SUZANNE MERRITTP Dec 16, 2024 05:56
[2024-12-16 06:29] LABS: Basophils # (auto) 0 10 ^3/uL (0-0.2); Basophils % (auto) 0.4 % (0.0-2.0); Eosinophils # (auto) 0 10 ^3/uL (0-0.8); Hematocrit 26.5 % (36.0-46.0); Hemoglobin 8.6 g/dL (12.2-16.2); Lymphocytes # (auto) 1.7 10 ^3/uL (0.4-5.4); Mean Corpuscular Hemoglobin 27.8 pg (28.0-32.0); Mean Corpuscular Hgb Conc. 32.4 g/dL (32.0-36.0); Mean Corpuscular Volume 85.9 fL (80.0-100.0); Monocytes # (auto) 0.8 10 ^3/uL (0-1.3); Monocytes % (auto) 7.2 % (0.0-12.0); Neutrophils # (auto) 8.6 10 ^3/uL (1.6-8.6); Neutrophils % (auto) 77.4 % (37.0-80.0); Platelet Count (auto) 307 10^3/uL (140-450); Red Blood Cells 3.08 10^6/uL (4.0-5.20); Red Cell Distribution Width 15.3 % (11.8-14.3); White Blood Cell 11.1 10^3/uL (4.4-10.8)
[2024-12-16] MEDS ORDERED: LEVOTHYROXINE SODIUM 100 MCG/5 ML INJ IV SCH (10:00)
[2024-12-16] MEDS: LEVOTHYROXINE SODIUM 100 MCG/5 ML INJ IV SCH (10:12)
[2024-12-16] MEDS: ALBUMIN 25% 100 ML IV ONE (10:23)
--- NOTE | 2024-12-16 12:12 | DVHPN2 ---
Reviewed: Care Plan, H&P, Labs, Medications, Previous Orders, Radiology Changes from previous H/P or p: No Changes Objective Vitals Vital Signs Date Time Temp Pulse Resp B/P (MAP) Pulse Ox O2 Delivery O2 Flow Rate FiO2 12/16/24 10:00 79/48 12/16/24 10:00 68 12/16/24 08:41 98.0 18 100 98.0 12/16/24 08:00 Nasal Cannula* 3 32 Intake/Output Intake and Output 12/16/24 07:00 Intake Total 1550 ml Output Total 1100 ml Balance 450 ml Intake Oral 1550 ml Output Urine Total 1100 ml Medications Current Medications Medications Dose Ordered Sig/Nomi Route Start Time Stop Time Status Last Admin Dose Admin Nitroglycerin 0.4 mg Q5MINP PRN SL 12/12/24 20:15 Morphine Sulfate 2 mg Q30M PRN IV 12/12/24 20:15 Aspirin 162 mg DAILY PO 12/13/24 10:00 12/16/24 10:14 162 MG Apixaban 2.5 mg BID PO 12/13/24 10:00 12/16/24 10:14 2.5 MG Gabapentin 300 mg BID PO 12/13/24 10:00 12/16/24 10:23 300 MG Metoprolol Succinate 25 mg DAILY PO 12/13/24 10:00 12/13/24 09:45 25 MG Furosemide 40 mg DAILY PO 12/13/24 10:00 12/13/24 09:44 40 MG Ondansetron HCl 4 mg Q4HP PRN IV 12/13/24 00:30 12/15/24 21:14 4 MG Acetaminophen 650 mg Q6HP PRN PO 12/13/24 00:30 12/16/24 05:02 650 MG Atorvastatin Calcium 20 mg HS PO 12/13/24 22:00 12/15/24 21:13 20 MG Vancomycin HCl 0 ml @ 0 mls/hr UD IV 12/13/24 13:45 Amiodarone HCl 200 mg Q12HR PO 12/14/24 10:00 12/16/24 10:19 200 MG Levothyroxine Sodium 100 mcg DAILY IV 12/16/24 10:00 12/16/24 10:12 100 MCG Levothyroxine Sodium 112 mcg QAM@0600 PO 12/16/24 06:00 12/16/24 05:22 112 MCG Levothyroxine Sodium 25 mcg QAM@0600 PO 12/16/24 06:00 12/16/24 05:22 25 MCG Levothyroxine Sodium 100 mcg DAILY IV 12/16/24 10:00 Cancel Laboratory Results Laboratory Tests 12/12/24 18:52 12/16/24 05:17 Urinalysis Test 12/12/24 21:25 Urine Color Yellow (Yellow) Urine Clarity Turbid (Clear) H Urine pH 5.5 (5.0-9.0) Urine Specific [place] 1.014 (1.001-1.035) Urine Protein Trace (Negative) H Urine Ketones Trace (Negative) Urine Blood 2+ /uL (Negative) H Urine Nitrite Negative (Negative) Urine Bilirubin Negative (Negative) Urine Urobilinogen Normal mg/dL (Negative) Urine Leukocyte Esterase Trace /uL (Negative) Urine RBC 2 /hpf (0 - 4) Urine Microscopic WBC 5 /HPF (0-5) Urine Squamous Epithelial Cells Few /hpf (<5) Urine Bacteria Few /hpf (None Seen) H Urine Glucose Normal mg/dL (Normal) Microbiology Microbiology Date/Time Source Procedure Growth Status 12/12/24 18:52 Blood Blood Culture - Final Staphylococcus haemolyticus Complete Labs and/or images reviewed: Labs reviewed by me, Image(s) reviewed by me Assessment/Plan Assessment/Plan Septic shock secondary to bacteremia Bacteremia with Staph hemolyticus, DC vancomycin start Zyvox 600 mg IV q.12 hours AFib with RVR consult by Dr. Sharma appreciated Eliquis, metoprolol Failure to thrive Elevated troponin rule out ACS : Cardiology following Morbid obesity CHF exacerbation Lasix Hypertension CKD [address] Motley Time spent 50 minutes Daughter and caregiver Kayla [phone] at bedside Plan discussed with: Patient My Orders Orders - ROLF VILLANUEVA MD Procedure Category Date Status Time Levothyroxine Tablet PHA 12/16/24 In Process (Synthroid Tablet) 06:00 *Dr. Motley [facility] -[facility] CONS 12/16/24 Verified Ne 12:02 Date of Service: Dec 16, 2024 Billing Provider: ROLF VILLANUEVA MD Common Visit Codes: [id number] INP/OBS CARE(HIGH) ROLF VILLANUEVA MD Dec 16, 2024 12:12
--- NOTE | 2024-12-16 17:26 | DVHINCON2 ---
Date of service: Dec 16, [address] Gustavo Wright Reason for Consultation Elevated creatinine History of Present Illness This is a 74-year-old female with history of morbid obesity, atrial fibrillation, COPD with home oxygen, hypertension, hyperlipidemia, chronic lymphedema, diastolic heart failure, pulmonary hypertension, peripheral vascular disease, chronic kidney disease, alcohol abuse, functional quadriplegia and bed- bound at baseline brought into the emergency room because of generalized weakness. In the emergency room patient noted to be in AFib with RVR. Troponins were increasing and hence Cardiology was consulted. During the hospital course patient also noted to be septic. On IV antibiotics Nephrology consulted for rising creatinine. Patient is on Bumex at home. Here in the hospital she has been on Lasix 40 mg daily. Past Medical History As stated above Past Surgical History She has had multiple surgeries to her feet Family History: Cerebrovascular accident (CVA) G8 MOTHER Family History History of CVA in mother Social History Patient is a heavy alcohol user. She drinks heavily every day. Allergies: Coded Allergies: Sulfa Antibiotics (Verified Allergy, Mild, 08/29/24) Zinc Oxide (Verified Allergy, Mild, 08/29/24) Home Meds Active Scripts Midodrine HCl (Midodrine HCl) 10 Mg Tab, 10 MG GT TID, #90 TAB 0 Refills Prov:PANKAJ CARRION MD 09/09/24 Reported Medications Gabapentin (Gabapentin) 300 Mg Cap, 300 MG PO BID 08/29/24 Pantoprazole Sodium Sesquihydr (Pantoprazole Sodium) 40 Mg Tab, 1 TAB PO DAILY 08/29/24 Atorvastatin Calcium (ATORVASTATIN CALCIUM) 20 Mg Tab, 1 TAB PO DAILY 08/29/24 Bumetanide (Bumetanide) 2 Mg Tab, 1 TAB PO BID 08/29/24 Apixaban Base (ELIQUIS) 2.5 Mg Tab, 1 TAB PO BID 08/29/24 Allopurinol (Allopurinol) 100 Mg Tab, 1 TAB PO DAILY 08/29/24 Current Medications Current Medications Medications (Trade) Dose Ordered Sig/Nomi Route PRN Reason Start Time Stop Time Status Last Admin Levothyroxine Sodium (Synthroid Injection) 100 mcg DAILY IV 12/16/24 10:00 12/16/24 10:12 Levothyroxine Sodium (Synthroid Tablet) 112 mcg QAM@0600 PO 12/16/24 06:00 12/16/24 05:22 Levothyroxine Sodium (Synthroid Tablet) 25 mcg QAM@0600 PO 12/16/24 06:00 12/16/24 05:22 Levothyroxine Sodium (Synthroid Injection) 100 mcg DAILY IV 12/16/24 10:00 Cancel Linezolid 300 ml @ 150 mls/hr Q12HR IV 12/16/24 22:00 UNV Review of Systems Twelve point review of system negative except as stated in the HPI Vital Signs Vital Signs Date Time Temp Pulse Resp B/P (MAP) Pulse Ox O2 Delivery O2 Flow Rate FiO2 12/16/24 17:00 97.7 70 18 96/39 (58) 100 97.7 12/16/24 08:00 Nasal Cannula* 3 32 Physical Exam Awake and alert. In no acute distress. Morbidly obese HEENT: Normocephalic, no JVD Lungs: Bilateral good air entry CVS: S1, S2 regular rate rhythm Abdomen: Soft, bowel sounds present [employer]: No focal deficits Extremities: No edema Labs/Diagnostic Data Labs Test 12/16/24 05:17 12/13/24 14:00 12/13/24 10:48 12/13/24 01:00 Range/Units White Blood Count 11.1 H 4.4-10.8 10^3/uL Red Blood Count 3.08 L 4.0-5.20 10^6/uL Hemoglobin 8.6 L 12.2-16.2 g/dL Hematocrit 26.5 L 36.0-46.0 % Mean Corpuscular Volume 85.9 80.0-100.0 fL Mean Corpuscular Hemoglobin 27.8 L 28.0-32.0 pg Mean Corpuscular Hemoglobin Concent 32.4 32.0-36.0 g/dL Red Cell Distribution Width 15.3 H 11.8-14.3 % Platelet Count 307 140-450 10^3/uL Mean Platelet Volume 7.0 6.9-10.8 fL Neutrophils (%) (Auto) 77.4 37.0-80.0 % Lymphocytes (%) (Auto) 15.0 10.0-50.0 % Monocytes (%) (Auto) 7.2 0.0-12.0 % Eosinophils (%) (Auto) 0.0 0.0-7.0 % Basophils (%) (Auto) 0.4 0.0-2.0 % Neutrophils # (Auto) 8.6 1.6-8.6 10 ^3/uL Lymphocytes # (Auto) 1.7 0.4-5.4 10 ^3/uL Monocytes # (Auto) 0.8 0-1.3 10 ^3/uL Eosinophils # (Auto) 0 0-0.8 10 ^3/uL Basophils # (Auto) 0 0-0.2 10 ^3/uL Nucleated Red Blood Cells 0.0 % Creatinine 3.74 H 0.550-1.02 mg/dL Glomerular Filtration Rate Calc 12 >90 mL/min Random Vancomycin Level 15.2 H 5-10 ug/mL Influenza Type A Antigen Negative Negative Influenza Type B Antigen Negative Negative SARS-CoV-2 Antigen (Rapid) Negative NEGATIVE D-Dimer, Quantitative < 0.19 0.0-0.49 mg/L FEU Thyroid Stimulating Hormone (TSH) 12.34 H 0.55-4.78 uIU/mL Ammonia 11 11-32 umol/L Test 12/12/24 21:50 12/12/24 21:25 12/12/24 18:52 Range/Units Prothrombin Time 11.8 9.3-11.8 sec Prothrombin Time INR 1.13 0.9-1.15 Activated Partial Thromboplast Time 34.7 H 24.5-34.5 SEC Troponin I High Sensitivity 625 *H </=34 ng/L Urine Color Yellow Yellow Urine Clarity Turbid H Clear Urine pH 5.5 5.0-9.0 Urine Specific [place] 1.014 1.001-1.035 Urine Protein Trace H Negative Urine Ketones Trace Negative Urine Blood 2+ H Negative /uL Urine Nitrite Negative Negative Urine Bilirubin Negative Negative Urine Urobilinogen Normal Negative mg/dL Urine Leukocyte Esterase Trace Negative /uL Urine RBC 2 0 - 4 /hpf Urine Microscopic WBC 5 0-5 /HPF Urine Squamous Epithelial Cells Few <5 /hpf Urine Bacteria Few H None Seen /hpf Urine Glucose Normal Normal mg/dL Sodium Level 132 L 136-145 mmol/L Potassium Level 5.2 H 3.5-5.1 mmol/L Chloride Level 94 L 98-107 mmol/L Carbon Dioxide Level 26 20-31 mmol/L Anion Gap 12 5-15 Blood Urea Nitrogen 59 H 9-23 mg/dL BUN/Creatinine Ratio 33.1 H 10.0-20.0 Serum Glucose 80 74-106 mg/dL Lactic Acid Level 0.7 0.4-2.0 mmol/L Calcium Level 9.7 8.7-10.4 mg/dL Magnesium Level 2.0 1.6-2.6 mg/dL Total Bilirubin 1.3 H 0.2-1.0 mg/dL Aspartate Amino Transferase (AST) 15 13-40 U/L Alanine Aminotransferase (ALT) 10 7-40 U/L Alkaline Phosphatase 132 H 46-116 U/L B-Type Natriuretic Peptide 210.53 0-100 pg/mL Total Protein 6.6 5.7-8.2 g/dL Albumin 3.8 3.2-4.8 g/dL Microbiology Date/Time Source Procedure Growth Status 12/12/24 18:52 Blood Blood Culture - Final Staphylococcus haemolyticus Complete Assessment Acute kidney injury superimposed on Chronic kidney disease stage IV Bacteremia with Staph hemolyticus AFib with RVR Diastolic heart failure Pulmonary hypertension Morbid obesity Anemia in Chronic kidney disease History of alcohol abuse Plan/Recommendation VIJAYA hemodynamically mediated due to hypotension/RVR and ongoing sepsis. Recommend to discontinue Lasix and metoprolol for now. Continue IV Zyvox. Continue rate control with amiodarone. Labs in a.m.. We will start the patient on isotonic saline at 60 mL/hr. Close monitoring of respiratory status. Strict I's and O's. Plan discussed with: Patient ALKA MARQUEZ MD Dec 16, 2024 17:26
[2024-12-16] MEDS: SODIUM CHLORIDE 0.9% 1,000 ML IV SCH (19:00)
[2024-12-16] MEDS: LINEZOLID 600MG/300ML 300 ML IV SCH (21:58)
[2024-12-17] VITALS (8 sets, daily range): BP systolic 87–146; BP diastolic 49–104; PULSE 62–80; RESP 15–20; TEMP 97.4–98.1; O2SAT 95–100
[2024-12-17 07:20] LABS: Basophils # (auto) 0 10 ^3/uL (0-0.2); Basophils % (auto) 0.4 % (0.0-2.0); Eosinophils # (auto) 0 10 ^3/uL (0-0.8); Eosinophils % (auto) 0.1 % (0.0-7.0); Hematocrit 26.6 % (36.0-46.0); Hemoglobin 8.7 g/dL (12.2-16.2); Lymphocytes # (auto) 1.1 10 ^3/uL (0.4-5.4); Lymphocytes % (auto) 11.3 % (10.0-50.0); Mean Corpuscular Hemoglobin 27.9 pg (28.0-32.0); Mean Corpuscular Hgb Conc. 32.6 g/dL (32.0-36.0); Mean Corpuscular Volume 85.7 fL (80.0-100.0); Monocytes # (auto) 0.6 10 ^3/uL (0-1.3); Monocytes % (auto) 6.3 % (0.0-12.0); Neutrophils # (auto) 8.2 10 ^3/uL (1.6-8.6); Neutrophils % (auto) 81.9 % (37.0-80.0); Platelet Count (auto) 300 10^3/uL (140-450); Red Blood Cells 3.11 10^6/uL (4.0-5.20); Red Cell Distribution Width 15.3 % (11.8-14.3)
[2024-12-17 07:28] LABS: Anion Gap 6 (5-15); Carbon Dioxide 29 mmol/L (20-31); Potassium 4.2 mmol/L (3.5-5.1)
[2024-12-17 07:29] LABS: Calcium 9.6 mg/dL (8.7-10.4); Chloride 89 mmol/L (98-107); Sodium 124 mmol/L (136-145)
[2024-12-17 07:34] LABS: BUN/Creatinine Ratio 24.6 (10.0-20.0); Blood Urea Nitrogen 79 mg/dL (9-23); Glucose 89 mg/dL (74-106)
--- NOTE | 2024-12-17 08:29 | DVHSR ---
APPROVED REPORT EXAM: Two-dimensional and M-mode echocardiogram with Doppler and color Doppler. Blood Pressure: 95/51 mmHg INDICATION a fib RISK FACTORS Obesity: Height: 5'4, Weight: 273 DIMENSIONS LVDd5.0 (3.8-5.7cm)LA (2D)5.1 (1.9-4.0cm)Aortic Root3.5 (2.0-3.7cm) LVDs3.7 (2.5-4.0cm)LA (MM) (1.9-4.0cm)Aortic Cusp Exc1.7 (1.5-2.0cm) EF (%) 57.0 (55-70%)Rt. Atrium4.4 (1.9-4.0cm)Asc. Aorta3.4 cm IVSd0.9 (0.7-1.1cm)RV (D)4.7 (1.8-2.4cm) PWd0.8 (0.7-1.1cm) Mitral Valve MitralMitral Stenosis E wave1.09m/sMV Mean GR.3mmHg A wavem/sMV Peak GR.69mmHg E/A ratio0.02D MVAcm2 DECEL [id number] 1/2 Timems Aortic Valve Aortic ValveAortic Stenosis V11.18m/Jada Mean GR.8mmHg V21.75m/Jada Peak GR.13mmHg LVOT Diameter2.2 (1.8-2.4cm)Doppler AVA2.56cm2 Pulmonic Valve V21.02m/s Tricuspid Valve TR Velocity2.71m/s [id number] Other Information Quality : Technically LimitedRhythm : Technically limited study due to body habitus.patient position. Conclusion Left Ventricle: LVEF of 50% was seen. Mild concentric left ventricular hypertrophy was seen Right ventricle is dilated with preserved systolic function. Both Atria are dilated. Aortic valve was not well visualized. Mild AI was seen. There was no stenosis Mild to moderate MR and TR were seen. Pulmonary valve was not well visualized. IVC was signficantly dilated. RVSP was assessed at 55 mmHg.
--- NOTE | 2024-12-17 09:33 | DVHPN2 ---
Progress Note - Dictate Date Seen: Dec 17, 2024 Medical Necessity Reason Pt with a Central, PICC or Fol: Yes vital signs Vital Sign Date Time Temp Pulse Resp B/P (MAP) Pulse Ox O2 Delivery O2 Flow Rate FiO2 12/17/24 09:00 98.1 75 18 97/51 (66) 95 98.1 12/16/24 20:00 Nasal Cannula* 3 32 Total Intake and Output 12/16/24 12/16/24 12/17/24 15:00 23:00 07:00 Intake Total 100 ml 605 ml 1840 ml Output Total 400 ml 850 ml Balance 100 ml 205 ml 990 ml medications Current Medications Medications Dose Ordered Sig/Nomi Route Start Time Stop Time Status Last Admin Dose Admin Nitroglycerin 0.4 mg Q5MINP PRN SL 12/12/24 20:15 Morphine Sulfate 2 mg Q30M PRN IV 12/12/24 20:15 Apixaban 2.5 mg BID PO 12/13/24 10:00 12/16/24 21:58 2.5 MG Gabapentin 300 mg BID PO 12/13/24 10:00 12/16/24 21:58 300 MG Ondansetron HCl 4 mg Q4HP PRN IV 12/13/24 00:30 12/15/24 21:14 4 MG Acetaminophen 650 mg Q6HP PRN PO 12/13/24 00:30 12/16/24 05:02 650 MG Atorvastatin Calcium 20 mg HS PO 12/13/24 22:00 12/16/24 21:58 20 MG Amiodarone HCl 200 mg Q12HR PO 12/14/24 10:00 12/16/24 21:58 200 MG Levothyroxine Sodium 100 mcg DAILY IV 12/16/24 10:00 12/16/24 10:12 100 MCG Levothyroxine Sodium 112 mcg QAM@0600 PO 12/16/24 06:00 12/17/24 05:20 112 MCG Levothyroxine Sodium 25 mcg QAM@0600 PO 12/16/24 06:00 12/17/24 05:20 25 MCG Levothyroxine Sodium 100 mcg DAILY IV 12/16/24 10:00 Cancel Linezolid 300 ml @ 150 mls/hr Q12HR IV 12/16/24 22:00 12/16/24 21:58 150 MLS/HR Sodium Chloride 1,000 ml @ 60 mls/hr [id number] IV 12/16/24 17:30 12/16/24 19:00 60 MLS/HR laboratory and microbiology Laboratory Tests 12/17/24 06:51 Test 12/17/24 06:51 Range/Units Serum Glucose 89 74-106 mg/dL Assessment/Plan Patient is a 74-year-old female who presented with 1 week of poor appetite and forgetfulness. She was admitted with failure to thrive. Since admission, patient was found to have sepsis and positive blood culture. She was also found to have atrial fibrillation with RVR. Her troponin was found to be increasing mildly. Cardiology was involved for cardiac aspects of care. She denies chest pain. She denies shortness of breath. She denies palpitation. Patient is known to our practice from outside and before. It is of note that the patient drinks alcohol/whiskey every day and as per home care (at bedside) she actually drinks a lot daily. She has been bed-bound for few years. As outpatient, the patient is on Bumex. 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 She does have morbid obesity with poor functional capacity. She has had multiple surgeries in the bilateral feet. She also has history of COPD/asthma with chronic respiratory failure (on home oxygen). She also has history of atrial fibrillation for which is on Eliquis as outpatient. Morbidly obese. Not in acute distress. No JVD. Mucosa is dry. Mucosa is pink. No JVD. No carotid bruit. Not using accessory muscles of breathing. Scattered rhonchi in the lungs is heard. Cardiac: Irregular, no thrill. Abdomen is obese and soft. There is no gross hepatomegaly, but it is presence can not be ruled out (body habitus, morbidly obese). There is 3+ edema in bilateral lower extremities which extends to abdominal wall. Past medical history includes morbid obesity, atrial fibrillation (on Eliquis as outpatient), COPD/asthma with chronic respiratory failure on home oxygen, morbid obesity, hypertension, hyperlipidemia, chronic lymphedema, Diastolic heart failure with type 2 pulmonary hypertension, rheumatoid arthritis, osteoarthritis, peripheral vascular disease, CKD (stage IV), anemia, alcohol abuse, neuropathy, gout, old history of right and left foot fracture and their management, status post right knee replacement, status post , bed-bound at baseline and functional quadriplegia. Patient drinks whiskey daily. Goes to Nephrology regularly. Reportedly, there has been some concern about going to have fistula creation on preparation for dialysis? Echocardiogram of October 24 2023 (performed in [facility]) revealed ejection fraction of 60%, mild biatrial enlargement, mild MR/TR and right ventricular systolic pressure of 31 mm Hg. Echocardiogram of (performed in [facility]) revealed: EF of 50 to 55%, Dilated right ventricle with normal systolic function. Severe biatrial enlargement. Mild AI, mild to moderate MR, moderate TR and RVSP of 51 mmHg. Ascending Aorta was 3.7 cm. Echocardiogram of August 30, 2024 revealed ejection fraction of 72%, mild right ventricular enlargement, moderate biatrial enlargement, mild to moderate tricuspid regurgitation, mild mitral regurgitation, right ventricular systolic pressure 54 mm Hg D-dimer: < 0.19 Potassium: 5.2 - 4.2 Creatinine: 1.78 - 2.10 - 3.33 - 3.78 - 3.74 - 3.21 BNP: 210.53 Troponin (high sensitive): 295 - 462 - 625 TSH: 12.34 Admitting blood culture is growing Gram-positive cocci Chest x-ray revealed: IMPRESSION: 1. No acute cardiopulmonary disease. EKG revealed atrial flutter with variable block/AFib with RVR Tele reveals atrial fibrillation with RVR , later moderate ventricular response Echo revealed: Left Ventricle: LVEF of 50% was seen. Mild concentric left ventricular hypertrophy was seen. Right ventricle is dilated with preserved systolic function. Both Atria are dilated. Aortic valve was not well visualized. Mild AI was seen. There was no stenosis. Mild to moderate MR and TR were seen. Pulmonary valve was not well visualized. IVC was signficantly dilated. RVSP was assessed at 55 mmHg. The patient is a 74-year-old female with poor functional capacity and morbid obesity who presented with poor appetite/forgetfulness. She is found to have positive blood culture with leukocytosis. Presentation is in favor of septic shock/sepsis. He was found to have increasing troponin. Does have baseline history of diastolic heart failure and pulmonary hypertension. ACS is not likely. Increased troponin is assessed to reflect demand physiology at this point. It is of note that the patient does drink alcohol/whiskey a lot. Component of acute on chronic diastolic heart failure could have contributed to the clinical picture and abnormal troponin. Sepsis Septic shock? Acute on chronic diastolic heart failure Pulmonary Hypertension, type 2 Abnormal troponin Demand physiology VIJAYA on CKD Alcohol abuse Morbid obesity Poor functional capacity Bed-bound at baseline Hypertension, history of Hypotension on presentation Atrial fibrillation with RVR Atrial flutter with variable block Hyperlipidemia Osteoarthritis Rheumatoid arthritis Peripheral vascular disease Cardiac suggestion for management: Manage in telemetry Follow-up electrolytes and kidney function tests and correct abnormalities Full anticoagulation (on Eliquis presently), long-term Evaluation and management of sepsis/infection as per primary team Consider Nephrology evaluation Evaluation and management of alcohol abuse/prevention of withdrawal as per primary team Further evaluation and management depends on the above and clinical course A total of 55 minutes was spent reviewing the patient record, examining the patient, making a diagnostic and therapeutic plan, discussing this plan with medical personnel, following up on diagnostic studies and following the patient for clinical stability excluding any and all procedures. At least 50% of this time was spent in direct, [id number] contact. Thank you for allowing me to participate in this patient's care. Further recommendations will depend on patient's clinical course. Please do not hesitate to contact me if you have any questions or concerns. This medical document was created using electronic medical record system with [employer] computerized dictation system. Although this document has been carefully reviewed, there may still be some phonetic and typographical errors. These areas are purely typographical due to the imperfection of the software programs, and do not reflect any compromise in the patient's medical care. Plan discussed with: Patient, Other (nurse) ROSS BRAY MD Dec 17, 2024 09:33
--- NOTE | 2024-12-17 12:55 | DVHPN2 ---
Reviewed: Care Plan, H&P, Labs, Medications, Previous Orders, Radiology Changes from previous H/P or p: No Changes Objective Vitals Vital Signs Date Time Temp Pulse Resp B/P (MAP) Pulse Ox O2 Delivery O2 Flow Rate FiO2 12/17/24 09:00 98.1 75 18 97/51 (66) 95 98.1 12/17/24 08:00 Nasal Cannula* 3 32 Intake/Output Intake and Output 12/17/24 07:00 Intake Total 2545 ml Output Total 1250 ml Balance 1295 ml Intake Oral 1705 ml IV Total 840 ml Output Urine Total 1250 ml # Bowel Movements 1 Medications Current Medications Medications Dose Ordered Sig/Nomi Route Start Time Stop Time Status Last Admin Dose Admin Nitroglycerin 0.4 mg Q5MINP PRN SL 12/12/24 20:15 Morphine Sulfate 2 mg Q30M PRN IV 12/12/24 20:15 Apixaban 2.5 mg BID PO 12/13/24 10:00 12/17/24 09:24 2.5 MG Gabapentin 300 mg BID PO 12/13/24 10:00 12/17/24 09:24 300 MG Ondansetron HCl 4 mg Q4HP PRN IV 12/13/24 00:30 12/15/24 21:14 4 MG Acetaminophen 650 mg Q6HP PRN PO 12/13/24 00:30 12/16/24 05:02 650 MG Atorvastatin Calcium 20 mg HS PO 12/13/24 22:00 12/16/24 21:58 20 MG Amiodarone HCl 200 mg Q12HR PO 12/14/24 10:00 12/17/24 09:25 200 MG Levothyroxine Sodium 100 mcg DAILY IV 12/16/24 10:00 12/17/24 09:25 100 MCG Levothyroxine Sodium 112 mcg QAM@0600 PO 12/16/24 06:00 12/17/24 05:20 112 MCG Levothyroxine Sodium 25 mcg QAM@0600 PO 12/16/24 06:00 12/17/24 05:20 25 MCG Levothyroxine Sodium 100 mcg DAILY IV 12/16/24 10:00 Cancel Linezolid 300 ml @ 150 mls/hr Q12HR IV 12/16/24 22:00 12/17/24 09:25 150 MLS/HR Sodium Chloride 1,000 ml @ 60 mls/hr [id number] IV 12/16/24 17:30 12/17/24 09:25 60 MLS/HR Laboratory Results Laboratory Tests 12/17/24 06:51 Chemistry Test 12/17/24 06:51 Calcium Level 9.6 mg/dL (8.7-10.4) Urinalysis Test 12/12/24 21:25 Urine Color Yellow (Yellow) Urine Clarity Turbid (Clear) H Urine pH 5.5 (5.0-9.0) Urine Specific [place] 1.014 (1.001-1.035) Urine Protein Trace (Negative) H Urine Ketones Trace (Negative) Urine Blood 2+ /uL (Negative) H Urine Nitrite Negative (Negative) Urine Bilirubin Negative (Negative) Urine Urobilinogen Normal mg/dL (Negative) Urine Leukocyte Esterase Trace /uL (Negative) Urine RBC 2 /hpf (0 - 4) Urine Microscopic WBC 5 /HPF (0-5) Urine Squamous Epithelial Cells Few /hpf (<5) Urine Bacteria Few /hpf (None Seen) H Urine Glucose Normal mg/dL (Normal) Microbiology Microbiology Date/Time Source Procedure Growth Status 12/12/24 18:52 Blood Blood Culture - Final Staphylococcus haemolyticus Complete Labs and/or images reviewed: Labs reviewed by me, Image(s) reviewed by me Assessment/Plan Assessment/Plan Septic shock secondary to bacteremia Bacteremia with Staph hemolyticus, Zyvox 600 mg IV q.12h for two weeks AFib with RVR consult by Dr. Zachary lo Eliquis, metoprolol Failure to thrive Elevated troponin rule out ACS : Cardiology following Morbid obesity CHF exacerbation Lasix Hypertension CKD [address] Motley Time spent 50 minutes Daughter and caregiver Kayla [phone] at bedside Plan discussed with: Patient Date of Service: Dec 17, 2024 Billing Provider: ROLF VILLANUEVA MD Common Visit Codes: [id number] INP/OBS CARE(HIGH) ROLF VILLANUEVA MD Dec 17, 2024 12:55
--- NOTE | 2024-12-17 13:05 | DVHDS2 ---
Discharge Summary Date of Admission December 12, 2024 at 20:01 Date of Discharge: Dec 17, 2024 Admitting Diagnosis Generalized weakness and shortness of breath Wounds: None Labs/Diagnostic Data: Laboratory Results Test 12/17/24 06:51 12/16/24 05:17 12/13/24 14:00 12/13/24 10:48 White Blood Count 10.0 10^3/uL (4.4-10.8) Red Blood Count 3.11 10^6/uL (4.0-5.20) Hemoglobin 8.7 g/dL (12.2-16.2) Hematocrit 26.6 % (36.0-46.0) Mean Corpuscular Volume 85.7 fL (80.0-100.0) Mean Corpuscular Hemoglobin 27.9 pg (28.0-32.0) Mean Corpuscular Hemoglobin Concent 32.6 g/dL (32.0-36.0) Red Cell Distribution Width 15.3 % (11.8-14.3) Platelet Count 300 10^3/uL (140-450) Mean Platelet Volume 7.0 fL (6.9-10.8) Neutrophils (%) (Auto) 81.9 % (37.0-80.0) Lymphocytes (%) (Auto) 11.3 % (10.0-50.0) Monocytes (%) (Auto) 6.3 % (0.0-12.0) Eosinophils (%) (Auto) 0.1 % (0.0-7.0) Basophils (%) (Auto) 0.4 % (0.0-2.0) Neutrophils # (Auto) 8.2 10 ^3/uL (1.6-8.6) Lymphocytes # (Auto) 1.1 10 ^3/uL (0.4-5.4) Monocytes # (Auto) 0.6 10 ^3/uL (0-1.3) Eosinophils # (Auto) 0 10 ^3/uL (0-0.8) Basophils # (Auto) 0 10 ^3/uL (0-0.2) Nucleated Red Blood Cells 0.0 % Sodium Level 124 mmol/L (136-145) Potassium Level 4.2 mmol/L (3.5-5.1) Chloride Level 89 mmol/L (98-107) Carbon Dioxide Level 29 mmol/L (20-31) Anion Gap 6 (5-15) Blood Urea Nitrogen 79 mg/dL (9-23) Creatinine 3.21 mg/dL (0.550-1.02) Glomerular Filtration Rate Calc 14 mL/min (>90) BUN/Creatinine Ratio 24.6 (10.0-20.0) Serum Glucose 89 mg/dL (74-106) Calcium Level 9.6 mg/dL (8.7-10.4) Random Vancomycin Level 15.2 ug/mL (5-10) Influenza Type A Antigen Negative (Negative) Influenza Type B Antigen Negative (Negative) SARS-CoV-2 Antigen (Rapid) Negative (NEGATIVE) D-Dimer, Quantitative < 0.19 mg/L FEU (0.0-0.49) Thyroid Stimulating Hormone (TSH) 12.34 uIU/mL (0.55-4.78) Test 12/13/24 01:00 12/12/24 21:50 12/12/24 21:25 12/12/24 18:52 Ammonia 11 umol/L (11-32) Prothrombin Time 11.8 sec (9.3-11.8) Prothrombin Time INR 1.13 (0.9-1.15) Activated Partial Thromboplast Time 34.7 SEC (24.5-34.5) Troponin I High Sensitivity 625 ng/L (</=34) Urine Color Yellow (Yellow) Urine Clarity Turbid (Clear) Urine pH 5.5 (5.0-9.0) Urine Specific [place] 1.014 (1.001-1.035) Urine Protein Trace (Negative) Urine Ketones Trace (Negative) Urine Blood 2+ /uL (Negative) Urine Nitrite Negative (Negative) Urine Bilirubin Negative (Negative) Urine Urobilinogen Normal mg/dL (Negative) Urine Leukocyte Esterase Trace /uL (Negative) Urine RBC 2 /hpf (0 - 4) Urine Microscopic WBC 5 /HPF (0-5) Urine Squamous Epithelial Cells Few /hpf (<5) Urine Bacteria Few /hpf (None Seen) Urine Glucose Normal mg/dL (Normal) Lactic Acid Level 0.7 mmol/L (0.4-2.0) Magnesium Level 2.0 mg/dL (1.6-2.6) Total Bilirubin 1.3 mg/dL (0.2-1.0) Aspartate Amino Transferase (AST) 15 U/L (13-40) Alanine Aminotransferase (ALT) 10 U/L (7-40) Alkaline Phosphatase 132 U/L (46-116) B-Type Natriuretic Peptide 210.53 pg/mL (0-100) Total Protein 6.6 g/dL (5.7-8.2) Albumin 3.8 g/dL (3.2-4.8) Other Laboratory Tests 12/17/24 06:51 Brief Hx & Hospital Course: 74-year-old female with a history of CHF hypertension CKD 3 AFib with RVR burden by the family for generalized weakness and shortness of breaths found to be in septic shock secondary to bacteremia with a Staph hemolyticus started on Zyvox 600 mg IV q.12h seen by Cardiology Dr. Sharma she will continue on Eliquis and metoprolol for AFib treated with Lasix for CHF. Daughter Kayla at bedside. Patient is being discharged to SNF for IV antibiotics physical therapy medication management and the plan is acceptable with the patient and the daughter Consults/Reason for consult Cardiology Dr. Sharma Operations or Procedures Echocardiogram Condition at Discharge: Fair Final Diagnosis/Problems List Septic shock secondary to bacteremia Bacteremia with Staph hemolyticus, Zyvox 600 mg IV q.12h for two weeks AFib with RVR consult by Dr. Sharma appreciated Eliquis, metoprolol Failure to thrive Elevated troponin rule out ACS : Cardiology following Morbid obesity CHF exacerbation Lasix Hypertension CKD 3 Discharge Disposition: Residential Facility Discharge Instruct/Medications Diet: Cardiac 2g Na,low cholest Activity: Light activity Follow Up/Referral: Follow up With the assisted Medications: Zyvox 600 mg IV q.12h for 14 days for bacteremia See list for other meds 39 (Time taken for discharge summary 39 minutes) Discharge Statement: "Patient was advised to return to the ER or call 911 if any headaches, dizziness, shortness of breath, chest pain, abdominal pain, bleeding, fevers, or worsening of medical condition. Patient was counseled about treatment plan, medications, possible side effects, patientverbalized understanding. All questions were answered to the best of my ability. This discharge took greater then 30 minutes in planning, reviewing documentation, counseling the patient, and discussing with other team members." ASSESSMENT ASSESSMENT Hospital Course Marginal improvement Assessment Septic shock secondary to bacteremia Bacteremia with Staph hemolyticus, Zyvox 600 mg IV q.12h for two weeks AFib with RVR consult by Dr. Sharma appreciated Eliquis, metoprolol Failure to thrive Elevated troponin rule out ACS : Cardiology following Morbid obesity CHF exacerbation Lasix Hypertension CKD 3 Date of Service: Dec 17, 2024 Billing Provider: ROLF VILLANUEVA MD Common Visit Codes: 29563-LIS/OBS DISCH DAY >30min ROLF VILLANUEVA MD Dec 17, 2024 13:05
--- NOTE | 2024-12-17 17:28 | DVHPN2 ---
Progress Note - Dictate Date Seen: Dec 17, 2024 Has the PT tested + for MRSA If YES, has PT been informed?: No Medical Necessity Reason Pt with a Central, PICC or Fol: No Subjective No clinical changes vital signs Vital Sign Date Time Temp Pulse Resp B/P (MAP) Pulse Ox O2 Delivery O2 Flow Rate FiO2 12/17/24 16:50 98.1 68 20 146/104 (118) 99 98.1 12/17/24 08:00 Nasal Cannula* 3 32 Total Intake and Output 12/16/24 12/16/24 12/17/24 15:00 23:00 07:00 Intake Total 100 ml 605 ml 1840 ml Output Total 400 ml 850 ml Balance 100 ml 205 ml 990 ml medications Current Medications Medications Dose Ordered Sig/Nomi Route Start Time Stop Time Status Last Admin Dose Admin Nitroglycerin 0.4 mg Q5MINP PRN SL 12/12/24 20:15 Morphine Sulfate 2 mg Q30M PRN IV 12/12/24 20:15 Apixaban 2.5 mg BID PO 12/13/24 10:00 12/17/24 09:24 2.5 MG Gabapentin 300 mg BID PO 12/13/24 10:00 12/17/24 09:24 300 MG Ondansetron HCl 4 mg Q4HP PRN IV 12/13/24 00:30 12/15/24 21:14 4 MG Acetaminophen 650 mg Q6HP PRN PO 12/13/24 00:30 12/16/24 05:02 650 MG Atorvastatin Calcium 20 mg HS PO 12/13/24 22:00 12/16/24 21:58 20 MG Amiodarone HCl 200 mg Q12HR PO 12/14/24 10:00 12/17/24 09:25 200 MG Levothyroxine Sodium 100 mcg DAILY IV 12/16/24 10:00 12/17/24 09:25 100 MCG Levothyroxine Sodium 112 mcg QAM@0600 PO 12/16/24 06:00 12/17/24 05:20 112 MCG Levothyroxine Sodium 25 mcg QAM@0600 PO 12/16/24 06:00 12/17/24 05:20 25 MCG Levothyroxine Sodium 100 mcg DAILY IV 12/16/24 10:00 Cancel Linezolid 300 ml @ 150 mls/hr Q12HR IV 12/16/24 22:00 12/17/24 09:25 150 MLS/HR Sodium Chloride 1,000 ml @ 60 mls/hr [id number] IV 12/16/24 17:30 12/17/24 09:25 60 MLS/HR objective Awake and alert. In no acute distress. 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 Labs in a.m.. Plan discussed with: Other CARLOS LEAHY MD Dec 17, 2024 17:28
[2024-12-18 01:00] VITALS: BP 92/52; PULSE 64; RESP 19; TEMP 97.2; O2SAT 100
[2024-12-18 05:00] VITALS: BP 108/49; PULSE 73; RESP 19; TEMP 97.3; O2SAT 99
--- NOTE | 2024-12-18 07:00 | DVHPN2 ---
Progress Note - Dictate Date Seen: Dec 18, 2024 Has the PT tested + for MRSA If YES, has PT been informed?: No Medical Necessity Reason Pt with a Central, PICC or Fol: No vital signs Vital Sign Date Time Temp Pulse Resp B/P (MAP) Pulse Ox O2 Delivery O2 Flow Rate FiO2 12/18/24 05:00 97.3 73 19 108/49 (68) 99 97.3 12/17/24 20:00 Nasal Cannula* 3 32 Total Intake and Output 12/17/24 12/17/24 12/18/24 15:00 23:00 07:00 Intake Total 1000 ml 1000 ml 1953 ml Output Total 650 ml 875 ml Balance 1000 ml 350 ml 1078 ml medications Current Medications Medications Dose Ordered Sig/Nomi Route Start Time Stop Time Status Last Admin Dose Admin Nitroglycerin 0.4 mg Q5MINP PRN SL 12/12/24 20:15 Morphine Sulfate 2 mg Q30M PRN IV 12/12/24 20:15 Apixaban 2.5 mg BID PO 12/13/24 10:00 12/17/24 21:34 2.5 MG Gabapentin 300 mg BID PO 12/13/24 10:00 12/17/24 22:00 300 MG Ondansetron HCl 4 mg Q4HP PRN IV 12/13/24 00:30 12/15/24 21:14 4 MG Acetaminophen 650 mg Q6HP PRN PO 12/13/24 00:30 12/18/24 01:48 650 MG Atorvastatin Calcium 20 mg HS PO 12/13/24 22:00 12/17/24 21:33 20 MG Amiodarone HCl 200 mg Q12HR PO 12/14/24 10:00 12/17/24 21:33 200 MG Levothyroxine Sodium 100 mcg DAILY IV 12/16/24 10:00 12/17/24 09:25 100 MCG Levothyroxine Sodium 112 mcg QAM@0600 PO 12/16/24 06:00 12/18/24 05:25 112 MCG Levothyroxine Sodium 25 mcg QAM@0600 PO 12/16/24 06:00 12/18/24 05:25 25 MCG Levothyroxine Sodium 100 mcg DAILY IV 12/16/24 10:00 Cancel Linezolid 300 ml @ 150 mls/hr Q12HR IV 12/16/24 22:00 12/17/24 21:30 150 MLS/HR Sodium Chloride 1,000 ml @ 60 mls/hr [id number] IV 12/16/24 17:30 12/18/24 02:50 60 MLS/HR laboratory and microbiology Laboratory Tests 12/17/24 06:51 Test 12/17/24 06:51 Range/Units Serum Glucose 89 74-106 mg/dL Assessment/Plan Patient is a 74-year-old female who presented with 1 week of poor appetite and forgetfulness. She was admitted with failure to thrive. Since admission, patient was found to have sepsis and positive blood culture. She was also found to have atrial fibrillation with RVR. Her troponin was found to be increasing mildly. Cardiology was involved for cardiac aspects of care. She denies chest pain. She denies shortness of breath. She denies palpitation. Patient is known to our practice from outside and before. It is of note that the patient drinks alcohol/whiskey every day and as per home care (at bedside) she actually drinks a lot daily. She has been bed-bound for few years. As outpatient, the patient is on Bumex. 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 She does have morbid obesity with poor functional capacity. She has had multiple surgeries in the bilateral feet. She also has history of COPD/asthma with chronic respiratory failure (on home oxygen). She also has history of atrial fibrillation for which is on Eliquis as outpatient. Morbidly obese. Not in acute distress. No JVD. Mucosa is dry. Mucosa is pink. No JVD. No carotid bruit. Not using accessory muscles of breathing. Scattered rhonchi in the lungs is heard. Cardiac: Irregular, no thrill. Abdomen is obese and soft. There is no gross hepatomegaly, but it is presence can not be ruled out (body habitus, morbidly obese). There is 3+ edema in bilateral lower extremities which extends to abdominal wall. Past medical history includes morbid obesity, atrial fibrillation (on Eliquis as outpatient), COPD/asthma with chronic respiratory failure on home oxygen, morbid obesity, hypertension, hyperlipidemia, chronic lymphedema, Diastolic heart failure with type 2 pulmonary hypertension, rheumatoid arthritis, osteoarthritis, peripheral vascular disease, CKD (stage IV), anemia, alcohol abuse, neuropathy, gout, old history of right and left foot fracture and their management, status post right knee replacement, status post , bed-bound at baseline and functional quadriplegia. Patient drinks whiskey daily. Goes to Nephrology regularly. Reportedly, there has been some concern about going to have fistula creation on preparation for dialysis? Echocardiogram of October 24 2023 (performed in [facility]) revealed ejection fraction of 60%, mild biatrial enlargement, mild MR/TR and right ventricular systolic pressure of 31 mm Hg. Echocardiogram of (performed in [facility]) revealed: EF of 50 to 55%, Dilated right ventricle with normal systolic function. Severe biatrial enlargement. Mild AI, mild to moderate MR, moderate TR and RVSP of 51 mmHg. Ascending Aorta was 3.7 cm. Echocardiogram of August 30, 2024 revealed ejection fraction of 72%, mild right ventricular enlargement, moderate biatrial enlargement, mild to moderate tricuspid regurgitation, mild mitral regurgitation, right ventricular systolic pressure 54 mm Hg D-dimer: < 0.19 Potassium: 5.2 - 4.2 Creatinine: 1.78 - 2.10 - 3.33 - 3.78 - 3.74 - 3.21 BNP: 210.53 Troponin (high sensitive): 295 - 462 - 625 TSH: 12.34 Admitting blood culture is growing Gram-positive cocci Chest x-ray revealed: IMPRESSION: 1. No acute cardiopulmonary disease. EKG revealed atrial flutter with variable block/AFib with RVR Tele reveals atrial fibrillation with RVR , later moderate ventricular response Echo revealed: Left Ventricle: LVEF of 50% was seen. Mild concentric left ventricular hypertrophy was seen. Right ventricle is dilated with preserved systolic function. Both Atria are dilated. Aortic valve was not well visualized. Mild AI was seen. There was no stenosis. Mild to moderate MR and TR were seen. Pulmonary valve was not well visualized. IVC was signficantly dilated. RVSP was assessed at 55 mmHg. The patient is a 74-year-old female with poor functional capacity and morbid obesity who presented with poor appetite/forgetfulness. She is found to have positive blood culture with leukocytosis. Presentation is in favor of septic shock/sepsis. He was found to have increasing troponin. Does have baseline history of diastolic heart failure and pulmonary hypertension. ACS is not likely. Increased troponin is assessed to reflect demand physiology at this point. It is of note that the patient does drink alcohol/whiskey a lot. Component of acute on chronic diastolic heart failure could have contributed to the clinical picture and abnormal troponin. Being followed by Nephrology Sepsis Septic shock? Acute on chronic diastolic heart failure Pulmonary Hypertension, type 2 Abnormal troponin Demand physiology VIJAYA on CKD Alcohol abuse Morbid obesity Poor functional capacity Bed-bound at baseline Hypertension, history of Hypotension on presentation Atrial fibrillation with RVR Atrial flutter with variable block Hyperlipidemia Osteoarthritis Rheumatoid arthritis Peripheral vascular disease Cardiac suggestion for management: Manage in telemetry Follow-up electrolytes and kidney function tests and correct abnormalities Full anticoagulation (on Eliquis presently), long-term Evaluation and management of sepsis/infection as per primary team Nephrology following Evaluation and management of alcohol abuse/prevention of withdrawal as per primary team Cardiac sargent, stable Further evaluation and management depends on the above and clinical course A total of 55 minutes was spent reviewing the patient record, examining the patient, making a diagnostic and therapeutic plan, discussing this plan with medical personnel, following up on diagnostic studies and following the patient for clinical stability excluding any and all procedures. At least 50% of this time was spent in direct, [id number] contact. Thank you for allowing me to participate in this patient's care. Further recommendations will depend on patient's clinical course. Please do not hesitate to contact me if you have any questions or concerns. This medical document was created using electronic medical record system with [employer] computerized dictation system. Although this document has been carefully reviewed, there may still be some phonetic and typographical errors. These areas are purely typographical due to the imperfection of the software programs, and do not reflect any compromise in the patient's medical care. Plan discussed with: Patient, Other (nurse) ROSS BRAY MD Dec 18, 2024 06:59
[2024-12-18 08:00] VITALS: PULSE 72; PULSE 81; RESP 17; O2SAT 99
[2024-12-18 08:50] VITALS: BP 95/48; PULSE 81; RESP 17; TEMP 96.7; O2SAT 99
--- NOTE | 2024-12-18 11:46 | DVHPN2 ---
Progress Note - Dictate Date Seen: Dec 18, 2024 Has the PT tested + for MRSA If YES, has PT been informed?: No Medical Necessity Reason Pt with a Central, PICC or Fol: No Subjective No clinical changes vital signs Vital Sign Date Time Temp Pulse Resp B/P (MAP) Pulse Ox O2 Delivery O2 Flow Rate FiO2 12/18/24 08:50 96.7 81 17 95/48 (64) 99 96.7 12/18/24 08:00 Nasal Cannula* 3 32 Total Intake and Output 12/17/24 12/17/24 12/18/24 15:00 23:00 07:00 Intake Total 1000 ml 1000 ml 1953 ml Output Total 650 ml 875 ml Balance 1000 ml 350 ml 1078 ml medications Current Medications Medications Dose Ordered Sig/Nomi Route Start Time Stop Time Status Last Admin Dose Admin Nitroglycerin 0.4 mg Q5MINP PRN SL 12/12/24 20:15 Morphine Sulfate 2 mg Q30M PRN IV 12/12/24 20:15 Apixaban 2.5 mg BID PO 12/13/24 10:00 12/18/24 09:45 2.5 MG Gabapentin 300 mg BID PO 12/13/24 10:00 12/18/24 09:45 300 MG Ondansetron HCl 4 mg Q4HP PRN IV 12/13/24 00:30 12/15/24 21:14 4 MG Acetaminophen 650 mg Q6HP PRN PO 12/13/24 00:30 12/18/24 01:48 650 MG Atorvastatin Calcium 20 mg HS PO 12/13/24 22:00 12/17/24 21:33 20 MG Amiodarone HCl 200 mg Q12HR PO 12/14/24 10:00 12/18/24 09:45 200 MG Levothyroxine Sodium 100 mcg DAILY IV 12/16/24 10:00 12/18/24 09:45 100 MCG Levothyroxine Sodium 112 mcg QAM@0600 PO 12/16/24 06:00 12/18/24 05:25 112 MCG Levothyroxine Sodium 25 mcg QAM@0600 PO 12/16/24 06:00 12/18/24 05:25 25 MCG Levothyroxine Sodium 100 mcg DAILY IV 12/16/24 10:00 Cancel Linezolid 300 ml @ 150 mls/hr Q12HR IV 12/16/24 22:00 12/18/24 09:44 150 MLS/HR Sodium Chloride 1,000 ml @ 60 mls/hr [id number] IV 12/16/24 17:30 12/18/24 02:50 60 MLS/HR objective Awake and alert. In no acute distress. 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 Labs in a.m.. Plan discussed with: Patient CARLOS LEAHY MD Dec 18, 2024 11:46
--- NOTE | 2024-12-18 12:22 | DVHPN2 ---
Reviewed: Care Plan, H&P, Labs, Medications, Previous Orders, Radiology Changes from previous H/P or p: No Changes Objective Vitals Vital Signs Date Time Temp Pulse Resp B/P (MAP) Pulse Ox O2 Delivery O2 Flow Rate FiO2 12/18/24 08:50 96.7 81 17 95/48 (64) 99 96.7 12/18/24 08:00 Nasal Cannula* 3 32 Intake/Output Intake and Output 12/18/24 06:59 Intake Total 3953 ml Output Total 1525 ml Balance 2428 ml Intake Oral 2233 ml IV Total 1720 ml Output Urine Total 1525 ml # Bowel Movements 3 Medications Current Medications Medications Dose Ordered Sig/Nomi Route Start Time Stop Time Status Last Admin Dose Admin Nitroglycerin 0.4 mg Q5MINP PRN SL 12/12/24 20:15 Morphine Sulfate 2 mg Q30M PRN IV 12/12/24 20:15 Apixaban 2.5 mg BID PO 12/13/24 10:00 12/18/24 09:45 2.5 MG Gabapentin 300 mg BID PO 12/13/24 10:00 12/18/24 09:45 300 MG Ondansetron HCl 4 mg Q4HP PRN IV 12/13/24 00:30 12/15/24 21:14 4 MG Acetaminophen 650 mg Q6HP PRN PO 12/13/24 00:30 12/18/24 01:48 650 MG Atorvastatin Calcium 20 mg HS PO 12/13/24 22:00 12/17/24 21:33 20 MG Amiodarone HCl 200 mg Q12HR PO 12/14/24 10:00 12/18/24 09:45 200 MG Levothyroxine Sodium 100 mcg DAILY IV 12/16/24 10:00 12/18/24 09:45 100 MCG Levothyroxine Sodium 112 mcg QAM@0600 PO 12/16/24 06:00 12/18/24 05:25 112 MCG Levothyroxine Sodium 25 mcg QAM@0600 PO 12/16/24 06:00 12/18/24 05:25 25 MCG Levothyroxine Sodium 100 mcg DAILY IV 12/16/24 10:00 Cancel Linezolid 300 ml @ 150 mls/hr Q12HR IV 12/16/24 22:00 12/18/24 09:44 150 MLS/HR Sodium Chloride 1,000 ml @ 60 mls/hr [id number] IV 12/16/24 17:30 12/18/24 02:50 60 MLS/HR Laboratory Results Laboratory Tests 12/17/24 06:51 Urinalysis Test 12/12/24 21:25 Urine Color Yellow (Yellow) Urine Clarity Turbid (Clear) H Urine pH 5.5 (5.0-9.0) Urine Specific [place] 1.014 (1.001-1.035) Urine Protein Trace (Negative) H Urine Ketones Trace (Negative) Urine Blood 2+ /uL (Negative) H Urine Nitrite Negative (Negative) Urine Bilirubin Negative (Negative) Urine Urobilinogen Normal mg/dL (Negative) Urine Leukocyte Esterase Trace /uL (Negative) Urine RBC 2 /hpf (0 - 4) Urine Microscopic WBC 5 /HPF (0-5) Urine Squamous Epithelial Cells Few /hpf (<5) Urine Bacteria Few /hpf (None Seen) H Urine Glucose Normal mg/dL (Normal) Microbiology Microbiology Date/Time Source Procedure Growth Status 12/12/24 18:52 Blood Blood Culture - Final Staphylococcus haemolyticus Complete Labs and/or images reviewed: Labs reviewed by me, Image(s) reviewed by me Assessment/Plan Assessment/Plan Septic shock secondary to bacteremia Bacteremia with Staph hemolyticus, Zyvox 600 mg IV q.12h for two weeks AFib with RVR consult by Dr. Sharma appreciated Eliquis, metoprolol Failure to thrive Elevated troponin rule out ACS : Cardiology Dr Sharma following Morbid obesity CHF exacerbation Lasix Hypertension CKD [address] Motley appreciated Gross obesity BMI of 50 Moderate malnutrition Time spent 70 minutes Daughter and caregiver Kayla [phone] at bedside Plan discussed with: Patient My Orders Orders - ROLF VILLANUEVA MD Procedure Category Date Status Time Discharge DISCHARGE 12/17/24 Transmitted 12:55 Discharge DISCHARGE 12/17/24 Transmitted 12:58 * Fruit Dryer CONS 12/17/24 Transmitted Consult Pt Request For Service PT 12/17/24 Logged 13:09 Insert Midline ORDERS 12/17/24 Transmitted 13:20 * Wound Consult CONS 12/18/24 Transmitted * Dietary Consult CONS 12/18/24 Transmitted 10:45 Date of Service: Dec 18, 2024 Billing Provider: ROLF VILLANUEVA MD Common Visit Codes: [id number]-[id number] CARE 30-74 MIN ROLF VILLANUEVA MD Dec 18, 2024 12:22
[2024-12-18 12:36] VITALS: BP 97/55; PULSE 72; RESP 17; TEMP 96.8; O2SAT 99
[2024-12-18 16:18] VITALS: BP 106/56; PULSE 71; RESP 20; TEMP 96.6; O2SAT 99
== END 2024-12-18 17:55 | DRG 871 ==
LOC: EDBD 18:22 → ER 18:22 → OVERFLOW 20:01 → TELE-WESTW 22:18
PROVIDERS: ADMIT Family Medicine; ATTEND Family Medicine
PROC: 05HC33Z Insertion of Infusion Device into Left Basilic Vein, Percutaneous Approach (ICD-10-PCS; principal; 2024-12-17)
PROC: B54NZZA Ultrasonography of Left Upper Extremity Veins, Guidance (ICD-10-PCS; 2024-12-17)
DX: A41.89 Other specified sepsis (principal); I50.33 Acute on chronic diastolic (congestive) heart failure; R65.21 Severe sepsis with septic shock; R53.2 Functional quadriplegia; I13.0 Hypertensive heart and chronic kidney disease with heart failure and stage 1 through stage 4 chronic kidney disease, or unspecified chronic kidney disease; J96.10 Chronic respiratory failure, unspecified whether with hypoxia or hypercapnia; N18.4 Chronic kidney disease, stage 4 (severe); I48.92 Unspecified atrial flutter; N17.9 Acute kidney failure, unspecified; Z68.43 Body mass index [BMI] 50.0-59.9, adult; E44.0 Moderate protein-calorie malnutrition; I48.91 Unspecified atrial fibrillation; R62.7 Adult failure to thrive; E66.01 Morbid (severe) obesity due to excess calories; F10.10 Alcohol abuse, uncomplicated; Y90.9 Presence of alcohol in blood, level not specified; D63.1 Anemia in chronic kidney disease; M06.9 Rheumatoid arthritis, unspecified; E03.9 Hypothyroidism, unspecified; I27.20 Pulmonary hypertension, unspecified; Z20.822 Contact with and (suspected) exposure to COVID-19; E78.5 Hyperlipidemia, unspecified; I73.9 Peripheral vascular disease, unspecified; Z96.651 Presence of right artificial knee joint; M10.9 Gout, unspecified; G62.9 Polyneuropathy, unspecified; Z91.148 Patient's other noncompliance with medication regimen for other reason; Z74.01 Bed confinement status; Z88.2 Allergy status to sulfonamides; Z88.8 Allergy status to other drugs, medicaments and biological substances; Z79.899 Other long term (current) drug therapy; Z79.01 Long term (current) use of anticoagulants; Z86.73 Personal history of transient ischemic attack (TIA), and cerebral infarction without residual deficits; Z82.3 Family history of stroke; Z99.81 Dependence on supplemental oxygen
CPT/HCPCS: 36415; 71045; 80048; 80053; 80202; 81001; 82140; 82565; 83605; 83735; 83880; 84443; 84484; 85025; 85379; 85610; 85730; 87040; 87077; 87186; 87426; 87804; 93005; 93306; 97110; 97163; 97530; 99291; G0378; J2405; J3490; P9047